=== PATIENT | male | born 1990 | race Caucasian/White ===

== ENCOUNTER 2017-11-07 15:44 | Observation (INO) | payer SELFPAY ==
[2017-11-07] MEDS ORDERED: NA CHLORIDE 0.9% 2,000 ML ONE (15:46)
[2017-11-07] MEDS ORDERED: PROMETHAZINE 25 MG/ML VIAL ONE (15:54)
[2017-11-07 16:16] LABS: Absolute Lymphocytes (CBC) 6.8 K/uL (0.7-4.9); Absolute Neutrophil 21.6 K/uL (1.8-8.0); Eosinophils % 0.4 % (0-4.4); Hematocrit 58.4 % (39.6-49.0); MCH 29.9 pg (27.0-35.0); MCV 87.6 fL (80-100); MPV 8.2 fL (7.6-11.3); Monocytes % 3.3 % (3.3-12.3); RBC Red Blood Cell Count 6.66 M/uL (4.33-5.43)
[2017-11-07] MEDS ORDERED: FENTANYL CITR 100 MCG/2 ML ONE (16:19)
[2017-11-07 16:31] LABS: Bicarbonate 21 mEq/L (21-31); Glucose Level 336 mg/dL (65-120); Lipase 69 U/L (22-51); Potassium 3.5 mEq/L (3.6-5.0); Sodium Level 134 mEq/L (135-145)
[2017-11-07 16:37] LABS: ALT/SGPT 156 IU/L (10-60); AST/SGOT 115 IU/L (10-42); Albumin 5.3 g/dL (3.2-5.5); Alkaline Phosphatase 106 IU/L (42-121); BUN Blood Urea Nitrogen 16 mg/dL (6-20); Bilirubin Direct 0.1 mg/dL (0-0.2); Bilirubin Total 0.7 mg/dL (0.3-1.2); Creatine Phosphokinase 132 IU/L (22-269); Protein, Total 9.5 g/dL (6.0-8.3)
[2017-11-07 16:45] LABS: Arterial Blood Carboxyhemoglob 1.3 % (0-1.5); Blood Gas Oxyhemoglobin 95.6 % (94-97)
[2017-11-07 16:48] LABS: Alcohol Serum/Plasma < 10 mg/dl
[2017-11-07 17:15] LABS: Blood Morphology Comment NOT SEEN (NOT SEEN); Platelet Estimate ADEQ
[2017-11-07] MEDS ORDERED: Ringers Lactate 1,000 ML IV ONE (17:15)
[2017-11-07] MEDS ORDERED: ONDANSETRON 4 MG/2 ML VIAL ONE (17:19)
--- NOTE | 2017-11-07 17:25 | ER ---
Nurse's Notes [facility] Name: Yaw Aldrich Jr Age: 27 yrs Sex: Male : 1990 Arrival Date: 11/07/2017 Time: 15:46 Bed 3 Private MD: None, None Diagnosis: Dehydration;Diabetes mellitus due to underlying condition with hyperglycemia;Heat exhaustion, unspecified Presentation: 11/07 15:46 Presenting complaint: Patient states: Pt was vomiting in the ER lobby bathroom brought sv back by Merline BRAXTON. 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 Pt stated that he passed out in the back of the car with the people that brought him here. Pt stated that he's been drinking water today, denies alcohol use. Transition of care: patient was not received from another setting of care. Onset of symptoms was November 07, 2017. Risk Assessment: Do you want to hurt yourself or someone else? Patient reports no desire to harm self or others. Initial Sepsis Screen: Does the patient meet any 2 criteria? RR > 20 per min. HR > 90 bpm. Yes Does the patient have a suspected source of infection? No. Patient's initial sepsis screen is negative. Care prior to arrival: None. 15:46 Method Of Arrival: Wheelchair sv 15:46 Acuity: SHEY 2 sv Triage Assessment: 15:46 General: Appears distressed, uncomfortable, obese, unkempt, Behavior is cooperative, sv restless. Pain: Complains of pain in "all over" Pain currently is 8 out of 10 on a pain scale. Quality of pain is described as crampy, Is intermittent. EENT: No signs and/or symptoms were reported regarding the EENT system. Neuro: Level of Consciousness is awake, alert, obeys commands, Oriented to person, place, time, situation, Moves all extremities. Full function Gait is steady, Speech is normal. Cardiovascular: Patient's skin is warm and dry. Pulses are 3+ in right radial artery and left radial artery. Respiratory: Respiratory effort is even, labored, Respiratory pattern is symmetrical, tachypnea. Derm: Skin is diaphoretic, Skin is flushed, Skin temperature is cool. Musculoskeletal: Range of motion: intact in all extremities. Historical: - Allergies: 15:58 ANTIHISTAMINES; sv 15:58 Benadryl; sv - Home Meds: 15:58 albuterol sulfate 90 mcg/actuation Inhl HFAA 2 puffs as needed [Active]; sv 17:51 metformin 1,000 mg Oral tab 1 tab 2 times per day [Active]; sv - PMHx: 15:58 Asthma; sv 17:52 Diabetes - NIDDM; sv - PSHx: 15:58 chest tube; Tonsillectomy; sv - Immunization history:: Adult Immunizations unknown. - Social history:: Smoking status: unknown. - Ebola Screening: : No symptoms or risks identified at this time. Screenin:02 Abuse screen: Denies threats or abuse. Denies injuries from another. Nutritional sv screening: No deficits noted. Tuberculosis screening: No symptoms or risk factors identified. Fall Risk None identified. Assessment: 16:04 Reassessment: Patient appears in no apparent distress at this time. Patient and/or sv family updated on plan of care and expected duration. Pain level reassessed. Patient is alert, oriented x 3, equal unlabored respirations, skin warm/dry/pink. General: Appears in no apparent distress. Behavior is calm, cooperative. Derm: Skin is clammy. 16:27 Reassessment: Patient and/or family updated on plan of care and expected duration. Pain sv level reassessed. Patient is alert, oriented x 3, equal unlabored respirations, skin warm/dry/pink. 17:37 Reassessment: Patient appears in no apparent distress at this time. Pt appears to be sv sleeping with eyes closed. Respirations even and unlabored. Fiance at the bedside. Reports that he stays at the [facility]. 18:05 Reassessment: Pt's fiance's phone #[phone]. sv 18:16 Reassessment: Patient appears in no apparent distress at this time. Pt appears to be sv sleeping at this time with eyes closed. Respirations even and unlabored. Will continue to monitor. 19:10 Reassessment: Patient appears in no apparent distress at this time. Patient and/or mg2 family updated on plan of care and expected duration. Pain level reassessed. patient received on bed with ongoing IVF. 19:35 Reassessment: report given to FOX Cervantes. mg2 Vital Signs: 15:41 BP 133 / 93; Pulse 111; Resp 32; Temp 97.8(O); Pulse Ox 99% on R/A; sv 16:05 Pulse 104; Resp 30; Pulse Ox 95% on R/A; sv 16:20 Pulse Ox 92% on R/A; sv 16:38 BP 120 / 68; Pulse 100; Resp 28; Pulse Ox 96% on 2 lpm NC; sv 17:36 BP 120 / 71; Pulse 108; Resp 26; Pulse Ox 95% on 2 lpm NC; sv 18:16 BP 120 / 69; Pulse 106; Resp 29; Pulse Ox 95% on 2 lpm NC; sv 18:56 BP 108 / 69; Pulse 105; Resp 28; Pulse Ox 95% on 2 lpm NC; sv 19:23 BP 120 / 67; mg2 16:20 Pt placed on O2 \\T\\ 2L per NC. sv ED Course: 15:46 Patient arrived in ED. sb2 15:46 None, None is Private Physician. sb2 15:47 Initial lab(s) drawn, by wv, sent to lab. Inserted saline lock: 18 gauge in right sv antecubital area, using aseptic technique. Blood collected. Flushed right antecubital with 5 ml normal saline. 15:48 phototypesetting equipment monitor on. Pulse ox on. NIBP on. sv 15:49 [facility] Badillo [facility]C [facility]. snw 15:49 Kar Mendes MD is Attending Physician. snw 15:52 Inserted saline lock: 18 gauge in left antecubital area, using aseptic technique. sv ,using aseptic technique. done by Harjinder trujillo Missed attempt(s): 18 gauge in left antecubital area. done by Harjinder trujillo. Bleeding controlled, band aid applied, catheter tip intact. 15:55 Brigid Celestin, FOX is Primary Nurse. sv 15:59 EKG done, by biomass technician. reviewed by Amberly DAVIS. sm3 16:01 Triage completed. sv 16:01 Arm band placed on right wrist. sv 16:02 Patient has correct armband on for positive identification. Bed in low position. Call light in reach. Side rails up X 1. 16:06 Basic Metabolic Panel Sent. sv 16:06 CBC with Diff Sent. sv 16:06 Hepatic Function Sent. sv 16:06 Lipase Sent. sv 16:06 ETOH Level Sent. sv 17:00 Initial lab(s) drawn, by me, sent to lab. First set of blood cultures drawn by me. sv 17:23 Gary Hwang MD is Hospitalizing Provider. snw 17:28 Radiology exam delayed due to per Amberly Badillo. kw1 17:38 IV is patent, is intact, with fluids infusing freely. sv 17:51 Awaiting bed assignment. sv 19:11 Primary Nurse role handed off by Brigid Celestin RN sv 19:11 Report given to Mio BRAXTON and Aniya BRAXTON. sv 19:12 Mio Galicia, FOX is Primary Nurse. mg2 19:58 No provider procedures requiring assistance completed. Patient admitted, IV remains in mg2 place. Administered Medications: 15:48 Drug: NS 0.9% 1000 ml Route: IV; Rate: 1 bolus; Site: right antecubital; sv 17:11 Follow up: Response: No adverse reaction; IV Status: Completed infusion; IV Intake: sv 1000ml 15:48 Drug: NS 0.9% 1000 ml Route: IV; Rate: 1 bolus; Site: right antecubital; sv 17:10 Follow up: Response: No adverse reaction; IV Status: Completed infusion; IV Intake: sv 1000ml 15:53 Drug: Phenergan 25 mg Route: IVP; Site: right antecubital; sv 16:26 Follow up: Response: No adverse reaction sv 16:10 Drug: fentaNYL (PF) 50 mcg Route: IVP; Site: right antecubital; sv 16:47 Follow up: Response: No adverse reaction sv 17:15 Drug: Lactated Ringers Solution 1000 ml Route: IV; Rate: 250 ml/hr; Site: right sv antecubital; 17:20 Drug: Zofran 8 mg Route: IVP; Site: right antecubital; sv 17:27 Follow up: Response: No adverse reaction sv 18:01 Drug: Insulin Regular Human 9 units {Co-Signature: andrew (Adrian Rand RN).} Route: Sub-Q; sv Site: right upper arm; 19:02 Follow up: Response: No adverse reaction sv Point of Care Testing: Blood Glucose: 15:58 Blood Glucose: 277 mg/dL; sv 17:53 Blood Glucose: 330 mg/dL; sv 19:23 Blood Glucose: 243 mg/dL; mg2 Ranges: Intake: 17:10 IV: 1000ml; Total: 1000ml. sv 17:11 IV: 1000ml; Total: 2000ml. sv Outcome: 17:24 Decision to Hospitalize by Provider. snw 19:57 Admitted to Med/surg accompanied by tech, via wheelchair, room 218, with chart, Report mg2 called to Nurse Helen 19:57 Condition: stable 19:57 Instructed on the need for admit, Demonstrated understanding of need for admission. 19:58 Patient left the ED. mg2 Signatures: Brigid Celestin, FOX RN sv Amberly Badlilo, CURATOR OF [employer]US[employer]IP[employer]-C CURATOR OF MANUSCRIPTS-Csnw Rebecca Quiroz kw1 Leeann Brownlee sb2 Mio Galicia RN RN mg2 Kerri Garcia 3 Adrian Rand RN sg Corrections: (The following items were deleted from the chart) 17:27 17:15 Zofran 8 mg IVP in right antecubital sv sv 17:46 17:[address] via wheelchair. kw1 kw1
--- NOTE | 2017-11-07 17:25 | EDPHYS ---
Physician Documentation [facility] Name: Yaw Aldrich Jr Age: 27 yrs Sex: Male : 1990 Arrival Date: 11/07/2017 Time: 15:46 Bed 3 Private MD: None, None ED Physician Kar Mendes HPI: 11/07 16:02 This 27 yrs old Male presents to ER via Wheelchair with complaints of Heat snw Exposure. 16:02 Working in the heat all day and pt started having cramps everywhere, + multiple snw episodes of vomiting, diarrhea, severe nausea, dehydration.. Onset: The symptoms/episode began/occurred suddenly. Severity of symptoms: At their worst the symptoms were moderate severe in the emergency department the symptoms are unchanged. It is unknown whether or not the patient has had similar symptoms in the past. It is unknown whether or not the patient has recently seen a physician. Historical: - Allergies: 15:58 ANTIHISTAMINES; sv 15:58 Benadryl; sv - Home Meds: 15:58 albuterol sulfate 90 mcg/actuation Inhl HFAA 2 puffs as needed [Active]; sv 17:51 metformin 1,000 mg Oral tab 1 tab 2 times per day [Active]; sv - PMHx: 15:58 Asthma; sv 17:52 Diabetes - NIDDM; sv - PSHx: 15:58 chest tube; Tonsillectomy; sv - Immunization history:: Adult Immunizations unknown. - Social history:: Smoking status: unknown. - Ebola Screening: : No symptoms or risks identified at this time. ROS: 16:01 Eyes: Negative for injury, pain, redness, and discharge, ENT: Negative for injury, snw pain, and discharge, Neck: Negative for injury, pain, and swelling, Cardiovascular: Negative for chest pain, palpitations, and edema, Respiratory: Negative for shortness of breath, cough, wheezing, and pleuritic chest pain, Back: Negative for injury and pain, : Negative for injury, bleeding, discharge, and swelling, Skin: Negative for injury, rash, and discoloration, Neuro: Negative for headache, weakness, numbness, tingling, and seizure. 16:01 Constitutional: Positive for body aches, malaise, poor PO intake. 16:01 Abdomen/GI: Positive for nausea, vomiting, and diarrhea, abdominal cramps. 16:01 MS/extremity: Positive for pain, of the all extremities. Exam: 15:58 Head/Face: Normocephalic, atraumatic. Eyes: Pupils equal round and reactive to light, snw extra-ocular motions intact. Lids and lashes normal. Conjunctiva and sclera are non-icteric and not injected. Cornea within normal limits. Periorbital areas with no swelling, redness, or edema. ENT: Nares patent. No nasal discharge, no septal abnormalities noted. Tympanic membranes are normal and external auditory canals are clear. Oropharynx with no redness, swelling, or masses, exudates, or evidence of obstruction, uvula midline. Mucous membranes moist. Neck: Trachea midline, no thyromegaly or masses palpated, and no cervical lymphadenopathy. Supple, full range of motion without nuchal rigidity, or vertebral point tenderness. No Meningismus. Chest/axilla: Normal chest wall appearance and motion. Nontender with no deformity. No lesions are appreciated. 15:58 Respiratory: Lungs have equal breath sounds bilaterally, clear to auscultation and percussion. No rales, rhonchi or wheezes noted. No increased work of breathing, no retractions or nasal flaring. Abdomen/GI: Soft, non-tender, with hyperactive bowel sounds. No distension or tympany. No guarding or rebound. No evidence of tenderness throughout. Vomiting on arrival to ER Back: No spinal tenderness. No costovertebral tenderness. Full range of motion. Skin: Warm, dry with normal turgor. Pasty color with no rashes, no lesions, and no evidence of cellulitis. MS/ Extremity: Pulses equal, no cyanosis. Neurovascular intact. Full, normal range of motion. Neuro: Awake and alert, GCS 15, oriented to person, place, time, and situation. Cranial nerves II-XII grossly intact. Motor strength 5/5 in all extremities. Sensory grossly intact. Cerebellar exam normal. Normal gait. 15:58 Constitutional: The patient appears awake, anxious, obese, restless, uncomfortable. 15:58 Cardiovascular: Rate: tachycardic, Rhythm: regular, Heart sounds: normal. Vital Signs: 15:41 BP 133 / 93; Pulse 111; Resp 32; Temp 97.8(O); Pulse Ox 99% on R/A; sv 16:05 Pulse 104; Resp 30; Pulse Ox 95% on R/A; sv 16:20 Pulse Ox 92% on R/A; sv 16:38 BP 120 / 68; Pulse 100; Resp 28; Pulse Ox 96% on 2 lpm NC; sv 17:36 BP 120 / 71; Pulse 108; Resp 26; Pulse Ox 95% on 2 lpm NC; sv 18:16 BP 120 / 69; Pulse 106; Resp 29; Pulse Ox 95% on 2 lpm NC; sv 18:56 BP 108 / 69; Pulse 105; Resp 28; Pulse Ox 95% on 2 lpm NC; sv 19:23 BP 120 / 67; mg2 16:20 Pt placed on O2 \T\ 2L per NC. sv MDM: 15:58 Patient medically screened. snw 17:22 Data reviewed: vital signs, nurses notes. Data interpreted: Pulse oximetry: on room air snw is 96 %. Interpretation: acceptable. Counseling: I had a detailed discussion with the patient and/or guardian regarding: the historical points, exam findings, and any diagnostic results supporting the discharge/admit diagnosis, lab results, the need for further work-up and treatment in the hospital. Physician consultation: Gary Hwang MD was called at 17:22, was contacted at 17:22, regarding admission, to the telemetry unit. and will see patient in ED. 11/07 15:51 Order name: Basic Metabolic Panel [facility] 11/07 15:51 Order name: CBC with Diff snw 11/07 15:51 Order name: Hepatic Function sn 11/07 15:51 Order name: Lipase [facility] 11/07 15:51 Order name: Urine Microscopic Only snw 11/07 15:51 Order name: ETOH Level snw 11/07 15:51 Order name: CPK; Complete Time: 17:06 snw 11/07 15:51 Order name: UDS; Complete Time: 10:08 snw 11/07 15:51 Order name: Basic Metabolic Panel; Complete Time: 17:06 EDMS 11/07 15:51 Order name: CBC with Automated Diff; Complete Time: 17:19 EDMS 11/07 15:51 Order name: Liver (Hepatic) Function; Complete Time: 17:06 EDMS 11/07 15:51 Order name: Lipase; Complete Time: 17:06 EDMS 11/07 15:52 Order name: Urine Microscopic Only; Complete Time: 10:08 EDMS 11/07 15:52 Order name: Alcohol Serum/Plasma; Complete Time: 17:06 EDMS 11/07 16:05 Order name: ABG; Complete Time: 17:06 snw 11/07 16:28 Order name: Manual Differential; Complete Time: 17:19 EDMS 11/07 16:40 Order name: EKG Electrocardiogram; Complete Time: 16:47 EDMS 11/07 17:06 Order name: Lactate; Complete Time: 10:08 snw 11/07 17:06 Order name: Blood Culture* snw 11/07 18:49 Order name: Glucose, Ancillary Testing; Complete Time: 10:08 EDMS 11/07 18:49 Order name: Glucose, Ancillary Testing; Complete Time: 10:08 EDMS 11/07 19:47 Order name: Urine Dipstick--Ancillary (enter results) ms 11/07 15:51 Order name: IV Saline Lock; Complete Time: 16:06 snw 11/07 15:51 Order name: Labs collected and sent; Complete Time: 16:06 snw 11/07 15:51 Order name: Urine Dipstick-Ancillary (obtain specimen); Complete Time: 19:39 snw 11/07 15:57 Order name: FSBS; Complete Time: 16:05 snw Administered Medications: 15:48 Drug: NS 0.9% 1000 ml Route: IV; Rate: 1 bolus; Site: right antecubital; sv 17:11 Follow up: Response: No adverse reaction; IV Status: Completed infusion; IV Intake: sv 1000ml 15:48 Drug: NS 0.9% 1000 ml Route: IV; Rate: 1 bolus; Site: right antecubital; sv 17:10 Follow up: Response: No adverse reaction; IV Status: Completed infusion; IV Intake: sv 1000ml 15:53 Drug: Phenergan 25 mg Route: IVP; Site: right antecubital; sv 16:26 Follow up: Response: No adverse reaction sv 16:10 Drug: fentaNYL (PF) 50 mcg Route: IVP; Site: right antecubital; sv 16:47 Follow up: Response: No adverse reaction sv 17:15 Drug: Lactated Ringers Solution 1000 ml Route: IV; Rate: 250 ml/hr; Site: right sv antecubital; 17:20 Drug: Zofran 8 mg Route: IVP; Site: right antecubital; sv 17:27 Follow up: Response: No adverse reaction sv 18:01 Drug: Insulin Regular Human 9 units {Co-Signature: sg (Adrian Rand RN).} Route: Sub-Q; sv Site: right upper arm; 19:02 Follow up: Response: No adverse reaction sv Point of Care Testing: Blood Glucose: 15:58 Blood Glucose: 277 mg/dL; sv 17:53 Blood Glucose: 330 mg/dL; sv 19:23 Blood Glucose: 243 mg/dL; mg2 Ranges: Critical Glucose Levels:Adult <50 mg/dl or >400 mg/dl <40 mg/dl or >180 mg/dl Disposition: 11/07/17 17:24 Hospitalization ordered by Gary Hwang for Inpatient Admission. Preliminary diagnosis are Dehydration, Diabetes mellitus due to underlying condition with hyperglycemia, Heat exhaustion, unspecified. - Bed requested for Telemetry/MedSurg (Inpatient). - Status is Inpatient Admission. mg2 - Condition is Fair. - Problem is new. - Symptoms are unchanged. UTI on Admission? No Addendum: 11/15/2017 11:37 Co-signature as Attending Physician, Kar Mendes MD. g s Signatures: Dispatcher [employer] Brigid Blakely RN RN sv Amberly Badillo, [employer]PER[employer] SUPERINTENDENT [employer]-Csnw Nan Le Gregory, MD MD gs Gardose, Michele, RN RN mg2 Adrian morales Corrections: (The following items were deleted from the chart) 11/07 18:32 17:24 Hospitalization Ordered by Gary Hwang MD for Inpatient Admission. Preliminary ag diagnosis is Dehydration; Diabetes mellitus due to underlying condition with hyperglycemia; Heat exhaustion, unspecified. Bed requested for Telemetry/MedSurg (Inpatient). Status is Inpatient Admission. Condition is Fair. Problem is new. Symptoms are unchanged. UTI on Admission? No. snw 19:58 18:32 11/07/2017 17:24 Hospitalization Ordered by Gary Hwang MD for Inpatient mg2 Admission. Preliminary diagnosis is Dehydration; Diabetes mellitus due to underlying condition with hyperglycemia; Heat exhaustion, unspecified. Bed requested for Telemetry/MedSurg (Inpatient). Status is Inpatient Admission. Condition is Fair. Problem is new. Symptoms are unchanged. UTI on Admission? No. ag
--- NOTE | 2017-11-07 17:58 | P.HP ---
Certification for Inpatient Patient admitted to: Observation With expected LOS: <2 Midnights Practitioner: I am a practitioner with admitting privileges, knowledge of patient current condition, hospital course, and medical plan of care. Services: Services provided to patient in accordance with Admission requirements found in Title 42 Section 412.3 of the Code of Federal Regulations Patient History Date of Service: 11/07/17 Reason for admission: dehydration History of Present Illness: Mr Aldrich is a 27 years old male with history of DM II, intermitent asthma, who present to ED after have a syncopal episode. 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 About 1:00 PM he start feeling weak , nauseated and subsequetly vomiting and diarrhea. He was also complaining of body cramps. Then the patient passed out and was brought to ED. At arrival the patient continue vomiting and having cramps. He denied chest pain, SOB. He states that did not drink alcohol recently. In ED lab work remarkable for leukocytosis, marked elevation of Hct and hgb consitent with volume depletion. Also elevated BUN and creatinin. Transaminases are elevated, but similar to previous admission. No fever. Allergies diphenhydramine [From Benadryl] Allergy (Unverified 01/08/16 19:58) Unknown antihistamines Allergy (Uncoded 01/22/15 04:49) Hives/Rash - Past Medical/Surgical History -: Asthma -: DM II -: chest tube placement -: tonsillectomy - Family History Family History: Reviewed- Non-Contributory - Social History Smoking Status: Current every day smoker Counseled patient to stop smoking for: less than 10 minutes Alcohol use: Yes Place of Residence: Home Review of Systems 10-point ROS is otherwise unremarkable Physical Examination - Physical Exam General: Alert, In no apparent distress HEENT: Atraumatic, PERRLA, Mucous membr. moist/pink, EOMI, Sclerae nonicteric Neck: Supple, 2+ carotid pulse no bruit, No LAD, Without JVD or thyroid abnormality Respiratory: Clear to auscultation bilaterally, Normal air movement Cardiovascular: Regular rate/rhythm, Normal S1 S2 Gastrointestinal: Normal bowel sounds, No tenderness Musculoskeletal: Tenderness (muscle ache) Integumentary: No rashes Neurological: Normal speech, Normal strength at 5/5 x4 extr, Normal tone, Normal affect, Abnormal tone Lymphatics: No axilla or inguinal lymphadenopathy - Studies Laboratory Data (last 24 hrs) 11/07/17 15:47: WBC 29.8 H*, Hgb 19.9 H, Hct 58.4 H, Plt Count 421 H 11/07/17 15:47: Sodium 134 L, Potassium 3.5 L, BUN 16, Creatinine 1.78 H, Glucose 336 H, Total Bilirubin 0.7, AST 115 H, ALT 156 H, Alkaline Phosphatase 106, Lipase 69 H Assessment and Plan - Problems (Diagnosis) (1) Volume depletion Current Visit: Yes Status: Acute (2) Acute renal injury Current Visit: Yes Status: Acute (3) Transaminitis Current Visit: Yes Status: Acute (4) Nausea and vomiting Current Visit: Yes Status: Acute Qualifiers: Vomiting type: unspecified Vomiting Intractability: non-intractable Qualified Code(s): R11.2 - Nausea with vomiting, unspecified - Plan #1 Volume depletion: Will continue aggressive NS infusion. He came tachycardic. After a couple of liters of NS and LR, HR has decreased but still remain in the 100's bpm. #2 DM II: the patient is on Metformin at home. Will hold this medication and start SSI, Will check HgbA1C, last year was about 12.7%. If is still elevated, he will benefit from insulin therapy. #3 acute renal injury: due to volume depletion. Continue IV fluids. #4 Transaminitis: this might be chronic, or possible early shock liver. Will repeat in AM. Will check hepatitis panel as well. - Advance Directives Does patient have a Living Will: No Does patient have a Durable POA for Healthcare: No - Code Status/Comfort Care Code Status Assessed: Yes Code Status: Full Code
[2017-11-07] MEDS ORDERED: INSULIN -REGULAR HUMAN 50 UNIT/0.5 ML ML ONE (18:01)
[2017-11-07 19:55] LABS: Barbiturates NEGATIVE (NEGATIVE); Benzodiazepines NEGATIVE (NEGATIVE); Cocaine NEGATIVE (NEGATIVE); METHAMPHETAM NEGATIVE (NEGATIVE); Opiates NEGATIVE (NEGATIVE); Phencyclidine NEGATIVE (NEGATIVE); THC Cannibis POSITIVE (NEGATIVE)
[2017-11-07 20:11] LABS: Urine Bacteria <20 /HPF (NONE SEEN); Urine Culture Reflex Order NOT NEEDED; Urine Mucus 2+ /HPF (NONE SEEN); Urine RBC <5 /HPF (NONE SEEN)
[2017-11-07 20:47] VITALS: BMI 35.9
[2017-11-07] MEDS: INSULIN -REGULAR HUMAN 50 UNIT/0.5 ML ML SQ SCH (21:00)
[2017-11-07] MEDS: ONDANSETRON 4 MG/2 ML VIAL IV PRN (21:38)
[2017-11-07] MEDS: NA CHLORIDE 0.9% 1,000 ML IV SCH (21:39)
[2017-11-07] MEDS: ACETAMINOPHEN 500 MG TAB PO PRN (21:49)
[2017-11-07 21:55] LABS: Urine Appearance CLEAR; Urine Bilirubin NEGATIVE (NEG); Urine Blood NEGATIVE (NEG); Urine Color YELLOW; Urine Glucose 3+ (NEG); Urine Protein NEGATIVE (NEG); Urine Specific Gravity 1.025 (1.005-1.030); Urine Urobilinogen 0.2 mg/dL (0.2-1.0)
[2017-11-07 22:03] LABS: Urine Microscopic Reflex NO UMIC
[2017-11-08] MEDS: NA CHLORIDE 0.9% 1,000 ML IV SCH ×2 (02:43→08:28)
[2017-11-08 05:24] LABS: Absolute Lymphocytes (CBC) 2.4 K/uL (0.7-4.9); Absolute Monocytes 0.7 K/uL (0.1-1.3); Absolute Neutrophil 8.7 K/uL (1.8-8.0); Basophils % 0.4 % (0-1.3); Eosinophils % 1.9 % (0-4.4); Hematocrit 43.6 % (39.6-49.0); Lymphocytes % 19.7 % (15.3-44.8); MCH 29.7 pg (27.0-35.0); MCV 87.2 fL (80-100); MPV 7.8 fL (7.6-11.3); Monocytes % 5.7 % (3.3-12.3)
[2017-11-08 05:56] LABS: ALT/SGPT 96 IU/L (10-60); AST/SGOT 51 IU/L (10-42); Albumin 3.3 g/dL (3.2-5.5); Alkaline Phosphatase 57 IU/L (42-121); BUN Blood Urea Nitrogen 14 mg/dL (6-20); Bicarbonate 26 mEq/L (21-31); Glucose Level 143 mg/dL (65-120); Magnesium 1.7 mg/dL (1.8-2.5); Potassium 3.6 mEq/L (3.6-5.0); Protein, Total 5.9 g/dL (6.0-8.3); Sodium Level 137 mEq/L (135-145)
[2017-11-08] MEDS ORDERED: MAGNESIUM SULFATE 1 gm IVPB 1 GM/100 ML BAG IV ONE (06:17)
[2017-11-08 06:42] VITALS: O2SAT 100
--- NOTE | 2017-11-08 07:21 | EKG ---
Test Date: 2017-11-07 Test Time: 15:50:05 Customer Care Team Coach: SAVANAH MEASUREMENT RESULTS: Intervals: Rate: 113 VT: 150 QRSD: 84 QT: 318 QTc: 436 [place]: P: 33 VT: 150 QRS: 59 T: -8 INTERPRETIVE STATEMENTS: Sinus tachycardia Cannot rule out Inferior infarct, age undetermined Abnormal ECG Compared to ECG 01/27/2017 03:05:52 Myocardial infarct finding now present Electronically Signed On 11-08-17 07:19:46 CDT by Diego Forman
[2017-11-08] MEDS: INSULIN -REGULAR HUMAN 50 UNIT/0.5 ML ML SQ SCH ×2 (08:27→11:31)
[2017-11-08] MEDS: ACETAMINOPHEN 500 MG TAB PO PRN ×2 (08:28→13:22)
[2017-11-08 08:52] LABS: A1c Component 1.34 mg/dL; Hemoglobin A1c 10.2 % (4-6.0)
[2017-11-08] MEDS ORDERED: ENOXAPARIN 40 MG/0.4 ML SQ SCH (09:00)
[2017-11-08] MEDS ORDERED: POTASSIUM CL SA 10 MEQ TAB PO ONE (09:00)
[2017-11-08] MEDS: ONDANSETRON 4 MG/2 ML VIAL IV PRN (10:50)
[2017-11-08 13:01] VITALS: BP 111/64; TEMP 97.9
--- NOTE | 2017-11-08 16:42 | P.DS ---
Admission Date: 11/07/17 Discharge Date: 11/08/17 Disposition: ROUTINE DISCHARGE Discharge Condition: FAIR Reason for Admission: dehydration - Problems (1) Acute renal injury Onset Date: 11/08/17 Status: Acute (2) Volume depletion Onset Date: 11/08/17 Status: Acute Brief History of Present Illness: Mr Aldrich is a 27 years old male with history of DM II, intermitent asthma, who present to ED after have a syncopal episode. 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 About 1:00 PM he start feeling weak , nauseated and subsequetly vomiting and diarrhea. He was also complaining of body cramps. Then the patient passed out and was brought to ED. At arrival the patient continue vomiting and having cramps. He denied chest pain, SOB. He states that did not drink alcohol recently. In ED lab work remarkable for leukocytosis, marked elevation of Hct and hgb consitent with volume depletion. Hospital Course: He was treated with IVF repalcement with normalized rnal function. He feels much better. Vital Signs/Physical Exam: Temp Pulse Resp BP Pulse Ox 97.9 F 82 16 111/64 97 11/08/17 12:00 11/08/17 12:00 11/08/17 12:00 11/08/17 12:00 11/08/17 12:00 General: Alert, In no apparent distress HEENT: Atraumatic, PERRLA, EOMI Neck: Supple, JVD not distended Respiratory: Clear to auscultation bilaterally, Normal air movement Cardiovascular: Regular rate/rhythm, Normal S1 S2 Gastrointestinal: Normal bowel sounds, No tenderness Musculoskeletal: No tenderness Integumentary: No rashes Neurological: Normal speech, Normal tone, Normal affect Lymphatics: No axilla or inguinal lymphadenopathy Laboratory Data at Discharge: WBC 12.0 K/uL (4.3-10.9) H D 11/08/17 04:48 Hgb 14.9 g/dL (13.6-17.9) D 11/08/17 04:48 Hct 43.6 % (39.6-49.0) D 11/08/17 04:48 Plt Count 202 K/uL (152-406) D 11/08/17 04:48 Sodium 137 mEq/L (135-145) 11/08/17 04:48 Potassium 3.6 mEq/L (3.6-5.0) 11/08/17 04:48 BUN 14 mg/dL (6-20) 11/08/17 04:48 Creatinine 0.70 mg/dL (0.61-1.24) D 11/08/17 04:48 Glucose 143 mg/dL (65-120) H 11/08/17 04:48 Magnesium 1.7 mg/dL (1.8-2.5) L 11/08/17 04:48 Total Bilirubin 1.0 mg/dL (0.3-1.2) 11/08/17 04:48 AST 51 IU/L (10-42) H 11/08/17 04:48 ALT 96 IU/L (10-60) H 11/08/17 04:48 Alkaline Phosphatase 57 IU/L (42-121) 11/08/17 04:48 Lipase 69 U/L (22-51) H 11/07/17 15:47 Home Medications: Albuterol Inhaler [Ventolin Inhaler*] 2 puff IH Q6H PRN 11/07/17 Enoxaparin Sodium [Lovenox 30 MG INJ*] 30 mg SQ DAILY syr 11/08/17 Insulin -Regular Human [Novolin -R*] See Protocol SQ ACHS ml 11/08/17 Ondansetron [Zofran*] 4 mg IV Q6HP PRN vial 11/08/17 Diet: ADA Activity: Ad thais Time spent managing pt's care (in minutes): 25
[2017-11-09] MEDS ORDERED: ENOXAPARIN 30 MG/0.3 ML SQ SCH (09:00)
[2017-11-12 03:00] LABS: HBsAG Nonreactive (Nonreactive); Hepatitis A IgM Antibody Nonreactive
== END 2017-11-08 14:48 | disposition home or self-care (01) ==
LOC: ER 15:44 → ERHOLD 17:36 → INTOOBSV 17:36 → 2ND 19:37
PROVIDERS: ADMIT Internal Medicine; ATTEND Internal Medicine
DX: N17.9 Acute kidney failure, unspecified (principal); E86.9 Volume depletion, unspecified; E11.9 Type 2 diabetes mellitus without complications; J45.909 Unspecified asthma, uncomplicated
CPT/HCPCS: 36415; 80048; 80053; 80074; 80076; 80307; 80320; 81003; 81015; 82550; 82805; 82962; 83036; 83605; 83690; 83735; 85025; 87040; 87205; 93005; 94760; 96361; 96372; 96374; 96375; 99285; G0378; J1650; J2405; J2550; J3010; J3475; J7030

== ENCOUNTER 2018-10-21 09:20 | Emergency (ER) | payer SELFPAY ==
--- OUTSIDE RECORDS SUMMARY | 2018-10-21 09:27 | XMS REPORT | Continuity of Care Document ---
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 vaccine Deltoid [facility] Results Order Name Results Value Reference Date Interpretation Comments Source Range Chest 1view Chest 1view EXAM: XR CHEST 1 VIEW 01/19 - [facility] DX - [facility] DATE: 01/20/2016 3:00 AM CDT Read by: Eagle Coronel MD Dictated Date/time: 01/20/16 09:06 Electronically Signed by: Eagle Coronel MD 01/20/16 09:08 FINAL REPORT INDICATION: Abnormal chest sounds COMPARISON: 01/19/2016 at 2143. TECHNIQUE: AP chest FINDINGS: Lines and tubes: None. Lungs and pleura: Small right pleural effusion with lateral tracking to the apex. Ill-defined diffuse airspace opacities in the right lung, which may be due to subsegmental atelectasis, asymmetric edema, or pneumonia. The left lung remains clear. No pneumothorax given the limitation of a semiupright exam. Heart and mediastinum: Stable mediastinal contours. IMPRESSION: Stable findings of right pleural effusion and ill-defined right lung airspace opacity. CHEM PANEL Magnesium Lvl 1.9 mg/dL 1.8 - 2.4 01/19 [facility] CHEM PANEL Phosphorus 2.9 mg/dL 2.5 - 4.5 01/19 [facility]2015 [facility] ELECTROLYTE AGAP 14.1 meq/L 10.0 - 01/19 [facility] 20.0 [facility] ELECTROLYTE eGFR 139 01/19 Result Comment: The eGFR is calculated using the CKD-EPI formula. In most young, healthy individuals the eGFR will be > 90 mL/min/1.73m2. The eGFR declines with age. An eGFR of 60-89 may be normal in [facility] mL/min/1.7 some populations, particularly the elderly, for whom the CKD-EPI formula has not been extensively validated. Use of the eGFR is not recommended in the following populations: [address] Individuals with unstable creatinine concentrations, including patients and those with serious co-morbid conditions. Patients with extremes in muscle mass or diet. The data above are obtained from the National Kidney Disease Education Program (NKDEP) which additionally recommends that when the eGFR is used in patients with extremes of body mass index for purposes of drug dosing, the eGFR should be multiplied by the estimated BMI. ELECTROLYTE Creatinine 0.63 mg/dL 0.50 - 01/19 [facility] Lvl 1.40 [facility] ELECTROLYTE BUN 13 mg/dL 7 - 22 01/19 [facility]2015 [facility] ELECTROLYTE Potassium Lvl 4.1 meq/L 3.5 - 5.1 01/[address] ELECTROLYTE Sodium Lvl 136 meq/L 135 - 145 01/19 [facility]2015 [facility] ELECTROLYTE Chloride Lvl 103 meq/L 95 - 109 01/19 [facility] 2015 [facility] ELECTROLYTE Glucose Lvl 107 mg/dL 70 - 99 01/[address] ELECTROLYTE Calcium Lvl 8.0 mg/dL 8.5 - 10.5 01/19 [facility]2015 [facility] ELECTROLYTE CO2 23 meq/L 24 - 32 01/19 [facility]2015 [facility] HEMATOLOGY Basophils 0.3 % 0.0 - 1.0 01/[address] HEMATOLOGY Eosinophils 2.3 % 0.0 - 4.0 01/19 [facility]2015 [facility] HEMATOLOGY Monocytes 6.7 % 2.0 - 12.0 01/[address] HEMATOLOGY Lymphocytes 15.2 % 20.0 - 01/19 [place] 40.0 /2015 [facility] HEMATOLOGY Segs 75.5 % 45.0 - 01/19 75.0 [facility] HEMATOLOGY Monocytes # 0.8 K/CMM 0.0 - 0.8 01/19 [facility] HEMATOLOGY Eosinophils # 0.3 K/CMM 0.0 - 0.5 01/19 [facility] HEMATOLOGY Lymphocytes # 1.9 K/CMM 1.0 - 5.5 01/19 [facility] HEMATOLOGY Segs-Bands # 9.4 K/CMM 1.5 - 8.1 01/19 [facility] HEMATOLOGY MPV 8.7 fL 7.4 - 10.4 01/19 [facility] HEMATOLOGY RDW 13.5 % 11.5 - 01/19 14.5 [facility] HEMATOLOGY MCH 28.3 pg 27.0 - 01/19 31.0 [facility] HEMATOLOGY Platelet 305 K/CMM 133 - 450 01/19 [facility] HEMATOLOGY MCHC 33.4 g/dL 32.0 - 01/19 [place] 36.0 [facility] HEMATOLOGY MCV 84.6 fL 80.0 - 01/19 [place] 94.0 [facility] HEMATOLOGY Hgb 9.2 g/dL 14.0 - 01/19 [place] 18.0 [facility] HEMATOLOGY Hct 27.7 % 42.0 - 01/19 [place] 54.0 [facility] HEMATOLOGY RBC 3.27 M/CMM 4.70 - 01/19 [place] 6.10 [facility] HEMATOLOGY WBC 12.5 K/CMM 3.7 - 10.4 01/19 [facility] PARATHYROID Ca Ion WB 1.08 1.05 - 01/19 [facility] PROFILE mMol/L 1. [facility] PARATHYROID Ca Norm WB 1.10 1. - 01/19 [facility] PROFILE mMol/L . [facility] Chest 1view Chest 1view EXAM: XR CHEST 1 VIEW 01/18 - [facility] DX DX /2015 [facility] DATE: 01/19/2016 9:00 PM CDT Read by: Eagle Coronel MD Dictated Date/time: 01/20/16 09:26 Electronically Signed by: Eagle Coronel MD 01/20/16 09:27 FINAL REPORT INDICATION: Tube placement/removal/reposition COMPARISON: 01/19/2016 at 0036. TECHNIQUE: AP chest FINDINGS: Lines and tubes: Previous right chest tube was removed. Lungs and pleura: Small right pleural effusion with lateral tracking to the apex. Ill-defined diffuse airspace opacities in the right lung, which may be due to subsegmental atelectasis, asymmetric edema, or pneumonia. The left lung remains clear. No pneumothorax given the limitation of a semiupright exam. Heart and mediastinum: Stable mediastinal contours. IMPRESSION: Previous right chest tube was removed. Small right effusion again present. Asymmetric right lung opacities are again present. HEMATOLOGY Anti-Xa Low 0.09 01/18 [facility] [iU]/mL /2015 [facility] CHEM PANEL Magnesium Lvl 1.9 mg/dL 1.8 - 2.4 01/[address] CHEM PANEL Phosphorus 3.8 mg/dL 2.5 - 4.5 01/[address] ELECTROLYTE AGAP 12.1 meq/L 10.0 - 01/18 [facility] 20.0 [facility] ELECTROLYTE Calcium Lvl 7.8 mg/dL 8.5 - 10.5 01/[address] ELECTROLYTE CO2 29 meq/L 24 - 32 01/[address] ELECTROLYTE Glucose Lvl 94 mg/dL 70 - 99 01/[address] ELECTROLYTE Potassium Lvl 4.1 meq/L 3.5 - 5.1 01/[address] ELECTROLYTE Sodium Lvl 139 meq/L 135 - 145 01/[address] ELECTROLYTE Creatinine 0.53 mg/dL 0.50 - 01/18 [facility] Lvl 1.40 /2015 [facility] ELECTROLYTE BUN 14 mg/dL 7 - 22 01/[address] ELECTROLYTE Chloride Lvl 102 meq/L 95 - 109 01/[address] ELECTROLYTE eGFR 149 01/18 Result Comment: The eGFR is calculated using the CKD-EPI formula. In most young, healthy individuals the eGFR will be > 90 mL/min/1.73m2. The eGFR declines with age. An eGFR of 60-89 may be normal in [facility] [place] [facility] mL/min/1.7 some populations, particularly the elderly, for whom the CKD-EPI formula has not been extensively validated. Use of the eGFR is not recommended in the following populations: [address] Individuals with unstable creatinine concentrations, including patients and those with serious co-morbid conditions. Patients with extremes in muscle mass or diet. The data above are obtained from the National Kidney Disease Education Program (NKDEP) which additionally recommends that when the eGFR is used in patients with extremes of body mass index for purposes of drug dosing, the eGFR should be multiplied by the estimated BMI. HEMATOLOGY Lymphocytes # 2.2 K/CMM 1.0 - 5.5 01/18 [facility] HEMATOLOGY Segs-Bands # 8.5 K/CMM 1.5 - 8.1 01/18 [facility]2015 [facility] HEMATOLOGY Eosinophils 3.1 % 0.0 - 4.0 01/18 [facility]2015 [facility] HEMATOLOGY Basophils 1.1 % 0.0 - 1.0 01/18 [facility]2015 [facility] HEMATOLOGY Basophils # 0.1 K/CMM 0.0 - 0.2 01/18 [facility] HEMATOLOGY Eosinophils # 0.4 K/CMM 0.0 - 0.5 01/18 [facility]2015 [facility] HEMATOLOGY Monocytes # 0.8 K/CMM 0.0 - 0.8 01/18 2015 [facility] HEMATOLOGY Monocytes 6.4 % 2.0 - 12.0 01/[address] HEMATOLOGY Segs 70.9 % 45.0 - 01/18 [place] 75.0 [facility] HEMATOLOGY Lymphocytes 18.5 % 20.0 - 01/18 [place] 40.0 [facility] HEMATOLOGY Platelet 257 K/CMM 133 - 450 01/18 [facility] HEMATOLOGY MPV 8.9 fL 7.4 - 10.4 01/18 [facility] HEMATOLOGY MCHC 32.9 g/dL 32.0 - 01/18 [place] 36.0 [facility] HEMATOLOGY RDW 13.6 % 11.5 - 01/18 [place] 14.5 [facility] HEMATOLOGY MCV 85.1 fL 80.0 - 01/18 [place] 94.0 [facility] HEMATOLOGY MCH 28.0 pg 27.0 - 01/18 [facility] [place] 31.0 [facility] HEMATOLOGY Hct 26.7 % 42.0 - 01/18 [facility] 54.0 /2016 [facility] HEMATOLOGY RBC 3.14 M/CMM 4.70 - 01/18 [facility] 6.10 /2015 [facility] HEMATOLOGY Hgb 8.8 g/dL 14.0 - 01/18 [facility] 18.0 [facility] HEMATOLOGY WBC 12.0 K/CMM 3.7 - 10.4 01/18 /2015 [facility] PARATHYROID Ca Ion WB 1.12 1.05 - 01/18 [facility] PROFILE mMol/L 1. [facility] PARATHYROID Ca Norm WB 1.12 1.05 - 01/18 [facility] PROFILE mMol/L 1. [facility] Chest 1view Chest 1view EXAM: XR CHEST 1 VIEW 01/18 - [facility] DX - [facility] This report was dictated by a Application Architect Manager/Fellow. I have personally reviewed the images as Center well as the Resident's interpretation and agree with the findings. DATE: 01/19/2016 12:01 AM CDT Read by: Willian Bonds (Fellow ) Resident: Willian Bonds (Fellow) Dictated Date/time: 01/19/16 09:29 Electronically Signed by: Fanny Lewis MD 01/19/16 09:50 FINAL REPORT INDICATION: Abnormal chest sounds COMPARISON: 01/18/2016 at 2135 FINDINGS: Right thoracostomy tube with tip near the right apex remains. The cardiomediastinal silhouette is unremarkable. Within limitations of semierect positioning, no pneumothorax is identified. Small to moder ate pleural effusion on the right tracking along the lateral right chest wall to the apex remains. A component of loculation is not excluded. Airspace opacity partially obscures the right hemidiaphragm. IMPRESSION: 1. Stable right thoracostomy tube. 2. Small to moderate right pleural effusion tracks along the lateral right chest wall. A component of loculation not excluded. 3. Atelectasis versus pneumonia right lung base. Chest 1view Chest 1view EXAM: XR CHEST 1 VIEW 01/17 [facility] DX - [facility] This report was dictated by a Application Architect Manager/Fellow. I have personally reviewed the images as Center well as the Resident's interpretation and agree with the findings. DATE: 01/18/2016 9:47 PM CDT Read by: Willian Bonds (Fellow ) Resident: Willian Bonds (Fellow) Dictated Date/time: 01/19/16 09:11 Electronically Signed by: Fanny Lewis MD 01/19/16 09:50 FINAL REPORT INDICATION: Respiratory distress COMPARISON: 01/12/2016 and 01/18/2016 at 2135 FINDINGS: Right thoracostomy tube with tip near the apex remains. Small to moderate right pleural effusion tracking along the lateral right chest wall to the apex is again noted. Loculation is not excluded. Withi n limitations of semierect positioning, no definite pneumothorax is identified. Airspace opacity is present in the right lung base with partial obscuration of the right hemidiaphragm. Left lung is clear. Cardiac silhouette is stable. IMPRESSION: 1. Stable right thoracostomy tube. 2. Stable small to moderate right pleural effusion tracking along the lateral right chest wall. A component of loculation not excluded. 3. Superimposed atelectasis and/or pneumonia right lung base. Chest 1view Chest 1view EXAM: XR CHEST 1 VIEW 01/17 - [facility] DX DX /2015 [facility] DATE: 01/18/2016 1:30 PM CDT Read by: Eagle Coronel MD Dictated Date/time: 01/18/16 17:23 Electronically Signed by: Eagle Coronel MD 01/18/16 17:24 FINAL REPORT INDICATION: Abnormal chest sounds COMPARISON: 01/18/2016 at 0140. TECHNIQUE: AP chest FINDINGS: Lines and tubes: Right chest tube with its tip at the apex. Lungs and pleura: Small to moderate right effusion. Ill-defined opacity in the right lung, which may be from compressive subsegmental atelectasis, asymmetric edema, or infection. No pneumothorax. Heart and mediastinum: Stable mediastinal contours. IMPRESSION: 1. No significant changes. CHEM PANEL eGFR 147 01/17 Result Comment: The eGFR is calculated using the CKD-EPI formula. In most young, healthy individuals the eGFR will be >90 mL/ min/1.73m2. The eGFR declines with age. An eGFR of 60-89 may be normal in [facility] mL/min/1. /2015 some populations, particularly the elderly, for whom the CKD-EPI formula has not been extensively validated. Use of the eGFR is not recommended in the following populations: [address] Individuals with unstable creatinine concentrations, including patients and those with serious co-morbid conditions. Patients with extremes in muscle mass or diet. The data above are obtained from the National Kidney Disease Education Program (NKDEP) which additionally recommends that when the eGFR is used in patients with extremes of body mass index for purposes of drug dosing, the eGFR should be multiplied by the estimated BMI. CHEM PANEL Glucose Lvl 169 mg/dL 70 - 99 01/17 [facility] CHEM PANEL BUN 18 mg/dL 7 - 22 01/17 2015 [facility] CHEM PANEL Creatinine 0.55 mg/dL 0.50 - 01/17 [facility] Lvl 1.40 [facility] CHEM PANEL Potassium Lvl 4.4 meq/L 3.5 - 5.1 01/17 2015 [facility] CHEM PANEL Sodium Lvl 146 meq/L 135 - 145 01/17 2015 [facility] CHEM PANEL Calcium Lvl 7.7 mg/dL 8.5 - 10.5 01/17 [facility] CHEM PANEL Chloride Lvl 111 meq/L 95 - 109 01/17 2015 [facility] CHEM PANEL CO2 27 meq/L 24 - 32 01/17 2015 [facility] CHEM PANEL AGAP 12.4 meq/L 10.0 - 01/17 [facility] 20.0 [facility] CHEM PANEL Magnesium Lvl 2.2 mg/dL 1.8 - 2.4 01/17 2015 [facility] CHEM PANEL Phosphorus 2.9 mg/dL 2.5 - 4.5 01/17 [facility] HEMATOLOGY Plt Morph Normal 01/17 [facility] (01/18/16 12:20 AM) [place] HEMATOLOGY RBC Morph Normal 01/17 [facility] (01/18/16 12:20 AM) [place] HEMATOLOGY Lymphocytes 15.5 % 20.0 - 01/17 40.0 [facility] HEMATOLOGY Segs 71.9 % 45.0 - 01/17 [facility] 75.0 [facility] HEMATOLOGY Monocytes 11.2 % 2.0 - 12.0 01/17 2015 [facility] HEMATOLOGY Segs-Bands # 6.9 K/CMM 1.5 - 8.1 01/17 [facility] HEMATOLOGY Basophils 0.4 % 0.0 - 1.0 01/17 [facility] HEMATOLOGY Lymphocytes # 1.5 K/CMM 1.0 - 5.5 01/17 [facility] HEMATOLOGY Eosinophils 1.0 % 0.0 - 4.0 01/17 [facility] HEMATOLOGY Eosinophils # 0.1 K/CMM 0.0 - 0.5 01/17 [facility] HEMATOLOGY Monocytes # 1.1 K/CMM 0.0 - 0.8 01/17 [facility] HEMATOLOGY Anti-Xa Low 0.04 01/17 [facility] Molecular [iU]/mL [facility] Heparin [place] HEMATOLOGY Platelet 238 K/CMM 133 - 450 01/17 [facility] HEMATOLOGY RDW 13.8 % 11.5 - 01/17 [facility] 14.5 [facility] HEMATOLOGY WBC 9.6 K/CMM 3.7 - 10.4 01/17 [facility] HEMATOLOGY MPV 8.5 fL 7.4 - 10.4 01/17 [facility] HEMATOLOGY MCV 84.4 fL 80.0 - 01/17 [place] 94.0 [facility] HEMATOLOGY MCHC 33.6 g/dL 32.0 - 01/17 [facility] 36.0 [facility] HEMATOLOGY MCH 28.3 pg 27.0 - 01/17 [facility] 31.0 [facility] HEMATOLOGY Hct 25.9 % 42.0 - 01/17 [facility] 54.0 [facility] HEMATOLOGY Hgb 8.7 g/dL 14.0 - 01/17 [facility] 18.0 [facility] HEMATOLOGY RBC 3.07 M/CMM 4.70 - 01/17 [place] 6.10 [facility] PARATHYROID Ca Norm WB 1.13 1.05 - 01/17 [facility] PROFILE mMol/L 1. [facility] PARATHYROID Ca Ion WB 1.08 1.05 - 01/17 [facility] PROFILE mMol/L 1. [facility] Chest 1view Chest 1view EXAM: XR CHEST 1 VIEW 01/17 - [facility] DX DX /2015 - [facility] DATE: 01/18/2016 3:00 AM CDT Read by: Lulu Walker MD Dictated Date/time: 01/18/16 08:50 Electronically Signed by: Lulu Walker MD 01/18/16 12:00 FINAL REPORT INDICATION: Abnormal chest sounds. FINDINGS: Comparison is made to yesterday. The cardiomediastinal silhouette is stable. Life support lines and tubes remain in place. A right pleural effusion extends from the apex down laterally to the base. The left costophrenic sulcus is clear. The right lung is diminished in volume with scattered subsegmental atelectasis. There is a right retrocardiac opacity which may be due to a layering right pleural effusion and/or airspace opacity such a s pneumonia or atelectasis. The left lung is clear. IMPRESSION: No significant change from yesterday morning. HEMATOLOGY Basophils # 0.1 K/CMM 0.0 - 0.2 01/16 [facility]2015 [facility] Chest 1view Chest 1view EXAM: XR CHEST 1 VIEW 01/16 [facility]2015 [facility] DATE: 01/17/2016 6:39 AM CDT Read by: Lulu Walker MD Dictated Date/time: 01/17/16 08:48 Electronically Signed by: Lulu Walker MD 01/17/16 10:09 FINAL REPORT INDICATION: Tube placement/removal/reposition. FINDINGS: Comparison is made to last night. The cardiomediastinal silhouette is stable. Life support lines and tubes remain in place. A right pleural effusion extends from the apex down laterally to the base. There are patchy right middle lobe and right lower lobe opacities which could be due to atelectasis and/or pneumonia. There is platelike atelectasis in the left lung base. IMPRESSION: No significant change from last night. Chest 1view Chest 1view EXAM: XR CHEST 1 VIEW 01/15 [facility]2015 [facility] DATE: 01/16/2016 5:54 PM CDT Read by: Eagle Coronel MD Dictated Date/time: 01/17/16 08:51 Electronically Signed by: Eagle Coronel MD 01/17/16 08:54 FINAL REPORT INDICATION: Dyspnea COMPARISON: 01/16/2016 at 0121. TECHNIQUE: AP chest FINDINGS: Lines and tubes: Right chest tube with its tip near the apex. ET tube with its tip 3.9 cm above the rocio. Feeding tube extends to the stomach, incompletely seen. Lungs and pleura: Moderate right effusion. Atelectasis in the lung bases again seen. Interstitial opacities greater in the right lung, which may represent asymmetric edema. Heart and mediastinum: Stable cardiac silhouette and mediastinal contours. IMPRESSION: 1. No significant changes. 2. Persistent right pleural effusion. 3. Atelectasis in the lung bases. 4. Interstitial opacity on the right, suggesting asymmetric edema. BLOOD BANK Antibody Scrn Negative 01/15 [facility] RESULTS [facility] (01/16/16 12:05 AM) [place] BLOOD BANK ABO/Rh O POS 01/15 RESULTS [facility] Chest 1view Chest 1view EXAM: XR CHEST 1 VIEW 01/15 - [facility] DX DX /2015 - [facility] DATE: 01/16/2016 at 0121 hours Read by: Ana Laura Amaral MD Dictated Date/time: 01/16/16 18:00 Electronically Signed by: Ana Laura Amaral MD 01/16/16 18:03 FINAL REPORT INDICATION: Abnormal chest sounds COMPARISON: 01/15/2016 at 0938 hours TECHNIQUE: AP chest FINDINGS: Lines and tubes: The right chest tube and Dobbhoff tube are again identified, with interim removal of the endotracheal tube. Lungs and pleura: A loculated right pleural fluid collection and atelectasis atelectasis are not significantly changed, with interval development of peribronchial cuffing on the right. The left lung remains overall clear. Heart and mediastinum: The heart size and mediastinal contours are unchanged. IMPRESSION: 1. Unchanged appearance of the loculated right pleural effusion and atelectasis on the right. 2. Peribronchial cuffing and milder interstitial opacities suggestive of mild pulmonary edema. TOXICOLOGY Vanco Tr TND 0000 01/14 [facility] TOXICOLOGY Vanco Tr 4.9 ug/ml 01/14 /2015 [facility] Chest 1view Chest 1view EXAM: XR CHEST 1 VIEW 01/14 - [facility] DX DX /2015 - [facility] DATE: 01/15/2016 Read by: Fanny Lewis MD Dictated Date/time: 01/15/16 10:22 Electronically Signed by: Fanny Lewis MD 01/15/16 10:23 FINAL REPORT INDICATION: Tube placement/removal/reposition . Comparison is made with yesterday FINDINGS: Cardiomediastinal silhouette and life-support lines are stable. Right pleural effusion is unchanged. No pneumothorax is visualized however a supine or semierect radiograph is suboptimal for th at determination. An erect film of the chest is necessary in order to exclude small pneumothoraces. There is a localized opacity at the right lung base medially which partially obscures the medial portion of the right hemidiaphragm and right lung base and could represent a combination of layering righ t pleural effusion with or without underlying right lower lobe consolidation/volume loss. . There is platelike atelectasis in the left lower lobe. The upper lungs are clear IMPRESSION: No significant interval change when compared to prior radiograph. Chest 1view Chest 1view EXAM: XR CHEST 1 VIEW 01/13 - [facility] DX /2015 - [facility] DATE: 01/14/2016 at 1401 hours Read by: Fanny Lewis MD Dictated Date/time: 01/14/16 15:48 Electronically Signed by: Fanny Lewis MD 01/14/16 15:50 FINAL REPORT INDICATION: Abnormal chest sounds . Comparison is made with 8 hours earlier today FINDINGS: Cartilage mediastinal silhouette and life-support lines are stable. There is a right pleural effusion. The left costophrenic sulcus is sharp. No pneumothorax is visualized however a supine or semierect radiograph is suboptimal for that determination. An erect film of the chest is necessary in order to exclude small pneumothoraces. There are bilateral retrocardiac opacities obscuring the hemidiaphragms and silhouette of the descending thoracic aorta which may represent bilateral pleural effusions with or without underlying atelect asis or consolidation of both lower lobes. .. The right retrocardiac opacity is greater than the left. The apices are clear IMPRESSION: No significant interval change when compared to prior radiograph.: URINE AND UA WBC 3 /HPF 0 - 5 01/13 [facility] [place] [facility] /2015 [facility] URINE AND UA RBC 1 /HPF 0 - 2 01/13 [facility] [place] [facility] /2015 [facility] URINE AND UA Mucus Few /LPF None Seen 01/13 [facility] STOOL /LPF /2015 [facility] URINE AND UA Blood Negative Negative 01/13 [facility] /2015 [facility] (01/14/16 7:03 AM) [place] URINE AND UA Ketones Negative Negative 01/13 [facility] [place] [facility] *NA* [place] (01/14/16 7:03 AM) URINE AND UA pH 5.5 5.0 - 8.0 01/13 [facility] [place]2015 [facility] URINE AND UA Glucose Negative Negative 01/13 [facility] [place] [facility] (01/14/16 7:03 AM) [place] URINE AND UA Protein Trace Negative 01/13 [facility] [place] [facility] [place] (01/14/16 7:03 AM) URINE AND UA Bili Negative Negative 01/13 [facility] *NA* [place] (01/14/16 7:03 AM) URINE AND UA Spec Grav 1.025 <=1.030 01/13 [facility] URINE AND UA Turbidity Clear Clear 01/13 [facility] (01/14/16 7:03 AM) [place] URINE AND UA Color Yellow Yellow 01/13 [facility] [place] (01/14/16 7:03 AM) URINE AND UA Nitrite Negative Negative 01/13 [facility] (01/14/16 7:03 AM) [place] URINE AND UA Sq Epi None Seen Few 01/13 [facility] (01/14/16 7:03 AM) [place] URINE AND UA 1.0 EU/dL 0.1 - 1.0 01/13 [facility] Urobilinogen [facility] URINE AND UA Leuk Est Negative Negative 01/13 [facility] (01/14/16 7:03 AM) [place] Chest 1view Chest 1view EXAM: XR CHEST 1 VIEW 01/13 - [facility] DX DX - [facility] DATE: 01/14/2016 Read by: Fanny Lewis MD Dictated Date/time: 01/14/16 09:49 Electronically Signed by: Fanny Lewis MD 01/14/16 09:50 FINAL REPORT INDICATION: Respiratory failure . Comparison is made with radiograph 3 hours earlier today FINDINGS: Cardiomediastinal silhouette and life-support lines are stable. Right pleural effusion is unchanged. No pneumothorax is visualized however a supine or semierect radiograph is suboptimal for that determination. An erect film of the chest is necessary in order to exclude small pneumothoraces. There is a localized opacity at the right lung base medially which partially obscures the medial portion of the right hemidiaphragm and right lung base and could represent a combination of layering righ t pleural effusion with or without underlying right lower lobe consolidation/volume loss. The right upper lung is clear. The left lung is clear except for platelike atelectasis or developing consolidation in the left lower lobe IMPRESSION: IMPRESSION: No significant interval change when compared to prior radiograph. Chest 1view Chest 1view EXAM: XR CHEST 1 VIEW 01/13 - [facility] DX /2015 - Medical Center DATE: 01/14/2016 Read by: Fanny Lewis MD Dictated Date/time: 01/14/16 11:35 Electronically Signed by: Fanny Lewis MD 01/14/16 11:35 FINAL REPORT INDICATION: Cough and fever . Comparison is made with yesterday FINDINGS: Cardiomediastinal silhouette and life-support lines are stable. There is a right pleural effusion. There are bilateral retrocardiac opacities obscuring the hemidiaphragms and silhouette of the descending thoracic aorta which may represent bilateral pleural effusions with or without underlying atelect asis or consolidation of both lower lobes. .. The upper lungs are clear IMPRESSION: No significant interval change when compared to prior radiograph. Chest 1 v Chest 1 v for Exam: Portable chest 01/12 [facility] - Medical Placement Date: 01/13/[address] [place] [address] Center DX Indication: Central line placement Read by: Fanny Lewis MD Dictated Date/time: 01/13/16 21:07 Electronically Signed by: Fanny Lewis MD 01/13/16 21:08 FINAL REPORT Comparison is made with chest radiograph 1 hour ago FINDINGS: Cardiomediastinal silhouette and life-support lines are stable. Despite the right chest tube there is a right pleural effusion. No pneumothorax is visualized however a supine or semierect radiograph is suboptimal for that determination. An erect film of the chest is necessary in order to exclude small pneumothoraces. There are bilateral retrocardiac opacities obscuring the hemidiaphragms and silhouette of the descending thoracic aorta which may represent bilateral pleural effusions with or without underlying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
--- OUTSIDE RECORDS SUMMARY | 2018-10-21 09:29 | XMS REPORT | Summary of Care ---
:1990 Author Organization [facility] Address [address] [place], [place] [address]- Encounter HQ Encntr_ruby(FIN) [id number] Date(s): 01/08/16 - 01/20/16 [facility] [address] [place] [address] Professional Services provided by [facility] [place] [address]- Discharge Disposition: Home or Self Care Attending Physician: Lee Barajas MD Admitting Physician: Lee Barajas MD Referring Physician: Devonte Ramirez MD Vital Signs Most recent to oldest 1 2 3 [Reference Range]: Height 170.18 cm 170.18 cm 170.18 cm (01/18/16 4:51 AM) (01/17/16 11:20 PM) (01/17/16 7:30 PM) Temperature Oral [96.4-99.1 99.6 DegF 98.7 DegF 97.9 DegF DegF] *HI* (01/20/16 7:26 AM) (01/20/16 4:01 AM) (01/20/16 11:09 AM) Blood Pressure [90-140/60-90 145/76 mmHg 138/79 mmHg 120/61 mmHg mmHg] *HI* (01/20/16 7:26 AM) (01/20/16 4:01 AM) (01/20/16 11:09 AM) Respiratory Rate [14-20 20 BRMIN 19 BRMIN 19 BRMIN BRMIN] (01/20/16 11:09 AM) (01/20/16 8:51 AM) (01/20/16 7:26 AM) Peripheral Pulse Rate [60-100 90 bpm 80 bpm 83 bpm bpm] (01/20/16 11:09 AM) (01/20/16 7:26 AM) (01/20/16 4:01 AM) Weight 118.182 kg 129.545 kg (01/08/16 11:52 AM) (01/08/16 5:05 AM) Body Mass Index 40.81 m2 44.73 m2 (01/08/16 11:52 AM) (01/08/16 5:05 AM) Problem List Condition Effective Dates Status Health Status Informant Loculated Pleural Active Effusion(Confirmed) Scabies(Confirmed) Resolved Allergies, Adverse Reactions, Alerts Substance Reaction Severity Status Benadryl Active Medications acetaminophen 1,000 mg, 2 tab, Route: PO, Drug form: TAB, Q6H, Dosing Weight 129.545, kg, Priority: NOW, Start date: 01/08/16 8:15:00 CDT, Duration: 30 day, Stop date: 6:00:00 CDT Notes: Max acetaminophen 4000 mg/day (4 gm/day). (Same as: Tylenol Extra Strength) Start Date: 01/08/16 Stop Date: 01/20/16 Status: Discontinuedalbuterol 0.083% inhalation solution 2.49 mg, 3 mL, Route: NEB, Drug form: SOLN, RQ4H, Dosing Weight 129.545, kg, PRN Wheezing, Start date: 01/08/16 6:54:00 CDT, Duration: 30 day, Stop date: 11/16 6:53:00 CDT Notes: SEE RT DOCUMENTATION (Same as: Lisa) Start Date: 01/08/16 Stop Date: 01/20/16 Status: DiscontinuedAncef 3 gm, Route: IVPB, ONCE, Dosing Weight 118.182, kg, Start date: 01/16/16 15:28: 00 CDT, Duration: 1 doses or times, Stop date: 01/16/16 15:28:00 CDT, Surgical Prophylaxis Only; For patients > 120 kg Start Date: 01/16/16 Stop Date: 01/16/16 Status: CompletedAtivan 2 mg, 1 mL, Route: IV, Drug form: INJ, Q6H, Dosing Weight 118.182, kg, PRN Agitation, Start date: 01/16/16 13:26:00 CDT, Duration: 30 day, Stop date: 02/14 13:25:00 CDT Notes: (Same as: Ativan) Start Date: 01/16/16 Stop Date: 01/20/16 Status: DiscontinuedceFAZolin 2 gm, Route: IVPB, ONCE, Dosing Weight 129.545, kg, Priority: STAT, Start date: 01/08/16 5:29:00 CDT, Stop date: 01/08/16 5:29:00 CDT Start Date: 01/08/16 Stop Date: 01/08/16 Status: CompletedcefTAZidime 1 gm, Route: IVPB, Drug form: PDR/INJ, ABXQ6H, Dosing Weight 118.182, kg, Start date: 01/14/16 7:00:00 CDT, Duration: 30 day, Stop date: 02/13/16 1:00:00 CDT Notes: (Same as: Brii) MEDICATION WASTE Product Size: 1000 mgProduct Wasted: ___ mg Start Date: 01/14/16 Stop Date: 01/16/16 Status: Discontinuedcelecoxib 200 mg, 1 cap, Route: PO, Drug form: CAP, Q12H, Dosing Weight 129.545, kg, Priority: NOW, Start date: 01/08/16 8:15:00 CDT, Duration: 48 hr, Stop date: 01/16 21:00:00 CDT Notes: NSAID. Please check indication. Not for seizure. (Same As: CeleBREX) Start Date: 01/08/16 Stop Date: 01/09/16 Status: CompletedcloNIDine 0.2 mg, 1 tab, Route: PO, Drug form: TAB, Q4H, Dosing Weight 118.182, kg, Start date: 01/15/16 12:00:00 CDT, Duration: 30 day, Stop date: 02/14/16 8:00:00 CDT Notes: (Same As: Catapres) Start Date: 01/15/16 Stop Date: 01/16/16 Status: DiscontinuedcloNIDine 0.1 mg, 1 tab, Route: PO, Drug form: TAB, Q4H, Dosing Weight 118.182, kg, Start date: 01/16/16 12:00:00 CDT, Duration: 30 day, Stop date: 02/15/16 8:00:00 CDT Notes: (Same As: Catapres) Start Date: 01/16/16 Stop Date: 01/20/16 Status: DiscontinuedcloNIDine 0.1 mg oral tablet 0.1 mg=1 tab, PO, Q12H, # 6 tab, 0 Refill(s) Start Date: 01/20/16 Status: OrderedcloNIDine 0.1 mg oral tablet 0.1 mg, 1 tab, Route: PO, Drug form: TAB, Q4H, Dosing Weight 118.182, kg, Start date: 01/15/16 4:00:00 CDT, Duration: 30 day, Stop date: 02/14/16 0:00:00 CDT Notes: (Same As: Catapres) Start Date: 01/15/16 Stop Date: 01/15/16 Status: Discontinueddexmedetomidine 400 microgram 400 microgram, 100 mL, Rate: Titrate, Start Dose: 0.2 microgram/kg/hr, Titration : 0.1 microgram/kg/hr every 30 min, Goal(s): sedation, Max Dose: 1.5 microgram/ kg/hr, Route: IV, Dosing Weight 118.182 kg, Total Volume: 100, Start date: 01/16 12:56:00... Start Date: 01/17/16 Stop Date: 01/17/16 Status: Discontinueddexmedetomidine 400 microgram + sodium chloride 0.9% INJ 96 mL 96 mL, Rate: TITRATE, Route: IV, Dosing Weight 118.182 kg, Total Volume: 100, Start date: 01/17/16 13:04:00 CDT, Duration: 24 hr, Stop date: 01/28/16 13:03: 00 CDT Notes: Not for use > 24 hours Start Date: 01/17/16 Stop Date: 01/20/16 Status: DiscontinuedDextrose 50% Syringe 12.5 gm, 25 mL, Route: IVP, Drug Form: INJ, Dosing Weight 118.182, kg, PRN, PRN Abnormal Lab Result,Start date: 01/13/16 18:46:00 CDT, Duration: 30 day, Stop date: 02/12/16 18:45:00 CDT, For FSBG 40 mg/dL - 60 mg/dL Start Date: 01/13/16 Stop Date: 01/20/16 Status: DiscontinuedDextrose 50% Syringe 25 gm, 50 mL, Route: IVP, Drug Form: INJ, Dosing Weight 118.182, kg, PRN, PRN Abnormal Lab Result, Start date: 01/13/16 18:46:00 CDT, Duration: 30 day, Stop date: 02/12/16 18:45:00 CDT, For FSBG < 40 mg/dL Start Date: 01/13/16 Stop Date: 01/20/16 Status: DiscontinuedDilaudid 1 mg, 0.5 mL, Route: IV, Drug form: INJ, ONCE, Start date: 01/11/16 4:52:00 CDT , Stop date: 164:52:00 CDT Notes: Same as: Dilaudid Start Date: 01/11/16 Stop Date: 01/11/16 Status: CompletedDilaudid 1 mg, 0.5 mL, Route: IVP, Drug form: INJ, ONCE, Dosing Weight 118.182, kg, Priority: STAT, Start date: 01/12/16 15:53:00 CDT, Stop date: 01/12/16 15:53:00 CDT Notes: Same as: Dilaudid Start Date: 01/12/16 Stop Date: 01/12/16 Status: CompletedDilaudid 1 mg, Route: IVP, ONCE, Dosing Weight 118.182, kg, Priority: STAT, Start date: 01/11/16 3:20:00 CDT,Stop date: 01/11/16 3:20:00 CDT Start Date: 01/11/16 Stop Date: 01/11/16 Status: Completeddocusate 100 mg, 1 cap, Route: PO, Drug form: CAP, Q12H, Dosing Weight 129.545, kg, Start date: 01/08/16 9:00:00 CDT, Duration: 30 day, Stop date: 02/06/16 21:00: 00 CDT Notes: (Same as: Colace) (Do Not Crush) Start Date: 01/08/16 Stop Date: 01/20/16 Status: Discontinueddocusate sodium 100 mg oral capsule 100 mg=1 cap, PO, Q12H, # 30 cap, 0 Refill(s) Start Date: 01/20/16 Status: OrderedDonnatal 10 mL, Route: PO, Dosing Weight 118.182, kg, QID-Before Meals, Start date: 01/08 21:00:00 CDT, Duration: 30 day, Stop date: 02/08/16 16:30:00 CDT Start Date: 01/09/16 Stop Date: 01/09/16 Status: Canceledenoxaparin 40 mg, 0.4 mL, Route: SUB-Q, Drug form: INJ, Q12H, Dosing Weight 129.545, kg, Consider for obese patients, Start date: 01/08/16 9:00:00 CDT, Duration: 30 day , Stop date: 02/06/16 21:00:00 CDT Notes: (Same as: Lovenox) Start Date: 01/08/16 Stop Date: 01/20/16 Status: DiscontinuedfentaNYL 50 microgram, 1 mL, Route: IV, Drug form: INJ, ONCE, Dosing Weight 118.182, kg, PRN Pain Score 7-10,Start date: 01/16/16 19:02:00 CDT, Pediatric Dosing; For procedure; > 50 kg Notes: (Same as: Sublimaze) Preservative free. Start Date: 01/16/16 Stop Date: 01/16/16 Status: CompletedfentaNYL 50 microgram, Route: IVP, ONCE, Dosing Weight 129.545, kg, Priority: STAT, Start date: 01/08/16 5:29:00 CDT, Stop date: 01/08/16 5:29:00 CDT Start Date: 01/08/16 Stop Date: 01/08/16 Status: CompletedfentaNYL 25 microgram, Route: IVP, ONCE, Dosing Weight 129.545, kg, Priority: STAT, Start date: 01/08/16 5:43:00 CDT, Stop date: 01/08/16 5:43:00 CDT Start Date: 01/08/16 Stop Date: 01/08/16 Status: CompletedfentaNYL 25 microgram, 0.5 mL, Route: IV, Drug form: INJ, ONCE, Dosing Weight 129.545, kg , Start date: 01/08/16 7:04:00 CDT, Stop date: 01/08/16 7:04:00 CDT Notes: (Same as: Sublimaze) Preservative free. Start Date: 01/08/16 Stop Date: 01/08/16 Status: CompletedfentaNYL - one time ICU bolus dose 100 microgram, 2 mL, Route: IVP, Drug form: INJ, ONCE, Dosing Weight 118.182, kg , for bronch, Start date: 01/14/16 9:12:00 CDT, Stop date: 01/14/16 9:12:00 CDT Notes: (Same as: Sublimaze) Preservative free. Start Date: 01/14/16 Stop Date: 01/14/16 Status: CompletedfentaNYL 1000microgram/20ml drip (pyxis) 1,000 microgram 1,000 microgram, 20 mL, Rate: Titrate, Start Dose: 50 microgram/hr, Titration: 25 microgram/hour every 15 minutes, Goal(s): Pain control, Max Dose: 300 microgram/hr, Route: IV, Dosing Weight 118.182 kg, Total Volume: 20, Start date : 01/13/16 18:45:00... Start Date: 01/13/16 Stop Date: 01/15/16 Status: DiscontinuedFlagyl 500 mg, 100 mL, Route: IVPB, Drug form: INJ, ABXQ8H, Dosing Weight 118.182, kg, Start date: 167:00:00 CDT, Duration: 30 day, Stop date: 02/12/16 23:00:00 CDT Notes: (Same as: Flagyl) Avoid alcohol. Start Date: 01/14/16 Stop Date: 01/14/16 Status: Discontinuedgabapentin 300 mg, 1 cap, Route: PO, Drug form: CAP, Q8H, Dosing Weight 118.182, kg, Priority: NOW, Start date:01/18/16 5:30:00 CDT, Stop date: 02/17/16 0:00:00 CDT Notes: (Same as: Neurontin) Start Date: 01/18/16 Stop Date: 01/20/16 Status: Discontinuedgabapentin 300 mg oral capsule 300 mg=1 cap, PO, Q8H, # 42 cap, 0 Refill(s) Start Date: 01/20/16 Status: OrderedHaldol 2.5 mg, 0.5 mL, Route: IV, Drug form: INJ, Q6H, Dosing Weight 118.182, kg, PRN Agitation, Start date: 01/16/16 13:25:00 CDT, Duration: 30 day, Stop date: 02/14 13:24:00 CDT Notes: (Same as: Haldol) Start Date: 01/16/16 Stop Date: 01/20/16 Status: DiscontinuedHaldol 20 mg, 4 mL, Route: IV, Drug form: INJ, ONCE, Dosing Weight 118.182, kg, Start date: 01/15/16 10:44:00 CDT, Stop date: 01/15/16 10:44:00 CDT Notes: (Same as: Haldol) Start Date: 01/15/16 Stop Date: 01/15/16 Status: CompletedHaldol 5 mg, 1 mL, Route: IV, Drug form: INJ, Q6H, Dosing Weight 118.182, kg, PRN Anxiety, Start date: 01/15/16 10:43:00 CDT, Duration: 30 day, Stop date: 10:42:00 CDT Notes: (Same as: Haldol) Start Date: 01/15/16 Stop Date: 01/16/16 Status: DiscontinuedHaldol 5 mg, 1 tab, Route: PO, Drug form: TAB, Q6H, Dosing Weight 118.182, kg, PRN Anxiety, Start date: 01/14/16 8:58:00 CDT, Duration: 30 day, Stop date: 8:57:00 CDT Notes: (Same as: Haldol) Start Date: 01/14/16 Stop Date: 01/15/16 Status: DiscontinuedInsulin regular 5 unit, 0.05 mL, Route: SUB-Q, Drug form: SOLN, PRN, Dosing Weight 118.182, kg, PRN Abnormal Lab Result, Start date: 01/13/16 18:46:00 CDT, Duration: 30 day, Stop date: 02/12/16 18:45:00 CDT, For FSBG 150 mg/dL - 174 mg/dL Notes: (Same as: Humulin R) Roll in palms of hands gently; Do not shake vigorously. "single patientuse only"(Restricted to patients requiring a dose > 60 units)WASTE: F/P - Black; E - Municipal Trash Bin Stable for 28 days at room temperatureExpires in days from Date Start Date: 01/13/16 Stop Date: 01/20/16 Status: DiscontinuedInsulin regular 12 unit, 0.12 mL, Route: SUB-Q, Drug form: SOLN, PRN, Dosing Weight 118.182, kg , PRN Abnormal Lab Result, Start date: 01/13/16 18:46:00 CDT, Duration: 30 day, Stop date: 02/12/16 18:45:00 CDT, For FSBG>=200 mg/dL Notes: (Same as: Humulin R) Roll in palms of hands gently; Do not shake vigorously. "single patientuse only"(Restricted to patients requiring a dose > 60 units)WASTE: F/P - Black; E - Municipal Trash Bin Stable for 28 days at room temperatureExpires in days from Date Start Date: 01/13/16 Stop Date: 01/20/16 Status: DiscontinuedInsulin regular 8 unit, 0.08 mL, Route: SUB-Q, Drug form: SOLN, PRN, Dosing Weight 118.182, kg, PRN Abnormal Lab Result, Start date: 01/13/16 18:46:00 CDT, Duration: 30 day, Stop date: 02/12/16 18:45:00 CDT, For FSBG 175 mg/dL - 199 mg/dL Notes: (Same as: Humulin R) Roll in palms of hands gently; Do not shake vigorously. "single patientuse only"(Restricted to patients requiring a dose > 60 units)WASTE: F/P - Black; E - Municipal Trash Bin Stable for 28 days at room temperatureExpires in days from Date Start Date: 01/13/16 Stop Date: 01/20/16 Status: DiscontinuedIsolyte S (PH 7.4) 1000 mL 1,000 mL 1,000 mL, Rate: 125 ml/hr, Infuse over: 8 hr, Route: IV, Dosing Weight 129.545 kg, Total Volume: 1,000, Start date: 01/08/16 6:46:00 CDT, Duration: 30 day, Stop date: 02/07/16 6:45:00 CDT Notes: (Same as: Isolyte S PH 7.4) Start Date: 01/08/16 Stop Date: 01/11/16 Status: DiscontinuedIsolyte S (PH 7.4) 1000 mL 1,000 mL 1,000 mL, Rate: 75 ml/hr, Infuse over: 13.3 hr, Route: IV, Dosing Weight 118.182 kg, Total Volume: 1,000, Start date: 01/13/16 0:00:00 CDT, Duration: 30 day, Stop date: 02/11/16 23:59:00 CDT Notes: (Same as: Isolyte S PH 7.4) Start Date: 01/13/16 Stop Date: 01/15/16 Status: DiscontinuedIsolyte S PH-7.4 (Bolus) IV 1,000 mL, 0 ml/hr, Route: IV, Drug Form: SOLN, Dosing Weight 129.545, kg, ONCE, Start date: 166:47:00 CDT, Stop date: 01/08/16 6:47:00 CDT Notes: (Same as: Isolyte S PH 7.4) Start Date: 01/08/16 Stop Date: 01/08/16 Status: CompletedIsolyte S PH-7.4 (Bolus) IV 1,000 mL, 1000 ml/hr, Route: IV, Drug Form: SOLN, Dosing Weight 118.182, kg, ONCE, Start date: 01/14/16 6:42:00 CDT, Stop date: 01/14/16 6:42:00 CDT Notes: (Same as: Isolyte S PH 7.4) Start Date: 01/14/16 Stop Date: 01/14/16 Status: CompletedIsolyte S PH-7.4 (Bolus) IV 500 mL, 0 ml/hr, Route: IV, Drug Form: SOLN, Dosing Weight 118.182, kg, ONCE, STAT, Start date: 01/08/16 15:57:00 CDT, Stop date: 01/08/16 15:57:00 CDT Notes: (Same as: Isolyte S PH7.4) Start Date: 01/08/16 Stop Date: 01/08/16 Status: CompletedIsolyte S PH-7.4 (Bolus) IV 500 mL, Route: IV, Dosing Weight 118.182, kg, ONCE, Start date: 01/08/16 15:55: 00 CDT, Stop date: 01/08/16 15:55:00 CDT Start Date: 01/08/16 Stop Date: 01/08/16 Status: DiscontinuedIsolyte S PH-7.4 (Bolus) IV 500 mL, 500 ml/hr, Route: IV, Drug Form: SOLN, Dosing Weight 118.182, kg, ONCE, STAT, Start date: 01/08/16 15:20:00 CDT, Stop date: 01/08/16 15:20:00 CDT Notes: (Same as: Isolyte S PH7.4) Start Date: 01/08/16 Stop Date: 01/08/16 Status: CompletedketOROLAC 10 mg, 1 tab, Route: PO, Drug form: TAB, Q6H, Dosing Weight 118.182, kg, Start date: 01/19/16 18:00:00 CDT, Duration: 4 day, Stop date: 01/23/16 15:00:00 CDT Notes: Not for use > 4 days. Give with food. (Same as:Toradol) Start Date: 01/19/16 Stop Date: 01/20/16 Status: DiscontinuedketOROLAC 30 mg, Route: PO, Q8H, Dosing Weight 118.182, kg, Start date: 01/19/16 16:00:00 CDT, Duration: 4 day, Stop date: 01/23/16 8:00:00 CDT Start Date: 01/19/16 Stop Date: 01/19/16 Status: CanceledLasix 40 mg, 4 mL, Route: IV, Drug form: INJ, ONCE, Dosing Weight 118.182, kg, Start date: 01/18/16 9:30:00 CDT, Stop date: 01/18/16 9:30:00 CDT Notes: (Same as: Lasix) MEDICATION WASTE Product Size: 40 mgProduct Wasted: ___ mg Start Date: 01/18/16 Stop Date: 01/18/16 Status: CompletedLevaquin 750 mg oral tablet 750 mg=1 tab, PO, Q24H, X 7 day, # 7 tab, 0 Refill(s) Start Date: 01/20/16 Stop Date: 01/27/16 Status: Orderedlidocaine 10 mL, Route: IV, ONCE, Dosing Weight 118.182, kg, Start date: 01/09/16 16:58: 00 CDT, Stop date: 01/09/16 16:58:00 CDT Start Date: 01/09/16 Stop Date: 01/09/16 Status: CompletedMaalox Advanced Regular Strength SUSP 10 mL, Route: PO, Drug Form: SUSP, Dosing Weight 118.182, kg, QID, PRN Indigestion, Start date: 01/09/16 16:58:00 CDT, Duration: 30 day, Stop date: 12/16 16:57:00 CDT Notes: (aluminum hydroxide-magnesium hyd-simethicone 250-355-63il/5ml 30 ml ud MOO) Start Date: 01/09/16 Stop Date: 01/10/16 Status: Discontinuedmidazolam - one time ICU bolus dose 5 mg, 5 mL, Route: IV, Drug form: INJ, ONCE, Dosing Weight 118.182, kg, for bronch, Start date: 01/14/16 9:13:00 CDT, Stop date: 01/14/16 9:13:00 CDT Notes: (Same as: Versed) MEDICATION WASTE Product Size: 5 mgProduct Wasted: ___ mg Start Date: 01/14/16 Stop Date: 01/14/16 Status: Completedmorphine Sulfate 4 mg, 1 mL, Route: IVP, Drug form: INJ, ONCE, Dosing Weight 129.545, kg, Priority: STAT, Start date:01/08/16 8:30:00 CDT, Stop date: 01/08/16 8:30:00 CDT Notes: (Same as:MORPhine Sulfate) Start Date: 01/08/16 Stop Date: 01/08/16 Status: Completedmorphine Sulfate 4 mg, 1 mL, Route: IVP, Drug form: INJ, ONCE, Dosing Weight 118.182, kg, Start date: 01/12/16 14:13:00 CDT, Stop date: 01/12/16 14:13:00 CDT Notes: (Same as:MORPhine Sulfate) Start Date: 01/12/16 Stop Date: 01/12/16 Status: Completedmorphine Sulfate 4 mg, 1 mL, Route: IVP, Drug form: INJ, ONCE, Dosing Weight 129.545, kg, Priority: STAT, Start date:01/08/16 9:58:00 CDT, Stop date: 01/08/16 9:58:00 CDT Notes: (Same as:MORPhine Sulfate) Start Date: 01/08/16 Stop Date: 01/08/16 Status: Completedmorphine Sulfate 2 mg, 1 mL, Route: IVP, Drug form: INJ, ONCE, Dosing Weight 118.182, kg, Start date: 01/12/16 15:53:00 CDT, Stop date: 01/12/16 15:53:00 CDT Notes: (Same as:MORPhine Sulfate) Start Date: 01/12/16 Stop Date: 01/12/16 Status: Completedmorphine Sulfate 2 mg, 1 mL, Route: IVP, Drug form: INJ, ONCE, Dosing Weight 118.182, kg, Start date: 01/12/16 14:57:00 CDT, Stop date: 01/12/16 14:57:00 CDT Notes: (Same as:MORPhine Sulfate) Start Date: 01/12/16 Stop Date: 01/12/16 Status: CompletedNeutra-Phos 2 pkt, Route: PO, Drug Form: PDR/REC, Dosing Weight 118.182, kg, Q8H, Start date : 01/16/16 8:00:00 CDT, Duration: 30 day, Stop date: 02/15/16 0:00:00 CDT Notes: (Same as: Neutra-Phos) Each 1.25 gm pkt has 250mg phosphorous. Mix w/ 2.5oz water and stir. Start Date: 01/16/16 Stop Date: 01/16/16 Status: DiscontinuedOmnipaque 350mg/ml 100 mL, Route: IVP, Drug Form: SOLN, Dosing Weight 118.182, kg, ONCALL, STAT, Start date: 01/12/16 11:15:00 CDT, Duration: 1 doses or times, Dose=2.2ml/kg, Max nmrx=308qo -- "To be infused by Radiology Staff ONLY" Notes: (same as:Omnipaque 350).WASTE: F/P - Black; E - Municipal Trash Bin Start Date: 01/12/16 Stop Date: 01/12/16 Status: CompletedoxyCODONE 5 mg immediate release 10 mg, 2 tab, Route: PO, Drug form: TAB, Q4H, Dosing Weight 129.545, kg, PRN Pain Score 7-10, Start date: 01/08/16 8:15:00 CDT, Duration: 30 day, Stop date: 02/07/16 8:14:00 CDT Notes: (Same as: Roxicodone) Start Date: 01/08/16 Stop Date: 01/09/16 Status: DiscontinuedoxyCODONE 5 mg immediate release 5 mg, 1 tab, Route: PO, Drug form: TAB, Q4H, Dosing Weight 129.545, kg, PRN Pain Score 4-6, Start date: 01/08/16 8:15:00 CDT, Duration: 30 day, Stop date: 02/07/16 8:14:00 CDT Notes: (Same as: Roxicodone) Start Date: 01/08/16 Stop Date: 01/20/16 Status: DiscontinuedPepcid 20 mg, 1 tab, Route: PO, Drug form: TAB, Q12H, Dosing Weight 118.182, kg, Start date: 01/13/16 21:00:00 CDT, Duration: 30 day, Stop date: 02/12/16 9:00:00 CDT Notes: (Same as: Pepcid) Start Date: 01/13/16 Stop Date: 01/15/16 Status: Discontinuedpermethrin topical 5% cream 1 appl, Route: TOP, ONCE, Drug form: CRM, Start date: 01/08/16 14:05:00 CDT, Stop date: 01/08/16 14:05:00 CDT Notes: (Same as: Elimite)WASTE: F/P - Black; E - Municipal Trash Bin Start Date: 01/08/16 Stop Date: 01/08/16 Status: Completedpermethrin topical 5% cream 1 appl, Route: TOP, ONCE, Drug form: CRM, Start date: 01/15/16 17:20:00 CDT, Stop date: 01/15/16 17:20:00 CDT Notes: (Same as: Elimite)WASTE: F/P - Black; E - Municipal Trash Bin Start Date: 01/15/16 Stop Date: 01/15/16 Status: Completedpermethrin topical 5% cream 1 appl, Route: TOP, ONCE, Drug form: CRM, Start date: 01/15/16 6:00:00 CDT, Stop date: 01/15/16 6:00:00 CDT Notes: (Same as: Elimite)WASTE: F/P - Black; E - Municipal Trash Bin Start Date: 01/15/16 Stop Date: 01/15/16 Status: Completedpneumococcal 23-valent vaccine 0.5 mL, Route: IM, Drug Form: INJ, Daily, Start date: 01/09/16 9:00:00 CDT, Duration: 1 doses or times, Stop date: 01/09/16 9:00:00 CDT Notes: (Same as: Pneumovax 23) Refrigerate Start Date: 01/09/16 Stop Date: 01/09/16 Status: Completedpregabalin 100 mg, 1 cap, Route: PO, Drug form: CAP, Q8H, Dosing Weight 129.545, kg, Priority: NOW, Start date:01/08/16 8:15:00 CDT, Duration: 48 hr, Stop date: 02/16 8:00:00 CDT Notes: (Same as: Lyrica) Start Date: 01/08/16 Stop Date: 01/10/16 Status: CompletedPrenate 1 tab, Route: PO, Drug Form: TAB, Dosing Weight 118.182, kg, Daily, Start date: 01/12/16 9:00:00 CDT, Duration: 30 day, Stop date: 02/10/16 9:00:00 CDT Start Date: 01/12/16 Stop Date: 01/20/16 Status: Discontinuedpropofol INJ 1,000 mg 1,000 mg, 100 mL, Rate: Titrate, Start Dose: 5 microgram/kg/min, Titration: 5 microgram/kg/min every15 min, Goal(s): RASS -1, Max Dose: 50 microgram/kg/min, Route: IV, Dosing Weight 118.182 kg, Total Volume: 100, Start date: 01/16/16 18: 42:00 CDT, Du... Notes: If Diprivan - change bottle & tubing every 12 LT[facility], located within [facility] nursing law propofol can only be given by a nurse if patient is intubated or being intubated (unless the nurse is a CLINICAL GENETICIST). Same as:Diprivan Start Date: 01/16/16 Stop Date: 01/17/16 Status: Discontinuedpropofol INJ 1,000 mg 1,000 mg, 100 mL, Rate: Titrate, Start Dose: 5 microgram/kg/min, Titration: 5 microgram/kg/min every15 min, Goal(s): sedation, Max Dose: 50 microgram/kg/min, Route: IV, Dosing Weight 118.182 kg, TotalVolume: 100, Start date: 01/13/16 17: 34:00 CDT, D... Notes: If Diprivan - change bottle & tubing every 12 [facility] propofol can only be given by a nurse if patient is intubated or being intubated (unless the nurse is a CLINICAL GENETICIST). Same as:Diprivan Start Date: 01/13/16 Stop Date: 01/15/16 Status: DiscontinuedRisperdal 1 mg, 1 tab, Route: PO, Drug form: TAB, Q12H, Dosing Weight 118.182, kg, Start date: 01/15/16 21:00:00 CDT, Stop date: 02/14/16 9:00:00 CDT Notes: (Same as: Risperdal) Start Date: 01/15/16 Stop Date: 01/19/16 Status: DiscontinuedRisperdal 1 mg, 1 tab, Route: PO, Drug form: TAB, Q12H, Dosing Weight 118.182, kg, Start date: 01/14/16 9:00:00 CDT, Duration: 30 day, Stop date: 02/12/16 21:00:00 CDT Notes: (Same as: Risperdal) Start Date: 01/14/16 Stop Date: 01/15/16 Status: DiscontinuedRocephin 1 gm, Route: IVPB, Drug form: PDR/INJ, [id number], Dosing Weight 118.182, kg, Start date: 01/18/16 16:00:00 CDT, Duration: 30 day, Stop date: 02/16/16 16:00: 00 CDT Start Date: 01/18/16 Stop Date: 01/18/16 Status: CanceledRocephin 1 gm, Route: IVPB, Drug form: PDR/INJ, [id number], Dosing Weight 118.182, kg, Start date: 01/18/16 16:00:00 CDT, Duration: 3 day, Stop date: 01/20/16 16:00: 00 CDT Notes: (Same As: Rocephin).Use with 100 mL NS and infuse over 30 min MEDICATION WASTE Product Size: 1000 mgProduct Wasted: ___ mg Start Date: 01/18/16 Stop Date: 01/20/16 Status: DiscontinuedRocephin + sodium chloride 0.9% INJ 50 mL 500 mg, Route: IVPB, Drug form: PDR/INJ, [id number], Dosing Weight 118.182, kg, Start date: 01/16/16 11:00:00 CDT, Duration: 30 day, Stop date: 02/14/16 23:00: 00 CDT Notes: (Same As: Rocephin). Start Date: 01/16/16 Stop Date: 01/18/16 Status: DiscontinuedRocephin + sodium chloride 0.9% INJ 50 mL 500 mg, Route: IVPB, Drug form: PDR/INJ, [id number], Dosing Weight 118.182, kg, Start date: 01/16/16 10:00:00 CDT, Duration: 30 day, Stop date: 02/14/16 22:00: 00 CDT Notes: (Same As: Rocephin). Start Date: 01/16/16 Stop Date: 01/16/16 Status: Deletedrocuronium 70 mg, 7 mL, Route: IV, Drug form: INJ, ONCE, Dosing Weight 118.182, kg, For bronch, Start date: 01/14/16 9:13:00 CDT, Stop date: 01/14/16 9:13:00 CDT Notes: (Same as: Zemeron) Start Date: 01/14/16 Stop Date: 01/14/16 Status: CompletedSaline Flush 0.9% 10 mL, Route: IVP, Drug Form: INJ, kg, PRN, PRN Line Flush, Start date: 5:05:00 CDT, Duration: 30 day, Stop date: 02/07/16 5:04:00 CDT Notes: Same as: BD Posiflush Sterile Start Date: 01/08/16 Stop Date: 01/20/16 Status: Discontinuedsenna 17.2 mg, 2 tab, Route: PO, Drug Form: TAB, Dosing Weight 129.545, kg, Bedtime, Start date: 01/08/16 21:00:00 CDT, Duration: 30 day, Stop date: 02/06/16 21:00: 00 CDT Notes: (Same as: Anant) Start Date: 01/08/16 Stop Date: 01/20/16 Status: Discontinuedsenna 8.6 mg oral tablet 8.6 mg=1 tab, PO, Bedtime, # 14 tab, 0 Refill(s) Start Date: 01/20/16 Stop Date: 02/03/16 Status: Orderedthiamine 100 mg, 1 tab, Route: PO, Drug form: TAB, Daily,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
--- NOTE | 2018-10-21 11:10 | RAD REPORT ---
EXAM DESCRIPTION: RAD - Chest Pa And Lat (2 Views) - 10/21/2018 10:54 am CLINICAL HISTORY: Cough and congestion COMPARISON: November 2016 TECHNIQUE: PA and lateral views of the chest were obtained. FINDINGS: The lungs are underinflated. This accentuates lung markings. A minimal interstitial edema or infiltrate is potentially masked. No focal mass, consolidation or significant failure finding. H eart size is normal and central vasculature is within normal limits. No pleural effusion or pneumoth orax seen. No acute bony finding noted. No aortic abnormality. IMPRESSION: No peripheral mass or consolidation. Shallow inspiration accentuates lung markings potentially masking early edema or infiltrate.
--- NOTE | 2018-10-21 11:22 | EDPHYS ---
Physician Documentation [facility] Name: Yaw Aldrich Jr Age: 28 yrs Sex: Male : 1990 Arrival Date: 10/21/2018 Time: 09:23 Bed 20 Private MD: None, None ED Physician Pedro Pino HPI: 10/21 11:52 This 28 yrs old Male presents to ER via Ambulatory with complaints of Cough, kb Diarrhea. 11:52 The patient or guardian reports cough, that is intermittent, described as mild, with no kb sputum, flu symptoms. 11:52 Onset: The symptoms/episode began/occurred 3 day(s) ago. Severity of symptoms: At their kb worst the symptoms were moderate, in the emergency department the symptoms are unchanged. Modifying factors: The symptoms are alleviated by nothing, the symptoms are aggravated by nothing. Associated signs and symptoms: Pertinent positives: sore throat, Pertinent negatives: chest pain, diarrhea, ear ache, fever, nausea, rhinorrhea, vomiting. The patient has not experienced similar symptoms in the past. The patient has not recently seen a physician. Historical: - Allergies: 09:30 ANTIHISTAMINES; aa5 09:30 Benadryl; aa5 - Home Meds: 09:30 albuterol sulfate 90 mcg/actuation Inhl HFAA 2 puffs as needed [Active]; metformin aa5 1,000 mg Oral tab 1 tab 2 times per day [Active]; - PMHx: 09:30 Asthma; Diabetes - NIDDM; aa5 - PSHx: 09:30 chest tube; Tonsillectomy; aa5 - Immunization history:: Flu vaccine is not up to date. - Social history:: Smoking status: Patient uses tobacco products, 2-3 cigarettes a day . - Ebola Screening: : No symptoms or risks identified at this time. ROS: 11:30 Constitutional: Negative for fever, chills, and weight loss, Cardiovascular: Negative kb for chest pain, palpitations, and edema, Abdomen/GI: Negative for abdominal pain, nausea, vomiting, diarrhea, and constipation, Back: Negative for injury and pain, : Negative for injury, bleeding, discharge, and swelling, MS/Extremity: Negative for injury and deformity, Skin: Negative for injury, rash, and discoloration, Neuro: Negative for headache, weakness, numbness, tingling, and seizure. 11:30 ENT: Positive for sore throat, Negative for 11:30 Respiratory: Positive for cough, Negative for dyspnea on exertion, hemoptysis, orthopnea, pleurisy, shortness of breath, sputum production, wheezing. Exam: 11:50 Constitutional: This is a well developed, well nourished patient who is awake, alert, kb and in no acute distress. Head/Face: Normocephalic, atraumatic. ENT: Nares patent. No nasal discharge, no septal abnormalities noted. Tympanic membranes are normal and external auditory canals are clear. Oropharynx with no redness, swelling, or masses, exudates, or evidence of obstruction, uvula midline. Mucous membranes moist. Neck: Trachea midline, no thyromegaly or masses palpated, and no cervical lymphadenopathy. Supple, full range of motion without nuchal rigidity, or vertebral point tenderness. No Meningismus. Chest/axilla: Normal chest wall appearance and motion. Nontender with no deformity. No lesions are appreciated. Cardiovascular: Regular rate and rhythm with a normal S1 and S2. No gallops, murmurs, or rubs. Normal PMI, no JVD. No pulse deficits. Respiratory: Lungs have equal breath sounds bilaterally, clear to auscultation and percussion. No rales, rhonchi or wheezes noted. No increased work of breathing, no retractions or nasal flaring. Abdomen/GI: Soft, non-tender, with normal bowel sounds. No distension or tympany. No guarding or rebound. No evidence of tenderness throughout. Skin: Warm, dry with normal turgor. Normal color with no rashes, no lesions, and no evidence of cellulitis. MS/ Extremity: Pulses equal, no cyanosis. Neurovascular intact. Full, normal range of motion. Neuro: Awake and alert, GCS 15, oriented to person, place, time, and situation. Cranial nerves II-XII grossly intact. Motor strength 5/5 in all extremities. Sensory grossly intact. Cerebellar exam normal. Normal gait. Vital Signs: 09:32 BP 134 / 88; Pulse 80; Resp 16 S; Temp 97.8(TE); Pulse Ox 99% on R/A; Weight 99.79 kg aa5 (R); Height 5 ft. 7 in. (170.18 cm) (R); Pain 6/10; 10:57 BP 132 / 85; Pulse 79; Resp 18; Pulse Ox 100% on R/A; hj 09:32 Body Mass Index 34.46 (99.79 kg, 170.18 cm) aa5 MDM: 09:34 Patient medically screened. kb 11:14 Data reviewed: vital signs, nurses notes. Data interpreted: Pulse oximetry: on room air kb is 100 %. Interpretation: normal. Counseling: I had a detailed discussion with the patient and/or guardian regarding: the historical points, exam findings, and any diagnostic results supporting the discharge/admit diagnosis, lab results, radiology results, the need for outpatient follow up, a family practitioner, to return to the emergency department if symptoms worsen or persist or if there are any questions or concerns that arise at home. 10/21 09:47 Order name: Flu kb 10/21 09:47 Order name: Strep; Complete Time: 10:14 kb 10/21 09:47 Order name: Chest Pa And Lat (2 Views) XRAY; Complete Time: 11:14 kb 10/21 09:47 Order name: Influenza Screen (A ; Complete Time: 10:23 EDMS 10/21 10:21 Order name: Throat Culture EDMS Administered Medications: No medications were administered Disposition: 11:57 Co-signature as Attending Physician, Pedro Pino MD. rn Disposition: 10/21/18 11:21 Discharged to Home. Impression: Acute upper respiratory infection, unspecified. - Condition is Stable. - Discharge Instructions: Upper Respiratory Infection, Adult, [id number], Viral Respiratory Infection, [id number]. - Medication Reconciliation Form, Thank You Letter, Antibiotic Education, Prescription Opioid Use form. - Follow up: Emergency Department; When: As needed; Reason: Worsening of condition. Follow up: Private Physician; When: 2 - 3 days; Reason: Recheck today's complaints, Continuance of care, Re-evaluation by your physician. Signatures: Dispatcher [employer] EDMS Yasmine Alexandre, ANDREWC PI/SENIOR RESEARCH ASSOCIATE-CkPedro Gaines MD MD rn Calderon, Audri, RN RN aa5 Dao Sr RN RN hj Corrections: (The following items were deleted from the chart) 11:28 11:21 10/21/2018 11:21 Discharged to Home. Impression: Acute upper respiratory hj infection, unspecified. Condition is Stable. Forms are Medication Reconciliation Form, Thank You Letter, Antibiotic Education, Prescription Opioid Use. Follow up: Emergency Department; When: As needed; Reason: Worsening of condition. Follow up: Private Physician; When: 2 - 3 days; Reason: Recheck today's complaints, Continuance of care, Re-evaluation by your physician. kb
--- NOTE | 2018-10-21 11:22 | ER ---
Nurse's Notes [facility] Name: Yaw Aldrich Jr Age: 28 yrs Sex: Male : 1990 Arrival Date: 10/21/2018 Time: 09:23 Bed 20 Private MD: None, None Diagnosis: Acute upper respiratory infection, unspecified Presentation: 10/21 09:30 Presenting complaint: Presenting complaint: Patient states: chest pain, productive aa5 cough, sore throat, and diarrhea that began 3 days ago. Pt states "I stay in a detention and everybody is sick with a cough now". Denies vomiting. 09:40 Transition of care: patient was not received from another setting of care. Onset of aa5 symptoms was October 2018. Risk Assessment: Do you want to hurt yourself or someone else? Patient reports no desire to harm self or others. Initial Sepsis Screen: Does the patient meet any 2 criteria? No. Patient's initial sepsis screen is negative. Does the patient have a suspected source of infection? No. Patient's initial sepsis screen is negative. Care prior to arrival: None. 09:40 Method Of Arrival: Ambulatory aa5 09:40 Acuity: SHEY 3 aa5 Triage Assessment: 09:45 General: Appears in no apparent distress. uncomfortable, Behavior is calm, cooperative, hj appropriate for age. Pain: Denies pain. GI: Reports diarrhea. Historical: - Allergies: 09:30 ANTIHISTAMINES; aa5 09:30 Benadryl; aa5 - Home Meds: 09:30 albuterol sulfate 90 mcg/actuation Inhl HFAA 2 puffs as needed [Active]; metformin aa5 1,000 mg Oral tab 1 tab 2 times per day [Active]; - PMHx: 09:30 Asthma; Diabetes - NIDDM; aa5 - PSHx: 09:30 chest tube; Tonsillectomy; aa5 - Immunization history:: Flu vaccine is not up to date. - Social history:: Smoking status: Patient uses tobacco products, 2-3 cigarettes a day . - Ebola Screening: : No symptoms or risks identified at this time. Screenin:45 Abuse screen: Denies threats or abuse. Denies injuries from another. Nutritional hj screening: No deficits noted. Tuberculosis screening: No symptoms or risk factors identified. Fall Risk None identified. Assessment: 09:46 GI: Abdomen is non-distended. hj 09:46 General: Appears in no apparent distress. uncomfortable, Behavior is calm, cooperative, hj appropriate for age. Pain: Denies pain. Neuro: Level of Consciousness is awake, alert, obeys commands, Oriented to person, place, time, situation, Appropriate for age. Cardiovascular: Capillary refill < 3 seconds Patient's skin is warm and dry. Respiratory: Airway is patent Respiratory effort is even, unlabored, Respiratory pattern is regular, symmetrical. : No signs and/or symptoms were reported regarding the genitourinary system. EENT: No signs and/or symptoms were reported regarding the EENT system. Derm: No signs and/or symptoms reported regarding the dermatologic system. Musculoskeletal: No signs and/or symptoms reported regarding the musculoskeletal system. 10:57 Reassessment: Patient and/or family updated on plan of care and expected duration. Pain hj level reassessed. Patient is alert, oriented x 3, equal unlabored respirations, skin warm/dry/pink. awaiting results and POC;. Vital Signs: 09:32 BP 134 / 88; Pulse 80; Resp 16 S; Temp 97.8(TE); Pulse Ox 99% on R/A; Weight 99.79 kg aa5 (R); Height 5 ft. 7 in. (170.18 cm) (R); Pain 6/10; 10:57 BP 132 / 85; Pulse 79; Resp 18; Pulse Ox 100% on R/A; hj 09:32 Body Mass Index 34.46 (99.79 kg, 170.18 cm) aa5 ED Course: 09:23 Patient arrived in ED. mr 09:23 None, None is Private Physician. mr 09:24 [facility] kb 09:24 Pedro Pino MD is Attending Physician. kb 09:34 Arm band placed on Patient placed in an exam room, on a stretcher. aa5 09:41 Triage completed. aa5 09:45 Dao Sr, FOX is Primary Nurse. hj 09:46 Patient has correct armband on for positive identification. Placed in gown. Bed in low hj position. Call light in reach. Side rails up X 1. 10:51 X-ray completed. Patient tolerated procedure well. Patient moved to radiology via sw wheelchair. Patient moved back from radiology. 10:52 Chest Pa And Lat (2 Views) XRAY In Process Unspecified. EDMS 11:27 No provider procedures requiring assistance completed. Patient did not have IV access hj during this emergency room visit. Administered Medications: No medications were administered Outcome: 11:21 Discharge ordered by . filemon 11:27 Discharged to home ambulatory. hj 11:27 Condition: stable 11:27 Discharge instructions given to patient, Instructed on discharge instructions, follow up and referral plans. Demonstrated understanding of instructions, follow-up care. 11:28 Patient left the ED. hj Signatures: Dispatcher [employer] EDMS Yasmine Alexandre, ADITYA-C STOREKEEPER STEWARD-Rojelio ParedesaShani Audri, RN RN aa5 Blanca Barnett Henry, RN RN hj Corrections: (The following items were deleted from the chart) 09:41 09:30 Presenting complaint: aa5 aa5 09:43 09:30 Presenting complaint: Patient states: chest pain, productive cough, sore throat, aa5 and diarrhea that began 3 days ago. Pt states "I stay in a detention and everybody is sick with a cough now" Presenting complaint: Patient states: chest pain, productive cough, sore throat, and diarrhea that began 3 days ago. Pt states "I stay in a detention and everybody is sick with a cough now" aa5
[2018-10-21 11:39] VITALS: TEMP 97.8
[2018-10-21 11:40] VITALS: BP 132/85; O2SAT 100
== END 2018-10-21 11:28 | disposition home or self-care (01) ==
LOC: ER 09:20
DX: J06.9 Acute upper respiratory infection, unspecified (principal); J45.909 Unspecified asthma, uncomplicated; E11.9 Type 2 diabetes mellitus without complications; Z72.0 Tobacco use
CPT/HCPCS: 71046; 87070; 87081; 87804; 99283

== ENCOUNTER 2019-01-29 14:27 | Emergency (ER) | payer SELFPAY ==
--- OUTSIDE RECORDS SUMMARY | 2019-01-29 14:31 | XMS REPORT | Continuity of Care Document ---
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 multiplied by the estimated BMI. HEMATOLOGY Lymphocytes # 2.2 1.0 - 5.5 01/18 [facility] HEMATOLOGY Segs-Bands # 8.5 1.5 - 8.1 01/18 [facility] HEMATOLOGY Eosinophils 3.1 0.0 - 4.0 01/18 [facility] HEMATOLOGY Basophils 1.1 0.0 - 1.0 01/18 [facility] HEMATOLOGY Basophils # 0.1 0.0 - 0.2 01/18 [facility] HEMATOLOGY Eosinophils # 0.4 0.0 - 0.5 01/18 [facility] HEMATOLOGY Monocytes # 0.8 0.0 - 0.8 01/18 [facility] HEMATOLOGY Monocytes 6.4 2.0 - 12.0 01/18 [facility] HEMATOLOGY Segs 70.9 45.0 - 01/18 [place] 75.0 [facility] HEMATOLOGY Lymphocytes 18.5 20.0 - 01/18 [place] 40.0 [facility] HEMATOLOGY Platelet 257 133 - 450 01/18 [facility] HEMATOLOGY MPV 8.9 7.4 - 10.4 01/18 [facility] HEMATOLOGY MCHC 32.9 32.0 - 01/18 [place] 36.0 [facility] HEMATOLOGY RDW 13.6 11.5 - 01/18 [place] 14.5 [facility] HEMATOLOGY MCV 85.1 80.0 - 01/18 [place] 94.0 [facility] HEMATOLOGY MCH 28.0 27.0 - 01/18 [place] 31.0 [facility] HEMATOLOGY Hct 26.7 42.0 - 01/18 [place] 54.0 [facility] HEMATOLOGY RBC 3.14 4.70 - 01/18 [place] 6.10 [facility] HEMATOLOGY Hgb 8.8 14.0 - 01/18 18.0 [facility] HEMATOLOGY WBC 12.0 3.7 - 10.4 01/18 [facility] PARATHYROID Ca Ion WB 1.12 1.05 - 01/18 [facility] PROFILE 1. [facility] PARATHYROID Ca Norm WB 1.12 1.05 - 01/18 [facility] PROFILE 1. [facility] CHEM PANEL eGFR 147 01/17 Result Comment: The [facility] eGFR is Center calculated using the CKD-EPI formula. In most young, healthy individuals the eGFR will be >90 mL/min/1.73m2 . The eGFR declines with age. An eGFR of 60-89 may be normal in some populations, particularly the elderly, for whom the CKD-EPI formula has not been extensively validated. Use of the eGFR is not recommended in the following populations:< br/>
Devika viduals with unstable creatinine concentration s, including patients and those with serious co-morbid conditions.<b r/>
Patie nts with extremes in muscle mass or diet.

The data above are obtained from the National Kidney Disease Education Program (NKDEP) which additionally recommends that when the eGFR is used in patients with extremes of body mass index for purposes of drug dosing, the eGFR should be multiplied by the estimated BMI. CHEM PANEL Glucose Lvl 169 70 - 99 01/17 [facility] CHEM PANEL BUN 18 7 - 22 01/17 [facility] CHEM PANEL Creatinine 0.55 0.50 - 01/17 [facility] Lvl 1.40 [facility] CHEM PANEL Potassium Lvl 4.4 3.5 - 5.1 01/17 [facility] CHEM PANEL Sodium Lvl 146 135 - 145 01/17 [facility] CHEM PANEL Calcium Lvl 7.7 8.5 - 10.5 01/17 [facility] CHEM PANEL Chloride Lvl 111 95 - 109 01/17 [facility] CHEM PANEL CO2 27 24 - 32 01/17 [facility] CHEM PANEL AGAP 12.4 10.0 - 01/17 20. [facility] CHEM PANEL Magnesium Lvl 2.2 1.8 - 2.4 01/17 [facility] CHEM PANEL Phosphorus 2.9 2.5 - 4.5 01/17 [facility] HEMATOLOGY Plt Morph Normal 01/17 [facility] (01/18/16 12:20 AM) [facility] HEMATOLOGY RBC Morph Normal 01/17 [facility] (01/18/16 12:20 AM) /2015 [facility] HEMATOLOGY Lymphocytes 15.5 20.0 - 01/17 [place] 40.0 /2015 [facility] HEMATOLOGY Segs 71.9 45.0 - 01/17 [place] 75.0 /2015 [facility] HEMATOLOGY Monocytes 11.2 2.0 - 12.0 01/17 [facility] HEMATOLOGY Segs-Bands # 6.9 1.5 - 8.1 01/17 [facility] HEMATOLOGY Basophils 0.4 0.0 - 1.0 01/17 [facility] HEMATOLOGY Lymphocytes # 1.5 1.0 - 5.5 01/17 [facility] HEMATOLOGY Eosinophils 1.0 0.0 - 4.0 01/17 [facility] HEMATOLOGY Eosinophils # 0.1 0.0 - 0.5 01/17 [facility] HEMATOLOGY Monocytes # 1.1 0.0 - 0.8 01/17 [facility] HEMATOLOGY Anti-Xa Low 0.04 01/17 [facility] HEMATOLOGY Platelet 238 133 - 450 01/17 [facility] HEMATOLOGY RDW 13.8 11.5 - 01/17 [place] 14.5 [facility] HEMATOLOGY WBC 9.6 3.7 - 10.4 01/17 [facility] HEMATOLOGY MPV 8.5 7.4 - 10.4 01/17 [facility] HEMATOLOGY MCV 84.4 80.0 - 01/17 [place] 94.0 [facility] HEMATOLOGY MCHC 33.6 32.0 - 01/17 [place] 36.0 /2015 [facility] HEMATOLOGY MCH 28.3 27.0 - 01/17 [place] 31.0 [facility] HEMATOLOGY Hct 25.9 42.0 - 01/17 [place] 54.0 /2015 [facility] HEMATOLOGY Hgb 8.7 14.0 - 01/17 [place] 18.0 [facility] HEMATOLOGY RBC 3.07 4.70 - 01/17 [place] 6.10 [facility] PARATHYROID Ca Norm WB 1.13 1.05 - 01/17 [place] PROFILE 1. [facility] PARATHYROID Ca Ion WB 1.08 1.05 - 01/17 [facility] PROFILE 1. [facility] HEMATOLOGY Basophils # 0.1 0.0 - 0.2 01/16 [facility] BLOOD BANK Antibody Scrn Negative 01/15 [facility] RESULTS (01/16/16 12:05 AM) [facility] BLOOD BANK ABO/Rh O POS 01/15 [facility] RESULTS /2015 [facility] TOXICOLOGY Vanco Tr TND 0000 01/14 [facility] TOXICOLOGY Vanco Tr 4.9 01/14 [facility] URINE AND UA WBC 3 0 - 5 01/13 [facility] STOOL /2015 [facility] URINE AND UA RBC 1 0 - 2 01/13 [facility] /2015 [facility] URINE AND UA Mucus Few /LPF None Seen 01/13 [facility] STOOL /LPF /2015 [facility] URINE AND UA Blood Negative Negative 01/13 [facility] (01/14/16 7:03 AM) /2015 [facility] URINE AND UA Ketones Negative Negative 01/13 [facility] *NA* /2015 [facility] (01/14/16 7:03 AM) [place] URINE AND UA pH 5.5 5.0 - 8.0 01/13 [facility] /2015 [facility] URINE AND UA Glucose Negative Negative 01/13 [facility] (01/14/16 7:03 AM) /2015 [facility] URINE AND UA Protein Trace Negative 01/13 [facility] *ABN* [facility] (01/14/16 7:03 AM) [place] URINE AND UA Bili Negative Negative 01/13 [facility] STOOL *NA* /2015 [facility] (01/14/16 7:03 AM) [place] URINE AND UA Spec Grav 1.025 <=1.030 01/13 [facility] STOOL /2015 [facility] URINE AND UA Turbidity Clear Clear 01/13 [facility] (01/14/16 7:03 AM) /2015 [facility] URINE AND UA Color Yellow Yellow 01/13 [facility] *NA* [facility] (01/14/16 7:03 AM) [place] URINE AND UA Nitrite Negative Negative 01/13 [facility] (01/14/16 7:03 AM) /2015 [facility] URINE AND UA Sq Epi None Seen Few 01/13 [facility] STOOL (01/14/16 7:03 AM) /2015 [facility] URINE AND UA 1.0 0.1 - 1.0 01/13 [facility] STOOL Urobilinogen /2015 [facility] URINE AND UA Leuk Est Negative Negative 01/13 [facility] STOOL (01/14/16 7:03 AM) [facility] HEMATOLOGY Estimated % 3.4 0.0 - 7.5 01/12 Result [facility] Lysis Comment: Medical "Significant Center Findings called to Brigid Devlin at 01/13/2016 10:46 by Conchita Light. Read Back OK." HEMATOLOGY Max Amplitude 76 52 - 71 01/12 [facility] HEMATOLOGY G-value Rapid 15.8 5.0 - 11.6 01/12 [facility] HEMATOLOGY R-time Rapid 0.9 0.4 - 0.7 01/12 [facility] HEMATOLOGY K-time Rapid 1.1 0.6 - 2.3 01/12 [facility] HEMATOLOGY Angle Rapid 78 64 - 80 01/12 [facility] HEMATOLOGY ACT (TEG) 136 86 - 118 01/12 [facility] HEMATOLOGY [place] 0.8 01/12 [facility] BLOOD BANK ABO/Rh O POS 01/12 [facility] RESULTS /2015 [facility] BLOOD BANK Antibody Scrn Negative 01/12 [facility] RESULTS (01/13/16 12:34 AM) [facility] HEMATOLOGY PTT 42.2 22.9 - 01/12 [place] 35.8 [facility] HEMATOLOGY INR 1.15 0.85 - 01/12 [place] 1.17 /2015 [facility] HEMATOLOGY PT 15.0 12.0 - 01/12 [place] 14.7 [facility] HEMATOLOGY Plt Morph Normal 01/10 [facility] (01/11/16 4:47 AM) [facility] HEMATOLOGY RBC Morph Normal 01/10 [facility] (01/11/16 4:47 AM) [facility] CHEM PANEL Lactic Acid 1.2 0.5 - 2.2 01/09 [facility] Lvl [facility] CHEM PANEL Lactic Acid 2.2 0.5 - 2.2 01/07 [facility] Lv [facility] CHEM PANEL Lactic Acid 2.0 0.5 - 2.2 01/07 [place] Lvl /2015 [facility] DRUG SCREEN UDS Note See Note 01/07 [facility] (01/08/16 7:28 AM) /2015 Medical Center DRUG SCREEN U Amph Scr Negative Negative 01/07 [place] *NA* /2015 Medical (01/08/16 7:28 AM) Center DRUG SCREEN U Argelia Scr Negative Negative 01/07 [place] *NA* /2015 Medical (01/08/16 7:28 AM) Center DRUG SCREEN U Benzodia Negative Negative 01/07 [place] Scr *NA* /2015 Medical (01/08/16 7:28 AM) Center DRUG SCREEN U Phencyc Scr Negative Negative 01/07 [place] *NA* /2015 Medical (01/08/16 7:28 AM) Center DRUG SCREEN U Cocaine Scr Negative Negative 01/07 [place] *NA* /2015 Medical (01/08/16 7:28 AM) Center DRUG SCREEN U Cannab Scr Positive Negative 01/07 [place] *ABN* Medical (01/08/16 7:28 AM) Center DRUG SCREEN U Opiate Scr Negative Negative 01/07 [place] *NA* /2015 Medical (01/08/16 7:28 AM) Center URINE AND UA Sq Epi None Seen Few 01/07 [facility] STOOL (01/08/16 7:28 AM) /2015 Medical [place] URINE AND UA RBC 3-5 /HPF 0 - 2 01/07 [facility] STOOL /2015 Medical [place] URINE AND UA Hyal Cast 0-2 0 - 2 01/07 [facility] (01/08/16 7:28 AM) /2015 Medical [place] URINE AND UA Protein 30 mg/dL Negative 01/07 [facility] STOOL mg/dL /2015 Medical [place] URINE AND UA pH 6.0 5.0 - 8.0 01/07 [place] STOOL /2015 Medical [place] URINE AND UA Blood Small Negative 01/07 [facility] STOOL *ABN* /2015 Medical (01/08/16 7:28 AM) Center URINE AND UA 0.2 0.1 - 1.0 01/07 [facility] Urobilinogen /2015 Medical [place] URINE AND UA Leuk Est Negative Negative 01/07 [facility] STOOL (01/08/16 7:28 AM) /2015 Medical Center URINE AND UA Nitrite Negative Negative 01/07 [facility] STOOL (01/08/16 7:28 AM) /2015 Medical Center URINE AND UA Glucose Negative Negative 01/07 [facility] STOOL (01/08/16 7:28 AM) [facility] URINE AND UA Ketones Negative Negative 01/07 [facility] STOOL *NA* [facility] (01/08/16 7:28 AM) [place] URINE AND UA Bili Negative Negative 01/07 [facility] STOOL *NA* /2015 [facility] (01/08/16 7:28 AM) [place] URINE AND UA Spec Grav 1.027 <=1.030 01/07 [facility] STOOL [facility] URINE AND UA Turbidity Clear Clear 01/07 [facility] STOOL (01/08/16 7:28 AM) [facility] URINE AND UA Color Yellow Yellow 01/07 [facility] STOOL *NA* /2015 [facility] (01/08/16 7:28 AM) [place] HEMATOLOGY Basophils # 0.1 0.0 - 0.2 01/07 [facility] HEMATOLOGY [place] 0.6 01/07 [facility] HEMATOLOGY ACT (TEG) 113 86 - 118 01/07 [facility] HEMATOLOGY Angle Rapid 72 64 - 80 01/07 [facility] HEMATOLOGY K-time Rapid 1.5 0.6 - 2.3 01/07 [facility] HEMATOLOGY R-time Rapid 0.7 0.4 - 0.7 01/07 [facility] HEMATOLOGY Max Amplitude 61 52 - 71 01/07 [facility] HEMATOLOGY G-value Rapid 7.9 5.0 - 11.6 01/07 [facility] HEMATOLOGY Estimated % 1.4 0.0 - 7.5 01/07 [facility] Lysis [facility] TOXICOLOGY Etoh (%) <0.003 % 01/07 [facility] TOXICOLOGY Ethanol Lvl <3.0 01/07 [facility] mg/dL [facility] BLOOD BANK ABO/Rh O POS 01/07 [facility] RESULTS [facility] BLOOD BANK Antibody Scrn Negative 01/07 [facility] RESULTS (01/08/16 5:13 AM) [facility] Pathology Reports No Data Provided for This Section Diagnostic Reports Report Value Date Source Chest 1view DX EXAM: XR CHEST 1 VIEW 01/20/2016 [facility] DATE: 01/20/2016 3:00 AM CDT Center INDICATION: Abnormal chest sounds COMPARISON: 01/19/2016 at [...] effusion and ill-defined right lung airspace opacity. Chest 1view DX EXAM: XR CHEST 1 VIEW 01/19/2016 [facility] DATE: 01/19/2016 9:00 PM T Center INDICATION: Tube placement/removal/reposition COMPARISON: 01/19/2016 at 0036. [...] Asymmetric right lung opacities are again present. Chest 1view DX EXAM: XR CHEST 1 VIEW 01/19/2016 [facility] DATE: 01/19/2016 12:01 AM T Center INDICATION: Abnormal chest sounds COMPARISON: 01/18/2016 at [...] versus pneumonia right lung base. Chest 1view DX EXAM: XR CHEST 1 VIEW 01/18/2016 [facility] DATE: 01/18/2016 9:47 PM T Center INDICATION: Respiratory distress COMPARISON: 01/12/2016 and 01/18/2016 [...] and/or pneumonia right lung base. Chest 1view DX EXAM: XR CHEST 1 VIEW 01/18/2016 [facility] DATE: 01/18/2016 1:30 PM CDT Center INDICATION: Abnormal chest sounds COMPARISON: 01/18/2016 at 0140. TECHNIQUE: AP chest FINDINGS: Lines and tubes: Right chest tube with its tip at the apex. Lungs and pleura: Small to moderate right effusion. Ill-defined opacity in the right lung, which may be from compressive subsegmental atelectasis, asymmetric edema, or infection. No pneumothorax. Heart and mediastinum: Stable mediastinal contours. IMPRESSION: 1. No significant changes. Chest 1view DX EXAM: XR CHEST 1 VIEW 01/18/2016 [facility] DATE: 01/18/2016 3:00 AM CDT Center INDICATION: Abnormal chest sounds. FINDINGS: Comparison is [...] IMPRESSION: No significant change from yesterday morning. Chest 1view DX EXAM: XR CHEST 1 VIEW 01/17/2016 [facility] DATE: 01/17/2016 6:39 AM CDT Center INDICATION: Tube placement/removal/reposition. FINDINGS: Comparison is made [...] significant change from last night. Chest 1view DX EXAM: XR CHEST 1 VIEW 01/16/2016 [facility] DATE: 01/16/2016 5:54 PM CDT Center INDICATION: Dyspnea COMPARISON: 01/16/2016 at 0121. TECHNIQUE: [...] opacity on the right, suggesting asymmetric edema. Chest 1view DX EXAM: XR CHEST 1 VIEW 01/16/2016 [facility] DATE: 01/16/2016 at 0121 hours Center INDICATION: Abnormal chest sounds COMPARISON: 01/15/2016 at 0938 hours TECHNIQUE: AP chest FINDINGS: Lines and tubes: The right chest tube and Dobbhoff tube are again identified , with interim removal of the endotracheal tube. [...] interstitial opacities suggestive of mild pulmonary edema. Chest 1view DX EXAM: XR CHEST 1 VIEW 01/15/2016 [facility] DATE: 01/15/2016 Center INDICATION: Tube placement/removal/reposition . Comparison is made [...] with or without underlying right lower lobe consolidation/ volume loss. . There is platelike atelectasis in the left lower lobe. The upper lungs are clear IMPRESSION: No significant interval change when compared to prior radiograph. Chest 1view DX EXAM: XR CHEST 1 VIEW 01/14/2016 [facility] DATE: 01/14/2016 at 1401 hours Center INDICATION: Abnormal chest sounds . Comparison is [...] interval change when compared to prior radiograph. : Chest 1view DX EXAM: XR CHEST 1 VIEW 01/14/2016 [facility] DATE: 01/14/2016 Center INDICATION: Respiratory failure . Comparison is made [...] with or without underlying right lower lobe consolidation/ volume loss. The right upper lung is clear. The left lung is clear except for platelike atelectasis or developing consolidation in the left lower lobe IMPRESSION: IMPRESSION: No significant interval change when compared to prior radiograph. Chest 1view DX EXAM: XR CHEST 1 VIEW 01/14/2016 [facility] DATE: 01/14/2016 Center INDICATION: Cough and fever . Comparison is [...] compared to prior radiograph. Chest 1 v for Exam: Portable chest 01/13/2016 [facility] Placement DX Date: 01/13/2016 at 1950 hours Center Indication: Central line placement Comparison is made with chest radiograph 1 [...] lower lobes. IMPRESSION: No change Abdomen AP DX EXAM: XR ABDOMEN 1 VIEW 01/13/2016 [facility] DATE: 01/13/2016 5:32 PM CDT Center INDICATION: Tube placement/removal/reposition COMPARISON: None. TECHNIQUE: Limited AP view of the abdomen for tube placement assessment. Number of images: 1 FINDINGS: Transesophageal feeding tube tip in the proximal jejunum. Other tubes and lines: None. No other changes. IMPRESSION: Tube positions as above. Chest 1view DX EXAM: XR CHEST 1 VIEW 01/13/2016 [facility] DATE: 01/13/2016 at 1811 hours Center INDICATION: Respiratory failure . Comparison is made [...] tube 2. Bilateral retrocardiac opacities. Chest 1view DX EXAM: XR CHEST 1 VIEW 01/13/2016 [facility] DATE: 01/13/2016 at 1632 hours Center INDICATION: Central Line Placement . Comparison is [...] with or without underlying right lower lobe consolidation/ volume loss. . The remainder of the lungs are grossly clear IMPRESSION: The patient is newly intubated. Chest 2 views DX EXAM: XR CHEST 1 VIEW 01/13/2016 [facility] DATE: 01/13/2016 4:00 AM [facility] INDICATION: Pleural effusion COMPARISON: 01/12/2016 TECHNIQUE: AP chest IMPRESSION: 1. Again seen is the right thoracostomy tube with moderate right hydropneumothorax again seen, unchanged. 2. Compression atelectasis of the right lower lung zone. 3. Left lung is clear. Left costophrenic recess is sharp. 4. Cardiomediastinal silhouette within normal limits for technique. Chest 1view DX EXAM: XR CHEST 1 VIEW 01/12/2016 [facility] DATE: 01/12/2016 10:00 PM [facility] INDICATION: Tube placement/removal/reposition COMPARISON: 01/12/2016 at 1549 [...] and atelectasis. Pneumonia not excluded. Chest 1view DX EXAM: XR CHEST 1 VIEW 01/12/2016 [facility] DATE: 01/12/2016 3:50 PM CDT Center INDICATION: Tube placement/removal/reposition COMPARISON: 01/12/2016 at 1516. TECHNIQUE: AP chest FINDINGS: Note that this images labeled '15:49 #7 Final image' within a series of similar images, performed [...] like density projecting laterally over the right chest, which is presumed to be external to the patient. 3. Decrease in size of small lateral right pneumothorax. Chest 1view DX EXAM: XR CHEST 1 VIEW 01/12/2016 [facility] DATE: 01/12/2016 3:50 PM T Center INDICATION: Tube placement/removal/reposition COMPARISON: 01/12/2016 at 1516. [...] border of the right ribs. Chest 1view DX EXAM: XR CHEST 1 VIEW 01/12/2016 [facility] DATE: 01/12/2016 3:50 PM CDT Center INDICATION: Tube placement/removal/reposition COMPARISON: 01/12/2016 at 1516. TECHNIQUE: AP chest IMPRESSION: Image labeled 1535: Small to moderate persistent right lateral pneumothorax with chest tube in place. Unchanged small right effusion. Chest 1view DX EXAM: XR CHEST 1 VIEW 01/12/2016 [facility] DATE: 01/12/2016 3:50 PM T Center INDICATION: Tube placement/removal/reposition COMPARISON: 01/12/2016 at 1516. TECHNIQUE: AP chest IMPRESSION: Image labeled 15;30: Unchanged small to moderate right hydropneumothorax. Right chest tube remains in place. Right chest wall subcutaneous emphysema. Enlarged cardiac silhouette. Chest 1view DX EXAM: XR CHEST 1 VIEW 01/12/2016 [facility] DATE: 01/12/2016 3:50 PM T Center INDICATION: Tube placement/removal/reposition COMPARISON: 01/12/2016 at 1516. TECHNIQUE: AP chest IMPRESSION: Image labeled 1525: Unchanged small to moderate right hydropneumothorax. Right chest tube remains in place. The side-port is extrapleural. Right chest wall subcutaneous emphysema. Enlarged cardiac silhouette. There continues to be a linear density overlying the midline chest, which is presumed to be external to the patient. Chest 1view DX EXAM: XR CHEST 1 VIEW 01/12/2016 [facility] DATE: 01/12/2016 3:50 PM [facility] Center INDICATION: Tube placement/removal/reposition COMPARISON: 01/12/2016 at 1516. TECHNIQUE: AP chest IMPRESSION: Image labeled 1520: Unchanged small to moderate right hydropneumothorax. Right chest tube remains in place. The side-port is just extrapleural. Right chest wall subcutaneous emphysema. Enlarged cardiac silhouette. There continues to be a linear density overlying the midline chest, which is presumed to be external to the patient. Chest 1view DX EXAM: XR CHEST 1 VIEW 01/12/2016 [facility] DATE: 01/12/2016 2:57 PM [facility] Center INDICATION: Tube placement/removal/reposition COMPARISON: 01/12/2016 at 1516. TECHNIQUE: AP chest IMPRESSION: Image labeled 1: Unchanged small to moderate right hydropneumothorax. Right chest tube remains in place. The side-port is just extrapleural. Right chest wall subcutaneous emphysema. Enlarged cardiac silhouette. There continues to be a linear density overlying the midline chest, which is presumed to be external to the patient. Chest 1view DX EXAM: XR CHEST 1 VIEW 01/12/2016 [facility] DATE: 01/12/2016 2:13 PM T Center INDICATION: Tube placement/removal/reposition COMPARISON: 01/12/2016 at 0727 [...] atelectasis and/ or pneumonia not excluded. Chest Pulmonary EXAM: CTA CHEST WITH CONTRAST 01/12/2016 [facility] Embolism CTA DATE: 01/12/2016 10:14 AM T Center INDICATION: Shortness of Breath. Rule out pulmonary [...] Soft tissue findings as above. Chest 1view DX EXAM: XR CHEST 1 VIEW 01/12/2016 [facility] DATE: 01/12/2016 3:00 AM CDT Center INDICATION: Shortness of Breath COMPARISON: Chest radiograph [...] not visualized on this study. Chest 2 views DX EXAM: XR CHEST 2 VIEWS 01/11/2016 [facility] DATE: 01/11/2016 9:00 PM T Center INDICATION: Tube placement/removal/reposition COMPARISON: Chest radiograph dated [...] study performed at 9:01 AM. Chest 1view DX EXAM: XR CHEST 1 VIEW 01/11/2016 [facility] DATE: 01/11/2016 5:34 PM T Center INDICATION: Tube placement/removal/reposition COMPARISON: Chest radiograph 01/11/2016 at 3:39 PM TECHNIQUE: AP chest FINDINGS: Unchanged small right hydropneumothorax and tiny left apical pneumothorax. Mild right basilar atelectasis. Cardiac contours are unchanged. Bilateral chest wall gas unchanged. IMPRESSION: No significant interval change. Chest 1view DX EXAM: XR CHEST 1 VIEW 01/11/2016 [facility] DATE: 01/11/2016 2:35 PM T Center INDICATION: Tube placement/removal/reposition COMPARISON: 01/11/2016 at 0901. TECHNIQUE: AP chest IMPRESSION: 1. There continues to be a small right hydropneumothorax. The right apical pneumothorax component is slightly larger compared to earlier the same day in the morning. 2. Left chest wall mild subcutaneous emphysema is seen. 3. Enlarged cardiac silhouette, stable. Chest 1view DX EXAM: XR CHEST 1 VIEW 01/11/2016 [facility] DATE: 01/11/2016 5:21 AM [facility] INDICATION: Tube placement/removal/reposition. FINDINGS: Comparison is made [...] Left lower lobe platelike atelectasis. Chest 1view DX EXAM: XR CHEST 1 VIEW 01/11/2016 [facility] DATE: 01/11/2016 2:34 AM [facility] Center INDICATION: Respiratory distress COMPARISON: 01/10/2016 TECHNIQUE: AP [...] wall subcutaneous emphysema and swelling. Chest 1view DX EXAM: XR CHEST 1 VIEW 01/10/2016 [facility] DATE: 01/10/2016 9:17 PM CDT Center INDICATION: Tube placement/removal/reposition COMPARISON: 01/10/2016 TECHNIQUE: AP [...] radiographic appearance of the chest. Chest 1view DX EXAM: XR CHEST 1 VIEW 01/10/2016 [facility] DATE: 01/10/2016 7:00 PM CDT Center INDICATION: Tube placement/removal/reposition. FINDINGS: Comparison is made [...] been removed. 3. The lungs are clear. Chest 1view DX EXAM: XR CHEST 1 VIEW 01/10/2016 [facility] DATE: 01/10/2016 12:00 AM CDT Center INDICATION: Tube placement/removal/reposition. FINDINGS: Comparison is made [...] left hydropneumothorax. 3. The lungs are clear. Chest/Abdomen/Pelvis EXAM: CT CHEST WITH CONTRAST 01/08/2016 [facility] IV contrast CT EXAM: CT ABDOMEN AND PELVIS WITH CONTRAST Center DATE: 01/08/2016 6:56 AM CDT INDICATION: Pain Post Trauma COMPARISON: CT chest, [...] into the anterior/superior mediastinum is likely posttreatment. Chest 1view DX EXAM: XR CHEST 1 VIEW 01/08/2016 [facility] DATE: 01/08/2016 2:00 PM CDT Center INDICATION: Chest pain COMPARISON: Chest radiograph on [...] Bilateral chest wall subcutaneous emphysema. Chest 1view DX EXAM: XR CHEST 1 VIEW 01/08/2016 [facility] DATE: 01/08/2016 6:10 AM CDT Center INDICATION: Tube placement/removal/reposition COMPARISON: Chest radiograph dated [...] Bilateral chest wall subcutaneous emphysema. Chest 1view DX EXAM: XR CHEST 1 VIEW 01/08/2016 [facility] DATE: 01/08/2016 6:00 AM T Center INDICATION: Tube placement/removal/reposition COMPARISON: Chest radiograph dated [...] related to chest tube placement. Chest 1view DX EXAM: XR CHEST 1 VIEW 01/08/2016 [facility] DATE: 01/08/2016 5:03 AM CDT Center INDICATION: trauma COMPARISON: 01/08/2016 3:28 AM TECHNIQUE: [...] emphysema, probably related to chest tube placement. Consultation Notes No Data Provided for This Section Discharge Summaries No Data Provided for This Section History and Physicals No Data Provided for This Section Vital Signs Vital Sign Value Date Comments Source Systolic (mm Hg) 145 01/20/2016 [facility] Diastolic (mm Hg) 76 01/20/2016 [facility] Respitory Rate 20 01/20/2016 [facility] Heart Rate 90 01/20/2016 [facility] Temperature Oral (F) 99.6 F 01/20/2016 [facility] Respitory Rate 19 01/20/2016 [facility] Heart Rate 80 01/20/2016 [facility] Temperature Oral (F) 98.7 F 01/20/2016 [facility] Systolic (mm Hg) 138 01/20/2016 [facility] Diastolic (mm Hg) 79 01/20/2016 [facility] Respitory Rate 19 01/20/2016 [facility] Temperature Oral (F) 97.9 F 01/20/2016 [facility] Systolic (mm Hg) 120 01/20/2016 [facility] Diastolic (mm Hg) 61 01/20/2016 [facility] Heart Rate 83 01/20/2016 [facility] Height 170.18 cm 01/18/2016 [facility] Height 170.18 cm 01/18/2016 [facility] Height 170.18 cm 01/18/2016 [facility] BMI Calculated 40.81 01/08/2016 [facility] Weight 118.182 01/08/2016 [facility] Weight 129.545 01/08/2016 [facility] BMI Calculated 44.73 01/08/2016 [facility] Encounters Location Location Encounter Encounter Reason Attending ADM DC Status Source Details Type Number For Provider Date Date Visit [facility] [id number] Devonte 01/07 01/19 [facility] /2015 [facility] Procedures Procedure Code Date Perfomer Comments Source Tonsillectomy [id number] [facility] Assessment and Plan Assessment and Plan Date Source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
--- NOTE | 2019-01-29 20:22 | EDPHYS ---
Physician Documentation [facility] Name: Yaw Aldrich Jr Age: 28 yrs Sex: Male : 1990 Arrival Date: 01/29/2019 Time: 14:29 Bed 6 Private MD: ED Physician Devonte Ramirez HPI: 01/29 14:52 This 28 yrs old Male presents to ER via Ambulatory with complaints of Insect cp Bite. 14:52 The patient's rash thought to be caused by an unknown cause. The rash is located on the cp left wrist. Onset: The symptoms/episode began/occurred at an unknown time. noticed today at work, patient was told to go to ED for evaluation. Associated signs and symptoms: Pertinent negatives: burning sensation, fever, Pain. Historical: - Allergies: 14:42 ANTIHISTAMINES; ss - Home Meds: 14:42 metformin 1,000 mg Oral tab 1 tab 2 times per day [Active]; ss - PMHx: 14:42 Asthma; Diabetes - NIDDM; ss - PSHx: 14:42 Tonsillectomy; chest tube; ss - Immunization history:: Adult Immunizations up to date. - Social history:: Smoking status: Patient uses tobacco products, smokes two packs cigarettes per day. - Ebola Screening: : Patient denies exposure to infectious person Patient denies travel to an Ebola-affected area in the 21 days before illness onset. ROS: 14:54 Constitutional: Negative for body aches, chills, fever. cp 14:54 MS/extremity: Positive for rash, of the left wrist, Negative for pain. 14:54 All other systems are negative. Exam: 14:54 Head/Face: Normocephalic, atraumatic. cp 14:54 Constitutional: The patient appears in no acute distress, alert, awake, non-toxic, well developed, well nourished. 14:54 Skin: rash can be described as erythematous, with central yellow crust, on the left wrist. Vital Signs: 14:42 BP 169 / 103; Pulse 99; Resp 16; Temp 98.5(TE); Pulse Ox 100% on R/A; Weight 108.86 kg; ss Height 5 ft. 7 in. (170.18 cm); Pain 4/10; 14:42 Body Mass Index 37.59 (108.86 kg, 170.18 cm) MDM: 14:49 Patient medically screened. 14:58 Data reviewed: vital signs, nurses notes, and as a result, I will discharge patient. 14:58 Counseling: I had a detailed discussion with the patient and/or guardian regarding: the cp historical points, exam findings, and any diagnostic results supporting the discharge/admit diagnosis, to return to the emergency department if symptoms worsen or persist or if there are any questions or concerns that arise at home. Administered Medications: No medications were administered Disposition: 15:15 Chart complete. 01/30 07:28 Co-signature as Attending Physician, Devonte Ramirez MD I agree with the assessment and kdr plan of care. Disposition: 01/29/19 14:58 Discharged to Home. Impression: Impetigo. - Condition is Stable. - Discharge Instructions: Impetigo, Adult. - Prescriptions for Bactroban 2 % Topical Ointment - Apply to affected area 1 application by TOPICAL route every 12 hours; 30 gram. - Medication Reconciliation Form, Thank You Letter, Antibiotic Education, Prescription Opioid Use form. - Follow up: Private Physician; When: 1 week; Reason: Worsening of condition. - Problem is new. - Symptoms have improved. Signatures: Brigid Celestin RN RN sv Devonte Ramirez MD MD [facility] Marilu Brown RN RN ss Jhonny Webb PA PA Corrections: (The following items were deleted from the chart) 01/29 15:07 14:58 01/29/2019 14:58 Discharged to Home. Impression: Impetigo. Condition is Stable. sv Forms are Medication Reconciliation Form, Thank You Letter, Antibiotic Education, Prescription Opioid Use. Follow up: Private Physician; When: 1 week; Reason: Worsening of condition. Problem is new. Symptoms have improved. cp
--- NOTE | 2019-01-29 20:24 | ER ---
Nurse's Notes [facility] Name: Yaw Aldrich Jr Age: 28 yrs Sex: Male : 1990 Arrival Date: 01/29/2019 Time: 14:29 Bed 6 Private MD: Diagnosis: Impetigo Presentation: 01/29 14:39 Presenting complaint: Patient states: "I got bit by a brown recluse spider, or at least ss that is what I am told. I didn't even notice it, but I was at work and that's what they told me." Pt reports symptoms began 1 week ago and thought he had possibly burned himself. Transition of care: patient was not received from another setting of care. Onset of symptoms was January 22, 2019. Risk Assessment: Do you want to hurt yourself or someone else? Patient reports no desire to harm self or others. Initial Sepsis Screen: Does the patient meet any 2 criteria? No. Patient's initial sepsis screen is negative. Does the patient have a suspected source of infection? No. Patient's initial sepsis screen is negative. Care prior to arrival: None. 14:39 Method Of Arrival: Ambulatory ss 14:39 Acuity: SHEY 5 ss Historical: - Allergies: 14:42 ANTIHISTAMINES; ss - Home Meds: 14:42 metformin 1,000 mg Oral tab 1 tab 2 times per day [Active]; ss - PMHx: 14:42 Asthma; Diabetes - NIDDM; ss - PSHx: 14:42 Tonsillectomy; chest tube; ss - Immunization history:: Adult Immunizations up to date. - Social history:: Smoking status: Patient uses tobacco products, smokes two packs cigarettes per day. - Ebola Screening: : Patient denies exposure to infectious person Patient denies travel to an Ebola-affected area in the 21 days before illness onset. Screenin:50 Abuse screen: Denies threats or abuse. Denies injuries from another. Nutritional sv screening: No deficits noted. Tuberculosis screening: No symptoms or risk factors identified. Fall Risk None identified. Assessment: 14:50 General: Appears in no apparent distress. comfortable, well developed, Behavior is sv calm, cooperative, appropriate for age. Pain: Denies pain. Neuro: Level of Consciousness is awake, alert, obeys commands, Oriented to person, place, time, situation, Moves all extremities. Full function Gait is steady. Respiratory: Airway is compromised Respiratory effort is even, unlabored, Respiratory pattern is regular, symmetrical. Derm: Skin is intact, Skin is pink, warm \\T\\ dry. Wound noted left wrist Wound is open area about 1/2 inch in diameter noted. Vital Signs: 14:42 BP 169 / 103; Pulse 99; Resp 16; Temp 98.5(TE); Pulse Ox 100% on R/A; Weight 108.86 kg; ss Height 5 ft. 7 in. (170.18 cm); Pain 4/10; 14:42 Body Mass Index 37.59 (108.86 kg, 170.18 cm) ss ED Course: 14:29 Patient arrived in ED. mr 14:41 Triage completed. ss 14:42 Arm band placed on right wrist. ss 14:47 Jhonny Webb PA is PHCP. cp 14:47 Devonte Ramirez MD is Attending Physician. cp 14:50 Patient has correct armband on for positive identification. Bed in low position. sv 14:58 Brigid Celestin, RN is Primary Nurse. sv 15:05 No provider procedures requiring assistance completed. Patient did not have IV access sv during this emergency room visit. Administered Medications: No medications were administered Outcome: 14:58 Discharge ordered by MD. cp 15:05 Discharged to home ambulatory. sv 15:05 Condition: stable 15:05 Discharge instructions given to patient, Instructed on discharge instructions, follow up and referral plans. medication usage, wound care, Demonstrated understanding of instructions, follow-up care, medications, wound care, Prescriptions given X 2. 15:07 Patient left the ED. sv Signatures: Brigid Celestin, RN RN Ohara Shani mr Marilu Brown, RN FOX Jhonny Webb PA PA cp
[2019-01-29 21:58] VITALS: BP 169/103; TEMP 98.5; O2SAT 100
== END 2019-01-29 15:07 | disposition home or self-care (01) ==
LOC: ER 14:27
DX: L01.00 Impetigo, unspecified (principal); Z88.8 Allergy status to other drugs, medicaments and biological substances
CPT/HCPCS: 99282

== ENCOUNTER 2019-09-07 15:15 | Emergency (ER) | payer SELFPAY ==
--- OUTSIDE RECORDS SUMMARY | 2019-09-07 15:17 | XMS REPORT ---
:1990 [facility] Address [address] [place] [address] Dr. Carrion [address] [place] [id number] Care Team Providers Name Role Phone Unavailable Unavailable Unavailable Problems This patient has no known problems. Allergies, Adverse Reactions, Alerts This patient has no known allergies or adverse reactions. Medications This patient has no known medications.
--- NOTE | 2019-09-07 15:56 | RAD REPORT ---
EXAM DESCRIPTION: RAD - Chest Pa And Lat (2 Views) - 09/07/2019 3:50 pm CLINICAL HISTORY: r/o pneumonia, persistent cough and shortness of breath COMPARISON: Two view chest October 2018 TECHNIQUE: Frontal and lateral views of the chest were obtained. FINDINGS: The lungs are clear. Heart size is normal and central vasculature is within normal limit s. No pleural effusion or pneumothorax seen. No acute bony finding noted. No aortic abnormality. IMPRESSION: No acute cardiopulmonary process. No worrisome change from comparison.
--- NOTE | 2019-09-07 16:28 | ER ---
Nurse's Notes [facility] Name: Yaw Aldrich Jr Age: 29 yrs Sex: Male : 1990 Arrival Date: 09/07/2019 Time: 15:17 Bed 30 Private MD: Diagnosis: Cough;Abuse of non-psychoactive substances;Tobacco abuse counseling;Tobacco use;Adverse effect of amphetamines;Chest pain, unspecified Presentation: 09/06 15:27 Chief complaint: Patient states: "I've been having a cough for about a month now". Pt aa5 also reports SOB, pt states "it's hard for me to take a deep breath". pt states "I just got out of retirement last month and I have been doing meth and smoking cigarettes". Coronavirus screen: Surgical mask placed on patient. Patient moved to private room, placed in contact and droplet isolation with eye protection until further assessment. Patient reports a cough. Patient reports shortness of breath or difficulty breathing. Patient denies measured and/or subjective temperature greater than 100.4F prior to today's visit. Patient denies travel on a cruise ship or to a country the [facility] currently lists as an affected area. Patient denies contact with known and/or suspected case of COVID-19. Ebola Screen: Patient negative for fever greater than or equal to 101.5 degrees Fahrenheit, and additional compatible Ebola Virus Disease symptoms. Initial Sepsis Screen: Does the patient meet any 2 criteria? HR > 90 bpm. Does the patient have a suspected source of infection? No. Patient's initial sepsis screen is negative. Risk Assessment: Do you want to hurt yourself or someone else? Patient reports no desire to harm self or others. Onset of symptoms was August 2019. 15:27 Acuity: SHEY 3 aa5 15:27 Method Of Arrival: Ambulatory aa5 Triage Assessment: 15:49 General: Appears in no apparent distress. comfortable, ill, Behavior is calm, vc cooperative, appropriate for age. Respiratory: Reports shortness of breath Onset: The symptoms/episode began/occurred the last month, the patient has mild shortness of breath. Historical: - Allergies: 15:29 ANTIHISTAMINES; aa5 15:29 Benadryl; aa5 - PMHx: 15:29 Asthma; Diabetes - NIDDM; aa5 - PSHx: 15:29 Tonsillectomy; chest tube; aa5 - Immunization history:: Flu vaccine is not up to date. - Social history:: Smoking status: Patient reports the use of cigarette tobacco products, smokes two packs cigarettes per day. - Family history:: not pertinent. Screenin:48 Abuse screen: Denies threats or abuse. Nutritional screening: No deficits noted. vc Tuberculosis screening: No symptoms or risk factors identified. Fall Risk None identified. Assessment: 15:48 Pain: Complains of pain in chest. Cardiovascular: Rhythm is regular. Respiratory: vc Airway is patent Respiratory effort is even, unlabored. 15:48 General: Appears in no apparent distress. ill, Behavior is calm, cooperative, vc appropriate for age. Neuro: Level of Consciousness is awake, alert, obeys commands, Oriented to person, place, time. GI: No signs and/or symptoms were reported involving the gastrointestinal system. : No signs and/or symptoms were reported regarding the genitourinary system. Derm: Skin is intact, is healthy with good turgor, Skin temperature is warm. 16:13 Respiratory: Breath sounds are clear bilaterally. vc 17:00 Reassessment: Patient appears in no apparent distress at this time. Patient and/or vc family updated on plan of care and expected duration. Pain level reassessed. Patient is alert, oriented x 3, equal unlabored respirations, skin warm/dry/pink. Vital Signs: 15:27 BP 142 / 106; Pulse 113; Resp 18 S; Temp 98.4(O); Pulse Ox 100% on R/A; Weight 99.79 aa5 kg; Height 5 ft. 7 in. (170.18 cm) (R); Pain 0/10; 16:15 BP 139 / 98; Pulse 95; Pulse Ox 100% ; vc 15:27 Body Mass Index 34.46 (99.79 kg, 170.18 cm) aa5 ED Course: 15:17 Patient arrived in ED. am2 15:24 Jhonny Ferrer MD is Attending Physician. [facility] 15:29 Triage completed. aa5 15:29 Arm band placed on. aa5 15:47 Susana Villagomez RN is Primary Nurse. vc 15:47 Influenza Screen (a \\T\\ B) Sent. vc 15:47 Strep Sent. vc 15:48 Chest Pa And Lat (2 Views) XRAY Sent. vc 15:50 Patient has correct armband on for positive identification. Bed in low position. vc 15:51 Chest Pa And Lat (2 Views) XRAY In Process Unspecified. EDMS 17:05 No provider procedures requiring assistance completed. Patient did not have IV access vc during this emergency room visit. Administered Medications: 17:00 Drug: Aspirin 162 mg Route: PO; vc 17:08 Follow up: Response: No adverse reaction; Medication administered at discharge. vc Outcome: 16:27 Discharge ordered by . eliezer 17:05 Discharged to home ambulatory. vc 17:05 Condition: good 17:05 Discharge instructions given to patient, Instructed on discharge instructions, follow up and referral plans. Demonstrated understanding of instructions, follow-up care. 17:08 Patient left the ED. vc Signatures: Dispatcher [employer] EDMS Jhonny Ferrer MD MD cha Calderon, Audri, RN RN Merline Hernández Vanessa, RN RN vc
--- NOTE | 2019-09-07 16:28 | EDPHYS ---
Physician Documentation [facility] Name: Yaw Aldrich Jr Age: 29 yrs Sex: Male : 1990 Arrival Date: 09/07/2019 Time: 15:17 Bed 30 Private MD: ED Physician Jhonny Ferrer HPI: 09/06 16:21 This 29 yrs old Male presents to ER via Ambulatory with complaints of Cough, eliezer Shortness Of Breath, Chest Pain. 16:21 The patient or guardian reports cough, difficulty breathing. Onset: The eliezer symptoms/episode began/occurred 2 day(s) ago. Severity of symptoms: At their worst the symptoms were mild, in the emergency department the symptoms are unchanged. Modifying factors: The symptoms are alleviated by nothing, the symptoms are aggravated by nothing. Associated signs and symptoms: The patient has no apparent associated signs or symptoms. The patient has experienced similar episodes in the past, several times. Historical: - Allergies: 15:29 ANTIHISTAMINES; aa5 15:29 Benadryl; aa5 - PMHx: 15:29 Asthma; Diabetes - NIDDM; aa5 - PSHx: 15:29 Tonsillectomy; chest tube; aa5 - Immunization history:: Flu vaccine is not up to date. - Social history:: Smoking status: Patient reports the use of cigarette tobacco products, smokes two packs cigarettes per day. - Family history:: not pertinent. ROS: 16:21 Constitutional: Negative for fever, chills, and weight loss, Eyes: Negative for injury, eliezer pain, redness, and discharge, ENT: Negative for injury, pain, and discharge, Neck: Negative for injury, pain, and swelling, Abdomen/GI: Negative for abdominal pain, nausea, vomiting, diarrhea, and constipation, Back: Negative for injury and pain, : Negative for injury, bleeding, discharge, and swelling, MS/Extremity: Negative for injury and deformity, Skin: Negative for injury, rash, and discoloration, Neuro: Negative for headache, weakness, numbness, tingling, and seizure. 16:21 Cardiovascular: Positive for chest pain. 16:21 Respiratory: Positive for cough, with no reported sputum. Exam: 16:21 Constitutional: This is a well developed, well nourished patient who is awake, alert, eliezer and in no acute distress. Head/Face: Normocephalic, atraumatic. Eyes: Pupils equal round and reactive to light, extra-ocular motions intact. Lids and lashes normal. Conjunctiva and sclera are non-icteric and not injected. Cornea within normal limits. Periorbital areas with no swelling, redness, or edema. ENT: Nares patent. No nasal discharge, no septal abnormalities noted. Tympanic membranes are normal and external auditory canals are clear. Oropharynx with no redness, swelling, or masses, exudates, or evidence of obstruction, uvula midline. Mucous membranes moist. Neck: Trachea midline, no thyromegaly or masses palpated, and no cervical lymphadenopathy. Supple, full range of motion without nuchal rigidity, or vertebral point tenderness. No Meningismus. Chest/axilla: Normal chest wall appearance and motion. Nontender with no deformity. No lesions are appreciated. Cardiovascular: Regular rate and rhythm with a normal S1 and S2. No gallops, murmurs, or rubs. Normal PMI, no JVD. No pulse deficits. Respiratory: Lungs have equal breath sounds bilaterally, clear to auscultation and percussion. No rales, rhonchi or wheezes noted. No increased work of breathing, no retractions or nasal flaring. Abdomen/GI: Soft, non-tender, with normal bowel sounds. No distension or tympany. No guarding or rebound. No evidence of tenderness throughout. Back: No spinal tenderness. No costovertebral tenderness. Full range of motion. Male : Normal genitalia with no discharge or lesions. Skin: Warm, dry with normal turgor. Normal color with no rashes, no lesions, and no evidence of cellulitis. MS/ Extremity: Pulses equal, no cyanosis. Neurovascular intact. Full, normal range of motion. Neuro: Awake and alert, GCS 15, oriented to person, place, time, and situation. Cranial nerves II-XII grossly intact. Motor strength 5/5 in all extremities. Sensory grossly intact. Cerebellar exam normal. Normal gait. Psych: Awake, alert, with orientation to person, place and time. Behavior, mood, and affect are within normal limits. 16:21 Musculoskeletal/extremity: DVT Exam: No signs of deep vein thrombosis. no pain, no swelling, no tenderness, negative Homans' sign noted on exam, no appreciated bluish discoloration, no erythema, no increased warmth. Vital Signs: 15:27 BP 142 / 106; Pulse 113; Resp 18 S; Temp 98.4(O); Pulse Ox 100% on R/A; Weight 99.79 aa5 kg; Height 5 ft. 7 in. (170.18 cm) (R); Pain 0/10; 16:15 BP 139 / 98; Pulse 95; Pulse Ox 100% ; vc 15:27 Body Mass Index 34.46 (99.79 kg, 170.18 cm) aa5 MDM: 15:30 [facility]. [facility] 16:25 Data reviewed: vital signs, nurses notes, EKG, radiologic studies. [facility] 09/06 15:32 Order name: Strep; Complete Time: 16:21 09/06 15:32 Order name: Influenza Screen (a \T\ B); Complete Time: 16:30 09/06 15:32 Order name: Chest Pa And Lat (2 Views) XRAY; Complete Time: 16:21 09/06 16:12 Order name: Throat Culture [facility] 09/06 16:21 Order name: EKG; Complete Time: 16:21 [facility] 09/06 16:21 Order name: EKG - Nurse/Tech; Complete Time: 17:08 [facility] Administered Medications: 17:00 Drug: Aspirin 162 mg Route: PO; 17:08 Follow up: Response: No adverse reaction; Medication administered at discharge. Disposition: 09/07/19 16:27 Discharged to Home. Impression: Cough, Abuse of non-psychoactive substances, Tobacco abuse counseling, Tobacco use, Adverse effect of amphetamines, Chest pain, unspecified. - Condition is Stable. - Discharge Instructions: Nonspecific Chest Pain, Substance Use Disorder, Steps to Quit Smoking, Smoking Hazards, Cool Mist Vaporizer, Nonspecific Chest Pain, [id number], Steps to Quit Smoking, [id number], Cough, Adult, [id number], Aspirin and Your Heart, Cough, Adult. - Medication Reconciliation Form, Thank You Letter, Antibiotic Education, Prescription Opioid Use form. - Follow up: Private Physician; When: 2 - 3 days; Reason: Recheck today's complaints, Continuance of care, Re-evaluation by your physician. - Problem is new. - Symptoms have improved. Signatures: Dispatcher [employer] [facility] Jhonny Ferrer MD MD cha Calderon, Audri RN RN aa5 Susana Villagomez RN RN vc Corrections: (The following items were deleted from the chart) 16:28 16:27 09/07/2019 16:27 Discharged to Home. Impression: Cough; Abuse of non-psychoactive eliezer substances; Tobacco abuse counseling; Tobacco use; Adverse effect of amphetamines. Condition is Stable. Forms are Medication Reconciliation Form, Thank You Letter, Antibiotic Education, Prescription Opioid Use. Follow up: Private Physician; When: 2 - 3 days; Reason: Recheck today's complaints, Continuance of care, Re-evaluation by your physician. Problem is new. Symptoms have improved. [facility] 17:08 16:28 09/07/2019 16:27 Discharged to Home. Impression: Cough; Abuse of non-psychoactive vc substances; Tobacco abuse counseling; Tobacco use; Adverse effect of amphetamines; Chest pain, unspecified. Condition is Stable. Discharge Instructions: Nonspecific Chest Pain, Substance Use Disorder, Steps to Quit Smoking, Smoking Hazards, Cool Mist Vaporizer, Nonspecific Chest Pain, [id number], Steps to Quit Smoking, [id number], Cough, Adult, [id number], Aspirin and Your Heart, Cough, Adult. Forms are Medication Reconciliation Form, Thank You Letter, Antibiotic Education, Prescription Opioid Use. Follow up: Private Physician; When: 2 - 3 days; Reason: Recheck today's complaints, Continuance of care, Re-evaluation by your physician. Problem is new. Symptoms have improved. [facility]
[2019-09-07] MEDS ORDERED: ASPIRIN 81 MG CHEWABLE TABLET ONE (16:49)
[2019-09-07 17:15] VITALS: TEMP 98.4; O2SAT 100
[2019-09-07 17:17] VITALS: BP 139/98
--- NOTE | 2019-09-08 07:51 | EKG ---
Test Date: 2019-09-07 Test Time: 16:51:25 Web Solutions Architect: KALEY MEASUREMENT RESULTS: Intervals: Rate: 101 AL: 156 QRSD: 78 QT: 352 QTc: 456 [place]: P: 61 AL: 156 QRS: 78 T: 79 INTERPRETIVE STATEMENTS: Sinus tachycardia Nonspecific T wave abnormality Abnormal ECG Compared to ECG 11/07/2017 15:50:05 T-wave abnormality now present Myocardial infarct finding no longer present Electronically Signed On 09-08-19 07:33:06 CDT by Diego Forman
--- NOTE | 2019-09-08 10:43 | EKG ---
Test Date: 2019-09-07 Test Time: 16:51:52 Fiscal Agent: KALEY MEASUREMENT RESULTS: Intervals: Rate: 97 SD: 152 QRSD: 92 QT: 358 QTc: 454 [place]: P: 43 SD: 152 QRS: 73 T: 62 INTERPRETIVE STATEMENTS: Sinus rhythm with marked sinus arrhythmia Otherwise normal ECG Compared to ECG 09/07/2019 16:51:25 Sinus tachycardia no longer present T-wave abnormality no longer present Electronically Signed On 09-08-19 10:41:40 CDT by Diego Forman
== END 2019-09-07 17:08 | disposition home or self-care (01) ==
LOC: ER 15:15
DX: R07.9 Chest pain, unspecified (principal); T43.625A Adverse effect of amphetamines, initial encounter; Z72.0 Tobacco use; Z71.6 Tobacco abuse counseling; Z88.8 Allergy status to other drugs, medicaments and biological substances
CPT/HCPCS: 71046; 82947; 87070; 87081; 87804; 93005; 99283

== ENCOUNTER 2019-11-22 21:53 | Emergency (ER) | payer SELFPAY ==
--- OUTSIDE RECORDS SUMMARY | 2019-11-22 21:57 | XMS REPORT | Continuity of Care Document ---
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 [facility] STOOL (01/08/16 7:28 AM) [facility] URINE AND UA Color Yellow Yellow 01/07 [facility] STOOL *NA* /2015 [facility] (01/08/16 7:28 AM) [place] HEMATOLOGY Basophils # 0.1 0.0 - 0.2 01/07 s [facility] HEMATOLOGY [place] 0.6 01/07 [facility] HEMATOLOGY ACT (TEG) 113 86 - 118 01/07 [place] [facility] HEMATOLOGY Angle Rapid 72 64 - 80 01/07 [facility] HEMATOLOGY K-time Rapid 1.5 0.6 - 2.3 01/07 [facility] HEMATOLOGY R-time Rapid 0.7 0.4 - 0.7 01/07 [facility] HEMATOLOGY Max Amplitude 61 52 - 71 01/07 [place] [facility] HEMATOLOGY G-value Rapid 7.9 5.0 - 11.6 01/07 [place] [facility] HEMATOLOGY Estimated % 1.4 0.0 - 7.5 01/07 [place] [facility] TOXICOLOGY Etoh (%) <0.003 % 01/07 [facility] TOXICOLOGY Ethanol Lvl <3.0 01/07 [facility] mg/dL [facility] BLOOD BANK ABO/Rh O POS 01/07 [place] RESULTS [facility] BLOOD BANK Antibody Scrn Negative 01/07 Med as RESULTS (01/08/16 5:13 AM) [facility] Pathology Reports No Data Provided for This Section Diagnostic Reports Report Value Date Source Chest 1view DX EXAM: XR CHEST 1 VIEW 01/20/2016 [facility] edical DATE: 01/20/2016 3:00 AM CDT Cent er INDICATION: Abnormal chest sounds COMPARISON: 01/19/2016 at 2143. TECHNIQUE: AP chest FINDINGS: Lines and tubes: None. Lungs and pleura: Small righ t pleural effusion with lateral tracking to the apex. Ill-defined diffuse airspace opacities in the right lung, which may be due to subsegmental atelectasis, asymmetric edema, or pneumonia. The left lung remains clear. No pneumothorax given the limitation of a semiupright exam. Heart and mediastinum: Stable mediastinal contou rs. IMPRESSION: Stable findings of right ple ural effusion and ill-defined right lung airspace opacity. Chest 1view DX EXAM: XR CHEST 1 VIEW 01/19/2016 [facility] edical DATE: 01/19/2016 9:00 PM CDT Cent er INDICATION: Tube placement/removal/reposition COMPARISON: 01/19/2016 at 0036. TECHNIQUE: AP chest FINDINGS: Lines and tubes: Previous right chest tube was r emoved. Lungs and pleura: Small righ t pleural effusion with lateral tracking to the apex. Ill-defined diffuse airspace opacities in the right lung, which may be due to subsegmental atelectasis, asymmetric edema, or pneumonia. The left lung remains clear. No pneumothorax given the limitation of a semiupright exam. Heart and mediastinum: Stable mediastinal contou rs. IMPRESSION: Previous right chest tube was removed. Small right effusion again present. Asymmetric right lung opacities are again presen t. Chest 1view DX EXAM: XR CHEST 1 VIEW 01/19/2016 [facility] edical DATE: 01/19/2016 12:[address] INDICATION: Abnormal chest sounds COMPARISON: 01/18/2016 at [...] excluded. 3. Atelectasis versus pneumonia right lung base . Chest 1view DX EXAM: XR CHEST 1 VIEW 01/18/2016 [facility] edical DATE: 01/18/2016 9:47 PM CDT Cent er INDICATION: Respiratory distress COMPARISON: 01/12/2016 and 01/18/2016 at 2135 FINDINGS: Right thoracostomy tube with tip near the apex remains. Small to moderate right pleural effusion tracking along the lateral right chest wall to the apex is again noted. Loculation is not excluded. Withi n limitations of semierect p ositioning, no definite pneumothorax is identified. Airspace opacity is present in the right lung base with partial obscuration of the right hemidiaphragm. Left lung is clear. Cardiac silhouette is stable. IMPRESSION: 1. Stable right thoracostomy tube. 2. Stable small to moderate right pleural effusion tracking along the lateral right chest wall. A component of loculation not excluded. 3. Superimposed atelectasis and/or pneumonia ri ght lung base. Chest 1view DX EXAM: XR CHEST 1 VIEW 01/18/2016 [facility] edical DATE: 01/18/2016 1:30 PM CDT Cent er INDICATION: Abnormal chest sounds COMPARISON: 01/18/2016 at 0140. TECHNIQUE: AP chest FINDINGS: Lines and tubes: Right chest tube with its tip a t the apex. Lungs and pleura: Small to moderate right effusi on. Ill-defined opacity in the r ight lung, which may be from compressive subsegmental atelectasis, asymmetric edema, or infection. No pneumothorax. Heart and mediastinum: Stable mediastinal contou rs. IMPRESSION: 1. No significant changes. Chest 1view DX EXAM: XR CHEST 1 VIEW 01/18/2016 [facility] edical DATE: 01/18/2016 3:00 AM CDT Cent er INDICATION: Abnormal chest sounds. FINDINGS: Comparison is made to yesterday. The cardiomediastinal silhou ette is stable. Life support lines and tubes remain in place. A right pleural effusion ext ends from the apex down laterally to the base. The left costophrenic sulcus is clear. The right lung is diminished in volume with scattered subsegmental atelectasis. There is a right retrocardiac opacity which may be due to a layering right pleural effusion and/or airspace opacity such a s pneumonia or atelectasis. The left lung is caitlin ar. IMPRESSION: No significant change from yesterday morning. Chest 1view DX EXAM: XR CHEST 1 VIEW 01/17/2016 [facility] edical DATE: 01/17/2016 6:39 AM CDT Cent er INDICATION: Tube placement/removal/reposition. FINDINGS: Comparison is made to last night. The cardiomediastinal silhou ette is stable. Life support lines and tubes remain in place. A right pleural effusion ext ends from the apex down laterally to the base. There are patchy right middle lobe and right lower lobe opacities which could be due to atelectasis and/or pneumonia. There is platelike atelectasis in the left lung base. IMPRESSION: No significant change from last nigh t. Chest 1view DX EXAM: XR CHEST 1 VIEW 01/16/2016 [facility] edical DATE: 01/16/2016 5:54 PM CDT Cent er INDICATION: Dyspnea COMPARISON: 01/16/2016 at 0121. TECHNIQUE: AP chest FINDINGS: Lines and tubes: Right chest tube with its tip n ear the apex. ET tube with its tip 3.9 cm above the rocio. Feeding tube extends to the stomach, incompletel y seen. Lungs and pleura: Moderate r ight effusion. Atelectasis in the lung bases again seen. Interstitial opacities great er in the right lung, which may represent asymmetric edema. Heart and mediastinum: Stable cardiac silhouette and mediastinal contours. IMPRESSION: 1. No significant changes. 2. Persistent right pleural effusion. 3. Atelectasis in the lung bases. 4. Interstitial opacity on the right, suggestin g asymmetric edema. Chest 1view DX EXAM: XR CHEST 1 VIEW 01/16/2016 [facility] edical DATE: 01/16/2016 at 0121 hours Ce nter INDICATION: Abnormal chest sounds COMPARISON: 01/15/2016 at 0938 hours TECHNIQUE: AP chest FINDINGS: Lines and tubes: The right c hest tube and Dobbhoff tube are again identified, with interim removal of the endotracheal tube. Lungs and pleura: A loculate d right pleural fluid collection and atelectasis atelectasis are not significantly changed, with interval development of peribronchial cuffing on the right. The left lung remains overall clear. Heart and mediastinum: The heart size and medias tinal contours are unchanged. IMPRESSION: 1. Unchanged appearance of t he loculated right pleural effusion and atelectasis on the right. 2. Peribronchial cuffing and milder interstitial opacities suggestive of mild pulmonary edema. Chest 1view DX EXAM: XR CHEST 1 VIEW 01/15/2016 [facility] edical DATE: 01/15/2016 Center INDICATION: Tube placement/ removal/reposition . Comparison is made with yesterday FINDINGS: Cardiomediastinal silhouette and life-support lines are stable. Right pleural effusion is unchanged. No pneumothorax is visualized however a supine or semierect radiograph is suboptimal for th at determination. An erect f ilm of the chest is necessary in order to exclude small pneumothoraces. There is a localized opacity at the right lung base medially which partially obscures the medial portion of the right hemidiaphragm and right lung base and could represent a combination of layering righ t pleural effusion with or w ithout underlying right lower lobe consolidation/volume loss. . There is platelike atelectasis in the left lower lobe. The upper lungs are clear IMPRESSION: No significant interval change when compared to prior radiograph. Chest 1view DX EXAM: XR CHEST 1 VIEW 01/14/2016 [facility] edical DATE: 01/14/2016 at 1401 hours C enter INDICATION: Abnormal chest sounds . Comparison is made with 8 hours earlier today FINDINGS: Cartilage mediasti nal silhouette and life-support lines are stable. There is a right pleural effusion. The left costophrenic sulcus is sharp. No pneumothorax is visualized however a supine or semierect radiograph is subo ptimal for that determination. An erect film of the chest is necessary in order to exclude small pneumothoraces. There are bilateral retrocar diac opacities obscuring the hemidiaphragms and silhouette of the descending thoracic aorta which may represent bilateral pleural effusions with or without underlying atelect asis or consolidation of bot h lower lobes. .. The right retrocardiac opacity is greater than the left. The apices are clear IMPRESSION: No significant interval saldivar ge when compared to prior radiograph.: Chest 1view DX EXAM: XR CHEST 1 VIEW 01/14/2016 [facility] edical DATE: 01/14/2016 Center INDICATION: Respiratory robert lure . Comparison is made with radiograph 3 hours earlier today FINDINGS: Cardiomediastinal silhouette and life- support lines are stable. Right pleural effusion is unchanged. No pneumothorax is visualize d however a supine or semierect radiograph is suboptimal for that determination. An erect film of the chest is necessary in order to exclude small pneumothoraces. There is a localized opacity at the right lung base medially which partially obscures the medial portion of the right hemidiaphragm and right lung base and could represent a combination of layering righ t pleural effusion with or w ithout underlying right lower lobe consolidation/volume loss. The right upper lung is clear. The left lung is clear except for platelike atelectasis or developing consolidation in the left lower lobe IMPRESSION: IMPRESSION: No s ignificant interval change when compared to prior radiograph. Chest 1view DX EXAM: XR CHEST 1 VIEW 01/14/2016 [facility] edical DATE: 01/14/2016 Center INDICATION: Cough and fever . Comparison is mad e with yesterday FINDINGS: Cardiomediastinal silhouette and life-support lines are stable. There is a right pleural effusion. There are bilateral retrocar diac opacities obscuring the hemidiaphragms and silhouette of the descending thoracic aorta which may represent bilateral pleural effusions with or without underlying atelect asis or consolidation of both lower lobes. .. Th e upper lungs are clear IMPRESSION: No significant interval change when compared to prior radiograph. Chest 1 v for Exam: Portable chest 01/13/2016 [facility] dical Placement DX Date: 01/13/2016 at 1950 hours C enter Indication: Central line placement Comparison is made with chest radiograph 1 hour ago FINDINGS: Cardiomediastinal silhouette and life- support lines are stable. Despite the right chest tube there is a right pleural effusion. No pneumothorax is visualized however a supine or semierect radiograph is suboptimal for that determination. An erect film of the chest is necessary in order to exclude small pneumothora rogelio. There are bilateral retrocar diac opacities obscuring the hemidiaphragms and silhouette of the descending thoracic aorta which may represent bilateral pleural effusions with or without underlying atelectasis or consolidation of both lower lobes. IMPRESSION: No change Abdomen AP DX EXAM: XR ABDOMEN 1 VIEW 01/13/2016 [facility] DATE: 01/13/2016 5:32 PM CDT Cent er INDICATION: Tube placement/removal/reposition COMPARISON: None. TECHNIQUE: Limited AP view of the abdomen for tube placement assessment. Number of images: 1 FINDINGS: Transesophageal feeding tube tip in the proximal jejunum. Other tubes and lines: None. No other changes. IMPRESSION: Tube positions as above. Chest 1view DX EXAM: XR CHEST 1 VIEW 01/13/2016 [facility] edical DATE: 01/13/2016 at 1811 hours C enter INDICATION: Respiratory robert lure . Comparison is made with 2 hours earlier today FINDINGS: The patient has a new feeding tube that courses below the diaphragm beyond the confines of the chest radiograph. Tip of the endotracheal tube is well above the rocio. There is a right pleural effusion and a right pneumo thorax. No pneumothorax is visualized however a supine or semierect radiograph is suboptimal for that determination. An erect film of the chest is necessary in order to exclude small pneumothoraces. There are bilateral retrocar diac opacities obscuring the hemidiaphragms and silhouette of the descending thoracic aorta which may represent bilateral pleural effusions with or without underlying atelect asis or consolidation of both lower lobes. .. Th e upper lungs are clear IMPRESSION: 1. New feeding tube 2. Bilateral retrocardiac opacities. Chest 1view DX EXAM: XR CHEST 1 VIEW 01/13/2016 [facility] edical DATE: 01/13/2016 at 1632 hours C enter INDICATION: Central Line Pl acement . Comparison is made with 7 hours earlier today FINDINGS: This radiograph wa s obtained in the operating room. The costophrenic [...] layering righ t pleural effusion with or w ithout underlying right lower lobe consolidation/volume loss. . The remainder of the lungs are grossly clear IMPRESSION: The patient is newly intubated. Chest 2 views DX EXAM: XR CHEST 1 VIEW 01/13/2016 [facility] DATE: 01/13/2016 4:00 AM CDT Cent er INDICATION: Pleural effusion COMPARISON: 01/12/2016 TECHNIQUE: AP chest IMPRESSION: 1. Again seen is the right t horacostomy tube with moderate right hydropneumothorax again seen, unchanged. 2. Compression atelectasis of the right lower brendan ng zone. 3. Left lung is clear. Left costophrenic recess is sharp. 4. Cardiomediastinal silhouette within normal li mits for technique. Chest 1view DX EXAM: XR CHEST 1 VIEW 01/12/2016 [facility] edical DATE: 01/12/2016 10:[address] INDICATION: Tube placement/removal/reposition COMPARISON: 01/12/2016 at 1549 FINDINGS: Right thoracostomy tube with tip near the apex remains. Small lateral hydropneumothorax on the right remains. Opacity in the right lung base obscures the right hemidiaphragm. The cardiomediastinal silhouette is stable. Left lung is essentially clear. IMPRESSION: 1. Stable small lateral right hydropneu mothorax with right thoracostomy tube. 2. Right basilar opacity li mani represents a combination of pleural fluid and atelectasis. Pneumonia not excluded. Chest 1view DX EXAM: XR CHEST 1 VIEW 01/12/2016 [facility] edical DATE: 01/12/2016 3:50 PM CDT Cent er INDICATION: Tube placement/removal/reposition COMPARISON: 01/12/2016 at 1516. TECHNIQUE: AP chest FINDINGS: Note that this images labele d '15:49 #7 Final image' within a series of similar images, performed for chest tube adjustment. I confirm this with patient's nurse, Michelle around 1720 on 01/12/2016. Lines and tubes: A right chest tube is positione d with its tip near the apex. There is a irregular wire-li ke density now projected over the lateral aspect of the right chest, presumed to be external to the patient. Lungs and pleura: Small righ t effusion. Atelectasis/consolidation obscuring the right lung base. Decrease in size of small right lateral pneumothorax. The left lung is clear. Heart and mediastinum: Enlarged cardiac silhouet te. Bones and Soft Tissues: Right chest wall subcuta neous emphysema. IMPRESSION: 1. A right chest tube has b een repositioned with its side-port overlying the right chest and tip overlying the right apex. 2. There is a wire like den sity projecting laterally over the right chest, which is presumed to be external to the patient. 3. Decrease in size of small lateral right pneu mothorax. Chest 1view DX EXAM: XR CHEST 1 VIEW 01/12/2016 [facility] edical DATE: 01/12/2016 3:50 PM CDT Cent er INDICATION: Tube placement/removal/reposition COMPARISON: 01/12/2016 at 1516. TECHNIQUE: AP chest IMPRESSION: This image is labeled 15:40 1. Slight enlargement of a small to moderate la teral right pneumothorax. 2. Persistent right effusion and right basilar atelectasis. 3. Right chest wall subcutaneous emphysema. 4. The chest tube has been adjusted, with its tip directed inferiorly and side-port overlying the lateral border of the right ribs. Chest 1view DX EXAM: XR CHEST 1 VIEW 01/12/2016 [facility] edical DATE: 01/12/2016 3:50 PM CDT Cent er INDICATION: Tube placement/removal/reposition COMPARISON: 01/12/2016 at 1516. TECHNIQUE: AP chest IMPRESSION: Image labeled 1535: Small to moderate persistent right lateral pneumothorax with chest tube in place. Unchanged small right effusion. Chest 1view DX EXAM: XR CHEST 1 VIEW 01/12/2016 [facility] edical DATE: 01/12/2016 3:50 PM CDT Cent er INDICATION: Tube placement/removal/reposition COMPARISON: 01/12/2016 at 1516. TECHNIQUE: AP chest IMPRESSION: Image labeled 15;30: Unchanged small to moderate right hydropneumotho rax. Right chest tube remains in place. Right chest wall subcutaneous emphysema. Enlarged cardiac silhouette. Chest 1view DX EXAM: XR CHEST 1 VIEW 01/12/2016 [facility] DATE: 01/12/2016 3:50 PM CDT Cent er INDICATION: Tube placement/removal/reposition COMPARISON: 01/12/2016 at 1516. TECHNIQUE: AP chest IMPRESSION: Image labeled 1525: Unchanged small to moderate right hydropneumotho rax. Right chest tube remains in place. The side-port is extrapleural. Right chest wall subcutaneous emphysema. Enlarged cardiac silhouette. There continues to be a line ar density overlying the midline chest, which is presumed to be external to the patient. Chest 1view DX EXAM: XR CHEST 1 VIEW 01/12/2016 [facility] edical DATE: 01/12/2016 3:50 PM CDT Cent er INDICATION: Tube placement/removal/reposition COMPARISON: 01/12/2016 at 1516. TECHNIQUE: AP chest IMPRESSION: Image labeled 1520: Unchanged small to moderate right hydropneumotho rax. Right chest tube remains in place. The side-port is just extrapleural. Right chest wall subcutaneous emphysema. Enlarged cardiac silhouette. There continues to be a line ar density overlying the midline chest, which is presumed to be external to the patient. Chest 1view DX EXAM: XR CHEST 1 VIEW 01/12/2016 [facility] edical DATE: 01/12/2016 2:57 PM CDT Cent er INDICATION: Tube placement/removal/reposition COMPARISON: 01/12/2016 at 1516. TECHNIQUE: AP chest IMPRESSION: Image labeled 1: Unchanged small to moderate right hydropneumotho rax. Right chest tube remains in place. The side-port is just extrapleural. Right chest wall subcutaneous emphysema. Enlarged cardiac silhouette. There continues to be a line ar density overlying the midline chest, which is presumed to be external to the patient. Chest 1view DX EXAM: XR CHEST 1 VIEW 01/12/2016 [facility] DATE: 01/12/2016 2:13 PM CDT Cent er INDICATION: Tube placement/removal/reposition COMPARISON: 01/12/2016 at 0727 FINDINGS: There stable prominence the cardiomediastinal silhouette. There is been interval placement of a right thoracostomy tube with kinking of the tube overlying the mid left chest. Tip is near the midline. Mo derate right pleural effusio n remains with fluid tracking along the lateral right chest wall. There is a small amount of subcutaneous gas present. IMPRESSION: 1. Interval placement of right thoracostomy tub e. Kinking is present. 2. At least moderate right pleural effusion. Superimposed atelectasis and/or pneumonia not excluded. Chest Pulmonary EXAM: CTA CHEST WITH CONTRAST 01/12/2016 [facility] DATE: 01/12/2016 10:[address] INDICATION: Shortness of Breath. Rule out pulmon fatmata embolus. COMPARISON: 01/08/2016 CT TECHNIQUE: Volumetric CT acq uisition of the chest, during pulmonary arterial phase, [...] pleural fluid co llection along the lateral r ight chest wall measuring 4.8 cm transverse by 9.5 cm AP diameter by approximately 12.8 cm craniocaudal. Scattered bilateral groundglass opacities are present. No pneumothora x is identified. Subsegmental atelectasis is pre sent in the left lung base. Upper abdomen: No acute findings. Bones and Soft Tissues: No a cute osseous findings. Small scattered areas of subcutaneous gas are present on the left, with moderate scattered subcutaneous gas, skin thickening, subcutaneous stranding, a nd areas of subcutaneous flu id on the right present. Scattered areas of soft tissue gas are present along the left lower back. IMPRESSION: 1. No central pulmonary embolus. 2. Loculated pleural fluid collection along the lateral right chest wall measuring 4.8 x 9.5 x 12.8 cm. 3. Additional moderate laye ring pleural fluid collection in the dependent portion of the right lung with near complete collapse of the right middle lobe and right lower lobe. 4. Scattered groundglass op acities and linear opacities in the left lung base suggest atelectasis. Superimposed infectious process not excluded. 5. Soft tissue findings as above. Chest 1view DX EXAM: [facility]: 01/12/2016 3:00 AM CDT [place] INDICATION: Shortness of Breath COMPARISON: Chest radiograph 01/11/2016 at 2152 TECHNIQUE: AP chest FINDINGS: Lines, tubes and hardware: None. Lungs and pleura: The previo usly noted right pneumothorax is not seen on this study. The right pleural effusion has increased in size. The left costophrenic sulcus is sharp. The left lung is clear. Heart and mediastinum: The r ight heart border is obscured by pleural effusion. The mediastinal contours are normal. Bones: No acute bony abnormality is identified. IMPRESSION: 1. Right pleural effusion, increased in size com pared to previous 2. Previously seen right pneumothorax is not vis ualized on this study. Chest 2 views DX EXAM: XR CHEST 2 VIEWS 01/11/2016 [facility] DATE: 01/11/2016 9:00 PM CDT [place] INDICATION: Tube placement/removal/reposition COMPARISON: Chest radiograph dated 01/11/2016. TECHNIQUE: PA and lateral chest radiographs FINDINGS: Lungs and pleura: Again seen is an unchanged small right hydropneumothorax. There is subjacent airspace disease in the right lower lobe which may represent atelectasis. The previously noted small left a pical pneumothorax is not radiographically appar ent on this examination. Heart and mediastinum: The h eart size is normal. The mediastinal contours are normal. Bones: No acute bony abnormality is identified. IMPRESSION: No significant interval change in the right hydropneumothorax compared to the prior exam dated 01/11/2016 at 1811 hours, but significantly increased right pleural effusion in comparison to the study performed at 9:01 AM. Chest 1view DX EXAM: XR CHEST 1 VIEW 01/11/2016 [facility] DATE: 01/11/2016 5:34 PM CDT [place] INDICATION: Tube placement/removal/reposition COMPARISON: Chest radiograph 01/11/2016 at 3:39 PM TECHNIQUE: AP chest FINDINGS: Unchanged small right hydropneumothorax and tiny left apical pneumothorax. Mild right basilar atelectasis. Cardiac contours are unchanged. Bilateral chest wall gas unchanged. IMPRESSION: No significant interval change. Chest 1view DX EXAM: XR CHEST 1 VIEW 01/11/2016 [facility] edical DATE: 01/11/2016 2:35 PM CDT Cent er INDICATION: Tube placement/removal/reposition COMPARISON: 01/11/2016 at 0901. TECHNIQUE: AP chest IMPRESSION: 1. There continues to be a small right hydropneumothorax. The right apical pneumothorax component is slightly larger compared to earlier the same day in the morning. 2. Left chest wall mild subcutaneous emphysema is seen. 3. Enlarged cardiac silhouette, stable. Chest 1view DX EXAM: XR CHEST 1 VIEW 01/11/2016 [facility] DATE: 01/11/2016 5:21 AM CDT [facility] er INDICATION: Tube placement/removal/reposition. FINDINGS: Comparison is made to January 10 at 2:4 3 AM. The cardiomediastinal silhou ette is stable. Subsegmental atelectasis is seen in the left lung base. There is a small residual right hydropneumothorax. There may be a very small residual left pleural effusion. Note is made of mild scattered subcutaneous emph ysema in the chest wall. IMPRESSION: 1. Small residual right hydropneumothorax. 2. Small left pleural effusion. 3. Left lower lobe platelike atelectasis. Chest 1view DX EXAM: XR CHEST 1 VIEW 01/11/2016 [facility] DATE: 01/11/2016 2:34 AM CDT [facility] INDICATION: Respiratory distress COMPARISON: 01/10/2016 TECHNIQUE: AP chest, semierect. FINDINGS: Lines and tubes, and life zambrano pport devices: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
--- OUTSIDE RECORDS SUMMARY | 2019-11-22 21:59 | XMS REPORT | Summary of Care ---
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 [address] [place] [phone] Reason for Visit Reason Comments Shortness of Breath Chest Pain Auth/Cert Status Reason Specialty Diagnoses / Referred By Referred To Procedures Contact Contact Emergency Medicine [facility] [address] [facility] [place] [address] Fax: Encounter Details Date Type Department Care Team Description 09/08/2019 Emergency ADC-Emergency Ashly Allen FNP Chest pain, unspecified type (Primary Dx ); Department [address] [place] [address] Drug dependence, abuse; [address] [place] [address] [place] [phone] Allergies Active Allergy Reactions Severity Noted Date Comments Antihistimine Swelling 02/07/2015 documented as of this encounter (statuses as of 09/08/2019) Medications Medication Sig Dispensed Refills Start Date End Date Status Tramadol (RYBIX ODT) 50 Take 1 Tab by 15 Tab 0 02/08/2015 Active mg TbDL mouth 6 (six) times daily. salsalate (SALSALATE) Take 1 Tab by 22 Tab 0 02/08/2015 Active 750 mg tablet mouth 3 (three) times daily with meals. silver sulfADIAZINE Apply to area(s) 1 Tube 1 02/08/2015 Active (SILVADENE) 1 % cream 2 (two) times daily. metFORMIN 500 mg tablet Take 1 tablet by 60 tablet 0 8 Active mouth 2 (two) times daily with meals. documented as of this encounter (statuses as of 09/08/2019) Active Problems No known active problemsdocumented as of this encounter (statuses as of 09/08/2019) Social History Tobacco Use Types Packs/Day Years Used Date Never Assessed Sex Assigned at Date Recorded Not on file Job Start Date Occupation Industry Not on file Not on file Not on file Travel History Travel Start Travel End No recent travel history available. documented as of this encounter Last Filed Vital Signs Vital Sign Reading Time Taken Comments Blood Pressure 127/73 09/08/2019 10:00 PM CDT Pulse 59 09/08/2019 10:00 PM CDT Temperature 36.9 C (98.4 F) 09/08/2019 7:15 PM CDT Respiratory Rate 12 09/08/2019 10:00 PM CDT Oxygen Saturation 99% 09/08/2019 10:00 PM CDT Inhaled Oxygen Concentration - - Weight 102.1 kg (225 lb) 09/08/2019 7:15 PM CDT Height 170.2 cm (5' 7") 09/08/2019 7:15 PM CDT Body Mass Index 35.24 09/08/2019 7:15 PM CDT documented in this encounter Discharge Instructions Ashly Mcmullen FNP - 09/08/2019DIAGNOSIS 1. Chest pain 2. Shortness of breath NO LIFE-THREATENING FINDINGS ON TODAY'S EXAM. PROCEDURES IN THE ER TODAY: Labs EKG Chest xray MEDICATIONS ADMINISTERED IN THE ER TODAY: Toradol Normal saline Zofran YOUR PRESCRIPTIONS AND TNRH-BOP-MRPLEGT MEDICATION RECOMMENDATIONS: none SPECIAL CARE INSTRUCTIONS: Stop using methamphetamines FOLLOW-UP RECOMMENDATIONS: RECOMMEND FOLLOW-UP WITH A PRIMARY CARE PROVIDER OR SPECIALIST IN 2-5 DAYS, ESPECIALLY IF NO IMPROVEMENT IN SYMPTOMS. TO FOLLOW-UP WITHIN THE [facility], TRY THESE OPTIONS (CLINIC APPOINTMENTS AVAILABLE ON QYBI-XM-HQBH BASIS): 1. SCHEDULE AN APPOINTMENT ONLINE AT [email or web address] 2. OR CALL THE [facility] AT OR 3. OR CALL YOUR [facility] PHYSICIAN'S OFFICE DIRECTLY IF YOU ARE ALREADY AN ESTABLISHED [facility] PATIENT. OR, YOU MAY FOLLOW-UP WITH A PROVIDER OF YOUR CHOICE, SUCH : 1. A PHYSICIAN OF YOUR CHOICE 2. [facility], . LOCATIONS IN [facility] 3. [facility], [address] [place], [place]; [phone] RETURN TO ER FOR WORSENING OF SYMPTOMS. AttachmentsThe following attachments cannot be sent through Care Everywhere. Getting Help, Addiction (Telugu)Chest Pain, Uncertain Cause (Telugu)documented in this encounter Plan of Treatment Health Maintenance Due Date Last Done Comments VARICELLA VACCINES ( of - 02/13/1993 2-dose childhood series) DTaP,Tdap,and Td Vaccines ( - 02/13/2003 Tdap) INFLUENZA VACCINE (#1) 2019 PNEUMOCOCCAL 0-64 YEARS COMBINED Aged Out No longer eligible based on SERIES patient's age to complete this topic documented as of this encounter Procedures Procedure Name Priority Date/Time Associated Diagnosis Comme nts TROPONIN I STAT 09/08/2019 9:45 Chest pain, Results for this PM CDT unspecified type procedure a re in the results section. URINALYSIS STAT 09/08/2019 8:11 Chest pain, Results for this PM CDT unspecified type procedure are in Drug dependence, the results abuse section. XR CHEST 1 VW STAT 09/08/2019 7:49 Chest pain, Results fo r this PM CDT unspecified type procedure a re in the results section. CBC WITH DIFFERENTIAL STAT 09/08/2019 7:38 Chest pain, Re sults for this PM CDT unspecified type procedure a re in the results section. N-TERMINAL PRO-BNP STAT 09/08/2019 7:38 Chest pain, Resul ts for this PM CDT unspecified type procedure a re in the results section. CBC WITH DIFFERENTIAL STAT 09/08/2019 7:38 Chest pain, Re sults for this PM CDT unspecified type procedure a re in the results section. COMP. METABOLIC PANEL STAT 09/08/2019 7:38 Chest pain, Re sults for this (54574) PM CDT unspecified type procedure a re in the results section. TROPONIN I STAT 09/08/2019 7:38 Chest pain, Results for this PM CDT unspecified type procedure a re in the results section. EKG-12 LEAD Routine 09/08/2019 7:25 PM CDT documented in this encounter Results TROPONIN I (09/08/2019 9:45 PM CDT) Pathologist Sig nature TROPONIN I <0.012 <=0.034 ng/mL [facility] Specimen Blood - VENOUS Narrative Performed At Equal or Less than 0.034 ng/ml---Normal [facility] Note: Cardiac troponin begins to rise 3-4 hours after the onset of ischemia. Repeat in 4-6 hours if the sample was drawn within 3-4 hours of the onset of the symptom and found normal. Between 0.035 and 0.120 ng/mL--- Borderline. Questionable myocardial injury or necros is Note: Serial measurement may be necessary to confirm or exclude the diagnosis of myocardial injury or necrosis; Clinical correlation (symptoms, EKGs, imaging studies, and others) required; Repeat in 4-6 hours if clinically indicated. Equal or Higher than 0.121 ng/mL---Abnormal. Myocardial Injury or Necrosis Likely Biotin has been reported to cause a negative bias, interpret results relative to patient's use of biotin. Performing Organization Address City/State/Zipcode Phone Number [facility] CLIA: [id number], [address] [place], [place] [address] URINALYSIS (09/08/2019 8:11 PM CDT) [facility] nature APPEARANCE Clear Clear [facility] COLOR Yellow Yellow [facility] PH 6.0 4.8 - 8.0 [facility] SP GRAVITY 1.027 1.003 - 1.030 [facility] GLU U QUAL Normal Normal [facility] BLOOD Negative Negative [facility] KETONES Negative Negative [facility] PROTEIN Negative Negative [facility] UROBILIN Normal Normal [facility] BILIRUBIN Negative Negative [facility] NITRITE Negative Negative [facility] LEUK LEIGHANN Negative Negative [facility] RBC/HPF 5 (H) 0 - 3 HPF [facility] WBC/HPF 1 0 - 5 HPF [facility] BACTERIA Negative Negative [facility] MUCOUS Slight (A) Negative LPF [facility] Specimen Urine - URINE, CLEAN CATCH Performing Organization Address City/[facility]/Zipcode Phone Number [facility] CLIA: [id number], [address] [place], [place] [address] XR CHEST 1 VW (09/08/2019 7:49 PM CDT) Specimen Narrative Performed At EXAM: XR CHEST 1 VW PACS/VR/DOSE HISTORY: chest pain COMPARISON: None FINDINGS: 1. The lungs are clear. No consolidation, pleural effu shoaib or pneumothorax is visualized. 2. The heart is normal in size. 3. No acute osseous abnormality is seen. Preliminary Report Dictated by Resident: Ignacio Lo MD., have reviewed this study and agree with the above report. Procedure Note [facility], Radiant Results Inft User - 2019 8:27 PM CDT EXAM: XR CHEST 1 VW HISTORY: chest pain COMPARISON: None FINDINGS: 1. The lungs are clear. No consolidation , pleural effusion or pneumothorax is visualized. 2. The heart is normal in size. 3. No acute osseous abnormality is seen. Preliminary Report Dictated by Resident: Ignacio Lo MD., have r eviewed this study and agree with the above report. Performing Organization Address City/State/Zipcode Phone Number PACS/VR/DOSE CBC WITH DIFFERENTIAL (09/08/2019 7:38 PM CDT) Pathologist Sig nature WBC 11.06 (H) 4.20 - 10.70 [facility] 10*3/L [facility] RBC 4.93 4.26 - 5.52 [facility] 10*6/L [facility] HGB 14.9 12.2 - 16.4 [facility] g/dL [facility] HCT 41.9 38.4 - 49.3 % [facility] MCV 85.0 81.7 - 95.6 fL [facility] MCH 30.2 26.1 - 32.7 pg [facility] MCHC 35.6 (H) 31.2 - 35.0 [facility] g/dL [facility] RDW-SD 38.5 38.5 - 51.6 fL [facility] RDW-CV 12.4 12.1 - 15.4 % [facility] PLT 295 150 - 328 [facility] 10*3/L [facility] MPV 9.7 (L) 9.8 - 13.0 fL [facility] NRBC/100 WBC 0.0 0.0 - 10.0 /100 [facility] WBCs [facility] NRBC x10^3 <0.01 10*3/L [facility] GRAN MAT (NEUT) % 58.8 % [facility] IMM GRAN % 0.20 % [facility] LYMPH % 31.2 % [facility] MONO % 6.7 % [facility] EOS % 2.6 % [facility] BASO % 0.5 % [facility] GRAN MAT x10^3(ANC) 6.51 1.99 - 6.95 [facility] 10*3/uL [facility] IMM GRAN x10^3 <0.03 0.00 - 0.06 [facility] 10*3/uL [facility] LYMPH x10^3 3.45 (H) 1.09 - 3.23 [facility] 10*3/uL [facility] MONO x10^3 0.74 0.36 - 1.02 [facility] 10*3/uL [facility] EOS x10^3 0.29 0.06 - 0.53 [facility] 10*3/uL [facility] BASO x10^3 0.05 0.01 - 0.09 [facility] 10*3/uL [facility] Specimen Blood - VENOUS Performing Organization Address City/State/Zipcode Phone Number [facility] CLIA: [id number], [address] [place], [place] [address] N-TERMINAL PRO-BNP (09/08/2019 7:38 PM CDT) Pathologist Sig nature NT-proBNP 12 <=125 pg/mL [facility] Specimen Blood - VENOUS Narrative Performed At [facility] has been reported to cause a negative [facility] bias, interpret results relative to patient's use of biotin. Performing Organization Address [facility] Phone Number [facility] CLIA: [id number], [address] [place] [address] TROPONIN I (09/08/2019 7:38 PM CDT) [facility] Sig [facility] TROPONIN I <0.012 <=0.034 ng/mL [facility] Specimen Blood - VENOUS Narrative Performed At Equal or Less than 0.034 ng/ml---Normal [facility] Note: Cardiac troponin begins to rise 3-4 hours after the onset of ischemia. Repeat in 4-6 hours if the sample was drawn within 3-4 hours of the onset of the symptom and found normal. Between 0.035 and 0.120 ng/mL--- Borderline. Questionable myocardial injury or necros is Note: Serial measurement may be necessary to confirm or exclude the diagnosis of myocardial injury or necrosis; Clinical correlation (symptoms, EKGs, imaging studies, and others) required; Repeat in 4-6 hours if clinically indicated. Equal or Higher than 0.121 ng/mL---Abnormal. Myocardial Injury or Necrosis Likely Biotin has been reported to cause a negative bias, interpret results relative to patient's use of biotin. Performing Organization Address [facility] Phone Number [facility] CLIA: [id number], [address] [place] [address] [facility] COMP. METABOLIC PANEL (17935) (09/08/2019 7:38 PM CDT) Pathologist Sig Numerify NA 140 135 - 145 mmol/L [facility] K 3.8 3.5 - 5.0 mmol/L [facility] CL 107 98 - 108 mmol/L [facility] CO2 TOTAL 25 23 - 31 mmol/L [facility] AGAP 8 2 - 16 [facility] BUN 19 7 - 23 mg/dL [facility] GLUCOSE 90 70 - 110 mg/dL [facility] CREATININE 0.86 0.60 - 1.25 [facility] mg/dL [facility] TOTAL BILI 0.4 0.1 - 1.1 mg/dL [facility] CALCIUM 8.7 8.6 - 10.6 mg/dL [facility] T PROTEIN 6.5 6.3 - 8.2 g/dL [facility] ALBUMIN 3.8 3.5 - 5.0 g/dL [facility] ALK PHOS 65 34 - 122 U/L [facility] [place] [place] ALTv 24 5 - 50 U/L [facility] AST(SGOT) 25 13 - 40 U/L [facility] eGFR Calculation 106.7 mL/min/1.73m2 [facility] (Non-) [facility] Y eGFR Calculation 129.3 mL/min/1.73m2 [facility] () [facility] Specimen Blood - VENOUS Narrative Performed At Association of Glomerular Filtration Rate (GFR) [facility] and Staging of Kidney Disease* + + +- + | GFR (mL/min/1.73 m2) | With Kidney Damage | Without Kidney Damage + + +- + | >90 | Stage one | Normal + + +- + | 60-89 | Stage two | Decreased GFR + + +- + | 30-59 | Stage three | Stage three + + +- + | 15-29 | Stage four | Stage four + + +- + | <15 (or dialysis) | Stage five | Stage five + + +- + *Each stage assumes the associated GFR level has been in effect for at least three months. Stages 1 to 5, with or without kidney disease, indicate chronic kidney disease. Notes: Determination of stages one and two (with eGFR >59mL/min/1.73 m2) requires estimation of kidney damage for at least three months as defined by structural or functional abnormalities of the kidney, manifested by either: Pathological abnormalities or Markers of kidney damage (including abnormalities in the composition of the blood or urine or abnormalities in imaging tests). 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, unspecified documented in this encounter Administered Medications Medication Order MAR Action Action Date Dose Rate Site ketorolac (TORADOL) injection 30 Given 09/08/2019 7:53 PM CDT 3 0 mg mg 30 mg, Slow IV Push, ONCE, 1 dose, 09/08/19 at 2044, 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
--- OUTSIDE RECORDS SUMMARY | 2019-11-22 21:59 | XMS REPORT | Continuity of Care Document ---
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 Interpretation Comments PT (test code = PT) 15.0 s 12.0-14.7 [facility] HhdovcoOYTXYMJPPU7453-81-30 09:47:00Normal (01/11/16 4:47 AM)[facility] GpahlhiOBEQZVAIWA2829-07-76 09:47:00Normal (01/11/16 4:47 AM)[facility]annCHEM [id number] 10:16:001.2[facility]annCHEM [id number] 23:00:002.2 [facility] [id number] 16:03:002.0[facility]DR[facility] SCREEN 2016-01-08 12:28:00See Note (01/08/16 7:28 AM)[facility] 2016-01-08 12:28:00Negative *NA*(01/08/16 7:28 AM)[facility] 2016-01-08 12:28:00Negative *NA*(01/08/16 7:28 AM)[facility] 2016-01-08 12:28:00Negative *NA*(01/08/16 7:28 AM)[facility] 2016-01-08 12:28:00Negative *NA*(01/08/16 7:28 AM)[facility] 2016-01-08 12:28:00Negative *NA*(01/08/16 7:28 AM)[facility] 2016-01-08 12:28:00Positive *ABN*(01/08/16 7:28 AM)[facility] 2016-01-08 12:28:00Negative *NA*(01/08/16 7:28 AM)[facility] STOOL 2016-01-08 12:28:00None Seen (01/08/16 7:28 AM)[facility] ST[facility]OL 2016-01-08 12:28:000-2 (01/08/16 7:28 AM)[facility] [id number] 12:28:00 Test Item Value Reference Range Interpretation Comments UA pH (test code = UA pH) 6.0 1 5.0-8.0 [facility] [id number] 12:28:00Small *ABN*(01/08/16 7:28 AM) [facility] [id number] 12:28:000.2[facility] [id number] 12:28:00Negative (01/08/16 7:28 AM)[facility] STOOL 2016-01-08 12:28:00Negative (01/08/16 7:28 AM)[facility] STOOL 2016-01-08 12:28:00Negative (01/08/16 7:28 AM)[facility] ST[facility]OL 2016-01-08 12:28:00Negative *NA*(01/08/16 7:28 AM)[facility] ST[facility] 2016-01-08 12:28:00Negative *NA*(01/08/16 7:28 AM)[facility] STOOL 2016-01-08 12:28:00 Test Item Value Reference Range Interpretation Comments UA Spec Grav (test code = UA Spec 1.027 1 Grav) [facility] [id number] 12:28:00Clear (01/08/16 7:28 AM)[facility] [id number] 12:28:00Yellow *NA*(01/08/16 7:28 AM)[facility] XbhuvvaHNFTROALNM5925-66-58 10:16:150.1[facility] FfzxgbdWOSAIELRLB9172-38-98 10:16:15 Test Item Value Reference Range Interpretation Comments Split Point Rapid (test code = Split 0.6 min Point Rapid) [facility] CenterIwuujarYKGKDKGUHF7250-10-66 10:16:15 Test Item Value Reference Range Interpretation Comments ACT (TEG) Rapid (test code = ACT (TEG) 113 s 86-118 Rapid) [facility] AmerhaiSQNXZRNVBM5125-01-98 10:16:15 Test Item Value Reference Range Interpretation Comments Angle Rapid (test code = Angle 72 degrees 64-80 Rapid) [facility] CenterUsdneutJDHWANEXBG2997-73-93 10:16:15 Test Item Value Reference Range Interpretation Comments K-time Rapid (test code = K-time 1.5 min 0.6-2.3 Rapid) [facility] CenterTyyofwiIXFOYNYVJR0341-22-79 10:16:15 Test Item Value Reference Range Interpretation Comments R-time Rapid (test code = R-time 0.7 min 0.4-0.7 Rapid) [facility] CenterKeoznueMEFTCGFUAI9332-43-48 10:16:15 Test Item Value Reference Range Interpretation Comments Max Amplitude Rapid (test code = Max 61 mm 52-71 Amplitude Rapid) [facility] CenterPfdoiunJIJZWGVMZA5470-92-80 10:16:157.9[facility] 2016-[facility] 10:16:151.4[facility] FDITQLQ2791-38-99 10:13:00 Negative (01/08/16 5:13 AM)[facility]
--- OUTSIDE RECORDS SUMMARY | 2019-11-22 22:00 | XMS REPORT | Summary of Care ---
:1990 Author Organization [facility] [place] Address [address] [place] [id number] Care Team Providers Name Role Phone Pcp, Does Not Have A Primary Care Provider Reason for Referral MRI/CAT Scan (STAT) Status Reason Specialty Diagnoses / Referred By Referred To Procedures Contact Contact New Request Diagnostic Diagnoses Altered mental status, unspecified altered mental status type Rashid Mtz, Radiology Procedures CT HEAD WO CONTRAST [address] [place] [address] [address] [place] [address] Reason for Visit Reason Comments Altered mental status Auth/Cert Status Reason Specialty Diagnoses / Referred By Referred To Procedures Contact Contact Emergency Medicine [facility] ergency Dept [address] [place] [address] [place] [address] Fax: Encounter Details Date Type Department Care Team Description 09/21/2019 Emergency [facility]-Emergency Rashid Mtz MD Altered mental status, unspecified alter ed mental status type (Primary Dx); Department [address] [facility] Methamphetamine abuse [address] [place] [address] [address] [place] [address] [place], [place] [id number] Allergies Active Allergy Reactions Severity Noted Date Comments Antihistimine Swelling 02/07/2015 documented as of this encounter (statuses as of 09/21/2019) Medications Medication Sig Dispensed Refills Start Date [...] as of this encounter (statuses as of 09/21/2019) Active Problems No known active problemsdocumented as of this encounter (statuses as of 09/21/2019) Social History Tobacco Use Types Packs/Day Years Used Date Never Assessed Sex Assigned at Date Recorded Not on file Job Start Date Occupation Industry Not on file Not on file Not on file Travel History Travel Start Travel End No recent travel history available. documented as of this encounter Last Filed Vital Signs Vital Sign Reading Time Taken Comments Blood Pressure 111/79 09/21/2019 5:00 PM CDT Pulse 78 09/21/2019 5:00 PM CDT Temperature 37.1 C (98.7 F) 09/21/2019 2:39 PM CDT Respiratory Rate 12 09/21/2019 5:00 PM CDT Oxygen Saturation 97% 09/21/2019 5:00 PM CDT Inhaled Oxygen Concentration - - Weight 108.9 kg (240 lb) 09/21/2019 2:39 PM CDT Height - - Body Mass Index 37.59 09/08/2019 7:15 PM CDT documented in this encounter Discharge Instructions InstructionsNeRashid ronquillo MD - 09/21/2019 RETURN FOR ANY QUESTIONS OR CONCERNS Today you were seen by Rashid Mtz Jr., MD You were seen today for Chief Complaint Patient presents with Altered mental status Your ER diagnosis was ICD-10-CM ICD-9-CM 1. Altered mental status, unspecified altered mental status type R41.82 780.97 2. Methamphetamine abuse F15.10 305.70 NO LIFE-THREATENING FINDINGS ON TODAY'S EXAM. YOUR PRESCRIPTIONS : Check out [employer] for medication discounts Medication List ASK your doctor about these medications metFORMIN 500 mg tablet Commonly known as: GLUCOPHAGE Take 1 tablet by mouth 2 (two) times daily with meals. salsalate 750 mg tablet Commonly known as: SALSALATE Take 1 Tab by mouth 3 (three) times daily with meals. silver sulfADIAZINE 1 % cream Commonly known as: SILVADENE Apply to area(s) 2 (two) times daily. Tramadol 50 mg tablet Commonly known as: RYBIX ODT Take 1 Tab by mouth 6 (six) times daily. ER precautions and follow up : 1. Return to ER if your symptoms should worsen or fail to improve within 72 hours. 2. The care provided in the emergency room was for acute problems only. 3. You should follow up with your primary care provider within 72 hours. 4. Fill and take all your medications as prescribed. 5. Make sure you are staying adequately hydrated. Busque attencion immediatamente si usted tiene los sitomas sigue, vuelve peor o si hay sitomas nuevas o para cualquiera preoccupacion incluyendo dolor del pecho, falta aire, se siente debile, mas fievre, mas dolor, nausea, vomitando, sangrando que no es normal, confusion, baja or pierdas conciencia. MAY FOLLOW-UP WITH A PROVIDER OF YOUR CHOICE, SUCH : 1. A PHYSICIAN OF YOUR CHOICE 2. [facility], . LOCATIONS IN [facility] 3. [facility], [address] [place] [address]; [phone] OR, IF YOU WISH TO FOLLOW-UP WITHIN THE [facility], MAY TRY THESE OPTIONS (CLINIC APPOINTMENTS AVAILABLE ON [id number] BASIS): 1. SCHEDULE AN APPOINTMENT ONLINE AT WWW[facility] 2. OR CALL THE [facility] AT OR 3. OR CALL YOUR [facility] PHYSICIAN'S OFFICE DIRECTLY IF YOU ARE ALREADY AN ESTABLISHED [facility] PATIENT. [facility] RETURN TO WORK / SCHOOL EXCUSE Yaw Aldrich WAS SEEN IN THE ER AND DISCHARGED 09/21/2019 TODAY, 4:56 PM & May return to Work / School / Incarceration on X with activity as tolerated indicated below. ___The following limitations apply until pt is seen by Physician and cleared to return to normal activity. _X_ Off for two days and return to activity as tolerated at work or school ___ No Sports ___ No work ___ Do not return until fever free for 24 hours. ___ No school RASHID MTZ Jr., MD [facility] EMERGENCY DEPRTMENT [address] [place] [address] [place] [address] ### The patient may have been given Narcotic pain medications during their stay in the ED that may show up on a Drug Screen. The hospital discharge paper work will identify these medications. AttachmentsThe following attachments cannot be sent through Care Everywhere. Methamphetamine Abuse and Addiction, Understanding (Kazakh)documented in this encounter Plan of Treatment Health Maintenance Due Date Last Done Comments VARICELLA VACCINES ( - 02/13/1993 2-dose childhood series) DTaP,Tdap,and Td Vaccines ( - 02/13/2003 Tdap) INFLUENZA VACCINE (#1) 2019 PNEUMOCOCCAL 0-64 YEARS COMBINED Aged Out No longer eligible based on SERIES patient's age to complete this topic documented as of this encounter Procedures Procedure Name Priority Date/Time Associated Comments Diagnosis ACUTE CARE VENOUS STAT 09/21/2019 3:54 Altered mental Resu lts for this BLOOD GAS PM CDT status, unspecified procedur e are in altered mental the results status type section. [facility] / [facility] - DRUG STAT 09/21/2019 3:50 Altered mental Resul ts for this SCREEN TRIAGE PM CDT status, unspecified procedu re are in altered mental the results status type section. URINALYSIS STAT 09/21/2019 3:49 Altered mental Results f or this PM CDT status, unspecified procedur e are in altered mental the results status type section. SALICYLATE STAT 09/21/2019 3:48 Altered mental Results f or this PM CDT status, unspecified procedur e are in altered mental the results status type section. ACETAMINOPHEN STAT 09/21/2019 3:48 Altered mental Results for this PM CDT status, unspecified procedur e are in altered mental the results status type section. N-TERMINAL PRO-BNP STAT 09/21/2019 3:47 Altered mental Res ults for this PM CDT status, unspecified procedur e are in altered mental the results status type section. ETHANOL STAT 09/21/2019 3:47 Altered mental Results f or this PM CDT status, unspecified procedur e are in altered mental the results status type section. BASIC METABOLIC PANEL STAT 09/21/2019 3:47 Altered mental Results for this (NA, K, CL, CO2, PM CDT status, unspecified proc edure are in GLUCOSE, BUN, altered mental the results CREATININE, CA) status type section. HEPATIC FUNCTION PANEL STAT 09/21/2019 3:47 Altered mental Results for this ([id number]) PM CDT status, unspecified procedur e are in (ALB,T.PRO,BILI altered mental the result s T,BU/BC,ALT,AST,ALK status type section. PHOS) TROPONIN I STAT 09/21/2019 3:47 Altered mental Results f or this PM CDT status, unspecified procedur e are in altered mental the results status type section. CBC WITH DIFFERENTIAL STAT 09/21/2019 3:46 Altered mental Results for this PM CDT status, unspecified procedur e are in altered mental the results status type section. ACTIVATED PARTIAL STAT 09/21/2019 3:46 Altered mental Resu lts for this THRMPLAS DWAYNE PM CDT status, unspecified procedur e are in altered mental the results status type section. PROTHROMBIN TIME / INR STAT 09/21/2019 3:46 Altered mental Results for this PM CDT status, unspecified procedur e are in altered mental the results status type section. CBC WITH DIFFERENTIAL Routine 09/21/2019 3:46 Altered mental Results for this PM CDT status, unspecified procedur e are in altered mental the results status type section. CT HEAD WO CONTRAST STAT 09/21/2019 3:17 Altered mental Re sults for this PM CDT status, unspecified procedur e are in altered mental the results status type section. EKG-12 LEAD STAT 09/21/2019 3:02 PM CDT POCT GLUCOSE Routine 09/21/2019 2:59 Results for this (AUTOMATED) PM CDT procedure are i n the results section. documented in this encounter Results ACUTE CARE VENOUS BLOOD GAS (09/21/2019 3:54 PM CDT) [facility] PH 7.37 7.32 - 7.42 [facility] PCO2 CHARANJIT 45 41 - 51 mmHg [facility] PO2 CHARANJIT 58 (HH) 25 - 40 mmHg [facility] HCO3 CHARANJIT 25 24 - 28 mEq/L [facility] AC VBE(BEAKER) -0.5 mEq/L [facility] Specimen Blood - VENOUS Performing Organization Address [facility]/Zipcode Phone Number [facility] CLIA: [id number], [address] [place], [place] [address] ADC / [facility] - DRUG SCREEN TRIAGE (09/21/2019 3:50 PM CDT) BENZO U Negative Negative [facility] TAQUERIA U Negative Negative [facility] AMPHET Presumptive Positive Negative [facility] THC Presumptive Positive Negative [facility] Confirmation of LABORATORY Presumptive Positive THC result requires physician order. METHADONE Negative Negative [facility] Meth U Presumptive Positive Negative [facility] OPIATES Negative Negative [facility] Cocaine Metabolite Negative Negative [facility] PROPOXY Negative Negative [facility] Tric U Negative Negative [facility] PCP Negative Negative [facility] OXYCOD Negative Negative [facility] Specimen Urine - URINE, CLEAN CATCH Narrative Performed At Urine Drug Cutoff Ranges [facility] Benzodiazepines: 150 ng/mL Barbiturates: 200 ng/mL Amphetamine: 500 ng/mL Cannabinoids: 50 ng/mL Methadone: 200 ng/mL Methamphetamine: 500 ng/mL Opiates: 100 ng/mL or 2000 ng/mL Cocaine: 150 ng/mL Propoxyphene: 300 ng/mL Tricyclics: 300 ng/mL Oxycodone: 100 ng/mL PCP: 25 ng/mL The results are to be used only for medical (i.e., treatment) purposes. Unconfirmed screening results must not be used for non-medical purposes (e.g., employment testing, legal testing). Performing Organization Address [facility]/Zipcode Phone Number [facility] CLIA: [id number], [address] [place], [place] [address] Urinalysis (09/21/2019 3:49 PM CDT) Pathologist Sig nature APPEARANCE Hazy (A) Clear [facility] COLOR Yellow Yellow [facility] PH 6.0 4.8 - 8.0 [facility] SP GRAVITY 1.021 1.003 - 1.030 [facility] GLU U QUAL 50 mg/dL (A) Normal [facility] BLOOD Negative Negative [facility] KETONES Negative Negative [facility] PROTEIN 30 mg/dL (A) Negative [facility] UROBILIN Normal Normal [facility] BILIRUBIN Negative Negative [facility] NITRITE Negative Negative [facility] LEUK LEIGHANN Negative Negative [facility] RBC/HPF 1 0 - 3 HPF [facility] WBC/HPF 1 0 - 5 HPF [facility] BACTERIA Negative Negative [facility] MUCOUS Marked (A) Negative LPF [facility] CA OXALATE 17 (H) <=1 HPF [facility] HYAL CAST 6 (H) <=2 LPF [facility] GRAN CASTS 3 (H) <=1 LPF [facility] Specimen Urine - URINE, CLEAN CATCH Performing Organization Address [facility] Phone Number [facility] CLIA: [id number], [address] [place] [address] SALICYLATE (09/21/2019 3:48 PM CDT) Pathologist Sig nature SALICYLATE <10 mg/L [facility] Specimen Blood - VENOUS Narrative Performed At Therapeutic Range: [facility] Analgesic and Antipyretic Use 20-100 mg/L Anti-Inflammatory Use 100-250 mg/L Toxic Range: Greater than 300 mg/L Performing Organization Address [facility] Phone Number [facility] CLIA: [id number], [address] [place] [address] ACETAMINOPHEN (09/21/2019 3:48 PM CDT) Pathologist Sig nature ACETAMINOP <10.0 (L) 10.0 - 30.0 ug/mL [facility] Specimen Blood - VENOUS Narrative Performed At Toxic: Greater than 200 ug/mL @ 4 hour post [facility] ingestion or greater than 50 ug/mL @ 12 hour post ingestion Performing Organization Address [facility] Phone Number [facility] CLIA: [id number], [address] [place] [address] ETHANOL (09/21/2019 3:47 PM CDT) Pathologist Sig nature ALCOHOL <10 mg/dL [facility] Specimen Blood - VENOUS Narrative Performed At <10 Negative [facility] 50-100 Toxic >100 Depression of PERSONAL BANKING REPRESENTATIVE >400 Fatalities Reported Performing Organization Address City/[facility] Phone Number [facility] CLIA: [id number], [address] [place] [address] N-TERMINAL PRO-BNP (09/21/2019 3:47 PM CDT) Pathologist Sig nature NT-proBNP 55 <=125 pg/mL [facility] Specimen Blood - VENOUS Narrative Performed At Biotin has been reported to cause a negative [facility] bias, interpret results relative to patient's use of biotin. Performing Organization Address [facility] Phone Number [facility] CLIA: [id number], [address] [place] [address] Troponin I (09/21/2019 3:47 PM CDT) Pathologist Sig nature TROPONIN I <0.012 <=0.034 ng/mL [facility] Specimen Blood - VENOUS Narrative Performed At Equal or Less than 0.034 ng/ml---Normal [facility] Note: Cardiac troponin begins to [...] patient's use of biotin. Performing Organization Address City/[facility] Phone Number [facility] CLIA: [id number], [address] [place], [place] [address] Hepatic Function Panel (ALB, T.PRO, BILI T, BU/BC, ALT, AST, ALK PHOS) (09/21/2019 3:47 PM CDT) [facility] TOTAL BILI 0.2 0.1 - 1.1 mg/dL [facility] BILI UNCON 0.5 0.1 - 1.1 mg/dL [facility] BILI CONJ 0.0 0.0 - 0.3 mg/dL [facility] T PROTEIN 6.3 6.3 - 8.2 g/dL [facility] ALBUMIN 3.6 3.5 - 5.0 g/dL [facility] ALK PHOS 62 34 - 122 U/L [facility] ALTv 27 5 - 50 U/L [facility] AST(SGOT) 22 13 - 40 U/L [facility] Specimen Blood - VENOUS Performing Organization Address City/State/Zipcode Phone Number [facility] CLIA: [id number], [address] [place], [place] [address] Basic Metabolic Panel (NA, K, CL, CO2, GLUCOSE, BUN, CREATININE, CA) (09/21/2019 3:47 PM CDT) [facility] NA 140 135 - 145 [facility] mmol/L [facility] K 4.2 3.5 - 5.0 [facility] mmol/L [facility] CL 108 98 - 108 mmol/L [facility] CO2 TOTAL 29 23 - 31 mmol/L [facility] AGAP 3 2 - 16 [facility] BUN 12 7 - 23 mg/dL [facility] GLUCOSE 116 (H) 70 - 110 mg/dL [facility] CREATININE 0.70 0.60 - 1.25 [facility] mg/dL [facility] CALCIUM 8.4 (L) 8.6 - 10.6 [facility] mg/dL [facility] eGFR Calculation 135.3 mL/min/1.73m2 [facility] ([facility] [place] [facility] [place]) eGFR Calculation 164.0 mL/min/1.73m2 [facility] Specimen Blood - VENOUS Narrative Performed At Association of Glomerular Filtration Rate (GFR) [facility] and Staging of Kidney Disease* + [...] tests). Performing Organization Address City/State/Zipcode Phone Number [facility] CLIA: [id number], [address] [place] [address] CBC WITH DIFFERENTIAL (09/21/2019 3:46 PM CDT) [facility] WBC 7.94 4.20 - 10.70 [facility] 10*3/L [facility] RBC 4.79 4.26 - 5.52 [facility] 10*6/L [facility] HGB 14.3 12.2 - 16.4 g/dL [facility] HCT 41.5 38.4 - 49.3 % [facility] MCV 86.6 81.7 - 95.6 fL [facility] MCH 29.9 26.1 - 32.7 pg [facility] MCHC 34.5 31.2 - 35.0 g/dL [facility] RDW-SD 40.5 38.5 - 51.6 fL [facility] RDW-CV 12.8 12.1 - 15.4 % [facility] PLT 220 150 - 328 [facility] 10*3/L [facility] MPV 9.3 (L) 9.8 - 13.0 fL [facility] NRBC/100 WBC 0.0 0.0 - 10.0 /100 [facility] WBCs [facility] NRBC x10^3 <0.01 10*3/L [facility] GRAN MAT (NEUT) % 72.2 % [facility] IMM GRAN % 0.40 % [facility] LYMPH % 17.5 % [facility] MONO % 7.3 % [facility] EOS % 2.3 % [facility] BASO % 0.3 % [facility] GRAN MAT x10^3(ANC) 5.74 1.99 - 6.95 [facility] 10*3/uL HOSPITAL LAB[facility]ATORY IMM GRAN x10^3 0.03 0.00 - 0.06 [facility] 10*3/uL HOSPITAL LAB[facility]ORY LYMPH x10^3 1.39 1.09 - 3.23 [facility] 10*3/uL [facility]OSPITAL LAB[facility]ORY MONO x10^3 0.58 0.36 - 1.02 [facility] 10*3/uL HOSPITAL LAB[facility]ATORY EOS x10^3 0.18 0.06 - 0.53 [facility] 10*3/uL HOSPITAL LAB[facility]ATORY BASO x10^3 <0.03 0.01 - 0.09 [facility] 10*3/uL HOSPITAL LAB[facility]ORY Specimen Blood - VENOUS Performing Organization Address City/[facility]/Zipcode Phone Number [facility] CLIA: [id number], [address] [place] [address] Prothrombin Time (PT) / INR (09/21/2019 3:46 PM CDT) PROTIME PATIENT 13.9 12.0 - 14.7 [facility] Seconds [facility] INR 1.1Comment: Normal [facility] INR <1.1; Warfarin [facility] Therapeutic range LABORATORY 2.0 to 3.0 or 2.5 to 3.5, depending upon the indications. Specimen Blood - VENOUS Performing Organization Address [facility]/Zipcode Phone Number [facility] CLIA: [id number], [address] [place] [address] aPTT (09/21/2019 3:46 PM CDT) Pathologist Sig nature APTT Patient 23 23 - 38 Seconds [facility] Specimen Blood - VENOUS Narrative Performed At The [facility] patient population mean normal value [facility] for aPTT is 30 seconds. Performing Organization Address [facility] Phone Number [facility] CLIA: [id number], [address] [place], [place] [address] HEAD WO CONTRAST (09/21/2019 3:17 PM CDT) Specimen Impressions Performed At No acute findings. PACS/VR/DOSE Narrative Performed At HISTORY:Altered mental status (AMS), unc lear cause PACS/VR/DOSE TECHNIQUE: Noncontrast head CT was perfo rmed. COMPARISON:None. FINDINGS: The ventricles and sulci are appropriate for patient's age. There is no midline shift. The basal cis terns are preserved. No large vascular territory infarction, intracran ial hemorrhage or mass effect is seen. The extracranial tissues demonstrate no acute findings. Procedure Note [facility], Radiant Results Inft User - 2019 3:32 PM CDT HISTORY:Altered mental status (AMS), unclear cause TECHNIQUE: Noncontrast head CT was perfo rmed. COMPARISON:None. FINDINGS: The ventricles and sulci are appropriate for patient's age. There is no midline shift. The basal cis terns are preserved. No large vascular territory infarction, intracran ial hemorrhage or mass effect is seen. The extracranial tissues demonstrate no acute findings. IMPRESSION No acute findings. Performing Organization Address City/State/Zipcode Phone Number PACS/VR/DOSE POCT GLUCOSE (AUTOMATED) (09/21/2019 2:59 PM CDT) Pathologist Sig nature POCT GLU 112 (H) 70 - 110 mg/dL [facility] Specimen Blood Performing Organization Address City/State/Zipcode Phone Number [facility] CLIA: [id number], [address] [place] [address] documented in this encounter Visit Diagnoses Diagnosis Altered mental status, unspecified alter ed mental status type - Primary Methamphetamine abuse Nondependent amphetamine or related acti ng sympathomimetic abuse, unspecified documented in this encounter Administered Medications Medication Order MAR Action Action Date Dose Rate Site naloxone (NARCAN) injection 0.4 Given 09/21/2019 4:10 PM CDT 0. 4 mg mg 0.4 mg, Slow IV Push, ONCE, 1 dose, Sat09/21/19 at 1615, STAT ondansetron (ZOFRAN (PF)) injection 4 mg Given 09/21/2019 4:10 PM CDT 4 mg 4 mg, Slow IV Push, ONCE, 1 dose, Sat09/21/19 at 1615, STEFANIE documented in this encounter"
--- OUTSIDE RECORDS SUMMARY | 2019-11-22 22:00 | XMS REPORT | Summary of Care ---
:1990 Author Organization [facility] Address [address] [place] [address] Care Team Providers Name Role Phone Pcp, Does Not Have A Primary Care Provider Reason for Visit Reason Comments Drug Problem Auth/Cert Status Reason Specialty Diagnoses / Referred By Referred To Procedures Contact Contact Emergency Medicine Diagnoses DRUG PROBLEM [facility] Emergency Dept [address] [place] [address] Fax: Encounter Details Date Type Department Care Team Description 10/08/[address] [facility]-Emergency Depart ment Fanny Clifford, DO [id number] [place] [id number] [phone] Allergies Active Allergy Reactions Severity Noted Date Comments Antihistimine Swelling 02/07/2015 documented as of this encounter (statuses as of 10/08/2019) Medications Medication Sig Dispensed Refills Start Date [...] as of this encounter (statuses as of 10/08/2019) Active Problems No known active problemsdocumented as of this encounter (statuses as of 10/08/2019) Social History Tobacco Use Types Packs/Day Years Used Date Never Assessed Sex Assigned at Date Recorded Not on file Job Start Date Occupation Industry Not on file Not on file Not on file Travel History Travel Start Travel End No recent travel history available. COVID-19 Exposure Response Date Recorded In the last month, have you been in contact with No / Unsure 10/08/2019 5:48 PM CDT someone who was confirmed or suspected to have Coronavirus / COVID-19? documented as of this encounter Last Filed Vital Signs Vital Sign Reading Time Taken Comments Blood Pressure 149/82 10/08/2019 5:47 PM CDT Pulse 99 10/08/2019 5:47 PM CDT Temperature 36.3 C (97.3 F) 10/08/2019 5:47 PM CDT Respiratory Rate 18 10/08/2019 5:47 PM CDT Oxygen Saturation 98% 10/08/2019 5:47 PM CDT Inhaled Oxygen Concentration - - Weight 104.3 kg (230 lb) 10/08/2019 5:47 PM CDT Height 170.2 cm (5' 7") 10/08/2019 5:47 PM CDT Body Mass Index 36.02 10/08/2019 5:47 PM CDT documented in this encounter Discharge Instructions Fanny Bass DO - 10/08/2019DIAGNOSIS 1. Drug abuse NO LIFE-THREATENING FINDINGS ON TODAY'S EXAM. PROCEDURES IN THE ER TODAY: None MEDICATIONS ADMINISTERED IN THE ER TODAY: None YOUR PRESCRIPTIONS AND [id number] MEDICATION RECOMMENDATIONS: None SPECIAL CARE INSTRUCTIONS: None FOLLOW-UP RECOMMENDATIONS: RECOMMEND FOLLOW-UP WITH A PRIMARY CARE PROVIDER OR SPECIALIST IN 2-5 DAYS, ESPECIALLY IF NO IMPROVEMENT IN SYMPTOMS. TO FOLLOW-UP WITHIN THE [facility], TRY THESE OPTIONS (CLINIC APPOINTMENTS AVAILABLE ON [id number]-TPOQ BASIS): 1. SCHEDULE AN APPOINTMENT ONLINE AT WWW[facility] 2. OR CALL THE [facility] AT OR 3. OR CALL YOUR [facility] PHYSICIAN'S OFFICE DIRECTLY IF YOU ARE ALREADY AN ESTABLISHED [facility] PATIENT. OR, YOU MAY FOLLOW-UP WITH A PROVIDER OF YOUR CHOICE, SUCH : 1. A PHYSICIAN OF YOUR CHOICE 2. [facility], . LOCATIONS IN [facility] 3. [facility], [address] [place], [place]; [phone] RETURN TO ER FOR WORSENING OF SYMPTOMS. AttachmentsThe following attachments cannot be sent through Care Everywhere. Abuse, Drug ([place]ammarinese)documented in this encounter Plan of Treatment Health Maintenance Due Date Last Done Comments VARICELLA VACCINES (1 of 2 - 02/13/1993 2-dose childhood series) DTaP,Tdap,and Td Vaccines (1 - 02/13/2003 Tdap) INFLUENZA VACCINE (#1) 2019 PNEUMOCOCCAL 0-64 YEARS COMBINED Aged Out No longer eligible based on SERIES patient's age to complete this topic documented as of this encounter Results Not on filedocumented in this encounter
--- OUTSIDE RECORDS SUMMARY | 2019-11-22 22:00 | XMS REPORT | Summary of Care ---
:1990 Author Organization [facility] - Health Address [address] [place] [address] Care Team Providers Name Role Phone Pcp, Does Not Have A Primary Care Provider Encounter Details Date Type Department Care Team Description 10/08/2019 Orders Only [facility] Doctor Unassigned, No [address] [facility] Name [place] [id number] [address] [place] [phone] Allergies Active Allergy Reactions Severity Noted Date [...] been in contact with No / Unsure 09/21/2019 2:36 PM CDT someone who was confirmed or suspected to have Coronavirus / COVID-19? documented as of this encounter Last Filed Vital Signs Not on filedocumented in this encounter Plan of Treatment Health [...] Name Priority Date/Time Associated Diagnosis Comme nts CONSENT/REFUSAL FOR Routine 10/08/2019 5:35 PM CDT DIAGNOSIS AND TREATMENT documented in this encounter Results Not on filedocumented in this encounter Insurance Payer Benefit Plan / Subscriber ID Effective Dates Phone Addre ss Type Group COVID19 HRSA COVID19 HRSA Effective for Agency UNINSURED TESTING UNINSURED all dates AND TREATMENT FUND documented as of this encounter
--- NOTE | 2019-11-22 23:29 | ER ---
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 Pain to posterior left shoulder. No LOC. Coronavirus screen: Proceed with normal triage. Patient denies a cough. Patient denies shortness of breath or difficulty breathing. Patient denies measured and/or subjective temperature greater than 100.4F prior to today's visit. Patient denies travel on a cruise ship or to a country the [facility] currently lists as an affected area. Patient denies contact with known and/or suspected case of COVID-19. Ebola Screen: Patient denies travel to an Ebola-affected area in the 21 days before illness onset. Initial Sepsis Screen: Does the patient meet any 2 criteria? HR > 90 bpm. No. Patient's initial sepsis screen is negative. Risk Assessment: Do you want to hurt yourself or someone else? Patient reports no desire to harm self or others. Onset of symptoms was November 22, 2019. 21:58 Method Of Arrival: Ambulatory ll1 21:58 Acuity: SHEY 4 ll1 22:25 Initial Sepsis Screen: Does the patient have a suspected source of infection? No. ll1 Patient's initial sepsis screen is negative. Historical: - Allergies: 22:00 ANTIHISTAMINES; ll1 22:00 Benadryl; ll1 - PMHx: 22:00 Diabetes - NIDDM; Asthma; ll1 - PSHx: 22:00 Tonsillectomy; chest tube; ll1 - Immunization history:: Adult Immunizations up to date. - Social history:: Smoking status: Patient reports the use of cigarette tobacco products, smokes one pack cigarettes per day. Patient uses alcohol, street drugs, marijuana, Patient/guardian denies using IV drugs. Screenin:25 Abuse screen: Denies threats or abuse. Nutritional screening: No deficits noted. ll1 Tuberculosis screening: No symptoms or risk factors identified. Fall Risk None identified. Total Alvarado Fall Scale indicates No Risk (0-24 pts). Assessment: 22:24 General: Appears in no apparent distress. Behavior is calm, cooperative, appropriate ll1 for age. Pain: Complains of pain in left posterior shoulder Quality of pain is described as aching. Neuro: No deficits noted. Cardiovascular: No deficits noted. Respiratory: No deficits noted. Musculoskeletal: Circulation, motion, and sensation intact. Capillary refill < 3 seconds, Reports pain in left posterior shoulder. Injury Description: Bruise. 23:35 Reassessment: Patient appears in no apparent distress at this time. No changes from ll1 previously documented assessment. Patient and/or family updated on plan of care and expected duration. Pain level reassessed. Patient is alert, oriented x 3, equal unlabored respirations, skin warm/dry/pink. Vital Signs: 21:58 BP 123 / 82; Pulse 99; Resp 17; Temp 98.0; Pulse Ox 99% ; Pain 10/10; ll1 23:35 BP 121 / 80; Pulse 86; Resp 18; Pulse Ox 98% ; Pain 3/10; ll1 ED Course: 21:57 Patient arrived in ED. ll1 21:59 Triage completed. ll1 22:00 Avani Caceres RN is Primary Nurse. ll1 22:00 Arm band placed on Patient placed in an exam room, on a stretcher. ll1 22:10 Christos Cummings NP is PHCP. pm1 22:10 Jhonny Ferrer MD is Attending Physician. pm1 22:25 Patient has correct armband on for positive identification. Bed in low position. Call ll1 light in reach. Side rails up X 1. 22:50 Shoulder Left (2 View) XRAY In Process Unspecified. EDMS 23:36 No provider procedures requiring assistance completed. Patient did not have IV access ll1 during this emergency room visit. Administered Medications: 23:33 Not Given (Patient Refused): TORadol 60 mg IM once ll1 Outcome: 23:29 Discharge ordered by . pm1 23:36 Discharged to home ambulatory. ll1 23:36 Condition: stable 23:36 Discharge instructions given to patient, Instructed on discharge instructions, follow up and referral plans. Demonstrated understanding of instructions, follow-up care. 23:38 Patient left the ED. ll1 Signatures: Dispatcher [employer] EDMS Christos Cummings NP CLAIMS INVESTIGATOR pm1 Morris, Lynsay, RN RN ll1 Corrections: (The following items were deleted from the chart) 23:37 22:35 Reassessment: Patient appears in no apparent distress at this time. No changes ll1 from previously documented assessment. Patient and/or family updated on plan of care and expected duration. Pain level reassessed. Patient is alert, oriented x 3, equal unlabored respirations, skin warm/dry/pink. ll1
--- NOTE | 2019-11-22 23:29 | EDPHYS ---
Physician Documentation [facility] Name: Yaw Aldrich Jr Age: 29 yrs Sex: Male : 1990 Arrival Date: 11/22/2019 Time: 21:57 Bed 13 Private MD: ED Physician Jhonny Ferrer HPI: 11/21 22:35 This 29 yrs old Male presents to ER via Ambulatory with complaints of pm1 Shoulder Injury. 22:35 The patient or guardian complains of pain. left shoulder. Context: The problem was pm1 sustained on a street or driveway, resulted from apparently hit by side mirror of a picker truck, The patient reports no decreased range of motion. The patient reports no obvious deformity. Onset: The symptoms/episode began/occurred just prior to arrival. Modifying factors: the symptoms are alleviated by nothing. The symptoms are aggravated by nothing. Associated signs and symptoms: Pertinent negatives: chest pain, neck pain, Numbness in left arm tingling, Weakness in left arm. Severity of symptoms: in the emergency department the symptoms are unchanged. Treatment prior to arrival includes: IV saline lock by EMS. The patient has not experienced similar symptoms in the past. The patient has not recently seen a physician. Historical: - Allergies: 22:00 ANTIHISTAMINES; ll1 22:00 Benadryl; ll1 - PMHx: 22:00 Diabetes - NIDDM; Asthma; ll1 - PSHx: 22:00 Tonsillectomy; chest tube; ll1 - Immunization history:: Adult Immunizations up to date. - Social history:: Smoking status: Patient reports the use of cigarette tobacco products, smokes one pack cigarettes per day. Patient uses alcohol, street drugs, marijuana, Patient/guardian denies using IV drugs. ROS: 22:35 Constitutional: Negative for fever, chills, and weight loss, Neck: Negative for injury, pm1 pain, and swelling, Cardiovascular: Negative for chest pain, palpitations, and edema, Respiratory: Negative for shortness of breath, cough, wheezing, and pleuritic chest pain, Abdomen/GI: Negative for abdominal pain, nausea, vomiting, diarrhea, and constipation, Back: Negative for injury and pain. 22:35 Skin: Negative for injury, rash, and discoloration, Neuro: Negative for headache, weakness, numbness, tingling, and seizure. 22:35 MS/extremity: Positive for pain, of the left shoulder, Negative for abrasion, contusion, decreased range of motion, deformity. 22:35 All other systems are negative. Exam: 22:35 Constitutional: This is a well developed, well nourished patient who is awake, alert, pm1 and in no acute distress. Head/Face: Normocephalic, atraumatic. Neck: Trachea midline, no thyromegaly or masses palpated, and no cervical lymphadenopathy. Supple, full range of motion without nuchal rigidity, or vertebral point tenderness. No Meningismus. Chest/axilla: Normal chest wall appearance and motion. Nontender with no deformity. No lesions are appreciated. 22:35 Abdomen/GI: Soft, non-tender, with normal bowel sounds. No distension or tympany. No guarding or rebound. No evidence of tenderness throughout. Back: No spinal tenderness. No costovertebral tenderness. Full range of motion. Skin: Warm, dry with normal turgor. Normal color with no rashes, no lesions, and no evidence of cellulitis. 22:35 Cardiovascular: Exam negative for acute changes, Rate: normal, Rhythm: regular, Pulses: no pulse deficits are appreciated. 22:35 Respiratory: Exam negative for acute changes, respiratory distress, shortness of breath, wheezing. 22:35 Musculoskeletal/extremity: Extremities: all appear grossly normal, with no appreciated pain with palpation, noted in the left arm and left shoulder: There is no evidence of abrasion, contusion, decreased ROM, deformity, ecchymosis, laceration, swelling, tenderness. 22:35 Neuro: Exam negative for acute changes, Orientation: is normal, Mentation: is normal, Motor: is normal, moves all fours, Sensation: is normal, no obvious gross deficits. Vital Signs: 21:58 BP 123 / 82; Pulse 99; Resp 17; Temp 98.0; Pulse Ox 99% ; Pain 10/10; ll1 23:35 BP 121 / 80; Pulse 86; Resp 18; Pulse Ox 98% ; Pain 3/10; ll1 MDM: 22:10 Patient medically screened. pm1 23:27 Data reviewed: vital signs. Data interpreted: Pulse oximetry: on room air is 99 %. pm1 Interpretation: normal. Counseling: I had a detailed discussion with the patient and/or guardian regarding: the historical points, exam findings, and any diagnostic results supporting the discharge/admit diagnosis, radiology results, the need for outpatient follow up, to return to the emergency department if symptoms worsen or persist or if there are any questions or concerns that arise at home. 11/21 22:33 Order name: Shoulder Left (2 View) XRAY pm1 Administered Medications: 23:33 Not Given (Patient Refused): TORadol 60 mg IM once ll1 Disposition: 11/22 07:39 Co-signature as Attending Physician, Jhonny Ferrer MD I agree with the assessment and eliezer plan of care. Disposition: 11/22/19 23:29 Discharged to Home. Impression: Pain in left shoulder. - Condition is Stable. - Discharge Instructions: Shoulder Pain. - Medication Reconciliation Form, Thank You Letter, Antibiotic Education, Prescription Opioid Use form. - Follow up: Emergency Department; When: As needed; Reason: Worsening of condition. Follow up: Private Physician; When: 2 - 3 days; Reason: Recheck today's complaints, Continuance of care, Re-evaluation by your physician. - Problem is new. - Symptoms have improved. Signatures: Dispatcher [employer] EDDE Jhonny Ferrer MD MD cha Marinas, Patrick, TRANSPORTATION AID TRANSPORTATION AID pm1 Avani Caceres RN RN ll1 Corrections: (The following items were deleted from the chart) 11/21 23:38 23:29 11/22/2019 23:29 Discharged to Home. Impression: Pain in left shoulder. Condition ll1 is Stable. Forms are Medication Reconciliation Form, Thank You Letter, Antibiotic Education, Prescription Opioid Use. Follow up: Emergency Department; When: As needed; Reason: Worsening of condition. Follow up: Private Physician; When: 2 - 3 days; Reason: Recheck today's complaints, Continuance of care, Re-evaluation by your physician. Problem is new. Symptoms have improved. pm1
[2019-11-22 23:41] VITALS: TEMP 98
[2019-11-22 23:43] VITALS: BP 121/80; O2SAT 98
--- NOTE | 2019-11-23 07:54 | RAD REPORT ---
EXAM DESCRIPTION: RAD - Shoulder Left 2 View - 11/22/2019 10:50 pm CLINICAL HISTORY: Left shoulder pain FINDINGS: No fracture or dislocation is seen.
== END 2019-11-22 23:38 | disposition home or self-care (01) ==
LOC: ER 21:53
DX: M25.512 Pain in left shoulder (principal); F17.210 Nicotine dependence, cigarettes, uncomplicated; Z88.8 Allergy status to other drugs, medicaments and biological substances
CPT/HCPCS: 99283

== ENCOUNTER 2019-12-04 20:48 | Inpatient (IN) | payer SELFPAY ==
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
--- OUTSIDE RECORDS SUMMARY | 2019-12-04 20:54 | XMS REPORT | Continuity of Care Document ---
:1990 Author Organization [facility] t Address [address] [place] [address] Care Team Providers Name Role Phone Karen [...] STABBING 00:00: Clive trinh 00 Active 01/08/2016 [facility] HARPREET Diagnosis Active 2016-04-09 Memoria BILLING/#3 01-07 12:05:00 l 854 00:00: Andrae MULLINS 00 BILLING/#3 854 Active 01/08/2016 [facility] STABBING Diagnosis Active 2016-04-09 M emoria TO BACK 01-07 12:04:00 l STABBING 00:00: Clive trinh TO BACK 00 Active 01/08/2016 [facility] Infestatio Problem Resolve 2016-01-23 Memoria n by d 01:07:53 l Sarcoptes Andrae scabiei Infestatio lanre n by hominis Sarcoptes (disorder) scabiei lanre hominis (disorder) Resolved Problem 01/23/2016 [facility] Loculated Problem Active 2016-01-23 Me moria pleural 01:07:53 l effusion Andrae (disorder) Loculated pleural effusion (disorder) Active Problem 01/23/2016 [facility] LAC W/O FB Diagnosis Active 2016-04-09 Memoria OF LOW 12:04:00 l BACK AND LAC W/O Lexus nn PELVIS W FB OF LOW PENE BACK AND PELVIS W PENE Active [facility] Allergies, Adverse Reactions, Alerts Allergy Allergy Status Severity Reaction(s) Onset Inactive Treating Comm ents Source Name Type Date Date Clinician Antihist DA Active [facility] amines - 09-06 Mainlan Alkylami 00:00: d ne 00 [facility] No Known DA Active [facility] Allergie 06-11 Mainlan s 00:00: d 00 [facility] Benadryl Benadryl Active Dale a ambrose Abebe Social History Social Habit Start Date Stop Date Quantity Comments Source Social History 2016-01-11 2016-01-11 [facility] katelyn 17:26:34 17:26:34 Medications Ordered Filled Start [...] Route: l 21:00: IVPB, Drug form: PDR/INJ, [id number], Dosing Weight 118.182, kg, Start date: 01/18/16 [...] dine 8-16 microgram, l 17:56: 100 mL, Andrae 00 Rate: Titrate, Start Dose: 0.2 microgram/ [...] being intubated (unless the nurse is a PIPE FITTER SUPERVISOR). Same as: Diprivan Ancef No 120 kg Memoria 8-15 l 20:28: [place] Ativan No Notes: Memoria 8-15 (Same as: l 18:26: Ativan) [place] Haldol No Notes: Memoria 8-15 (Same as: l 18:25: Haldol) [place]rae Clonidine No Notes: Memori a Hydrochlori 8-15 (Same As: l de 0.1 MG 17:00: Catapres) Her morrell Oral Tablet 00 Rocephin + No Notes: Memor ia sodium 8-15 (Same As: l chloride 16:00: Rocephin). Her morrell 0.9% INJ 50 00 mL Rocephin No Notes: Memoria 8-15 (Same As: l 15:00: Rocephin). [place] Neutra-Phos No Notes: Shane ana paula 8-15 (Same as: l 13:00: Neutra-Jovany Andrae 00 s) Each 1.25 gm pkt has 250mg phosphorou s. Mix w/2.5oz water and stir. Risperdal No Notes: Memori a 8-15 (Same as: l 02:00: Risperdal) [place] Vancomycin No 2001 mg: Me moria 8-14 infuse l 23:00: over 2.5 [place] 00 hours MEDICATION WASTE Product Size: 1000 [...] moria 8-14 infuse l 16:00: over 2.5 [place] 00 hours Haldol No Notes: Memoria 8-14 (Same as: l 15:44: Haldol) [place] Haldol No Notes: Memoria 8-14 (Same as: l 15:43: Haldol) [place] Permethrin No Notes: Memor ia 50 MG/ML 8-14 (Same as: l Topical 11:00: Elimite) Clive n Cream 00 WASTE: F/P - Black; E - Municipal Trash Bin Clonidine No Notes: Memori a Hydrochlori 8-14 (Same As: l de 0.1 MG 09:00: Catapres) Her morrell Oral Tablet Valium No Notes: Memoria 8-14 (Same as: l 08:44: Valium) [place]rae Vancomycin No 2001 mg: Me moria 8-13 infuse l 20:00: over 2.5 [place] 00 hours MEDICATION WASTE Product Size: 1000 mg Product Wasted: ___ mg Versed No Notes: Memoria 8-13 (Same as: l 19:00: Versed) Andrae 00 MEDICATION WASTE Product Size: 5 mg Product Wasted: ___ mg Rocuronium No Notes: Memor ia 8-13 (Same as: l 14:13: Zemeron) [place] Midazolam No Notes: Memori a 8-13 (Same [...] Memoria 8- microgram, l 23:45: 20 mL, [place] 00 Rate: Titrate, Start Dose: 50 microgram/ [...] being intubated (unless the nurse is a PIPE FITTER SUPERVISOR). Same as: Diprivan Isolyte S No Notes: Memori a (PH 7.4) 01-12 (Same as: l 1000 mL 05:00: Isolyte S Lexus nn 1,000 mL 00 PH 7.4) Morphine No Notes: Memoria 8-11 (Same l 20:53: as:MORPhin Andrae e Sulfate) Dilaudid No Notes: Memoria 811 Same as: l 20:53: Dilaudid [place] 00 Morphine No Notes: Memoria 8-11 (Same l 19:57: as:MORPhin [place]rae 00 e Sulfate) Morphine No Notes: Memoria 8-11 (Same l 19:13: as:MORPhin [place]rae e Sulfate) Zofran No Notes: Memoria 8-11 (Same as: l 19:13: Zofran) Andrae 00 MEDICATION WASTE Product Size: 4 mg Product Wasted: ___ mg Iohexol No Notes: Memoria 01-11 (same l 16:15: as:Omnipaq Andrae 00 ue 350). WASTE: F/P - Black; E - Municipal Trash Bin Thiamine No Notes: Memoria 01-11 (Same As: l 14:00: Vitamin [place] B1) Prenate 2016-0 No 1 tab, Memoria [...] polysacchar sennosides, No Notes: Shane ana paula HALFWAY 01-08 (Same as: l 02:00: Senokot) Andrae [...] Notes: Memoria 01-07 (Same l 14:58: as:MORPhin [place] 00 e Sulfate) Enoxaparin No Notes: Memor ia 01-07 (Same as: l 14:00: Lovenox) Andrae 00 Docusate No Notes: Memoria 01-07 (Same as: l 14:00: Colace) [place] (Do Not Crush) Morphine No Notes: Memoria 01-07 (Same l 13:30: as:MORPhin [place] 00 e Sulfate) Oxycodone No Notes: Memori a Hydrochlori 01-07 (Same as: l de 5 MG 13:15: Roxicodone Herm erlin Oral Tablet 00 ) Acetaminoph No Notes: Max Memoria en 01-07 acetaminop l 13:15: hen 4000 Andrae 00 mg/day (4 gm/day). (Same as: Tylenol Extra Strength) celecoxib No Notes: Memori a 01-07 NSAID. l 13:15: Please [place] 00 check indication . Not for seizure. (Same As: CeleBREX) pregabalin No Notes: Memor ia 01-07 (Same as: l 13:15: Lyrica) iodixanol No Notes: Memori a 01-07 (Same as: l 12:04: Visipaque) [place] 00 . WASTE: F/P - Black; E - Municipal Trash Bin Fentanyl No Notes: Memoria 01-07 (Same as: l 12:04: Sublimaze) Andrae 00 Preservat yissel free. Albuterol No Notes: [...] 25 Memoria 8-07 microgram, l 10:43: Route: Andrae 00 IVP, ONCE, Dosing Weight 129.545, kg, Priority: STAT, Start date: 01/08/16 5:43:00 CDT, Stop date: 01/08/16 5:43:00 CDT Fentanyl No 50 Memoria 8-07 microgram, l 10:29: Route: Andrae 00 IVP, ONCE, Dosing Weight 129.545, kg, Priority: STAT, Start date: 01/08/16 5:29:00 CDT, Stop date: 01/08/16 5:29:00 CDT Cefazolin No 2 gm, Memoria 01-07 Route: l 10:29: IVPB, Andrae 00 ONCE, Dosing Weight 129.545, kg, Priority: STAT, Start date: 01/08/16 5:29:00 CDT, Stop date: 01/08/16 5:29:00 CDT Saline No Notes: Memoria Flush 0.9% 01-07 Same as: l 10:05: BD [place] 00 Posiflush Sterile Vital Signs Vital Name Observation Time Observation Value Comments Source Systolic (mm Hg) 2016-01-20 16:09:00 Shane rial [place] Diastolic (mm Hg) 2016-01-20 16:09:00 Mem orial [place] Respitory Rate 2016-01-20 16:09:00 Memori al [place] Heart Rate 2016-01-20 16:09:00 [facility] [place] Temperature Oral (F) 2016-01-20 16:09:00 99.6 F [facility] [place] Respitory Rate 2016-01-20 13:51:00 Memori al [place] Heart Rate 2016-01-20 12:26:00 [facility] [place] Temperature Oral (F) 2016-01-20 12:26:00 98.7 F [facility] [place] Systolic (mm Hg) 2016-01-20 12:26:00 Shane rial [place] Diastolic (mm Hg) 2016-01-20 12:26:00 Mem orial [place] Respitory Rate 2016-01-20 12:26:00 Memori al [place] Temperature Oral (F) 2016-01-20 09:01:00 97.9 F [facility] [place] Systolic (mm Hg) 2016-01-20 09:01:00 Shane rial [place] Diastolic (mm Hg) 2016-01-20 09:01:00 Mem orial [place] Heart Rate 2016-01-20 09:01:00 [facility] [place] Height 2016-01-18 09:51:00 170.18 cm [facility] [place] Height 2016-01-18 04:20:00 170.18 cm [facility] [place] Height 2016-01-18 00:30:00 170.18 cm [facility] [place] BMI Calculated 2016-01-08 16:52:00 Memori al [place] Weight 2016-01-08 16:52:00 [facility] [place] Weight 2016-01-08 10:05:00 [facility] [place] BMI Calculated 2016-01-08 10:05:00 Memori al [place] Procedures Procedure Date / Time Performed Performing Clinician Sourc e Tonsillectomy [facility] [place] Encounters Start End Encounter Admission Attending Care Care Encounter Source Date/Time Date/Time Type Type Clinicians Facility Department ID 2019-10-08 2019-10-08 Emergency Darrin SDJACKIE [id number] 17:53:07 18:29:00 Fanny Colvin 350.1.13.10 [place] [id number] [place] [address] [id number] 2019-10-08 2019-10-08 Orders Doctor SKYLER [id number] 00:00:00 00:00:00 Only Unassigned, TONY 350.1.13.10 [facility] [id number] [id number] 2019-09-21 2019-09-21 Emergency [facility] [id number] 14:35:52 17:14:00 Rashid Colvin 350.1.13.10 [place] 4.2.7.2.686 [place] [id number] 2019-09-08 2019-09-08 Emergency [facility] [id number] 19:21:10 23:29:00 Fifi Colvin 350.1.13.10 [place] 4.2.7.2.686 [place] [id number] 2016-01-08 2016-01-20 Outpatient Karl [facility] [id number] 05:00:00 14:45:00 Lee Smyth 67 Results [...] AMI: 0.60 - 1. 5 ng/mL CHEM KRIAG3778-11-77 05:31:001.9[facility]annCHEM BNLCH0423-13-85 05:31:002.9 [facility] BbwjociGXJTRKCUQSBO3357-15-55 05:31:0014.1[facility] HermannELECTROLYTES 2016-01-20 05:31:85559Qpozocdh GcurilkCCXERNJCFZNQ3395-53-85 05:31:000.63 [facility] FzfgqbrEZYVVFHKVWVF1776-35-70 05:31:0013[facility] HermannELECTROLYTES 2016-01-20 05:31:004.1[facility] FxflcuoUDUTVYIHHIKV6947-87-52 05:31:93229Jqzpmjog LttbbsrTEWNZVDYSPRV9820-15-27 05:31:61844Blnndcnl RzlbbucWBFDYOPUCBHQ3486-10-05 05:31:37009Hociatjg CxnspgbLLDPDXJKVNRL0712-50-49 05:31:008.0[facility] [place] OQZPHBSLZLLW0584-96-29 05:31:0023[facility] XbieqrxFEDXDDAHRC4805-68-50 05:31:00 0.3[facility] PxjzivzWEOXSHYSMB2197-67-36 05:31:002.3[facility] HermannHEMATOLOGY 2016-01-20 05:31:006.7[facility] YxxadbgSHEFGFAMRS6957-60-98 05:31:0015.2[facility] UiemftsRBYYZXKZMH2761-73-04 05:31:0075.5[facility] CkqwqfsBJDNMEHGHH8235-47-00 05:31:000.8[facility] XghmaelDYENFERXMK0256-66-06 05:31:000.3[facility] [place] GCYYWQQHPQ0362-99-04 05:31:001.9[facility] LnwoswjYUKJTJFSOP7317-78-44 05:31:009.4 [facility] NopnqdzVBMJMZLFKL7930-50-56 05:31:008.7[facility] HermannHEMATOLOGY 2016-01-20 05:31:0013.5[facility] QesbvecRENLNFWXLM3217-09-22 05:31:00 Test Item Value Reference Range Interpretation Comments MCH (test code = MCH) 28.3 pg 27.0-31.0 [facility] FhzoslkPUWBDODGCE0180-24-36 05:31:67590Mywbjbzt HermannHEMATOLOGY 2016-01-20 05:31:0033.4[facility] TqrwnilOAODEWDHDP8243-81-23 05:31:0084.6[facility] XnbzfjgYXHEZQSYFY0565-46-55 05:31:009.2[facility] TduclyhSTLDGYKLCX6400-82-94 05:31:0027.7[facility] ZednsiwBQQFMTURKR8903-47-05 05:31:003.27[facility] [place] QPBBMZSXZG7158-20-04 05:31:0012.5[facility] HermannPARATHYROID NLGHPYN8867-80-86 05:31:001.08[facility] HermannPARATHYROID BTJBVGT7208-02-10 05:31:001.10[facility] IjwzuzbYLYRLCUODC9546-18-42 17:30:000.09[facility] HermannCHEM RFQNG0919-15-15 05:32:001.9[facility] HermannCHEM NQDXK0397-22-37 05:32:003.8[facility] [place] JDEGYLBRQJHG9110-12-42 05:32:0012.1[facility] UyckzmlJNDZCHJHIYNE3043-55-20 05:32:007.8[facility] PpqsltoLIWMABBMEZPP5537-29-97 05:32:0029[facility] [place] XRKXVGWMGAYJ2425-61-90 05:32:0094[facility] HqccbfrWWDCNQFNHQTA3692-10-09 05:32:00 4.1[facility] ObfmxrcEULRWBXOPNUV9339-39-79 05:32:81779Vjrranca [place]rae TMZFQJQULCQX0084-29-76 05:32:000.53[facility] WeydfynNDHGEIFTZVCT3304-47-14 05:32:0014[facility] EtaybxdRCRSDOGSFBBM6578-44-57 05:32:80258Ruyqjvlq [place]rae FKRBCGOOZVDU7825-62-47 05:32:82987Pnrszdoz QaxeoxlYLGDNFCWNC2016-70-87 05:32:00 2.2[facility] WkcivbkDAVTLAUFFY5977-32-92 05:32:008.5[facility] HermannHEMATOLOGY 2016-01-19 05:32:003.1[facility] AzzrqwyQEDFSOZEMM8389-39-24 05:32:001.1[facility] FatycbtURFVRUFFEI9346-25-74 05:32:000.1[facility] IcoiuuoPUHJBSULBL5759-13-78 05:32:000.4[facility] FxefaujXTDAYRGAFF2972-64-61 05:32:000.8[facility] [place] YJUNBZYLJR0195-16-08 05:32:006.4[facility] ZjpjrxvDTOWDGNVHJ0143-74-98 05:32:00 70.9[facility] JzfoqyyBQEHQTZIMS6134-78-53 05:32:0018.5[facility] HermannHEMATOLOGY 2016-01-19 05:32:99268Dnvwlzbh KvadlgjBOVCMXSCXN0007-11-38 05:32:008.9[facility] MygmcdnKBSWJQNNMU8459-19-69 05:32:0032.9[facility] SujwcbeWOJYUAAWHF8475-69-35 05:32:0013.6[facility] AlgurxdJVUBFIIVZJ0403-56-25 05:32:0085.1[facility] [place] RJOKESPWDM2433-35-00 05:32:00 Test Item Value Reference Range Interpretation Comments MCH (test code = MCH) 28.0 pg 27.0-31.0 [facility] FuuuitoXGGZCFVRLA9130-19-90 05:32:0026.7[facility] HermannHEMATOLOGY 2016-01-19 05:32:003.14[facility] FaubdbdCGWSDSNIYD1425-47-14 05:32:008.8[facility] GlrujzoZFYOHIZIGL1552-08-52 05:32:0012.0[facility] HermannPARATHYROID PROFILE 2016-01-19 05:32:001.12[facility] HermannPARATHYROID JRNLIWL6682-15-86 05:32:00 1.12[facility] HermannCHEM RUPVD5900-64-49 05:20:17658Johvocin HermannCHEM PANEL 2016-01-18 05:20:22902Jmsfeccj HermannCHEM OTACI8973-97-65 05:20:0018[facility] HermannCHEM KXAYP2426-63-79 05:20:000.55[facility] HermannCHEM QOHPP0444-25-92 05:20:004.4[facility] HermannCHEM SQPPQ6371-49-78 05:20:42564Rpiebbkr HermannCHEM SNGDS6729-97-95 05:20:007.7[facility] HermannCHEM DKSZX4978-62-91 05:20:16365 [facility] HermannCHEM DTVTR6247-87-01 05:20:0027[facility] HermannCHEM PANEL 2016-01-18 05:20:0012.4[facility] HermannCHEM EEGDX4857-20-68 05:20:002.2[facility] HermannCHEM CBMTO9610-24-29 05:20:002.9[facility] RbafhdsEMRZMXVVTU7645-58-46 05:20:00Normal (01/18/16 12:20 AM)[facility] NmxuzjzKPNZKBMRPP5873-05-41 05:20:00 Normal (01/18/16 12:20 AM)[facility] BrebciyYVARFPASMD2535-90-96 05:20:0015.5 [facility] DvhofamEYIBOCHRXM5409-63-32 05:20:0071.9[facility] HermannHEMATOLOGY 2016-01-18 05:20:0011.2[facility] XkqpuulOXTDEGCKPW6180-88-60 05:20:006.9[facility] UyzonwsDYHLMZUEFB5464-80-70 05:20:000.4[facility] DkokcunKZVEWHVEII5575-38-58 05:20:001.5[facility] QsnvjyuYUSWTSIIOU1464-25-94 05:20:001.0[facility] [place] JZWDYLEOCM3424-08-33 05:20:000.1[facility] BdnguqzGZEZJFMJDX7734-14-78 05:20:001.1 [facility] TbxkgieTOSEDBDHYI9721-71-96 05:20:000.04[facility] HermannHEMATOLOGY 2016-01-18 05:20:05386Lwqddcou ApsxqhbDDGJSYNRFI1579-36-02 05:20:0013.8[facility] BcbhthiQNVWGMNDZM3042-09-98 05:20:009.6[facility] OctwchdSCKJLIMBVK6254-34-74 05:20:008.5[facility] MqrvmfjCNVZQHQFRO9388-10-03 05:20:0084.4[facility] [place] QNIFKPBIEY8854-95-47 05:20:0033.6[facility] IolsjlpVKONMMMHXK7439-95-68 05:20:00 Test Item Value Reference Range Interpretation Comments MCH (test code = MCH) 28.3 pg 27.0-31.0 [facility] RryealcHRYLZSACBM3308-12-89 05:20:0025.9[facility] HermannHEMATOLOGY 2016-01-18 05:20:008.7[facility] MkwviutKAWTFFBMXP1609-84-88 05:20:003.07[facility] HermannPARATHYROID CWOSQRW8158-39-49 05:20:001.13[facility] HermannPARATHYROID IVWLNRX7833-02-81 05:20:001.08[facility] UyyhvohPZEBJTYCIZ2448-41-78 08:12:000.1 [facility]annBLOOD BANK FUCJHXL1689-02-25 05:05:00Negative (01/16/16 12:05 AM) [facility] LlbocwaGISRYCCKZN1739-06-00 13:15:493776Lrtzpsbp HermannTOXICOLOGY 2016-01-15 13:15:004.9[facility]annURINE AND NMLKF8826-79-31 12:03:003 [facility] ARIWX1884-53-88 12:03:001[facility] AND OZYZK6860-19-80 12:03:00Negative (01/14/16 7:03 AM)[facility] ZVSNT1803-20-57 12:03:00Negative *NA*(01/14/16 7:03 AM)[facility] AND QTMYH7839-69-91 12:03:00 Test Item Value Reference Range Interpretation Comments UA pH (test code = UA pH) 5.5 1 5.0-8.0 [facility] PIRUK8498-76-59 12:03:00Negative (01/14/16 7:03 AM) [facility] TVSCK1470-30-66 12:03:00Trace *ABN*(01/14/16 7:03 AM) [facility] ULJRF0077-13-46 12:03:00Negative *NA*(01/14/16 7:03 AM) [facility] NZICS0435-33-03 12:03:00 Test Item Value Reference Range Interpretation Comments UA Spec Grav (test code = UA Spec 1.025 1 Grav) [facility] ZGGMU0972-20-15 12:03:00Clear (01/14/16 7:03 AM) [facility] YXIKT2342-24-32 12:03:00Yellow *NA*(01/14/16 7:03 AM) [facility] EYTBB8828-92-29 12:03:00Negative (01/14/16 7:03 AM) [facility] LTZSD2253-02-57 12:03:00None Seen (01/14/16 7:03 AM) [facility] AND ZDXOH9525-50-39 12:03:001.0[facility]IN[facility] ITHEV7615-78-92 12:03:00Negative (01/14/16 7:03 AM)[facility] 2016-01-13 14:28:003.4[facility] RymvejqYWORYXROJG3456-11-55 14:28:00 Test Item Value Reference Range Interpretation Comments Max Amplitude Rapid (test code = Max 76 mm 52-71 Amplitude Rapid) [facility] HospitalGpjrhtmHPLZNQGPMB5715-95-71 14:28[facility] 14:28:00 Test Item Value Reference Range Interpretation Comments R-time Rapid (test code = R-time 0.9 min 0.4-0.7 Rapid) [facility] HospitalDadmqftCIFPHAKNKE7954-62-01 14:28:00 Test Item Value Reference Range Interpretation Comments K-time Rapid (test code = K-time 1.1 min 0.6-2.3 Rapid) [facility] HospitalUhvjwliSQVQMJVCFG7540-98-66 14:28:00 Test Item Value Reference Range Interpretation Comments Angle Rapid (test code = Angle 78 degrees 64-80 Rapid) [facility] HospitalUejjlfdAJNQUPYITK7030-04-96 14:28:00 Test Item Value Reference Range Interpretation Comments ACT (TEG) Rapid (test code = ACT (TEG) 136 s 86-118 Rapid) [facility] HospitalOkdgahxYWTCVHUHMN7667-74-20 14:28:00 Test Item Value Reference Range Interpretation Comments Split Point Rapid (test code = Split 0.8 min Point Rapid) [facility] QJBJUZT0304-60-73 05:34:00Negative (01/13/16 12:34 AM) [facility] HospitalFuqcibqERDVVLLQTQ3777-16-01 05:34:00 Test Item Value Reference Range Interpretation Comments PTT (test code = PTT) 42.2 s 22.9-35.8 [facility] HospitalOqfwexjMMBLMFMFYO9455-05-27 05:34:001.15[facility] HermannHEMATOLOGY 2016-01-13 05:34:00 Test Item Value Reference Range Interpretation Comments PT (test code = PT) 15.0 s 12.0-14.7 [facility] DzupmwbQBDOYIAWIT0090-36-91 09:47:00Normal (01/11/16 4:47 AM)[facility] XztdkgwAXPTOQGHFU6855-33-20 09:47:00Normal (01/11/16 4:47 AM)[facility] HermannCHEM OFQQL5414-95-00 10:16:001.2[facility] HermannCHEM YHJIL0823-64-10 23:00:002.2 [facility] HermannCHEM CSJXZ6914-40-69 16:03:002.0[facility] HermannDRUG SCREEN 2016-01-08 12:28:00See Note (01/08/16 [...] 2016-01-08 12:28:000-2 (01/08/16 7:28 AM)[facility] KRBGU2210-45-55 12:28:00 Test Item Value Reference Range Interpretation Comments UA pH (test code = UA pH) 6.0 1 5.0-8.0 [facility] GGTXG5962-61-02 12:28:00Small *ABN*(01/08/16 7:28 AM) [facility] EPDFV3807-45-42 12:28:000.2[facility] PRNPY4189-39-06 12:28:00Negative (01/08/16 7:28 AM)[facility] STOOL 2016-01-08 12:28:00Negative (01/08/16 7:28 AM)[facility] STOOL 2016-01-08 12:28:00Negative (01/08/16 7:28 AM)[facility] STOOL 2016-01-08 12:28:00Negative *NA*(01/08/16 7:28 AM)[facility] STOOL 2016-01-08 12:28:00Negative *NA*(01/08/16 7:28 AM)[facility] STOOL 2016-01-08 12:28:00 Test Item Value Reference Range Interpretation Comments UA Spec Grav (test code = UA Spec 1.027 1 Grav) [facility] USRGE7669-39-82 12:28:00Clear (01/08/16 7:28 AM)[facility] QMJMD9450-22-21 12:28:00Yellow *NA*(01/08/16 7:28 AM)[facility] DkhqdfxDEHQZELGOE9014-13-79 10:16:150.1[facility] JccjzenPQUJYSDNPB0424-89-94 10:16:15 Test Item Value Reference Range Interpretation Comments Split Point Rapid (test code = Split 0.6 min Point Rapid) [facility] CenterIqlsghtSMHACNIRDK0914-42-77 10:16:15 Test Item Value Reference Range Interpretation Comments ACT (TEG) Rapid (test code = ACT (TEG) 113 s 86-118 Rapid) [facility] GdwgrosONONQVGDKJ1369-55-05 10:16:15 Test Item Value Reference Range Interpretation Comments Angle Rapid (test code = Angle 72 degrees 64-80 Rapid) [facility] CenterYxomjnkELTRWKMWWU1081-19-81 10:16:15 Test Item Value Reference Range Interpretation Comments K-time Rapid (test code = K-time 1.5 min 0.6-2.3 Rapid) [facility] HospitalCksrsznVCFLAXHVTX5486-71-47 10:16:15 Test Item Value Reference Range Interpretation Comments R-time Rapid (test code = R-time 0.7 min 0.4-0.7 Rapid) [facility] HospitalCguxqrrZDQYCWQAXQ2880-30-72 10:16:15 Test Item Value Reference Range Interpretation Comments Max Amplitude Rapid (test code = Max 61 mm 52-71 Amplitude Rapid) [facility] HospitalTzfvkmkPUVBUUPXPE1472-26-30 10:[facility]157.[facility] 2016-[facility] 10:16:151.4[facility] RPQUGEB2526-84-32 10:13:00 Negative (01/08/16 5:13 AM)[facility] [place] [place]
[2019-12-04 21:43] LABS: Absolute Lymphocytes (CBC) 3.5 K/uL (0.7-4.9); Hematocrit 56.8 % (39.6-49.0); Lymphocytes % 18.8 % (15.3-44.8)
[2019-12-04 21:48] LABS: Protime INR 1.12
[2019-12-04 22:15] LABS: ALT/SGPT 35 U/L (12-78); AST/SGOT 44 U/L (15-37); Albumin 5.3 g/dL (3.4-5.0); Alkaline Phosphatase 121 U/L (45-117); BUN Blood Urea Nitrogen 42 mg/dL (7-18); Bicarbonate 23 mmol/L (21-32); Bilirubin Direct 0.2 mg/dL (0-0.2); Bilirubin Total 1.1 mg/dL (0.2-1.0); CKMB Creatine Kinase MB 8.2 ng/mL (0.3-3.6); Glucose Level 225 mg/dL (74-106); Lipase 389 U/L (73-393); Magnesium 2.4 mg/dL (1.8-2.4); NT PRO-BNP 214 pg/mL (<125); Potassium 3.4 mmol/L (3.5-5.1); Protein, Total 10.4 g/dL (6.4-8.2); Sodium Level 130 mmol/L (136-145); Troponin (Emerg Dept Use Only) < 0.02 ng/mL (0.0-0.045)
[2019-12-04 22:16] LABS: Creatine Phosphokinase 1120 U/L (39-308)
--- NOTE | 2019-12-04 22:33 | ER ---
Nurse's Notes [facility] Name: Yaw Aldrich Jr Age: 29 yrs Sex: Male : 1990 Arrival Date: 12/04/2019 Time: 20:50 Bed 18 Private MD: Diagnosis: Rhabdomyolysis;Acute kidney failure;Hypo-osmolality and hyponatremia;Dehydration Presentation: 12/03 21:13 Chief complaint: EMS states: Recently diagnosed with COVID 19, reports having fever at home with chills but unsure of what the temperature was, pt also reports having increased shortness of breath this evening so called for assistance, temp upon EMS arrival 98.7 with room air saturation of 97% but a RR of 30. Coronavirus screen: Patient reports a cough. Patient reports shortness of breath or difficulty breathing. Patient reports a measured and/or subjective temperature greater than 100.4F. Patient reports travel on a cruise ship or to a country the [facility] currently lists as an affected area. Patient reports contact with known and/or suspected case of COVID-19. Prior COVID test collected on: "several days ago". Ebola Screen: Patient negative for fever greater than or equal to 101.5 degrees Fahrenheit, and additional compatible Ebola Virus Disease symptoms Patient denies exposure to infectious person. Patient denies travel to an Ebola-affected area in the 21 days before illness onset. No symptoms or risks identified at this time. Initial Sepsis Screen: Does the patient meet any 2 criteria? RR > 20 per min. HR > 90 bpm. Does the patient have a suspected source of infection? No. Patient's initial sepsis screen is negative. Risk Assessment: Do you want to hurt yourself or someone else? Patient reports no desire to harm self or others. Onset of symptoms was December 04, 2019. Care prior to arrival: Oxygen administered. Transition of care: patient was not received from another setting of care. 21:13 Method Of Arrival: EMS: [facility] sg 21:13 Acuity: SHEY 3 sg Historical: - Allergies: 21:16 ANTIHISTAMINES; sg 21:16 Benadryl; sg - PMHx: 21:16 Asthma; Diabetes - NIDDM; sg - PSHx: 21:16 Tonsillectomy; chest tube; sg - Immunization history:: Adult Immunizations not up to date. - Social history:: Smoking status: Patient reports the use of cigarette tobacco products. Screenin:39 Abuse screen: Denies threats or abuse. Nutritional screening: No deficits noted. Tuberculosis screening: No symptoms or risk factors identified. Fall Risk None identified. Assessment: 21:25 General: Appears in no apparent distress. Behavior is cooperative, appropriate for age. Pain: Complains of pain in all over. Neuro: Level of Consciousness is awake, alert, Oriented to person, place, time, situation. Cardiovascular: Heart tones S1 S2 present Capillary refill < 3 seconds Patient's skin is warm and dry. Rhythm is sinus tachycardia. Respiratory: Airway is patent Respiratory effort is even, unlabored, Respiratory pattern is regular, symmetrical, Respiratory: Derm: Skin is intact, Skin is diaphoretic. Vital Signs: 21:23 BP 126 / 102; Pulse 133; Resp 27; Pulse Ox 100% ; Weight 104.33 kg; 12/04 00:54 BP 125 / 74; Pulse 99; Resp 16 S; Temp 98.3; Pulse Ox 100% on R/A; ED Course: 12/03 20:50 Patient arrived in ED. sg 20:51 Jose David Coronel MD is Attending Physician. tw4 21:13 Arm band placed on. sg 21:16 Triage completed. sg 21:17 Ogla Soria, RN is Primary Nurse. 21:43 Inserted saline lock: 20 gauge in right antecubital area, using aseptic technique. 22:24 XRAY CXR (1 view) In Process Unspecified. EDMS 22:32 Anirudh Chung MD is Hospitalizing Provider. tw4 22:46 Blood Culture Adult (2) Sent. jp3 23:47 Patient has correct armband on for positive identification. Bed in low position. Call light in reach. Side rails up X 1. manager monitoring on. Pulse ox on. NIBP on. 12/04 00:08 Primary Nurse role handed off by Olga Soria, RN sg 00:08 Adrian Rand, FOX is Primary Nurse. sg 01:11 No provider procedures requiring assistance completed. Patient admitted, IV remains in sg place. intact, No redness/swelling at site. Administered Medications: 12/03 23:08 Drug: NS 0.9% (30 ml/kg) 30 ml/kg Route: IV; Rate: bolus; Site: right antecubital; Outcome: 22:32 Decision to Hospitalize by Provider. tw4 12/04 01:11 Admitted to Med/surg accompanied by tech, via stretcher, room 416, with chart, Report sg called to FOX [place] Condition: improved Instructed on the need for admit, safety practices, Demonstrated understanding of instructions. 01:28 Patient left the ED. andrew Signatures: Dispatcher [employer] EDAdrian Jimenez RN RN Jose David Alexandre MD MD tw4 Ajith Mccormack 3 Olga Soria, RN RN
--- NOTE | 2019-12-04 22:34 | EDPHYS ---
Physician Documentation [facility] Name: Yaw Aldrich Jr Age: 29 yrs Sex: Male : 1990 Arrival Date: 12/04/2019 Time: 20:50 Bed 18 Private MD: ED Physician Jose David Coronel HPI: 12/04 06:10 This 29 yrs old Male presents to ER via EMS with complaints of Fever, tw4 Shortness Of Breath, COVID 19 Positive. 06:10 The patient or guardian reports cough, that is constant. Onset: The symptoms/episode tw4 began/occurred last week. Severity of symptoms: At their worst the symptoms were moderate, in the emergency department the symptoms are unchanged. Modifying factors: The symptoms are alleviated by nothing, the symptoms are aggravated by nothing. Associated signs and symptoms: Pertinent positives: body aches, this patient has no pertinent positive symptoms. The patient has not experienced similar symptoms in the past. 06:12 It is unclear if patient had covid testing performed. Pt gave different history to the tw4 RN and myself. Historical: - Allergies: 12/03 21:16 ANTIHISTAMINES; sg 21:16 Benadryl; sg - PMHx: 21:16 Asthma; Diabetes - NIDDM; sg - PSHx: 21:16 Tonsillectomy; chest tube; sg - Immunization history:: Adult Immunizations not up to date. - Social history:: Smoking status: Patient reports the use of cigarette tobacco products. ROS: 12/04 06:10 Cardiovascular: Negative for chest pain, palpitations, and edema, Respiratory: Negative tw4 for shortness of breath, cough, wheezing, and pleuritic chest pain, Abdomen/GI: Negative for abdominal pain, nausea, vomiting, diarrhea, and constipation, Back: Negative for injury and pain, MS/Extremity: Negative for injury and deformity, Skin: Negative for injury, rash, and discoloration, Neuro: Negative for headache, weakness, numbness, tingling, and seizure. Constitutional: Positive for body aches, Negative for chills, fatigue, fever. Exam: 06:10 Constitutional: This is a well developed, well nourished patient who is awake, alert, tw4 and in no acute distress. Head/Face: Normocephalic, atraumatic. Chest/axilla: Normal chest wall appearance and motion. Nontender with no deformity. No lesions are appreciated. Cardiovascular: Regular rate and rhythm with a normal S1 and S2. No gallops, murmurs, or rubs. Normal PMI, no JVD. No pulse deficits. Respiratory: Lungs have equal breath sounds bilaterally, clear to auscultation and percussion. No rales, rhonchi or wheezes noted. No increased work of breathing, no retractions or nasal flaring. Abdomen/GI: Soft, non-tender, with normal bowel sounds. No distension or tympany. No guarding or rebound. No evidence of tenderness throughout. Back: No spinal tenderness. No costovertebral tenderness. Full range of motion. MS/ Extremity: Pulses equal, no cyanosis. Neurovascular intact. Full, normal range of motion. Neuro: Awake and alert, GCS 15, oriented to person, place, time, and situation. Cranial nerves II-XII grossly intact. Motor strength 5/5 in all extremities. Sensory grossly intact. Cerebellar exam normal. Normal gait. Vital Signs: 12/03 21:23 BP 126 / 102; Pulse 133; Resp 27; Pulse Ox 100% ; Weight 104.33 kg; ah 12/04 00:54 BP 125 / 74; Pulse 99; Resp 16 S; Temp 98.3; Pulse Ox 100% on R/A; sg MDM: 12/03 21:33 Patient medically screened. tw4 12/04 06:12 Differential Diagnosis: Obstructed Airway Bronchitis Influenza Viral Syndrome Tracheal tw4 Injury. Data reviewed: vital signs, nurses notes. Data reviewed: lab test result(s), CBC, electrolytes, hepatic panel, radiologic studies, plain films. Data interpreted: Pulse oximetry:. Test interpretation: by ED physician or midlevel provider: plain radiologic studies. Counseling: I had a detailed discussion with the patient and/or guardian regarding: the historical points, exam findings, and any diagnostic results supporting the discharge/admit diagnosis, lab results, the need for outpatient follow up. Physician consultation: Anirudh Chung MD regarding admission, to the telemetry unit. patient's condition, and will see patient in inpatient room. 12/03 20:52 Order name: Blood Culture Adult (2) tw4 12/03 20:52 Order name: BMP; Complete Time: 22:29 tw4 12/03 22:29 Interpretation: Normal except: NA 130; CRE 4.39; BUN 42; GLUC 225; CL 89; K 3.4; GFR 16.[facility] 12/03 20:52 Order name: CBC with Diff; Complete Time: 22:29 [facility] 12/03 22:30 Interpretation: Normal except: WBC 18.8; RBC 6.60; HGB 19.7; HCT 56.8. [facility] 12/03 20:52 Order name: Ckmb; Complete Time: 22:29 [facility] 12/03 22:30 Interpretation: Abnormal: CKMB 8.2. 12/03 20:52 Order name: CPK; Complete Time: 22:29 [facility] 12/03 22:30 Interpretation: Abnormal: CPK 1120. 12/03 20:52 Order name: Hepatic Function; Complete Time: 22:29 [facility] 12/03 22:31 Interpretation: Normal except: AST 44; ALK 121; BILIT 1.1; TP 10.4; ALB 5.3; GLOB 5.1; tw4 A/G 1.0. 12/03 20:52 Order name: Lipase; Complete Time: 22:29 [facility] 12/03 22:31 Interpretation: Within normal limits: LIP 389. [facility] 12/03 20:52 Order name: Magnesium; Complete Time: 22:29 [facility] 12/03 22:31 Interpretation: Within normal limits: MG 2.4. 12/03 20:52 Order name: NT PRO-BNP; Complete Time: 22:29 [facility] 12/03 22:31 Interpretation: Abnormal: NT PRO-BNP 214. [facility] 12/03 20:52 Order name: PT-INR; Complete Time: 22:29 [facility] 12/03 22:31 Interpretation: Normal except: PT 13.2. [facility] 12/03 20:52 Order name: Ptt, Activated; Complete Time: 22:29 [facility] 12/03 20:52 Order name: Troponin (emerg Dept Use Only); Complete Time: 22:29 [facility] 12/03 20:53 Order name: Blood Culture [facility] 12/03 21:34 Order name: COVID-19 [facility] 12/03 20:52 Order name: XRAY CXR (1 view) [facility] 12/03 20:52 Order name: Cardiac monitoring; Complete Time: 22:46 [facility] 12/03 21:34 Order name: Flu tw 12/03 21:34 Order name: Strep tw 12/03 22:33 Order name: UDS [facility] 12/03 23:46 Order name: CONS Pharmacy Consult [facility] 12/03 23:46 Order name: CONS Physician Consult [facility] 12/03 23:46 Order name: Comprehensive Metabolic Panel [facility] 12/03 23:46 Order name: Comprehensive Metabolic Panel [facility] 12/03 23:46 Order name: Renal [facility] 12/03 23:46 Order name: Miscellaneous Test Lab [facility] 12/03 23:46 Order name: Urinalysis W/Microscopic ED[facility] 12/03 23:46 Order name: CBC with Automated Diff [facility] 12/03 23:47 Order name: CBC with Automated Diff [facility] 12/03 23:47 Order name: Renal Ultrasound-Complete [facility] 12/03 20:52 Order name: IV Saline Lock; Complete Time: 22:46 tw 12/03 20:52 Order name: Labs collected and sent; Complete Time: 22:46 tw 12/03 20:52 Order name: O2 Per Protocol; Complete Time: 22:46 tw4 12/03 20:52 Order name: O2 Sat Monitoring; Complete Time: 22:46 tw4 12/03 21:34 Order name: Document PUI# tw4 12/03 21:34 Order name: Droplet/Contact Precautions; Complete Time: 22:46 tw4 12/03 21:34 Order name: Labs collected and sent; Complete Time: 22:46 tw 12/03 21:34 Order name: Notify [facility] Dept [phone]/ tw4 Administered Medications: 12/03 23:08 Drug: NS 0.9% (30 ml/kg) 30 ml/kg Route: IV; Rate: bolus; Site: right antecubital; Disposition: 12/04/19 22:32 Hospitalization ordered by Anirudh Chung for Inpatient Admission. Preliminary diagnosis are Rhabdomyolysis, Acute kidney failure, Hypo-osmolality and hyponatremia, Dehydration. - Bed requested for Telemetry/MedSurg (Inpatient). - Status is Inpatient Admission. sg - Condition is Stable. - Problem is new. - Symptoms are unchanged. Signatures: Dispatcher [facility] P[facility]ra, ChristineFOX RN, Steven, RN RN sg Wadley, Terrence, MD MD tw4 Olga Soria RN FOX Corrections: (The following items were deleted from the chart) 22:47 22:32 Hospitalization Ordered by Anirudh Chung MD for Inpatient Admission. Preliminary diagnosis is Rhabdomyolysis; Acute kidney failure; Hypo-osmolality and hyponatremia; Dehydration. Bed requested for Telemetry/MedSurg (Inpatient). Status is Inpatient Admission. Condition is Stable. Problem is new. Symptoms are unchanged. 12/04 01:28 12/03 22:47 12/04/2019 22:32 Hospitalization Ordered by Anirudh Chung MD for Inpatient sg Admission. Preliminary diagnosis is Rhabdomyolysis; Acute kidney failure; Hypo-osmolality and hyponatremia; Dehydration. Bed requested for Telemetry/MedSurg (Inpatient). Status is Inpatient Admission. Condition is Stable. Problem is new. Symptoms are unchanged. mw
[2019-12-04] MEDS ORDERED: NA CHLORIDE 0.9% 2,000 ML ONE (22:58)
[2019-12-04] MEDS ORDERED: ONDANSETRON 4 MG/2 ML VIAL IV PRN (23:40)
[2019-12-04] MEDS ORDERED: ACETAMINOPHEN 500 MG TAB PO PRN (23:40)
[2019-12-04] MEDS: D5W 1,000 ML with NA BICARB 8.4% 50 MEQ IV SCH ×2 (23:45)
[2019-12-05] MEDS ORDERED: NA CHLORIDE 0.9% 1,000 ML ONE (00:15)
[2019-12-05 01:45] LABS: Barbiturates NEGATIVE (NEGATIVE); Benzodiazepines NEGATIVE (NEGATIVE); Cocaine POSITIVE (NEGATIVE); METHAMPHETAM POSITIVE (NEGATIVE); Methadone NEGATIVE (NEGATIVE); Opiates NEGATIVE (NEGATIVE); Phencyclidine NEGATIVE (NEGATIVE); THC Cannibis POSITIVE (NEGATIVE)
[2019-12-05 02:28] VITALS: BMI 36.0
[2019-12-05] MEDS ORDERED: D5W 1,000 ML IV ONE (03:08)
[2019-12-05] MEDS ORDERED: SODIUM BICARB 50 MEQ/50ML VIAL ONE (03:08)
[2019-12-05] MEDS: D5W 1,000 ML with NA BICARB 8.4% 50 MEQ IV SCH ×8 (03:21→19:30)
[2019-12-05 06:41] LABS: Absolute Lymphocytes (CBC) 4.3 K/uL (0.7-4.9); Basophils % 0.5 % (0-1.3); Hematocrit 47.9 % (39.6-49.0); Lymphocytes % 30.9 % (15.3-44.8); MPV 7.9 fL (7.6-11.3); RBC Red Blood Cell Count 5.55 M/uL (4.33-5.43)
[2019-12-05 06:55] LABS: Albumin 3.9 g/dL (3.4-5.0); Potassium 3.4 mmol/L (3.5-5.1)
--- NOTE | 2019-12-05 08:41 | P.HP ---
Certification for Inpatient Patient admitted to: Inpatient With expected LOS: >2 Midnights Patient will require the following post-hospital care: None Practitioner: I am a practitioner with admitting privileges, knowledge of patient current condition, hospital course, and medical plan of care. Services: Services provided to patient in accordance with Admission requirements found in Title 42 Section 412.3 of the Code of Federal Regulations Patient History Date of Service: 12/05/19 Reason for admission: Acute kidney injury History of Present Illness: Patient is a 29-year-old gentleman came to the hospital with acute kidney injury. Patient's renal function was severely abnormal. He appears to be severely dehydrated. He has a history of polysubstance abuse. Spoke to 1 of his friends on the phone and they stated that he is a drug addict. He also has been complaining of upper respiratory symptoms. He was admitted to the hospital with acute renal insufficiency and we also did COVID-19 testing. I aggressive hydration and possibly discharge home in the next 24-48 hr. Allergies diphenhydramine [From Benadryl] Allergy (Verified 11/07/17 22:04) Unknown Poultry Allergy (Verified 11/08/17 06:44) Nausea/Vomiting shrimp Allergy (Verified 11/07/17 22:04) swelling antihistamines Allergy (Uncoded 11/07/17 22:04) Hives/Rash Home Medications: Albuterol Inhaler [Ventolin Inhaler*] 2 puff IH Q6H PRN 11/07/17 Enoxaparin Sodium [Lovenox 30 MG INJ*] 30 mg SQ DAILY syr 11/08/17 Insulin -Regular Human [Novolin -R*] See Protocol SQ ACHS ml 11/08/17 Ondansetron [Zofran*] 4 mg IV Q6HP PRN vial 11/08/17 - Past Medical/Surgical History Has patient received pneumonia vaccine in the past: Yes Diabetic: Yes -: Asthma -: DM II -: chest tube placement -: tonsillectomy - Family History Father Medical History: Heart disease Mother Medical History: Diabetes - Social History Smoking Status: Current every day smoker Alcohol use: Yes CD- Drugs: Yes Caffeine use: Yes Place of Residence: Homeless Review of Systems 10-point ROS is otherwise unremarkable Physical Examination - Vital Signs Temperature: 97.8 F Blood Pressure: 127/69 Pulse: 96 Respirations: 16 Pulse Ox (%): 97 - Physical Exam General: Alert, In no apparent distress, Oriented x3 HEENT: Atraumatic, PERRLA, Mucous membr. moist/pink, EOMI, Sclerae nonicteric Neck: Supple, 2+ carotid pulse no bruit, No LAD, Without JVD or thyroid abnormality Respiratory: Clear to auscultation bilaterally, Normal air movement Cardiovascular: Regular rate/rhythm, Normal S1 S2, No murmurs Gastrointestinal: Normal bowel sounds, Soft and benign, Non-distended, No tenderness Musculoskeletal: No clubbing, No swelling, No tenderness Integumentary: No rashes Neurological: Normal gait, Normal speech, Normal strength at 5/5 x4 extr, Normal tone, Sensation intact, Cranial nerves 3-12 intact, Normal affect Lymphatics: No axilla or inguinal lymphadenopathy - Studies Laboratory Data (last 24 hrs) 12/04/19 21:30: PT 13.2 H, INR 1.12, APTT 34.0 12/04/19 21:30: WBC 18.8 H, Hgb 19.7 H, Hct 56.8 H, Plt Count 403 12/04/19 21:30: Sodium 130 L, Potassium 3.4 L, BUN 42 H, Creatinine 4.39 H, Glucose 225 H, Magnesium 2.4, Total Bilirubin 1.1 H, AST 44 H, ALT 35, Alkaline Phosphatase 121 H, Lipase 389 Microbiology Data (last 24 hrs): 12/04/19 21:38 Nasopharnyx Influenza Type A Antigen Screen - Final 12/04/19 21:38 Nasopharnyx Influenza Type B Antigen Screen - Final 12/04/19 21:38 Throat Group A Streptococcus Rapid Screen - Final Assessment & Plan - Problems (Diagnosis) (1) Polysubstance abuse Current Visit: Yes Status: Acute (2) Acute renal insufficiency Current Visit: Yes Status: Acute - Plan Plan: 1. Aggressive IV hydration 2. COVID-19 testing pending 3. Possible interstitial nephritis from NSAID use. Urine eosinophil pending 4. Renal ultrasound 5. Nephrology consultation 6. If renal function correct quickly then may be discharged in the next 24-48 hr. Discharge Plan: Home Plan to discharge in: Greater than 2 days - Advance Directives Does patient have a Living Will: No Does patient have a Durable POA for Healthcare: No - Code Status/Comfort Care Code Status Assessed: Yes Code Status: Full Code Critical Care: No Time Spent Managing PTS Care (In Minutes): 40
[2019-12-05 10:40] VITALS: O2SAT 97
--- NOTE | 2019-12-05 12:19 | RAD REPORT ---
EXAM DESCRIPTION: RAD - Chest Single View - 12/04/2019 10:24 pm CLINICAL HISTORY: SOB Chest pain. COMPARISON: Chest Pa And Lat (2 Views) dated 09/07/2019; Chest Pa And Lat (2 Views) dated 10/21/2018; C hest Single View dated 11/08/2016; Chest Single View dated 01/08/2016 FINDINGS: Portable technique limits examination quality. The lungs are underinflated but grossly clear. The heart is normal in size. No displaced fractures. IMPRESSION: Underinflated lungs.
[2019-12-05] MEDS: MORPHINE 4 MG/ML SYR IV PRN ×2 (13:13→21:16)
[2019-12-05 14:53] LABS: Albumin 3.9 g/dL (3.4-5.0); Bilirubin Total 0.7 mg/dL (0.2-1.0); Potassium 3.7 mmol/L (3.5-5.1); Protein, Total 7.7 g/dL (6.4-8.2)
--- NOTE | 2019-12-05 22:31 | P.CNS ---
Date of Consult: 12/05/19 Reason for Consult: PAULINE Chief Complaint: Acute kidney injury History of Present Illness: Pt is a 29 y/o male with past medical hx DM, asthma, polysubstance abuse presenting with weakness, lethargy and altered mental status. Unable to obtain hx due to ams. Patient was noted to have an PAULINE with creatinine of 4.3 that steadily improved to 1.77 and is now 1.2 with hydration. Renal has been consulted for PAULINE. Pt with unknown baseline creatinine. Allergies diphenhydramine [From Benadryl] Allergy (Verified 11/07/17 22:04) Unknown Poultry Allergy (Verified 11/08/17 06:44) Nausea/Vomiting shrimp Allergy (Verified 11/07/17 22:04) swelling antihistamines Allergy (Uncoded 11/07/17 22:04) Hives/Rash Home Medications: NK [No Home Meds] 12/05/19 - Past Medical/Surgical History Diabetic: Yes -: Asthma -: DM II -: chest tube placement -: tonsillectomy - Family History Father Medical History: Heart disease Mother Medical History: Diabetes - Social History Smoking Status: Current every day smoker Alcohol use: Yes CD- Drugs: Yes Caffeine use: Yes Place of Residence: [facility] Review of Systems General: Unremarkable Eyes: Unremarkable ENT: Unremarkable Respiratory: Unremarkable Cardiovascular: Unremarkable Gastrointestinal: Unremarkable Genitourinary: Unremarkable Musculoskeletal: Unremarkable Integumentary: Unremarkable Neurological: Unremarkable Lymphatics: Unremarkable Physical Examination Temp Pulse Resp BP Pulse Ox 98 F 78 18 131/78 98 12/05/19 16:00 12/05/19 16:00 12/05/19 16:00 12/05/19 16:00 12/05/19 16:00 General: Alert, Oriented x2 HEENT: Atraumatic, Normocephalic, PERRLA Neck: Supple, No Thyromegaly, No LAD Respiratory: Clear to auscultation bilaterally Cardiovascular: No edema, Normal pulses, Normal S1 S2, No gallops Capillary refill: <2 Seconds Gastrointestinal: Normal bowel sounds, Hypoactive, Soft and benign Musculoskeletal: No swelling Integumentary: No rashes, No breakdown Neurological: Other (confused) - Problems (1) Acute renal insufficiency Current Visit: Yes Status: Acute (2) Nausea and vomiting Onset Date: 11/08/17 Current Visit: No Status: Acute Qualifiers: Vomiting type: unspecified Vomiting Intractability: non-intractable Qualified Code(s): R11.2 - Nausea with vomiting, unspecified (3) Volume depletion Onset Date: 11/08/17 Current Visit: No Status: Acute Conclusions/Impression: PAULINE Agree with continued aggressive ivf HYDRATION Will follow up renal ultrasound Since improving no further work up intended Please avoid yaneth/arbs, contrast exposure, fleece enemas Thank you for this interesting consult. Will continue to follow.
[2019-12-06] MEDS: D5W 1,000 ML with NA BICARB 8.4% 50 MEQ IV SCH ×2 (00:45)
[2019-12-06 06:01] LABS: Absolute Lymphocytes (CBC) 3.5 K/uL (0.7-4.9); Basophils % 0.6 % (0-1.3); Hematocrit 45.3 % (39.6-49.0); Lymphocytes % 29.4 % (15.3-44.8); MPV 7.7 fL (7.6-11.3); RBC Red Blood Cell Count 5.23 M/uL (4.33-5.43)
[2019-12-06 06:28] LABS: BUN Blood Urea Nitrogen 21 mg/dL (7-18); Bicarbonate 32 mmol/L (21-32); Creatine Phosphokinase 934 U/L (39-308); Glucose Level 130 mg/dL (74-106); Magnesium 2.4 mg/dL (1.8-2.4); Phosphorus 2.3 mg/dL (2.5-4.9); Potassium 3.7 mmol/L (3.5-5.1); Sodium Level 136 mmol/L (136-145)
[2019-12-06 08:10] LABS: Urine Appearance TURBID; Urine Bilirubin NEGATIVE (NEG); Urine Blood 1+ (NEG); Urine Color YELLOW; Urine Glucose TRACE (NEG); Urine Protein TRACE (NEG)
[2019-12-06 08:29] LABS: Urine Bacteria 20-50 /HPF (NONE SEEN); Urine Culture Reflex Order REFLEXED
[2019-12-06 10:46] VITALS: BP 125/81; TEMP 97.1
[2019-12-09 14:31] LABS: HIV AG/AB 4TH GEN Non-reactive (Non-reactive)
== END 2019-12-06 10:22 | disposition home or self-care (01) | DRG 684 ==
LOC: ER 20:48 → 4TH 12-05 01:14 → 2ND 12-06 00:58
PROVIDERS: ADMIT Hospitalist; ATTEND Hospitalist
DX: N17.9 Acute kidney failure, unspecified (principal); E11.9 Type 2 diabetes mellitus without complications; F17.200 Nicotine dependence, unspecified, uncomplicated; F19.10 Other psychoactive substance abuse, uncomplicated; E86.9 Volume depletion, unspecified; J45.909 Unspecified asthma, uncomplicated; Z91.013 Allergy to seafood; Z88.8 Allergy status to other drugs, medicaments and biological substances; Z91.09 Other allergy status, other than to drugs and biological substances; Z59.0 Homelessness; Z79.4 Long term (current) use of insulin; Z79.899 Other long term (current) drug therapy; Z20.828 Contact with and (suspected) exposure to other viral communicable diseases; R50.9 Fever, unspecified; R06.02 Shortness of breath
CPT/HCPCS: 36415; 71045; 80048; 80053; 80076; 80307; 81001; 82550; 82553; 82947; 83690; 83735; 83880; 84100; 84484; 85025; 85610; 85730; 87040; 87081; 87086; 87088; 87389; 87804; 88108; 96374; 99285; J7030; U0002

== ENCOUNTER 2019-12-11 20:51 | Emergency (ER) | payer SELFPAY ==
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
[2019-12-11 22:09] LABS: Urine Blood TRACE (NEG); Urine Glucose 2+ (NEG); Urine Protein NEGATIVE (NEG); Urine Specific Gravity 1.025 (1.005-1.030)
[2019-12-11 22:55] LABS: Urine Bacteria 20-50 /HPF (NONE SEEN); Urine Culture Reflex Order REFLEXED
[2019-12-11 22:56] LABS: Urine Mucus 1+ /HPF (NONE SEEN)
--- NOTE | 2019-12-11 23:05 | EDPHYS ---
Physician Documentation [facility] Name: Yaw Aldrich Jr Age: 29 yrs Sex: Male : 1990 Arrival Date: 12/11/2019 Time: 20:59 Bed 16 Private MD: ED Physician Hammad Case HPI: 12/10 23:02 This 29 yrs old Male presents to ER via Ambulatory with complaints of Urinary jmm Problem. 23:02 The patient presents with urinary symptoms, dysuria. Onset: The symptoms/episode jmm began/occurred gradually. Modifying factors: The symptoms are alleviated by nothing, the symptoms are aggravated by nothing. This is a 29 year old male with a history of asthma, dm that presents to the ED with complaints of dysuria and discharge. Patient admits to unprotected intercourse 2 weeks prior. . Historical: - Allergies: 21:25 ANTIHISTAMINES; ca1 21:25 Benadryl; ca1 - Home Meds: 21:25 None [Active]; ca1 - PMHx: 21:25 Asthma; Diabetes - NIDDM; ca1 - PSHx: 21:25 Tonsillectomy; chest tube; ca1 - Immunization history:: Adult Immunizations up to date. - Social history:: Smoking status: Patient reports the use of cigarette tobacco products, smokes one pack cigarettes per day. ROS: 23:02 Constitutional: Negative for fever, chills, and weight loss, Cardiovascular: Negative jmm for chest pain, palpitations, and edema, Respiratory: Negative for shortness of breath, cough, wheezing, and pleuritic chest pain. 23:02 : Positive for penile discharge. 23:02 All other systems are negative. Exam: 23:02 Constitutional: This is a well developed, well nourished patient who is awake, alert, jmm and in no acute distress. Head/Face: atraumatic. Eyes: EOMI, no conjunctival erythema appreciated ENT: Moist Mucus Membranes Neck: Trachea midline, Supple Chest/axilla: Normal chest wall appearance and motion. Cardiovascular: Regular rate and rhythm. No edema appreciated Respiratory: Normal respirations, no respiratory distress appreciated Abdomen/GI: Non distended, soft Back: Normal ROM Skin: General appearance color normal MS/ Extremity: Moves all extremities, no obvious deformities appreciated, no edema noted to the lower extremities Neuro: Awake and alert, normal gait Psych: Behavior is normal, Mood is normal, Patient is cooperative and pleasant Vital Signs: 21:21 BP 152 / 92; Pulse 118; Resp 16 S; Temp 97.5(TE); Pulse Ox 98% on R/A; Weight 101.15 kg ca1 (R); Height 5 ft. 7 in. (170.18 cm) (R); 23:35 BP 145 / 78; Pulse 85; Resp 18; Temp 98.5; Pulse Ox 100% on R/A; mg2 21:21 Body Mass Index 34.93 (101.15 kg, 170.18 cm) ca1 MDM: 22:58 Patient medically screened. [facility] 23:04 Data reviewed: vital signs, nurses notes. Counseling: I had a detailed discussion with rush the patient and/or guardian regarding: the historical points, exam findings, and any diagnostic results supporting the discharge/admit diagnosis, the need for outpatient follow up, to return to the emergency department if symptoms worsen or persist or if there are any questions or concerns that arise at home. ED course: Patient advised to make his partner aware he most likely has an STI. Patient is otherwise given strict return precautions. Patient understood and agrees with the plan of care. . 12/10 21:26 Order name: Urine Microscopic Only; Complete Time: 22:58 ca1 12/10 21:41 Order name: Urine Dipstick--Ancillary (enter results); Complete Time: 22:55 sg 12/10 22:56 Order name: Urine Culture [facility] 12/10 21:26 Order name: Urine Dipstick-Ancillary (obtain specimen); Complete Time: 22:40 ca1 Administered Medications: 23:22 Drug: Flagyl 2 grams Route: PO; mg2 23:36 Follow up: Response: No adverse reaction mg2 23:36 Follow up: Response: No adverse reaction mg2 23:23 Drug: Rocephin (cefTRIAXone) 250 mg Route: IM; Site: right gluteus; mg2 23:36 Follow up: Response: No adverse reaction mg2 23:23 Drug: AZITHromycin 1 grams Route: PO; mg2 23:23 Follow up: Response: No adverse reaction mg2 Disposition: 12/11 01:38 Co-signature as Attending Physician, Hammad Case MD. [email or web address] Disposition: 12/11/19 23:05 Discharged to Home. Impression: Dysuria. - Condition is Stable. - Discharge Instructions: Sexually Transmitted Disease. - Medication Reconciliation Form, Thank You Letter, Antibiotic Education, Prescription Opioid Use form. - Follow up: Private Physician; When: 2 - 3 days; Reason: Recheck today's complaints, Continuance of care, Re-evaluation by your physician. Signatures: Dispatcher [employer] EDMS Varun Ham PA PA jmm Gardose, Michele, RN RN mg2 Nancy Jay RN RN [facility] Hammad Case MD MD [email or web address] Corrections: (The following items were deleted from the chart) 12/10 23:36 23:05 12/11/2019 23:05 Discharged to Home. Impression: Dysuria. Condition is Stable. mg2 Forms are Medication Reconciliation Form, Thank You Letter, Antibiotic Education, Prescription Opioid Use. Follow up: Private Physician; When: 2 - 3 days; Reason: Recheck today's complaints, Continuance of care, Re-evaluation by your physician. rush
--- NOTE | 2019-12-11 23:05 | ER ---
Nurse's Notes [facility] Name: Yaw Aldrich Jr Age: 29 yrs Sex: Male : 1990 Arrival Date: 12/11/2019 Time: 20:59 Bed 16 Private MD: Diagnosis: Dysuria Presentation: 12/10 21:21 Chief complaint: Patient states: Burning with urination, greenish penile discharge. ca1 Denies fever. Coronavirus screen: Proceed with normal triage. Patient denies a cough. Patient denies shortness of breath or difficulty breathing. Patient denies measured and/or subjective temperature greater than 100.4F prior to today's visit. Patient denies travel on a cruise ship or to a country the [facility] currently lists as an affected area. Patient denies contact with known and/or suspected case of COVID-19. Ebola Screen: Patient negative for fever greater than or equal to 101.5 degrees Fahrenheit, and additional compatible Ebola Virus Disease symptoms Patient denies exposure to infectious person. Patient denies travel to an Ebola-affected area in the 21 days before illness onset. No symptoms or risks identified at this time. Initial Sepsis Screen: Does the patient meet any 2 criteria? No. Patient's initial sepsis screen is negative. Does the patient have a suspected source of infection? No. Patient's initial sepsis screen is negative. Risk Assessment: Do you want to hurt yourself or someone else? Patient reports no desire to harm self or others. Onset of symptoms was December 11, 2019. 21:21 Method Of Arrival: Ambulatory ca1 21:21 Acuity: SHEY 3 ca1 Historical: - Allergies: 21:25 ANTIHISTAMINES; ca1 21:25 Benadryl; ca1 - Home Meds: 21:25 None [Active]; ca1 - PMHx: 21:25 Asthma; Diabetes - NIDDM; ca1 - PSHx: 21:25 Tonsillectomy; chest tube; ca1 - Immunization history:: Adult Immunizations up to date. - Social history:: Smoking status: Patient reports the use of cigarette tobacco products, smokes one pack cigarettes per day. Screenin:49 Abuse screen: Denies threats or abuse. Denies injuries from another. Nutritional mg2 screening: No deficits noted. Tuberculosis screening: No symptoms or risk factors identified. Fall Risk None identified. Assessment: 22:48 General: Appears in no apparent distress. comfortable, Behavior is calm, cooperative. mg2 Pain: Complains of pain in penile area. Neuro: Level of Consciousness is awake, alert, obeys commands, Oriented to person, place, time, situation. Cardiovascular: Capillary refill < 3 seconds Patient's skin is warm and dry. Respiratory: Airway is patent Respiratory effort is even, unlabored, Respiratory pattern is regular, symmetrical. GI: No signs and/or symptoms were reported involving the gastrointestinal system. : Reports discharge, from penis that is green, since 2 days ago pain. EENT: No signs and/or symptoms were reported regarding the EENT system. Derm: Skin is intact, is healthy with good turgor, Skin is pink, warm \T\ dry. normal. Musculoskeletal: Circulation, motion, and sensation intact. Capillary refill < 3 seconds. 23:35 Reassessment: Patient appears in no apparent distress at this time. mg2 Vital Signs: 21:21 BP 152 / 92; Pulse 118; Resp 16 S; Temp 97.5(TE); Pulse Ox 98% on R/A; Weight 101.15 kg ca1 (R); Height 5 ft. 7 in. (170.18 cm) (R); 23:35 BP 145 / 78; Pulse 85; Resp 18; Temp 98.5; Pulse Ox 100% on R/A; mg2 21:21 Body Mass Index 34.93 (101.15 kg, 170.18 cm) ca1 ED Course: 20:59 Patient arrived in ED. es 21:23 Triage completed. ca1 21:25 Arm band placed on right wrist. ca1 22:44 Mio Galicia RN is Primary Nurse. mg2 22:45 Varun Ham PA is PHCP. jmm 22:45 Hammad Case MD is Attending Physician. jmm 22:49 No provider procedures requiring assistance completed. Patient did not have IV access mg2 during this emergency room visit. 22:50 Patient has correct armband on for positive identification. mg2 Administered Medications: 23:22 Drug: Flagyl 2 grams Route: PO; mg2 23:36 Follow up: Response: No adverse reaction mg2 23:36 Follow up: Response: No adverse reaction mg2 23:23 Drug: Rocephin (cefTRIAXone) 250 mg Route: IM; Site: right gluteus; mg2 23:36 Follow up: Response: No adverse reaction mg2 23:23 Drug: AZITHromycin 1 grams Route: PO; mg2 23:23 Follow up: Response: No adverse reaction mg2 Outcome: 23:05 Discharge ordered by . rush 23:35 Discharged to home ambulatory. mg2 23:35 Condition: stable 23:35 Discharge instructions given to patient, Instructed on discharge instructions, follow up and referral plans. Demonstrated understanding of instructions, follow-up care. 23:36 Patient left the ED. mg2 Signatures: Varun Ham PA PA jmm Salyer, Edna es Gardose, Michele, RN RN mg2 Nancy Jay RN RN ca1
[2019-12-11] MEDS ORDERED: metroNIDAZOLE 500 MG TABLET ONE (23:19)
[2019-12-11] MEDS ORDERED: WATER FOR INJ,STERILE 10 ML ONE (23:20)
[2019-12-11] MEDS ORDERED: CEFTRIAXONE 250 MG/VIAL ONE (23:20)
[2019-12-11] MEDS ORDERED: AZITHROMYCIN 250 MG TAB ONE (23:21)
[2019-12-11 23:44] VITALS: BP 145/78; TEMP 98.5; O2SAT 100
== END 2019-12-11 23:36 | disposition home or self-care (01) ==
LOC: ER 20:51
DX: R30.0 Dysuria (principal); Z88.8 Allergy status to other drugs, medicaments and biological substances; F17.210 Nicotine dependence, cigarettes, uncomplicated
CPT/HCPCS: 81003; 81015; 87086; 87088; 96372; 99283; J0696

== ENCOUNTER 2019-12-12 20:33 | Emergency (ER) | payer SELFPAY ==
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
--- OUTSIDE RECORDS SUMMARY | 2019-12-12 20:39 | XMS REPORT | Continuity of Care Document ---
:1990 Author Organization [facility] t Address [address] [place] [address] Care Team Providers Name Role Phone Kraen Clifford DO Attending Clinician Doctor Unassigned, Name [...] STABBING 00:00: Clive trinh 00 Active 01/08/2016 [facility] HARPREET Diagnosis Active 2016-04-09 Memoria BILLING/#3 01-07 12:05:00 l 854 00:00: Andrae MULLINS 00 BILLING/#3 854 Active 01/08/2016 [facility] STABBING Diagnosis Active 2016-04-09 M emoria TO BACK 01-07 12:04:00 l STABBING 00:00: Clive trinh TO BACK 00 Active 01/08/2016 [facility] Infestatio Problem Resolve 2016-01-23 Memoria n by d 01:07:53 l Sarcoptes [place] scabiei Infestatio lanre n by hominis Sarcoptes (disorder) scabiei lanre hominis (disorder) Resolved Problem 01/23/2016 [facility] Loculated Problem Active 2016-01-23 Me moria pleural 01:07:53 l effusion [place] (disorder) Loculated pleural effusion (disorder) Active Problem 01/23/2016 [facility] LAC W/O FB Diagnosis Active 2016-04-09 Memoria OF LOW 12:04:00 l BACK AND LAC W/O Lexus nn PELVIS W FB OF LOW PENE BACK AND PELVIS W PENE Active [facility] Allergies, Adverse Reactions, Alerts Allergy Allergy Status Severity Reaction(s) Onset Inactive Treating Comm ents Source Name Type Date Date Clinician Antihist DA Active [facility] am[facility] - 09-06 Mainlan Alkylami 00:00: d ne 00 [facility] No Known DA Active [facility] Allergie 06-11 Mainlan s 00:00: d 00 [facility] Benadryl Benadryl Active Dale a ambrose Abebe Social History Social Habit Start Date Stop Date Quantity Comments Source Social History 2016-01-11 2016-01-11 [facility] katelyn 17:26:34 17:26:34 Medications Ordered Filled Start [...] Ketorolac No 4 days. Shane ana paula 01-18 Give with l 23:00: food. (Same as:Toradol ) Ketorolac No 30 mg, Memori a 01-18 Route: PO, l 21:00: Q8H, Dosing Weight 118.182, kg, Start date: 01/19/16 16:00:00 CDT, Duration: 4 day, Stop date: 01/23/16 8:00:00 CDT Rocephin No 1 gm, Memoria 01-17 Route: l 21:00: IVPB, Drug form: PDR/INJ, [id number], Dosing Weight 118.182, kg, Start date: 01/18/16 [...] 10:30: Neurontin) dexmedetomi No 24 hours M emoria dine 400 01-16 l microgram + 18:04: Clive n sodium 00 chloride 0.9% INJ 96 mL Dexmedetomi No 400 Memori a dine 8-16 microgram, l 17:56: 100 mL, [place] 00 Rate: Titrate, Start Dose: 0.2 microgram/ [...] being intubated (unless the nurse is a EGYPTOLOGIST). Same as: Diprivan Ancef No 120 kg Memoria 8-15 l 20:28: Andrae Ativan No Notes: Memoria 8-15 (Same as: l 18:26: Ativan) [place] Haldol No Notes: Memoria 8-15 (Same as: l 18:25: Haldol) [place] 00 Clonidine No Notes: Memori a Hydrochlori [...] a 8-15 (Same as: l 02:00: Risperdal) [place] Vancomycin No 2001 mg: Me moria 8-14 infuse l 23:00: over 2.5 [place] 00 hours MEDICATION WASTE Product Size: 1000 [...] moria 8-14 infuse l 16:00: over 2.5 [place] 00 hours Haldol No Notes: Memoria 8-14 (Same as: l 15:44: Haldol) [place] Haldol No Notes: Memoria 8-14 (Same as: l 15:43: Haldol) [place] Permethrin No Notes: Memor ia 50 MG/ML 8-14 (Same as: l Topical 11:00: Elimite) Clive n Cream 00 WASTE: F/P - Black; E - Municipal Trash Bin Clonidine No Notes: Memori a Hydrochlori 8-14 (Same As: l de 0.1 MG 09:00: Catapres) Her morrell Oral Tablet Valium No Notes: Memoria 8-14 (Same as: l 08:44: Valium) [place] Vancomycin No 2001 mg: Me moria 8-13 infuse l 20:00: over 2.5 Andrae 00 hours MEDICATION WASTE Product Size: 1000 mg Product Wasted: ___ mg Versed No Notes: Memoria 8-13 (Same as: l 19:00: Versed) [place] 00 MEDICATION WASTE Product Size: 5 mg Product Wasted: ___ mg Rocuronium No Notes: Memor ia 8-13 (Same as: l 14:13: Zemeron) Andrae Midazolam 0 No Notes: Memori a 8-13 (Same as: [...] 02:00: Pepcid) Insulin No 60 Memoria regular -12 units) l 23:46: WASTE: F/P - Black; [...] Memoria 8- microgram, l 23:45: 20 mL, [place] 00 Rate: Titrate, Start Dose: 50 microgram/ [...] being intubated (unless the nurse is a EGYPTOLOGIST). Same as: Diprivan Isolyte S No Notes: Memori a (PH 7.4) 01-12 (Same as: l 1000 mL 05:00: Isolyte S Lexus nn 1,000 mL 00 PH 7.4) Morphine No Notes: Memoria 8-11 (Same l 20:53: as:MORPhin [place] e Sulfate) Dilaudid No Notes: Memoria 811 Same as: l 20:53: Dilaudid [place] 00 Morphine No Notes: Memoria 8-11 (Same l 19:57: as:MORPhin Andrae 00 e Sulfate) Morphine No Notes: Memoria 8-11 (Same l 19:13: as:MORPhin [place] e Sulfate) Zofran No Notes: Memoria 8-11 (Same as: l 19:13: Zofran) Andrae 00 MEDICATION WASTE Product Size: 4 mg Product Wasted: ___ mg Iohexol No Notes: Memoria 01-11 (same l 16:15: as:Omnipaq [address]rae [address]). WASTE: F/P - Black; E - Municipal Trash Bin Thiamine No Notes: Memoria 8 (Same As: l 14:00: Vitamin Andrae B1) Prenate No 1 tab, Memoria 811 Route: PO, l 14:00: Drug Form: TAB, [...] polysacchar sennosides, No Notes: Shane ana paula [facility] 01-08 (Same as: l 02:00: Senokot) Andrae [...] Notes: Memoria 01-07 (Same l 13:30: as:MORPhin [place] 00 e Sulfate) Oxycodone No Notes: Memori a Hydrochlori 01-07 (Same as: l de 5 MG 13:15: Roxicodone Herm erlin Oral Tablet 00 ) Acetaminoph No Notes: Max Memoria en 01-07 acetaminop l 13:15: hen 4000 [place] 00 mg/day (4 gm/day). (Same as: Tylenol Extra Strength) celecoxib No Notes: Memori a 01-07 NSAID. l 13:15: Please Andrae 00 check indication . Not for seizure. (Same As: CeleBREX) pregabalin No Notes: Memor ia 01-07 (Same as: l 13:15: Lyrica) iodixanol No Notes: Memori a 01-07 (Same as: l 12:04: Visipaque) [place] 00 . WASTE: F/P - Black; E - Municipal Trash Bin Fentanyl No Notes: Memoria 01-07 (Same as: l 12:04: Sublimaze) Preservat yissel free. Albuterol No Notes: SEE [...] 25 Memoria 8-07 microgram, l 10:43: Route: [place] 00 IVP, ONCE, Dosing Weight 129.545, kg, [...] 0.9% 01-07 Same as: l 10:05: BD Posiflush Sterile Vital Signs Vital Name Observation Time Observation Value Comments Source Systolic (mm Hg) 2016-01-20 16:09:00 Shane rial [place] Diastolic (mm Hg) 2016-01-20 16:09:00 Mem orial [place] Respitory Rate 2016-01-20 16:09:00 Memori al Andrae Heart Rate 2016-01-20 16:09:00 [facility] [place]rae Temperature Oral (F) 2016-01-20 16:09:00 99.6 F [facility] [place] Respitory Rate 2016-01-20 13:51:00 Memori al [place]rae Heart Rate 2016-01-20 12:26:00 [facility] [place] Temperature Oral (F) 2016-01-20 12:26:00 98.7 F [facility] [place]rae Systolic (mm Hg) 2016-01-20 12:26:00 Shane rial Andrae Diastolic (mm Hg) 2016-01-20 12:26:00 Mem orial Andrae Respitory Rate 2016-01-20 12:26:00 Memori al [place] Temperature Oral (F) 2016-01-20 09:01:00 97.9 F [facility] [place] Systolic (mm Hg) 2016-01-20 09:01:00 Shane rial [place] Diastolic (mm Hg) 2016-01-20 09:01:00 Mem orial [place] Heart Rate 2016-01-20 09:01:00 [facility] [place] Height 2016-01-18 09:51:00 170.18 cm [facility] [place] Height 2016-01-18 04:20:00 170.18 cm [facility] [place] Height 2016-01-18 00:30:00 170.18 cm [facility] [place] BMI Calculated 2016-01-08 16:52:00 Memori al [place] Weight 2016-01-08 16:52:00 [facility] [place]rae Weight 2016-01-08 10:05:00 [facility] [place] BMI Calculated 2016-01-08 10:05:00 Memori al [place] Procedures Procedure Date / Time Performed Performing Clinician Sourc e Tonsillectomy [facility] [place] Encounters Start End Encounter Admission Attending Care Care Encounter Source Date/Time Date/Time Type Type Clinicians Facility Department ID 2019-10-08 2019-10-08 Emergency Darrin WYJACKIE [id number] 17:53:07 18:29:00 Fanny Colvin [id number] [facility] [id number] [id number] 2019-10-08 2019-10-08 Orders Doctor SKYLER [id number] 00:00:00 00:00:00 Only Unassigned, TONY 350.1.13.10 [facility] [id number] [id number] 2019-09-21 2019-09-21 Emergency [facility] [id number] 14:35:52 17:14:00 Rashid Colvin 350.1.13.10 [facility] 4.2.7.2.686 [place] [id number] 2019-09-08 2019-09-08 Emergency [facility] [id number] 19:21:10 23:29:00 Fifi Colvin 350.1.13.10 [facility] 4.2.7.2.686 [place] [id number] 2016-01-08 2016-01-20 Outpatient Karl [facility] [id number] 05:00:00 14:45:00 Lee Smyth 69 Results [...] AMI: 0.60 - 1. 5 ng/mL CHEM PUOWI8615-00-86 05:31:001.9[facility] HermannCHEM CQYSW7353-02-19 05:31:002.9 [facility] XfdjpggVXRMKBTVHTZX4739-14-14 05:31:0014.1[facility] HermannELECTROLYTES 2016-01-20 05:31:52861Lavpbueu MyqobuzIMDGFMNEPPVQ3134-46-22 05:31:000.63 [facility] TrkqvbiGOLUFGTITJJW5012-47-40 05:31:0013[facility] HermannELECTROLYTES 2016-01-20 05:31:004.1[facility] IhkkapbRLUOCXQVNKEO2633-07-00 05:31:77311Gbnkvdve LmevtsnIMXLKTCPEGCT4115-99-94 05:31:71748Jvurgyvi WpmgdavMWCSGXZUKHJU5962-02-20 05:31:05908Aotwywqf UdhbftmZVDZTRLKHQII7789-19-92 05:31:008.0[facility] [place] RNLANXQMALBB9285-95-62 05:31:0023[facility] RbcxuoxDKCICVBWTP2470-66-13 05:31:00 0.3[facility] QmrscftVULWWFNOLS6649-20-44 05:31:002.3[facility] HermannHEMATOLOGY 2016-01-20 05:31:006.7[facility] LhyudkqDZGAEBTPDS5116-99-18 05:31:0015.2[facility] SndclwsIZSADRLKFW4020-08-21 05:31:0075.5[facility] ExawfjfLKNPIRGZJQ9839-21-79 05:31:000.8[facility] ZhvinfeOUIVQZNKJP9492-05-02 05:31:000.3[facility] Andrae YFGICHWZFQ6063-08-12 05:31:001.9[facility] VskpnqqOSNKZDELUS0748-38-98 05:31:009.4 [facility] HfpcygbDTMTVLYHEI3311-16-40 05:31:008.7[facility] HermannHEMATOLOGY 2016-01-20 05:31:0013.5[facility] LrzltbrFJCRYDKNWU8600-47-30 05:31:00 Test Item Value Reference Range Interpretation Comments MCH (test code = MCH) 28.3 pg 27.0-31.0 [facility] UzhxlhnJJJSJRAWUP2304-09-78 05:31:31481Ojuorkyd HermannHEMATOLOGY 2016-01-20 05:31:0033.4[facility] GojxkljQQZTALQOUC3754-88-23 05:31:0084.6[facility] TnvilnjLTUDUWKNSC3642-58-06 05:31:009.2[facility] PzmslkjLKOXLBFWAX3320-39-41 05:31:0027.7[facility] LuaagalCCNFYGZGOD4949-71-73 05:31:003.27[facility] Andrae GATKZFMREJ0996-19-52 05:31:0012.5[facility] HermannPARATHYROID OBMFKDI1626-04-43 05:31:001.08[facility] HermannPARATHYROID UDKGSLE6032-51-93 05:31:001.10[facility] PbeocqcSZUDRRWTBF1372-20-64 17:30:000.09[facility] HermannCHEM CROMP8605-26-77 05:32:001.9[facility] HermannCHEM LVTVC1283-30-55 05:32:003.8[facility] [place] NOAZWCQKBDHT5097-98-10 05:32:0012.1[facility] PquewynWNGNTAXVPEJH8022-36-78 05:32:007.8[facility] PvfnehaETJJWTGYQNVC5565-37-60 05:32:0029[facility]rae QVFKKPFLBXKF6457-86-64 05:32:0094[facility] YcfjpsuMTCVGCKQDREO6882-94-28 05:32:00 4.1[facility] GhwimkwJVDHDTKZDLMO4437-07-27 05:32:49634Qacrcqko [place] LHROUSNYUNSM7417-05-59 05:32:000.53[facility] HbbpcxxFDYVYWUQCFBX8854-15-01 05:32:0014[facility] HayliiaTSANXJRIYPEU5766-34-09 05:32:94619Uwshylki [place] NWVDMRIIUINF1951-36-65 05:32:12993Pimukctd PqdbozeGEHPULVVQR8975-23-13 05:32:00 2.2[facility] BpzcvhaIEZSEZQDGA1393-84-41 05:32:008.5[facility] HermannHEMATOLOGY 2016-01-19 05:32:003.1[facility] MmuykvvLJOLBUCRXS9138-02-89 05:32:001.1[facility] SlllmfcQXHCJLITTH3431-88-98 05:32:000.1[facility] TvyggzxSBLSQLXSHQ8682-57-57 05:32:000.4[facility] BcdeoesGOEMAITSIQ0310-65-27 05:32:000.8[facility] [place] PQPSGLBXNV0224-00-06 05:32:006.4[facility] BpyxzgqZNBDMESUZN4015-56-49 05:32:00 70.9[facility] YazhaayZYSTOGQTHG1585-91-44 05:32:0018.5[facility] HermannHEMATOLOGY 2016-01-19 05:32:58465Qfxiazsr CfiekroIJWNGFWVLL7929-72-50 05:32:008.9[facility] LrsknjpHCYBZYNPWB5051-24-23 05:32:0032.9[facility] GacbojnURVKWCGGJX6130-34-24 05:32:0013.6[facility] PmjtmnuTQJDDFABFV8908-69-95 05:32:0085.1[facility] Andrae FRKNQJBTGA6153-56-92 05:32:00 Test Item Value Reference Range Interpretation Comments MCH (test code = MCH) 28.0 pg 27.0-31.0 Memorial BbpspvhIYDMCQXQTR2488-76-96 05:32:0026.7[facility] HermannHEMATOLOGY 2016-01-19 05:32:003.14[facility] JclzoucFMKUTOLXOC3625-10-76 05:32:008.8[facility] VeebqpfOFFQYRHTKO6452-18-87 05:32:0012.0[facility] HermannPARATHYROID PROFILE 2016-01-19 05:32:001.12[facility] HermannPARATHYROID QKSQPEQ6749-50-08 05:32:00 1.12[facility] HermannCHEM MBZQS8623-07-90 05:20:18855Jljzeocg HermannCHEM PANEL 2016-01-18 05:20:30202Bpsvpapg HermannCHEM TZNQN4679-43-70 05:20:0018[facility] HermannCHEM REYMY8609-20-65 05:20:000.55[facility] HermannCHEM LEPDS3556-80-64 05:20:004.4[facility] HermannCHEM PCBPW0307-86-53 05:20:32578Qvavowoy HermannCHEM YBITR0010-36-00 05:20:007.7[facility] HermannCHEM OXAXL7782-86-82 05:20:20296 [facility] HermannCHEM HTMKT6972-39-06 05:20:0027[facility] HermannCHEM PANEL 2016-01-18 05:20:0012.4[facility] HermannCHEM HUEGC8772-84-92 05:20:002.2[facility] HermannCHEM YYSKS4840-03-68 05:20:002.9[facility] YmrxhtlEZSFBQGPIU5954-49-56 05:20:00Normal (01/18/16 12:20 AM)[facility] CpyjojmLVFNHYDPDB3330-26-83 05:20:00 Normal (01/18/16 12:20 AM)[facility] ExthmgsWHYXTLRKKN5066-56-05 05:20:0015.5 [facility] QbcnsecFLMAPLVVYT2813-45-49 05:20:0071.9[facility] HermannHEMATOLOGY 2016-01-18 05:20:0011.2[facility] JlzwyqdIBXUGAMZKV1954-42-12 05:20:006.9[facility] TeoyrprYPEMYRPCEZ0950-88-89 05:20:000.4[facility] CsoidhpSSOYZUXGZL1800-68-52 05:20:001.5[facility] UtnkjxqCKQZPPERYA0185-85-48 05:20:001.0[facility] Andrae ESVAAWUTIJ4459-55-89 05:20:000.1[facility] MmhxadtGLNTSROEZE9332-79-24 05:20:001.1 [facility] KqmtnppBLLAPURQSK5004-07-86 05:20:000.04[facility] HermannHEMATOLOGY 2016-01-18 05:20:30924Dzyotedw UmfujkkCZKRVHITAG2200-52-79 05:20:0013.8[facility] CsprspoKHSDZLHVTA6741-90-13 05:20:009.6[facility] KjvvzwbCIQFHCDCXV4217-23-50 05:20:008.5[facility] RjdxymhJUYOEZGVUR9663-28-44 05:20:0084.4[facility] [place] UBUJSDJZWR2096-37-18 05:20:0033.6[facility] TobfamtFOKHQWMYJR1801-19-79 05:20:00 Test Item Value Reference Range Interpretation Comments MCH (test code = MCH) 28.3 pg 27.0-31.0 [facility] MyteuecDCKSOVNCLF4472-79-02 05:20:0025.9[facility] HermannHEMATOLOGY 2016-01-18 05:20:008.7[facility] AtmhqagOGRESMYMDC9897-19-26 05:20:003.07[facility] HermannPARATHYROID JWIQEWQ9881-53-60 05:20:001.13[facility] HermannPARATHYROID DFXPMSI2764-10-04 05:20:001.08[facility] HpapbdqHPYKBFJKOK3265-35-98 08:12:000.1 [facility] HermannBLOOD BANK KWMFEZW4326-77-00 05:05:00Negative (01/16/16 12:05 AM) [facility] OrsjrgxQKBRFKXLGG5274-78-37 13:15:814112Cwfumfeo HermannTOXICOLOGY 2016-01-15 13:15:004.9[facility] HermannURINE AND CARGN8939-49-83 12:03:003 [facility] AND PKBJT3041-06-74 12:03:001[facility]annUR[facility] AND DPHNS1932-70-48 12:03:00Negative (01/14/16 7:03 AM)[facility] AND IDQRB9752-56-49 12:03:00Negative *NA*(01/14/16 7:03 AM)[facility] AND WZUJQ1290-16-98 12:03:00 Test Item Value Reference Range Interpretation Comments UA pH (test code = UA pH) 5.5 1 5.0-8.0 [facility] AND MIHWL3587-50-50 12:03:00Negative (01/14/16 7:03 AM) [facility] AND QQVIA5243-97-81 12:03:00Trace *ABN*(01/14/16 7:03 AM) [facility] PCZDC0342-30-64 12:03:00Negative *NA*(01/14/16 7:03 AM) [facility] MXTRZ1705-00-75 12:03:00 Test Item Value Reference Range Interpretation Comments UA Spec Grav (test code = UA Spec 1.025 1 Grav) [facility] CVJIF3391-50-46 12:03:00Clear (01/14/16 7:03 AM) [facility] GGHOQ9191-76-69 12:03:00Yellow *NA*(01/14/16 7:03 AM) [facility] MIEOR3159-81-83 12:03:00Negative (01/14/16 7:03 AM) [facility] ZKSSW2857-37-69 12:03:00None Seen (01/14/16 7:03 AM) [facility] EQLXH0486-61-76 12:03:001.0[facility] MPNWH4442-35-19 12:03:00Negative (01/14/16 7:03 AM)[facility] 2016-01-13 14:28:003.4[facility] XsjkmxsVDLTQUREPL4613-66-58 14:28:00 Test Item Value Reference Range Interpretation Comments Max Amplitude Rapid (test code = Max 76 mm 52-71 Amplitude Rapid) [facility]XmzrlvbQGUOZCUUGF7562-20-51 14[facility] 14:28:00 Test Item Value Reference Range Interpretation Comments R-time Rapid (test code = R-time 0.9 min 0.4-0.7 Rapid) [facility] AliceQrgjbyvGODKWOOIUC1911-30-75 14:28:00 Test Item Value Reference Range Interpretation Comments K-time Rapid (test code = K-time 1.1 min 0.6-2.3 Rapid) [facility] AliceYkxdjwhOQQLZURONS8250-71-01 14:28:00 Test Item Value Reference Range Interpretation Comments Angle Rapid (test code = Angle 78 degrees 64-80 Rapid) [facility] AliceNctwrdyZPJXKSJOCN1044-79-06 14:28:00 Test Item Value Reference Range Interpretation Comments ACT (TEG) Rapid (test code = ACT (TEG) 136 s 86-118 Rapid) [facility] AliceYxzzubrSEHJGCNDQB2620-26-94 14:28:00 Test Item Value Reference Range Interpretation Comments Split Point Rapid (test code = Split 0.8 min Point Rapid) [facility] EPCCMFE8038-57-91 05:34:00Negative (01/13/16 12:34 AM) [facility] AliceBebbsgoXFFCQGZQCX1691-46-02 05:34:00 Test Item Value Reference Range Interpretation Comments PTT (test code = PTT) 42.2 s 22.9-35.8 [facility] AliceXizohxyZIZYOQKVYD0567-66-32 05:34:001.15[facility] HermannHEMATOLOGY 2016-01-13 05:34:00 Test Item Value Reference Range Interpretation Comments PT (test code = PT) 15.0 s 12.0-14.7 [facility] WcldypcTVNBILJUXJ7371-35-34 09:47:00Normal (01/11/16 4:47 AM)[facility] DceehqjFNLAUHPTGA9042-19-07 09:47:00Normal (01/11/16 4:47 AM)[facility] HermannCHEM IPJAU6824-20-90 10:16:001.2[facility] HermannCHEM JVYBS3878-44-86 23:00:002.2 [facility] HermannCHEM BYXPJ9384-23-71 16:03:002.0[facility] HermannDRUG SCREEN 2016-01-08 12:28:00See Note (01/08/16 [...] 2016-01-08 12:28:000-2 (01/08/16 7:28 AM)[facility] AND GOEUX8656-38-69 12:28:00 Test Item Value Reference Range Interpretation Comments UA pH (test code = UA pH) 6.0 1 5.0-8.0 [facility] CDKET9407-82-34 12:28:00Small *ABN*(01/08/16 7:28 AM) [facility] GKECG6257-89-93 12:28:000.2[facility] LUQBD5856-27-83 12:28:00Negative (01/08/16 7:28 AM)[facility] STOOL 2016-01-08 12:28:00Negative (01/08/16 7:28 AM)[facility] STOOL 2016-01-08 12:28:00Negative (01/08/16 7:28 AM)[facility] STOOL 2016-01-08 12:28:00Negative *NA*(01/08/16 7:28 AM)[facility] STOOL 2016-01-08 12:28:00Negative *NA*(01/08/16 7:28 AM)[facility] STOOL 2016-01-08 12:28:00 Test Item Value Reference Range Interpretation Comments UA Spec Grav (test code = UA Spec 1.027 1 Grav) [facility] IMZQU8739-18-21 12:28:00Clear (01/08/16 7:28 AM)[facility] AND LEPVB5527-83-09 12:28:00Yellow *NA*(01/08/16 7:28 AM)[facility] BvgsglvVLJBBCHCVD8594-71-87 10:16:150.1[facility] CcqvgpnXTXMVLLQZO5123-21-10 10:16:15 Test Item Value Reference Range Interpretation Comments Split Point Rapid (test code = Split 0.6 min Point Rapid) [facility] QryokrsUTNRJZETFC5212-39-01 10:16:15 Test Item Value Reference Range Interpretation Comments ACT (TEG) Rapid (test code = ACT (TEG) 113 s 86-118 Rapid) [facility] ZfstnmnPALRBXYKYW6157-01-38 10:16:15 Test Item Value Reference Range Interpretation Comments Angle Rapid (test code = Angle 72 degrees 64-80 Rapid) [facility]yvpsqRNGSTOFIEK2788-59-08 10:16:15 Test Item Value Reference Range Interpretation Comments K-time Rapid (test code = K-time 1.5 min 0.6-2.3 Rapid) [facility] AliceHytthtjRSFPZXBTQV1678-20-41 10:16:15 Test Item Value Reference Range Interpretation Comments R-time Rapid (test code = R-time 0.7 min 0.4-0.7 Rapid) [facility] AliceXxwpidfJMYEKSRHOB2339-95-77 10:16:15 Test Item Value Reference Range Interpretation Comments Max Amplitude Rapid (test code = Max 61 mm 52-71 Amplitude Rapid) [facility] AliceBvkpsmpCFEFTSGNCG7545-96-76 10:16:157.9[facility] 2016-01-08 10:16:151.4[facility] MECQHXA0133-72-53 10:13:00 Negative (01/08/16 5:13 AM)[facility]
[2019-12-12] MEDS ORDERED: HYDROCODONE/APAP 10/325 TAB ONE (21:13)
[2019-12-12] MEDS ORDERED: ACETAMINOPHEN 500 MG TAB ONE (21:15)
[2019-12-12] MEDS ORDERED: LIDOCAINE 1% MPF 30 ML VIAL ONE (21:15)
--- NOTE | 2019-12-12 23:12 | EDPHYS ---
Physician Documentation [facility] Name: Yaw Aldrich Jr Age: 29 yrs Sex: Male : 1990 Arrival Date: 12/12/2019 Time: 20:34 Bed 20 Private MD: ED Physician Jose David Coronel HPI: 12/11 20:59 This 29 yrs old Male presents to ER via EMS with complaints of Head Injury. jmm 20:59 The patient or guardian reports injury. Onset: The symptoms/episode began/occurred jmm acutely, just prior to arrival. Associated signs and symptoms: Loss of consciousness: This patient did not experience any loss of consciousness. Pertinent positives: headache, Pertinent negatives: the patient has not experienced a loss of conciousness, vomiting, weakness in extremities. This is a diabetic male that presents to the ED with complaints of headache. Patient was hit in the head with a horse shoe. Denies LOC, vomiting. Historical: - Allergies: 20:45 ANTIHISTAMINES; ls4 20:45 Benadryl; ls4 - Home Meds: 20:45 None [Active]; ls4 - PMHx: 20:45 Diabetes - NIDDM; Asthma; ls4 - Immunization history:: Adult Immunizations up to date. - Social history:: Smoking status: Patient reports the use of cigarette tobacco products, smokes one pack cigarettes per day. Patient/guardian denies using alcohol, street drugs. ROS: 20:59 Constitutional: Negative for fever, chills, and weight loss, Cardiovascular: Negative jmm for chest pain, palpitations, and edema, Respiratory: Negative for shortness of breath, cough, wheezing, and pleuritic chest pain. 20:59 All other systems are negative. Exam: 20:59 Neuro: Awake and alert, normal gait jmm 20:59 Constitutional: This is a well developed, well nourished patient who is awake, alert, and in no acute distress. 20:59 Eyes: EOMI, no conjunctival erythema appreciated ENT: Moist Mucus Membranes Neck: Trachea midline, Supple Chest/axilla: Normal chest wall appearance and motion. Cardiovascular: Regular rate and rhythm. No edema appreciated Respiratory: Normal respirations, no respiratory distress appreciated Abdomen/GI: Non distended, soft Back: Normal ROM 20:59 Psych: Behavior is normal, Mood is normal, Patient is cooperative and pleasant 20:59 Head/face: laceration noted to the forehead approx 4 cm. 20:59 Skin: 4 cm laceration noted to the frontal scalp. Vital Signs: 20:37 BP 140 / 79; Pulse 78; Resp 16; Temp 98.3(O); Pulse Ox 100% ; Weight 99.79 kg; Height 5 ls4 ft. 7 in. (170.18 cm); Pain 7/10; 21:40 BP 139 / 82; Pulse 76; Resp 16 S; Pulse Ox 100% on R/A; jd3 23:37 Pulse 78; Resp 15 S; Pulse Ox 100% on R/A; jd3 20:37 Body Mass Index 34.46 (99.79 kg, 170.18 cm) ls4 Laceration: 23:10 Wound Repair of 4cm ( 1.6in ) subcutaneous laceration to top of head. Distal jmm neuro/vascular/tendon intact. Anesthesia: Local anesthetic administered with 3 mls of 1% lidocaine. Wound prep: Simple cleansing with hibiclenz by nurse. Skin closed with 5 1-0 [place] using staple gun. Patient tolerated well. MDM: 20:59 Data reviewed: vital signs, nurses notes. Counseling: I had a detailed discussion with [facility] the patient and/or guardian regarding:. 21:00 Patient medically screened. [facility] 23:10 Data reviewed: radiologic studies. [facility] 23:10 Counseling: I had a detailed discussion with the patient and/or guardian regarding: the [facility] historical points, exam findings, and any diagnostic results supporting the discharge/admit diagnosis, radiology results, the need for outpatient follow up, to return to the emergency department if symptoms worsen or persist or if there are any questions or concerns that arise at home. ED course: Patient given head injury and wound infection return precautions./ Patient understood and agrees with the plan of care. . 12/11 20:59 Order name: CT Head Brain wo Cont [facility] Administered Medications: 21:08 Drug: Tylenol 1000 mg Route: PO; jd3 22:08 Follow up: Response: No adverse reaction jd3 21:08 Drug: Lidocaine (1 %) 10 ml Volume: 5 ml; Route: Infiltration; jd3 21:09 Not Given (Physician Discretion): [place] 10 mg-325 mg 1 tabs PO once; RASS on ADMIN: jd3 Combtv4, Very Agttd3, Agttd2, Rstlss1, AlertClm0, Drwsy-1, Lt Sdtn-2, Mod Sdtn-3, Dp Sdtn-4, UnArsble-5 Disposition: 12/12/19 23:11 Discharged to Home. Impression: Laceration without foreign body of scalp. - Condition is Stable. - Discharge Instructions: Head Injury, Adult, Laceration Care, Adult. - Medication Reconciliation Form, Thank You Letter, Antibiotic Education, Prescription Opioid Use form. - Follow up: Private Physician; When: 2 - 3 days; Reason: Recheck today's complaints, Continuance of care, Re-evaluation by your physician. Addendum: 12/14/2019 16:42 Co-signature as Attending Physician, Jose David Coronel MD I agree with the assessment and t w4 plan of care. Signatures: Dispatcher [employer] EDMS Varun Ham PA PA jmm Davies, Jonathon RN RN jd3 Jose David Coronel MD MD tw4 Conchita Muniz RN RN ls4 Corrections: (The following items were deleted from the chart) 12/11 23:37 23:11 12/12/2019 23:11 Discharged to Home. Impression: Laceration without foreign body jd3 of scalp. Condition is Stable. Forms are Medication Reconciliation Form, Thank You Letter, Antibiotic Education, Prescription Opioid Use. Follow up: Private Physician; When: 2 - 3 days; Reason: Recheck today's complaints, Continuance of care, Re-evaluation by your physician. rush
--- NOTE | 2019-12-12 23:12 | ER ---
Nurse's Notes [facility] Name: Yaw Aldrich Jr Age: 29 yrs Sex: Male : 1990 Arrival Date: 12/12/2019 Time: 20:34 Bed 20 Private MD: Diagnosis: Laceration without foreign body of scalp Presentation: 12/11 20:37 Chief complaint: Patient states: I WAS AT [employer] AND WAS GETTING READY TO PLAY ls4 HORSESHOES AND I GOT HIT IN THE HEAD WITH ONE. DENIES LOC, NO BLOOD THINNERS. Coronavirus screen: Proceed with normal triage. Patient denies a cough. Patient denies shortness of breath or difficulty breathing. Patient denies measured and/or subjective temperature greater than 100.4F prior to today's visit. Patient denies travel on a cruise ship or to a country the [facility] currently lists as an affected area. Patient denies contact with known and/or suspected case of COVID-19. Ebola Screen: No symptoms or risks identified at this time. Initial Sepsis Screen: Does the patient meet any 2 criteria? No. Patient's initial sepsis screen is negative. Does the patient have a suspected source of infection? No. Patient's initial sepsis screen is negative. Risk Assessment: Do you want to hurt yourself or someone else? Patient reports no desire to harm self or others. Onset of symptoms was December 12, 2019 at 20:00. Care prior to arrival: Bleeding of injury controlled. Injury dressed. Medication(s) given: Activity prior to arrival: None. 20:37 Method Of Arrival: EMS: [facility] 4 20:37 Acuity: SHEY 3 ls4 Triage Assessment: 20:46 General: Appears in no apparent distress. uncomfortable, Behavior is calm, cooperative. ls4 Historical: - Allergies: 20:45 ANTIHISTAMINES; ls4 20:45 Benadryl; ls4 - Home Meds: 20:45 None [Active]; ls4 - PMHx: 20:45 Diabetes - NIDDM; Asthma; ls4 - Immunization history:: Adult Immunizations up to date. - Social history:: Smoking status: Patient reports the use of cigarette tobacco products, smokes one pack cigarettes per day. Patient/guardian denies using alcohol, street drugs. Screenin:46 Abuse screen: Denies threats or abuse. Denies injuries from another. Nutritional ls4 screening: No deficits noted. Tuberculosis screening: No symptoms or risk factors identified. Fall Risk None identified. Assessment: 21:00 General: Appears in no apparent distress. uncomfortable, Behavior is calm, cooperative, jd3 appropriate for age. Pain: Complains of pain in head Quality of pain is described as aching, tender. Neuro: Level of Consciousness is awake, alert, obeys commands, Oriented to person, place, time, situation, Reports dizziness, Denies syncope . Cardiovascular: Denies chest pain, Capillary refill < 3 seconds Patient's skin is warm and dry. Respiratory: Airway is patent Respiratory effort is even, unlabored, Respiratory pattern is regular, symmetrical, Denies cough, shortness of breath. GI: No signs and/or symptoms were reported involving the gastrointestinal system. : No signs and/or symptoms were reported regarding the genitourinary system. EENT: No signs and/or symptoms were reported regarding the EENT system. Derm: Skin is intact, Skin is dry, Skin is normal, Skin temperature is warm. Musculoskeletal: Circulation, motion, and sensation intact. Range of motion: intact in all extremities. Injury Description: Laceration sustained to top of head is clean, 7.6 to 20 cm long, a small amount of bleeding noted at this time. 21:34 Reassessment: Patient and/or family updated on plan of care and expected duration. Pain jd3 level reassessed. Patient is alert, oriented x 3, equal unlabored respirations, skin warm/dry/pink. awaiting CT scan and results. 22:34 Reassessment: Patient and/or family updated on plan of care and expected duration. Pain jd3 level reassessed. Patient is alert, oriented x 3, equal unlabored respirations, skin warm/dry/pink. awaiting results. pt tolerating PO food and water well without any reports of nausea. 23:24 Reassessment: Patient appears in no apparent distress at this time. Patient and/or jd3 family updated on plan of care and expected duration. Pain level reassessed. Patient is alert, oriented x 3, equal unlabored respirations, skin warm/dry/pink. Vital Signs: 20:37 BP 140 / 79; Pulse 78; Resp 16; Temp 98.3(O); Pulse Ox 100% ; Weight 99.79 kg; Height 5 ls4 ft. 7 in. (170.18 cm); Pain 7/10; 21:40 BP 139 / 82; Pulse 76; Resp 16 S; Pulse Ox 100% on R/A; jd3 23:37 Pulse 78; Resp 15 S; Pulse Ox 100% on R/A; jd3 20:37 Body Mass Index 34.46 (99.79 kg, 170.18 cm) ls4 ED Course: 20:34 Patient arrived in ED. ds1 20:40 Varun Ham PA is PHCP. jmm 20:40 Jose David Coronel MD is Attending Physician. jmm 20:45 Triage completed. ls4 21:00 John Messina RN is Primary Nurse. jd3 21:34 Patient has correct armband on for positive identification. Placed in gown. Bed in low jd3 position. Call light in reach. Side rails up X 1. Pulse ox on. NIBP on. 21:34 Arm band placed on. jd3 22:18 CT Head Brain wo Cont In Process Unspecified. EDMS 23:23 No provider procedures requiring assistance completed. Patient did not have IV access jd3 during this emergency room visit. Administered Medications: 21:08 Drug: Tylenol 1000 mg Route: PO; jd3 22:08 Follow up: Response: No adverse reaction jd3 21:08 Drug: Lidocaine (1 %) 10 ml Volume: 5 ml; Route: Infiltration; jd3 21:09 Not Given (Physician Discretion): [place] 10 mg-325 mg 1 tabs PO once; RASS on ADMIN: jd3 Combtv4, Very Agttd3, Agttd2, Rstlss1, AlertClm0, Drwsy-1, Lt Sdtn-2, Mod Sdtn-3, Dp Sdtn-4, UnArsble-5 Outcome: 23:11 Discharge ordered by . rush 23:23 Condition: stable jd3 23:23 Discharge instructions given to patient, Instructed on discharge instructions, follow up and referral plans. Demonstrated understanding of instructions, follow-up care. 23:36 Discharged to the lobby to wait for a ride back to the " [place] [employer]." jd3 23:37 Patient left the ED. jd3 Signatures: Dispatcher [employer] EDMS Varun Ham PA PA jmm Luis, Crystal ds1 John Messina RN RN jd3 Conchita Muniz RN RN ls4 Corrections: (The following items were deleted from the chart) 21:40 21:00 Injury Description: Laceration sustained to top of head is clean, 2.6 to 7.5 cm jd3 long, a small amount of bleeding noted at this time. jd3
[2019-12-12 23:53] VITALS: BP 139/82; TEMP 98.3; O2SAT 100
--- NOTE | 2019-12-14 09:43 | RAD REPORT ---
EXAM DESCRIPTION: CT - Head Brain Wo Cont - 12/12/2019 10:53 pm CLINICAL HISTORY: Head injury COMPARISON: None Available TECHNIQUE: Contiguous axial CT images of the head were obtained. Coronal and sagittal reconstructions were created from the axial data. This exam was performed according to our departmental dose-optimization program, which includes autom ated exposure control, adjustment of the mA and/or kV according to patient size and/or use of iterati ve reconstruction technique. FINDINGS: There is no evidence of acute mass, mass effect, midline shift or hemorrhage. The ventricl es and extra-axial CSF spaces are unremarkable. The brain parenchyma appears normal for the patient's age. No acute abnormalities of the bones is seen. IMPRESSION: No acute intracranial abnormality. Electronically signed by: Kaushal Graham 12/12/2019 10:28 PM CDT Due to temporary technical issues with the PACS/Fluency reporting system, reports are being signed by the in house radiologist without review as a courtesy to ensure prompt reporting. The interpreting r adiologist is fully responsible for the content of the report.
== END 2019-12-12 23:37 | disposition home or self-care (01) ==
LOC: ER 20:33
PROC: 0JQ00ZZ Repair Scalp Subcutaneous Tissue and Fascia, Open Approach (ICD-10-PCS; principal; 2019-12-12)
DX: S01.01XA Laceration without foreign body of scalp, initial encounter (principal); W22.8XXA Striking against or struck by other objects, initial encounter; Y93.89 Activity, other specified; Y92.9 Unspecified place or not applicable; F17.210 Nicotine dependence, cigarettes, uncomplicated; E11.9 Type 2 diabetes mellitus without complications; Z88.8 Allergy status to other drugs, medicaments and biological substances
CPT/HCPCS: 70450; 99284

== ENCOUNTER 2019-12-23 11:31 | Emergency (ER) | payer SELFPAY ==
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
--- OUTSIDE RECORDS SUMMARY | 2019-12-23 12:25 | XMS REPORT | Continuity of Care Document ---
:[address] [facility] t Address [address] [place] [address] Care Team Providers Name Role Phone Karen [...] STABBING 00:00: Clive trinh 00 Active 01/08/2016 [facility] HARPREET Diagnosis Active 2016-04-09 Memoria BILLING/#3 01-07 12:05:00 l 854 00:00: Andrae MULLINS 00 BILLING/#3 854 Active 01/08/2016 [facility] STABBING Diagnosis Active 2016-04-09 M emoria TO BACK 01-07 12:04:00 l STABBING 00:00: Clive trinh TO BACK 00 Active 01/08/2016 [facility] Infestatio Problem Resolve 2016-01-23 Memoria n by d 01:07:53 l Sarcoptes Swisher scabiei Infestatio lanre n by hominis Sarcoptes (disorder) scabiei lanre hominis (disorder) Resolved Problem 01/23/2016 [facility] Loculated Problem Active 2016-01-23 Me moria pleural 01:07:53 l effusion Swisher (disorder) Loculated pleural effusion (disorder) Active Problem 01/23/2016 [facility] LAC W/O FB Diagnosis Active 2016-04-09 Memoria OF LOW 12:04:00 l BACK AND LAC W/O Lexus nn PELVIS W FB OF LOW PENE BACK AND PELVIS W PENE Active [facility] Allergies, Adverse Reactions, Alerts Allergy Allergy Status Severity Reaction(s) Onset Inactive Treating Comm ents Source Name Type Date Date Clinician Antihist DA Active [facility] amines - 09-06 Mainlan Alkylami 00:00: d ne 00 [facility] No Known DA Active [facility] Allergie 06-11 Mainlan s 00:00: d 00 [facility] Benadryl Benadryl Active Dale a ambrose Abebe Social History Social Habit Start Date Stop Date Quantity Comments Source Social History 2016-01-11 2016-01-11 [facility] katelyn 17:26:34 17:26:34 Medications Ordered [...] Route: l 21:00: IVPB, Drug form: PDR/INJ, [id number], Dosing Weight 118.182, kg, Start date: 01/18/16 [...] dine 8-16 microgram, l 17:56: 100 mL, Swisher 00 Rate: Titrate, Start Dose: 0.2 microgram/ [...] being intubated (unless the nurse is a WINDOWS SUPPORT ENGINEER). Same as: Diprivan Ancef No 120 kg Memoria 8-15 l 20:28: Andrae Ativan No Notes: Memoria 8-15 (Same as: l 18:26: Ativan) Swisher Haldol No Notes: Memoria 8-15 (Same as: l 18:25: Haldol) Swisher 00 Clonidine No Notes: Memori a Hydrochlori [...] a 8-15 (Same as: l 02:00: Risperdal) Swisher Vancomycin No 2001 mg: Me moria 8-14 infuse l 23:00: over 2.5 Swisher 00 hours MEDICATION WASTE Product Size: 1000 [...] moria 8-14 infuse l 16:00: over 2.5 Swisher 00 hours Haldol No Notes: Memoria 8-14 (Same as: l 15:44: Haldol) Swisher Haldol No Notes: Memoria 8-14 (Same as: l 15:43: Haldol) Swisher Permethrin No Notes: Memor ia 50 MG/ML 8-14 (Same as: l Topical 11:00: Elimite) Clive n Cream 00 WASTE: F/P - Black; E - Municipal Trash Bin Clonidine No Notes: Memori a Hydrochlori 8-14 (Same As: l de 0.1 MG 09:00: Catapres) Her morrell Oral Tablet Valium No Notes: Memoria 8-14 (Same as: l 08:44: Valium) Swisher Vancomycin No 2001 mg: Me moria 8-13 infuse l 20:00: over 2.5 Andrae 00 hours MEDICATION WASTE Product Size: 1000 mg Product Wasted: ___ mg Versed No Notes: Memoria 8-13 (Same as: l 19:00: Versed) Swisher 00 MEDICATION WASTE Product Size: 5 mg [...] Memoria 8- microgram, l 23:45: 20 mL, Swisher 00 Rate: Titrate, Start Dose: 50 microgram/ [...] being intubated (unless the nurse is a WINDOWS SUPPORT ENGINEER). Same as: Diprivan Isolyte S No Notes: Memori a (PH 7.4) 01-12 (Same as: l 1000 mL 05:00: Isolyte S Lexus nn 1,000 mL 00 PH 7.4) Morphine No Notes: Memoria 8-11 (Same l 20:53: as:MORPhin Swisher e Sulfate) Dilaudid No Notes: Memoria 811 Same as: l 20:53: Dilaudid Swisher 00 Morphine No Notes: Memoria 8-11 (Same l 19:57: as:MORPhin Andrae 00 e Sulfate) Morphine No Notes: Memoria 8-11 (Same l 19:13: as:MORPhin Swisher e Sulfate) Zofran No Notes: Memoria 8-11 [...] polysacchar sennosides, No Notes: Shane ana paula LONGTERM 01-08 (Same as: l 02:00: Senokot) Andrae [...] Notes: Memoria 01-07 (Same l 13:30: as:MORPhin Swisher 00 e Sulfate) Oxycodone No Notes: Memori a Hydrochlori 01-07 (Same as: l de 5 MG 13:15: Roxicodone Herm erlin Oral Tablet 00 ) Acetaminoph No Notes: Max Memoria en 01-07 acetaminop l 13:15: hen 4000 Swisher 00 mg/day (4 gm/day). (Same as: Tylenol Extra Strength) celecoxib No Notes: Memori a 01-07 NSAID. l 13:15: Please Andrae 00 check indication . Not for seizure. (Same As: CeleBREX) pregabalin No Notes: Memor ia 01-07 (Same as: l 13:15: Lyrica) iodixanol No Notes: Memori a 01-07 (Same as: l 12:04: Visipaque) Swisher 00 . WASTE: F/P - Black; E [...] 25 Memoria 8-07 microgram, l 10:43: Route: Swisher 00 IVP, ONCE, Dosing Weight 129.545, kg, [...] Systolic (mm Hg) 2016-01-20 16:09:00 Shane rial Swisher Diastolic (mm Hg) 2016-01-20 16:09:00 Mem orial Swisher Respitory Rate 2016-01-20 16:09:00 Memori al Andrae Heart Rate 2016-01-20 16:09:00 [facility] Andrae Temperature Oral (F) 2016-01-20 16:09:00 99.6 F [facility] Swisher Respitory Rate 2016-01-20 13:51:00 Memori al Andrae Heart Rate 2016-01-20 12:26:00 [facility] Swisher Temperature Oral (F) 2016-01-20 12:26:00 98.7 F [facility] [address]rae Systolic (mm Hg) 2016-01-20 12:26:00 Shane rial Andrae Diastolic (mm Hg) 2016-01-20 12:26:00 Mem orial Andrae Respitory Rate 2016-01-20 12:26:00 Memori al Swisher Temperature Oral (F) 2016-01-20 09:01:00 97.9 F [facility] Swisher Systolic (mm Hg) 2016-01-20 09:01:00 Shane rial Swisher Diastolic (mm Hg) 2016-01-20 09:01:00 Mem orial Swisher Heart Rate 2016-01-20 09:01:00 [facility] Swisher Height 2016-01-18 09:51:00 170.18 cm [facility] Swisher Height 2016-01-18 04:20:00 170.18 cm [facility] Swisher Height 2016-01-18 00:30:00 170.18 cm [facility] Swisher BMI Calculated 2016-01-08 16:52:00 Memori al Swisher Weight 2016-01-08 16:52:00 [facility] Andrae Weight 2016-01-08 10:05:00 [facility] Swisher BMI Calculated 2016-01-08 10:05:00 Memori al Swisher Procedures Procedure Date / Time Performed Performing Clinician Sourc e Tonsillectomy [facility] Swisher Encounters Start End Encounter Admission Attending Care Care Encounter Source Date/Time Date/Time Type Type Clinicians Facility Department ID 2019-10-08 2019-10-08 Emergency Darrin MEJACKIE [id number] 17:53:07 18:29:00 Fanny Colvin [id number] [place] [id number] [id number] 2019-10-08 2019-10-08 Orders Doctor SKYLER [id number] 00:00:00 00:00:00 Only Unassigned, TONY 350.1.13.10 [facility] [id number] [id number] 2019-09-21 2019-09-21 Emergency [facility] [id number] 14:35:52 17:14:00 Rashid Colvin 350.1.13.10 [place] 4.2.7.2.686 [place] [id number] [id number] 2019-09-08 2019-09-08 Emergency [facility] [id number] 19:21:10 23:29:00 Fifi Colvin 350.1.13.10 [place] 4.2.7.2.686 [place] [id number] 2016-01-08 2016-01-20 Outpatient Karl [facility] [id number] 05:00:00 14:45:00 Lee Smyth 69 Results [...] AMI: 0.60 - 1. 5 ng/mL CHEM KFEPQ4205-46-34 05:31:001.9[facility]annCHEM YIODK8915-65-57 05:31:002.9 [facility] NteyqnaWBFXCRBDSXAA2457-77-26 05:31:0014.1[facility] HermannELECTROLYTES 2016-01-20 05:31:57345Nyomkngt SmlhbljYJMONRTQJIVI2172-17-70 05:31:000.63 [facility] DmaekbzSUBIPOEWWMFI4182-58-01 05:31:0013[facility] HermannELECTROLYTES 2016-01-20 05:31:004.1[facility] ItdjbiqNZAVIMTPTBYB8470-42-31 05:31:04670Ttwzxctk FlvuapeQKTFRGOHXWPQ8280-36-67 05:31:70999Abjlrbis TljzkbwQBOLWVCMWGXU7003-46-97 05:31:36475Gvcfsnch BniupjhHVCDIFKGAORS5037-59-61 05:31:008.0[facility] Swisher ENRSFTSLEYDN1679-37-29 05:31:0023[facility] MyzwbtvXREZOKQNRJ8837-02-89 05:31:00 0.3[facility] OdqbsxfBLEYKBRSRT1841-66-82 05:31:002.3[facility] HermannHEMATOLOGY 2016-01-20 05:31:006.7[facility] UzgmxhfJAQMOMLVOX7559-26-03 05:31:0015.2[facility] NvnrudjYLOBDQNYQG4928-53-52 05:31:0075.5[facility] TlhtmtpSIUWOCMOXR3018-01-26 05:31:000.8[facility] YalazjjNIUVZCEBPO0106-15-01 05:31:000.3[facility] [address] KOEXDSYPKJ8914-77-64 05:31:001.9[facility] QwisscgCCKPMKGAVY1648-69-00 05:31:009.4 [facility] ZhzzvpjIBXFPLRFBD2514-43-06 05:31:008.7[facility] HermannHEMATOLOGY 2016-01-20 05:31:0013.5[facility] NdyhzogADLDNQZTKM2373-33-56 05:31:00 Test Item Value Reference Range Interpretation Comments MCH (test code = MCH) 28.3 pg 27.0-31.0 [facility] JctlswyAQYJCFOETV5828-19-76 05:31:59087Grpscbjj HermannHEMATOLOGY 2016-01-20 05:31:0033.4[facility] JdgvjnvRJMXKTSAEP1732-98-72 05:31:0084.6[facility] PaxrqmrREHCRLVKEG8701-03-17 05:31:009.2[facility] ZhcuhplNEMAWHNHZY9027-90-78 05:31:0027.7[facility] ZnghtyrVOEDRUCAUK1261-23-46 05:31:003.27[facility] Andrae UKNHGXNJJT0969-56-44 05:31:0012.5[facility] HermannPARATHYROID UHTTLXA1364-73-85 05:31:001.08[facility] HermannPARATHYROID HAXRTYU2590-82-22 05:31:001.10[facility] TmnmcnsJHBDZGEGVT1331-36-65 17:30:000.09[facility] HermannCHEM FNNXS3526-22-74 05:32:001.9[facility] HermannCHEM YQJVH3953-96-06 05:32:003.8[facility] Swisher VXTPURGMCYJB6296-64-42 05:32:0012.1[facility] McgmluyPVPBLBVZUJUG3308-06-20 05:32:007.8[facility] IhvzyfmLADDFAYKHMLC0863-14-77 05:32:0029[facility] Andrae FIIGWUFDYZRV8438-16-56 05:32:0094[facility] AioliwqYJQTIKWZVHEA0607-88-49 05:32:00 4.1[facility] VyxqcogHBFWJRMQDKRJ8559-86-44 05:32:84706Rteiazjf Swisher OJQLKEQXGWHR3542-62-87 05:32:000.53[facility] WegvpboWVLILHBZXICQ1072-17-90 05:32:0014[facility] OrhozraTNDKEGRELECJ7844-23-08 05:32:44266Dscndclg Swisher OMDZHHYHHCXQ0499-80-32 05:32:59560Nksrdafc NyiblzmHQMBKNQBDQ0931-58-29 05:32:00 2.2[facility] NvotjepLREXIGKBDT2028-96-32 05:32:008.5[facility] HermannHEMATOLOGY 2016-01-19 05:32:003.1[facility] TzrqbrgODYYNAKOOA1184-14-65 05:32:001.1[facility] AksusyqJZVAAWDCPW5926-23-36 05:32:000.1[facility] VqmtykpMBIQQYEWQG1739-96-74 05:32:000.4[facility] EpwwlvwHYFHSBGQXD8443-09-00 05:32:000.8[facility] Swisher RIDQORRTIH7684-95-01 05:32:006.4[facility] ZwtdokhDFUZOURQKV7177-08-94 05:32:00 70.9[facility] OipgwshBAQHIGEILD6693-01-59 05:32:0018.5[facility] HermannHEMATOLOGY 2016-01-19 05:32:76277Ewhqxght IddcrfxGSJPEEUMWW1033-39-22 05:32:008.9[facility] EyvgckjAIHLFATAUO3409-74-74 05:32:0032.9[facility] OjzppsfUPYZDOUVTU0036-77-68 05:32:0013.6[facility] NcohmwaPFDZSUMXVC2788-90-50 05:32:0085.1[facility] Andrae GHNLEYGBHK7930-36-94 05:32:00 Test Item Value Reference Range Interpretation Comments MCH (test code = MCH) 28.0 pg 27.0-31.0 Memorial DxyxnnwDQUTZGXAQG7765-78-37 05:32:0026.7[facility] HermannHEMATOLOGY 2016-01-19 05:32:003.14[facility] JnuxnglMOFPAJHXZY8669-30-49 05:32:008.8[facility] NteaoqjOMDTNQOOOH6262-18-68 05:32:0012.0[facility] HermannPARATHYROID PROFILE 2016-01-19 05:32:001.12[facility] HermannPARATHYROID BJSHGNF4788-60-00 05:32:00 1.12[facility] HermannCHEM MBFSF5813-93-69 05:20:00226Mkjsmarl HermannCHEM PANEL 2016-01-18 05:20:73441Scljmnsy HermannCHEM NQOPT0304-29-43 05:20:0018[facility] HermannCHEM XSJNP2530-13-30 05:20:000.55[facility] HermannCHEM FUBAK4147-45-19 05:20:004.4[facility] HermannCHEM RVUFQ1217-67-06 05:20:60161Yuzyuraf HermannCHEM GXBBL1449-06-41 05:20:007.7[facility] HermannCHEM BKHZV4939-33-44 05:20:84297 [facility] HermannCHEM UWPQP5325-23-68 05:20:0027[facility] HermannCHEM PANEL 2016-01-18 05:20:0012.4[facility] HermannCHEM BWAIU0723-47-88 05:20:002.2[facility] HermannCHEM MFVTM1060-16-52 05:20:002.9[facility] RlzdggmTLCVSVBETJ7545-82-11 05:20:00Normal (01/18/16 12:20 AM)[facility] AowipgjJVHSZNBVFV4172-79-84 05:20:00 Normal (01/18/16 12:20 AM)[facility] RbrbcxfFLQUHPHTRY4160-70-93 05:20:0015.5 [facility] NcpwhnqLXMKZEEJUZ6677-69-76 05:20:0071.9[facility] HermannHEMATOLOGY 2016-01-18 05:20:0011.2[facility] RvaoagkLYRWNWVJSI1550-51-01 05:20:006.9[facility] GasqfhlFKLDLCBNQM7294-49-90 05:20:000.4[facility] EsfsanjPWFKSKNLER9455-73-93 05:20:001.5[facility] RehnodiIRZKRISCEQ3248-70-42 05:20:001.0[facility] Andrae XGNMHOPNWO6067-29-48 05:20:000.1[facility] YiwhtuxDSXBLZWHOR8818-96-36 05:20:001.1 [facility] YvwstuuBEQLYKDBGI9775-63-72 05:20:000.04[facility] HermannHEMATOLOGY 2016-01-18 05:20:56419Ahxxsdsn JnjjeczARFPXHXVMS1292-40-74 05:20:0013.8[facility] YcbxotmIIUOERLBVR3673-19-05 05:20:009.6[facility] DlqfzzsDIDTINGENH5797-18-74 05:20:008.5[facility] FyduhvnKXZQWFRSAI6714-67-73 05:20:0084.4[facility] Swisher SFMGPMDWKT6030-44-81 05:20:0033.6[facility] RsouwdhCGBKXQQGQN5144-61-70 05:20:00 Test Item Value Reference Range Interpretation Comments MCH (test code = MCH) 28.3 pg 27.0-31.0 [facility] YlxwuqyXXAXOXBQNV4245-54-45 05:20:0025.9[facility] HermannHEMATOLOGY 2016-01-18 05:20:008.7[facility] QfnzreeHSBNPSGROE2458-38-61 05:20:003.07[facility] HermannPARATHYROID RQXIKTO8678-60-72 05:20:001.13[facility] HermannPARATHYROID ELBTFWG9253-84-77 05:20:001.08[facility] JqukjorLFGBBOSNMT6811-24-35 08:12:000.1 [facility] HermannBLOOD BANK QSFHHVF2723-77-64 05:05:00Negative (01/16/16 12:05 AM) [facility] KegkakyTDWRHCIPXH2261-60-07 13:15:240468Ulumloiw HermannTOXICOLOGY 2016-01-15 13:15:004.9[facility] HermannURINE AND NLCAL9411-04-29 12:03:003 [facility]UR[facility] AND LIKVG6879-91-67 12:03:001[facility]annUR[facility] AND LKKBE0444-16-09 12:03:00Negative (01/14/16 7:03 AM)[facility] AND ZLZSQ5425-01-02 12:03:00Negative *NA*(01/14/16 7:03 AM)[facility] AND ASJPI9199-13-02 12:03:00 Test Item Value Reference Range Interpretation Comments UA pH (test code = UA pH) 5.5 1 5.0-8.0 [facility] BWJGI5934-16-55 12:03:00Negative (01/14/16 7:03 AM) [facility] RQMKC4188-44-17 12:03:00Trace *ABN*(01/14/16 7:03 AM) [facility] MIPYR7530-23-60 12:03:00Negative *NA*(01/14/16 7:03 AM) [facility] XVFAS1548-25-32 12:03:00 Test Item Value Reference Range Interpretation Comments UA Spec Grav (test code = UA Spec 1.025 1 Grav) [facility] TNSPV6655-89-30 12:03:00Clear (01/14/16 7:03 AM) [facility] EAQDW9132-88-01 12:03:00Yellow *NA*(01/14/16 7:03 AM) [facility] VDTIF3930-63-12 12:03:00Negative (01/14/16 7:03 AM) [facility] NRJXX2460-91-97 12:03:00None Seen (01/14/16 7:03 AM) [facility] SMRNS2072-92-40 12:03:001.0[facility] VXULE5290-24-96 12:03:00Negative (01/14/16 7:03 AM)[facility] 2016-01-13 14:28:003.4[facility] XralyjhXOCHZUAXCO1264-13-07 14:28:00 Test Item Value Reference Range Interpretation Comments Max Amplitude Rapid (test code = Max 76 mm 52-71 Amplitude Rapid) [facility] CenterFuwcyxwKJKCNFEIFG1496-91-54 14:28[facility]0015.8[facility] 2016-01-13 14:28:00 Test Item Value Reference Range Interpretation Comments R-time Rapid (test code = R-time 0.9 min 0.4-0.7 Rapid) [facility] CenterPayddemSTHVDTZXDY9808-21-51 14:28:00 Test Item Value Reference Range Interpretation Comments K-time Rapid (test code = K-time 1.1 min 0.6-2.3 Rapid) [facility] CenterGtwndjnKLRQYUBLXO0589-86-69 14:28:00 Test Item Value Reference Range Interpretation Comments Angle Rapid (test code = Angle 78 degrees 64-80 Rapid) [facility] CenterIafjubjARCHHDLEBO6511-26-08 14:28:00 Test Item Value Reference Range Interpretation Comments ACT (TEG) Rapid (test code = ACT (TEG) 136 s 86-118 Rapid) [facility] CenterYpzfnhqUZGITTPWPR9284-37-90 14:28:00 Test Item Value Reference Range Interpretation Comments Split Point Rapid (test code = Split 0.8 min Point Rapid) [facility] RHZKSLS0592-84-96 05:34:00Negative (01/13/16 12:34 AM) [facility] CenterPughcteEAYIRHTAOG4192-19-08 05:34:00 Test Item Value Reference Range Interpretation Comments PTT (test code = PTT) 42.2 s 22.9-35.8 [facility] CenterZfivvrmMTKFYIYGON9444-71-42 05:34:001.15[facility] HermannHEMATOLOGY 2016-01-13 05:34:00 Test Item Value Reference Range Interpretation Comments PT (test code = PT) 15.0 s 12.0-14.7 [facility] MxrcdgxOHCOLXKPMW9971-04-77 09:47:00Normal (01/11/16 4:47 AM)[facility] QvlurdlFWKDVVUPQE6337-36-75 09:47:00Normal (01/11/16 4:47 AM)[facility] HermannCHEM EAFCL7938-75-55 10:16:001.2[facility] HermannCHEM EKTCV1813-17-12 23:00:002.2 [facility] HermannCHEM DTFZH2537-58-31 16:03:002.0[facility] HermannDRUG SCREEN 2016-01-08 12:28:00See Note (01/08/16 [...] 2016-01-08 12:28:000-2 (01/08/16 7:28 AM)[facility] AND TSKTO2950-32-42 12:28:00 Test Item Value Reference Range Interpretation Comments UA pH (test code = UA pH) 6.0 1 5.0-8.0 [facility] ORTNX0800-93-01 12:28:00Small *ABN*(01/08/16 7:28 AM) [facility] GYZFF4089-34-87 12:28:000.2[facility] AND QPASP8768-43-91 12:28:00Negative (01/08/16 7:28 AM)[facility] STOOL 2016-01-08 12:28:00Negative (01/08/16 7:28 AM)[facility] STOOL 2016-01-08 12:28:00Negative (01/08/16 7:28 AM)[facility] STOOL 2016-01-08 12:28:00Negative *NA*(01/08/16 7:28 AM)[facility] STOOL 2016-01-08 12:28:00Negative *NA*(01/08/16 7:28 AM)[facility] STOOL 2016-01-08 12:28:00 Test Item Value Reference Range Interpretation Comments UA Spec Grav (test code = UA Spec 1.027 1 Grav) [facility] TNGNF6970-71-28 12:28:00Clear (01/08/16 7:28 AM)[facility] MKEDS6172-74-13 12:28:00Yellow *NA*(01/08/16 7:28 AM)[facility] FwxcfriFSNKJGUEVF6106-09-22 10:16:150.1[facility] JjpbzmaJWERQVTBNW2370-19-25 10:16:15 Test Item Value Reference Range Interpretation Comments Split Point Rapid (test code = Split 0.6 min Point Rapid) [facility] CjantqxKMJDZIBRYW0145-96-94 10:16:15 Test Item Value Reference Range Interpretation Comments ACT (TEG) Rapid (test code = ACT (TEG) 113 s 86-118 Rapid) [facility] AqnlfkxJMHHJAWJCY0077-55-71 10:16:15 Test Item Value Reference Range Interpretation Comments Angle Rapid (test code = Angle 72 degrees 64-80 Rapid) [facility]CxqpelhFUKGGKDCNH7731-87-61 10:16:15 Test Item Value Reference Range Interpretation Comments K-time Rapid (test code = K-time 1.5 min 0.6-2.3 Rapid) [facility] CenterUgchuzlAPPJNSRWKQ8501-48-91 10:16:15 Test Item Value Reference Range Interpretation Comments R-time Rapid (test code = R-time 0.7 min 0.4-0.7 Rapid) [facility] CenterFnssgsyYTJECJNUNP1738-79-86 10:16:15 Test Item Value Reference Range Interpretation Comments Max Amplitude Rapid (test code = Max 61 mm 52-71 Amplitude Rapid) [facility] CenterWpwsvczLEYJDKVCVV7192-28-83 10:16:157.9[facility] 2016-01-08 10:16:151.4[facility] GWGLAUF0944-36-78 10:13:00 Negative (01/08/16 5:13 AM)[facility]
--- NOTE | 2019-12-23 12:27 | ER ---
Nurse's Notes [facility] Name: Yaw Aldrich Jr Age: 29 yrs Sex: Male : 1990 Arrival Date: 12/23/2019 Time: 11:38 Bed 15 Private MD: Diagnosis: Blister (nonthermal) of foot Presentation: 12/22 11:41 Chief complaint: Patient states: pt reports that he is homeless and has a hx of jr10 neuropathy and DM, has been out of his medication for 3 days; c/o kayleigh foot pain and tingling secondary to neuropathy; BG 203 EMS reported. Coronavirus screen: Patient reports a cough. Patient denies shortness of breath or difficulty breathing. Patient denies measured and/or subjective temperature greater than 100.4F prior to today's visit. Patient denies travel on a cruise ship or to a country the [facility] currently lists as an affected area. Patient denies contact with known and/or suspected case of COVID-19. Ebola Screen: No symptoms or risks identified at this time. Initial Sepsis Screen: Does the patient meet any 2 criteria? No. Patient's initial sepsis screen is negative. Does the patient have a suspected source of infection? No. Patient's initial sepsis screen is negative. Risk Assessment: Do you want to hurt yourself or someone else? Patient reports no desire to harm self or others. Onset of symptoms was December 23, 2019. 11:41 Method Of Arrival: EMS 10 11:41 Acuity: SHEY 3 jr10 Triage Assessment: 11:46 General: Appears in no apparent distress. Behavior is appropriate for age. Pain: jr10 Complains of pain in right foot and left foot. Historical: - Allergies: 11:46 ANTIHISTAMINES; jr10 11:46 Benadryl; jr10 - Home Meds: 11:46 Metformin Oral [Active]; Albuterol Inhl [Active]; jr10 - PMHx: 11:46 Asthma; Diabetes - NIDDM; Hypertension; jr10 - Immunization history:: Adult Immunizations up to date. - Social history:: Smoking status: Patient denies any tobacco usage or history of. Patient uses alcohol, street drugs, marijuana. - Family history:: not pertinent. - Hospitalizations: : No recent hospitalization is reported. Screenin:25 Abuse screen: Denies threats or abuse. Denies injuries from another. Nutritional jr10 screening: No deficits noted. Tuberculosis screening: No symptoms or risk factors identified. Fall Risk None identified. Assessment: 11:40 General: Appears in no apparent distress. Behavior is cooperative. Neuro: No deficits jr10 noted. Cardiovascular: No deficits noted. Respiratory: Reports cough that is dry, hx of asthma and reports that he has been out of his medications x3 days; pt reports that he is homeless Denies shortness of breath. GI: No deficits noted. : No deficits noted. Derm: Skin has blisters on to left foot; pt reports trying to "open it" and pull the skin off; states "there's all this skin that needs to be removed Reports peeling. Musculoskeletal: No deficits noted. 12:42 Reassessment: wound care provided, blisters cleaned with iodine and dressed with jr10 kerlix; instructed pt on proper care of diabetic foot wounds; understanding verbalized; pt tolerated well. Vital Signs: 11:17 BP 149 / 89; Pulse 85; Resp 90; Pulse Ox 100% ; jr10 11:41 BP 145 / 84; Pulse 85; Resp 20; Temp 97.7; Pulse Ox 96% on R/A; Pain 6/10; jr10 12:15 BP 126 / 76; Pulse 84; Resp 20; Temp 98.5(O); Pulse Ox 100% ; Pain 0/10; jr10 ED Course: 11:38 Patient arrived in ED. jr10 11:45 Triage completed. jr10 11:47 Arm band placed on right wrist. jr10 11:47 Patient has correct armband on for positive identification. Placed in gown. Bed in low jr10 position. Call light in reach. Side rails up X2. Pulse ox on. NIBP on. 11:53 Pedro Pino MD is Attending Physician. rn 12:23 Lamar Ohara, FOX is Primary Nurse. jr10 12:45 Patient did not have IV access during this emergency room visit. jr10 Administered Medications: No medications were administered Outcome: 12:26 Discharge ordered by MD. rn 12:43 Discharged to home jr10 12:43 Discharged to home ambulatory, community resources provided to patient upon d/c 12:43 Condition: good 12:43 Discharge instructions given to patient, Instructed on discharge instructions, Demonstrated understanding of instructions, follow-up care, medications, wound care, Prescriptions given X 1. 12:45 Patient left the ED. jr10 Signatures: Pedro Pino MD MD rn Rivera, Jessica, RN RN jr10 Corrections: (The following items were deleted from the chart) :44 12:43 Discharge instructions given to patient, jr10 jr10 :44 12:43 Discharged to home ambulatory, community resources provided to patient upon d/c jr10 jr10
--- NOTE | 2019-12-23 12:27 | EDPHYS ---
Physician Documentation [facility] Name: Yaw Aldrich Jr Age: 29 yrs Sex: Male : 1990 Arrival Date: 12/23/2019 Time: 11:38 Bed 15 Private MD: ED Physician Pedro Pino HPI: 12/22 12:18 This 29 yrs old Male presents to ER via EMS with complaints of Foot Pain. rn 12:18 The patient presents with pain, that is acute. The complaints affect the left foot, rn right foot. Onset: The symptoms/episode began/occurred at an unknown time. Associated signs and symptoms: The patient has no apparent associated signs or symptoms, Pertinent negatives: fever. Severity of symptoms: At their worst the symptoms were mild, in the emergency department the symptoms are unchanged. The patient has not experienced similar symptoms in the past. Reports is homeless, diabetic, had blisters on feet from walking around with wet feet, popped them with scissors, leaked clear fluid, no fever, told by mom to get checked at hospital so called 911.. Historical: - Allergies: 11:46 ANTIHISTAMINES; jr10 11:46 Benadryl; jr10 - Home Meds: 11:46 Metformin Oral [Active]; Albuterol Inhl [Active]; jr10 - PMHx: 11:46 Asthma; Diabetes - NIDDM; Hypertension; jr10 - Immunization history:: Adult Immunizations up to date. - Social history:: Smoking status: Patient denies any tobacco usage or history of. Patient uses alcohol, street drugs, marijuana. - Family history:: not pertinent. - Hospitalizations: : No recent hospitalization is reported. ROS: 12:18 Constitutional: Negative for fever, chills, and weight loss, Cardiovascular: Negative rn for chest pain, palpitations, and edema, Respiratory: Negative for shortness of breath, cough, wheezing, and pleuritic chest pain, MS/Extremity: Negative for deformity, Skin: + blisters to bottom of both feet Exam: 12:18 Constitutional: Disheveled, no acute distress, joking Skin: Warm, dry, no cellulitis, rn + superficial blisters on bottom of feet, no redness/warmth Vital Signs: 11:17 BP 149 / 89; Pulse 85; Resp 90; Pulse Ox 100% ; jr10 11:41 BP 145 / 84; Pulse 85; Resp 20; Temp 97.7; Pulse Ox 96% on R/A; Pain 6/10; jr10 12:15 BP 126 / 76; Pulse 84; Resp 20; Temp 98.5(O); Pulse Ox 100% ; Pain 0/10; jr10 MDM: 11:54 Patient medically screened. rn 12:18 Differential diagnosis: blisters, open wounds. Data reviewed: vital signs, nurses rn notes, and as a result, I will discharge patient. Counseling: I had a detailed discussion with the patient and/or guardian regarding: the historical points, exam findings, and any diagnostic results supporting the discharge/admit diagnosis, the need for outpatient follow up, to return to the emergency department if symptoms worsen or persist or if there are any questions or concerns that arise at home. Special discussion: I discussed with the patient/guardian in detail that at this point there is no indication for admission to the hospital. It is understood, however, that if the symptoms persist or worsen the patient needs to return immediately for re-evaluation. 12/22 12:15 Order name: Wound Care; Complete Time: 12:40 rn Administered Medications: No medications were administered Disposition: 12/23/19 12:26 Discharged to Home. Impression: Blister (nonthermal) of foot. - Condition is Stable. - Discharge Instructions: Blisters, Adult. - Prescriptions for Clindamycin HCl 300 mg Oral Capsule - take 1 capsule by ORAL route every 6 hours for 10 days; 40 capsule. - Medication Reconciliation Form, Thank You Letter, Antibiotic Education, Prescription Opioid Use form. - Follow up: Private Physician; When: As needed; Reason: Recheck today's complaints, Re-evaluation by your physician. - Problem is new. - Symptoms are unchanged. Signatures: Pedro Pino MD MD rn Rivera, Jessica, RN RN jr10 Corrections: (The following items were deleted from the chart) 12:45 12:26 12/23/2019 12:26 Discharged to Home. Impression: Blister (nonthermal) of foot. jr10 Condition is Stable. Forms are Medication Reconciliation Form, Thank You Letter, Antibiotic Education, Prescription Opioid Use. Follow up: Private Physician; When: As needed; Reason: Recheck today's complaints, Re-evaluation by your physician. Problem is new. Symptoms are unchanged. rn
[2019-12-23 20:41] VITALS: BP 126/76; TEMP 98.5; O2SAT 100
== END 2019-12-23 12:45 | disposition home or self-care (01) ==
LOC: ER 11:31
DX: S90.822A Blister (nonthermal), left foot, initial encounter (principal); X58.XXXA Exposure to other specified factors, initial encounter; J45.909 Unspecified asthma, uncomplicated; E11.9 Type 2 diabetes mellitus without complications; Z88.8 Allergy status to other drugs, medicaments and biological substances
CPT/HCPCS: 99283

== ENCOUNTER 2019-12-25 02:03 | Emergency (ER) | payer SELFPAY ==
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
[2019-12-25 02:42] LABS: Absolute Lymphocytes (CBC) 3.5 K/uL (0.7-4.9); Hematocrit 43.5 % (39.6-49.0); Lymphocytes % 30.5 % (15.3-44.8); MPV 7.9 fL (7.6-11.3); RBC Red Blood Cell Count 4.97 M/uL (4.33-5.43)
[2019-12-25 02:45] LABS: Protime INR 1.1
[2019-12-25 03:10] LABS: ALT/SGPT 43 U/L (12-78); AST/SGOT 54 U/L (15-37); Albumin 3.8 g/dL (3.4-5.0); Alkaline Phosphatase 80 U/L (45-117); BUN Blood Urea Nitrogen 17 mg/dL (7-18); Bicarbonate 25 mmol/L (21-32); Bilirubin Direct 0.1 mg/dL (0-0.2); Bilirubin Total 0.6 mg/dL (0.2-1.0); Glucose Level 187 mg/dL (74-106); Potassium 3.4 mmol/L (3.5-5.1); Protein, Total 7.5 g/dL (6.4-8.2); Sodium Level 137 mmol/L (136-145)
[2019-12-25 05:15] LABS: Barbiturates NEGATIVE (NEGATIVE); Benzodiazepines NEGATIVE (NEGATIVE); Cocaine NEGATIVE (NEGATIVE); METHAMPHETAM NEGATIVE (NEGATIVE); Methadone NEGATIVE (NEGATIVE); Opiates NEGATIVE (NEGATIVE); Phencyclidine NEGATIVE (NEGATIVE); THC Cannibis POSITIVE (NEGATIVE)
--- NOTE | 2019-12-25 06:49 | EDPHYS ---
Physician Documentation [facility] Name: Yaw Aldrich Jr Age: 29 yrs Sex: Male : 1990 Arrival Date: 12/25/2019 Time: 02:03 Bed 5 Private MD: ED Physician Jhonny Ferrer HPI: 12/24 02:22 This 29 yrs old Male presents to ER via Unassigned with complaints of mh7 Depression. Suicidal Ideation.. 02:22 The patient presents to the emergency department with depression, over unknown mh7 circumstances, suicide ideation, but the patient has no formulated plan. 02:25 The patient presents to the emergency department with depression, psychosis, has mh7 experienced auditory hallucinations, voices are telling patient to commit sucide, a history of substance abuse, Clear. Onset: The symptoms/episode began/occurred yesterday. Past psychiatric history: Prior diagnosis: no previous psychiatric diagnosis known, Psychiatric medications include: none, Primary psychiatric physician: the patient does not have a primary psychiatric physician, the patient has not had a prior suicide gesture, the patient does not have a previous inpatient psychiatric history, the patient's last psychiatric treatment was none. Associated signs and symptoms: Pertinent positives; depression, hallucinations, suicide ideation, Pertinent negatives: abdominal pain, anxiety, chest pain, chills, delusions, fever, headache, homicidal ideation, nausea, night sweats, palpitations, paranoia, shortness of breath, substance abuse, tremor, vomiting. Severity of symptoms: At their worst the symptoms were moderate today, in the emergency department the symptoms are unchanged. Historical: - Allergies: 07:33 No Known Allergies; hb - PMHx: 02:37 Asthma; Diabetes - NIDDM; Hypertension; sg - Immunization history:: Adult Immunizations not up to date. - Social history:: Smoking status: Patient reports the use of cigarette tobacco products, Patient uses street drugs, Methamphetamine (Meth) The [place], No barriers to communication noted, The patient speaks fluent [place], The patient is unemployed. ROS: 02:25 Constitutional: Negative for fever, chills, and weight loss, Eyes: Negative for injury, mh7 pain, redness, and discharge, ENT: Negative for injury, pain, and discharge, Neck: Negative for injury, pain, and swelling, Cardiovascular: Negative for chest pain, palpitations, and edema, Respiratory: Negative for shortness of breath, cough, wheezing, and pleuritic chest pain, Abdomen/GI: Negative for abdominal pain, nausea, vomiting, diarrhea, and constipation, Back: Negative for injury and pain, : Negative for injury, bleeding, discharge, and swelling, MS/Extremity: Negative for injury and deformity, Skin: Negative for injury, rash, and discoloration, Neuro: Negative for headache, weakness, numbness, tingling, and seizure, Allergy/Immunology: Negative for hives, rash, and allergies, Endocrine: Negative for neck swelling, polydipsia, polyuria, polyphagia, and marked weight changes, Hematologic/Lymphatic: Negative for swollen nodes, abnormal bleeding, and unusual bruising. Exam: 02:25 Constitutional: This is a well developed, well nourished patient who is awake, alert, mh7 and in no acute distress. Head/Face: Normocephalic, atraumatic. Neck: Trachea midline, no thyromegaly or masses palpated, and no cervical lymphadenopathy. Supple, full range of motion without nuchal rigidity, or vertebral point tenderness. No Meningismus. Chest/axilla: Normal chest wall appearance and motion. Nontender with no deformity. No lesions are appreciated. Cardiovascular: Regular rate and rhythm with a normal S1 and S2. No gallops, murmurs, or rubs. Normal PMI, no JVD. No pulse deficits. Respiratory: Lungs have equal breath sounds bilaterally, clear to auscultation and percussion. No rales, rhonchi or wheezes noted. No increased work of breathing, no retractions or nasal flaring. Abdomen/GI: Soft, non-tender, with normal bowel sounds. No distension or tympany. No guarding or rebound. No evidence of tenderness throughout. Back: No spinal tenderness. No costovertebral tenderness. Full range of motion. Skin: Warm, dry with normal turgor. Normal color with no rashes, no lesions, and no evidence of cellulitis. MS/ Extremity: Pulses equal, no cyanosis. Neurovascular intact. Full, normal range of motion. Neuro: Awake and alert, GCS 15, oriented to person, place, time, and situation. Cranial nerves II-XII grossly intact. Motor strength 5/5 in all extremities. Sensory grossly intact. Cerebellar exam normal. Normal gait. 02:25 Psych: Behavior/mood is cooperative, depressed, Affect is calm, Oriented to person, place, time, Patient having thoughts of suicide. Plan for suicide is cut himself Judgement / Insight is impaired. Memory is normal. Delusions/hallucinations are present and described as auditory. 02:34 ECG was reviewed by the Attending Physician. [facility] Vital Signs: 02:42 BP 144 / 95; Pulse 84; Resp 16; Temp 98.8(O); Pulse Ox 100% on R/A; Weight 113.4 kg jb4 (R); Height 5 ft. 9 in. (175.26 cm) (R); Pain 0/10; 07:44 BP 121 / 72; Pulse 93; Resp 20; Pulse Ox 93% on R/A; bp 08:49 BP 117 / 70; Pulse 81; Resp 16; Pulse Ox 99% ; bp 09:51 BP 118 / 76; Pulse 72; Resp 16; Pulse Ox 100% ; bp 11:54 BP 112 / 74; Pulse 94; Resp 16; Pulse Ox 99% ; bp 12:57 BP 103 / 53; Pulse 73; Resp 14; Pulse Ox 100% ; bp 14:00 BP 118 / 64; Pulse 69; Resp 18; Pulse Ox 100% ; sv 15:00 BP 120 / 79; Pulse 72; Resp 16; Pulse Ox 100% ; bp 17:00 BP 127 / 72; Pulse 86; Resp 16; Pulse Ox 100% ; bp 02:42 Body Mass Index 36.92 (113.40 kg, 175.26 cm) jb4 MDM: 02:21 Patient medically screened. [facility] 06:38 Differential diagnosis: drug withdrawal. acute psychotic break, depression, psychosis mh7 secondary to non-compliance, Substance Abuse. Data reviewed: vital signs, nurses notes, lab test result(s), CBC, drug level(s), urinalysis, urine drug screen. Data interpreted: Pulse oximetry: on room air is 100 %. Interpretation: normal. 06:46 ED course: Patient pushed staff and ran out of ED. Police contacted about incident and [facility] will try to apprehend patient.. 09:59 ED course: Patient has been apprehended and now in our care again. Has been chemically jr8 restrained for safety of himself and staff . 17:22 ED course: Patient has been sleeping since restraint. Non violent at this time. Remains jr8 stable. Still awaiting acceptance to psych facility . 23:40 ED course: Pt sleeping, no complaints, concerns voiced. snw 12/25 00:55 Awaiting: all clinicals resent to area psych facilities, awaiting response. snw 00:56 Transition of care: After a detail discussion of the patient's case, care is snw transferred to Hammad Csae MD. 07:31 Test interpretation: by ED physician or midlevel provider: ECG. Counseling: I had a eliezer detailed discussion with the patient and/or guardian regarding: the historical points, exam findings, and any diagnostic results supporting the discharge/admit diagnosis, lab results. ED course: pt alert and oriented, pt not suicidal and not homicidal. 12/24 02:21 Order name: Acetaminophen; Complete Time: 03:32 12/24 02:21 Order name: Basic Metabolic Panel; Complete Time: 03:32 12/24 02:21 Order name: CBC with Diff; Complete Time: 03:32 12/24 02:21 Order name: ETOH Level; Complete Time: 03:32 12/24 02:21 Order name: Hepatic Function; Complete Time: 03:32 12/24 02:21 Order name: PT-INR; Complete Time: 03:32 12/24 02:21 Order name: Ptt, Activated; Complete Time: 03:32 12/24 02:21 Order name: Salicylate; Complete Time: 03:32 12/24 02:21 Order name: Urine Drug Screen; Complete Time: 05:24 12/24 02:21 Order name: EKG; Complete Time: 02:22 12/24 02:21 Order name: EKG - Nurse/Tech; Complete Time: 02:42 12/24 02:21 Order name: IV Saline Lock; Complete Time: 02:42 12/24 02:21 Order name: Labs collected and sent; Complete Time: 02:42 12/24 02:21 Order name: Urine Dipstick-Ancillary (obtain specimen); Complete Time: 04:55 [facility] 12/24 04:55 Order name: Straight Cath - Urine; Complete Time: 04:55 12/24 07:34 Order name: Restraint:Violent/Self Destructive (Adult:18yo or >); Complete Time: 07:35 bp 12/25 06:08 Order name: Diet Finger Food; Complete Time: 06:09 EC/24 02:34 Rate is 81 beats/min. Rhythm is regular, Normal Sinus Rhythm. QRS [place] is Normal. MA mh7 interval is normal. QRS interval is normal. QT interval is normal. No Q waves. T waves are Normal. No ST changes noted. Clinical impression: Normal ECG. Administered Medications: 07:32 Drug: Benadryl 50 mg Route: IVP; Site: left antecubital; hb 07:32 Drug: Ativan 2 mg Route: IVP; Site: left antecubital; hb 07:32 Drug: Haloperidol 5 mg Route: IVP; Site: left antecubital; hb 21:40 Drug: Phenergan 12.5 mg Route: IVP; Site: left antecubital; jd3 22:30 Follow up: Response: No adverse reaction jd3 Disposition: 12/25 07:33 Co-signature as Attending Physician, Jhonny Ferrer MD I agree with the assessment and eliezer plan of care. Disposition: 12/26/19 07:36 Discharged to Home. Impression: Abuse of non-psychoactive substances, Adverse effect of amphetamines, Major depressive disorder, recurrent, Suicidal ideations - resolved. - Condition is Stable. - Discharge Instructions: Stimulant Use Disorder-Amphetamines, Substance Use Disorder, Suicidal Feelings: How to Help Yourself, Stimulant Use Disorder-Methamphetamines, Major Depressive Disorder, [id number], Major Depressive Disorder. - Medication Reconciliation Form, Thank You Letter, Antibiotic Education, Prescription Opioid Use form. - Follow up: Private Physician; When: 2 - 3 days; Reason: Recheck today's complaints, Continuance of care, Re-evaluation by your physician. Follow up: Shiva Mitchell MD; When: 2 - 3 days; Reason: Recheck today's complaints, Re-evaluation by your physician. - Problem is new. - Symptoms have improved. Signatures: Dispatcher [employer] EDAdrian Jimenez RN RN sg Anderson, Corey, MD MD cha Waters, Shelly, PROFESSIONAL BASS FISHERMAN-C PROFESSIONAL BASS FISHERMAN-Csnw Sivakumar Levy PA PA jr8 Veornika Sanchez RN RN hb Bryson, James, RN RN jb4 John Messina RN RN jd3 Kehinde Flowers RN Hammad Villavicencio MD MD 7 Corrections: (The following items were deleted from the chart) 12/24 06:49 06:48 12/25/2019 06:48 Patient left the facility after being seen by provider. jb4 Preliminary diagnosis is Depression; Psychosis. Reason stated they are leaving due to (see nurse's notes). Condition is Stable. Problem is new. Symptoms are unchanged. mh7 07:07 06:49 12/25/2019 06:48 Patient left the facility after being seen by provider. sg Preliminary diagnosis is Depression; Psychosis. Reason stated they are leaving due to (see nurse's notes). Condition is Stable. Problem is new. Symptoms are unchanged. jb4 07:37 02:37 Allergies: ANTIHISTAMINES; [facility] 07:37 02:37 Allergies: Benadryl; [facility] 12/25 07:37 07:36 12/26/2019 07:36 Discharged to Home. Impression: Abuse of non-psychoactive eliezer substances; Adverse effect of amphetamines. Condition is Stable. Forms are Medication Reconciliation Form, Thank You Letter, Antibiotic Education, Prescription Opioid Use. Follow up: Private Physician; When: 2 - 3 days; Reason: Recheck today's complaints, Continuance of care, Re-evaluation by your physician. Problem is new. Symptoms have improved. eliezer 07:38 07:37 12/26/2019 07:36 Discharged to Home. Impression: Abuse of non-psychoactive eliezer substances; Adverse effect of amphetamines. Condition is Stable. Forms are Medication Reconciliation Form, Thank You Letter, Antibiotic Education, Prescription Opioid Use. Follow up: Private Physician; When: 2 - 3 days; Reason: Recheck today's complaints, Continuance of care, Re-evaluation by your physician. Follow up: Shiva Mitchell; When: 2 - 3 days; Reason: Recheck today's complaints, Re-evaluation by your physician. Problem is new. Symptoms have improved. eliezer 08:28 07:38 12/26/2019 07:36 Discharged to Home. Impression: Abuse of non-psychoactive bp substances; Adverse effect of amphetamines; Major depressive disorder, recurrent; Suicidal ideations - resolved. Condition is Stable. Discharge Instructions: Stimulant Use Disorder-Amphetamines, Substance Use Disorder, Stimulant Use Disorder-Methamphetamines. Forms are Medication Reconciliation Form, Thank You Letter, Antibiotic Education, Prescription Opioid Use. Follow up: Private Physician; When: 2 - 3 days; Reason: Recheck today's complaints, Continuance of care, Re-evaluation by your physician. Follow up: Shiva Mitchell; When: 2 - 3 days; Reason: Recheck today's complaints, Re-evaluation by your physician. Problem is new. Symptoms have improved. eliezer
--- NOTE | 2019-12-25 06:49 | ER ---
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 awareness, Impulsive, Circulation: Within defined parameters (based on Cardiovascular assessment). Skin integrity: Within defined parameters (based on Integumentary assessment) No injuries due to Restraints noted. Range of Motion: declined. Hydration/Food: patient declined. Elimination/Hygiene: Patient declined. Restraint status: Soft wrist restraint (Right) Continued. Soft wrist restraint (Left) Continued. Readiness for Discontinue: Criteria not met. Patient still violent/self destructive and Alternative interventions still ineffective. Restraint continued. 09:15 Violent/Self Destructive Restraint: Observed actions/behavior: severely aggressive, bp confusion/disorientation, impaired decision making, repeated attempts to get up from bed/chair without assistance. Less restrictive alternatives attempted: decreased environmental stimuli, placed near Nurse station, reoriented to location, medications evaluated, trained sitter in room, Alternative interventions: Ineffective. Clinical justification for use: Violent/self destructing behavior impacts therapeutic environment. Poses a serious danger to physical safety of self \\T\\ others. Monitoring: Mental status: confused. Cognition: poor judgement, poor safety awareness, Impulsive, Circulation: Within defined parameters (based on Cardiovascular assessment). Skin integrity: Within defined parameters (based on Integumentary assessment) No injuries due to Restraints noted. Restraint status: Soft wrist restraint (Right) Continued. Soft wrist restraint (Left) Continued. Readiness for Discontinue: Criteria not met. Patient still violent/self destructive and Alternative interventions still ineffective. Restraint continued. 09:30 Violent/Self Destructive Restraint: Observed actions/behavior: bp confusion/disorientation, impaired decision making, repeated attempts to get up from bed/chair without assistance. Less restrictive alternatives attempted: decreased environmental stimuli, placed near Nurse station, reoriented to location, trained sitter in room, Alternative interventions: Ineffective. Clinical justification for use: Violent/self destructing behavior impacts therapeutic environment. Poses a serious danger to physical safety of self \\T\\ others. Monitoring: Mental status: agitated/restless, confused. Cognition: poor judgement, poor safety awareness, Impulsive, Circulation: Within defined parameters (based on Cardiovascular assessment). Skin integrity: Within defined parameters (based on Integumentary assessment) No injuries due to Restraints noted. Restraint status: Soft wrist restraint (Right) Continued. Soft wrist restraint (Left) Continued. Readiness for Discontinue: Criteria not met. Patient still violent/self destructive and Alternative interventions still ineffective. Restraint continued. 09:45 Violent/Self Destructive Restraint: Observed actions/behavior: bp confusion/disorientation, impaired decision making, repeated attempts to get up from bed/chair without assistance. Less restrictive alternatives attempted: decreased environmental stimuli, placed near Nurse station, medications evaluated, Alternative interventions: Ineffective. Clinical justification for use: Violent/self destructing behavior impacts therapeutic environment. Poses a serious danger to physical safety of self \\T\\ others. Monitoring: Mental status: confused. Cognition: poor judgement, poor safety awareness, Impulsive, Circulation: Within defined parameters (based on Cardiovascular assessment). Skin integrity: Within defined parameters (based on Integumentary assessment) No injuries due to Restraints noted. Restraint status: Soft wrist restraint (Right) Continued. Soft wrist restraint (Left) Continued. Readiness for Discontinue: Criteria not met. Patient still violent/self destructive and Alternative interventions still ineffective. Restraint continued. 10:00 Violent/Self Destructive Restraint: Observed actions/behavior: bp confusion/disorientation, impaired decision making, repeated attempts to get up from bed/chair without assistance. Less restrictive alternatives attempted: decreased environmental stimuli, placed near Nurse station, reoriented to location, trained sitter in room, Alternative interventions: Ineffective. Clinical justification for use: Violent/self destructing behavior impacts therapeutic environment. Poses a serious danger to physical safety of self \\T\\ others. Monitoring: Mental status: confused. Cognition: poor judgement, poor safety awareness, Impulsive, Circulation: Within defined parameters (based on Cardiovascular assessment). Skin integrity: Within defined parameters (based on Integumentary assessment) No injuries due to Restraints noted. Restraint status: Soft wrist restraint (Right) Continued. Soft wrist restraint (Left) Continued. Readiness for Discontinue: Criteria not met. Patient still violent/self destructive and Alternative interventions still ineffective. Restraint continued. 10:00 Violent/Self Destructive Restraint: Range of Motion: declined. Hydration/Food: patient bp declined. Elimination/Hygiene: Patient declined. 10:15 Violent/Self Destructive Restraint: Observed actions/behavior: bp confusion/disorientation, impaired decision making, repeated attempts to get up from bed/chair without assistance. Less restrictive alternatives attempted: decreased environmental stimuli, placed near Nurse station, reoriented to location, trained sitter in room, Alternative interventions: Ineffective. Clinical justification for use: Violent/self destructing behavior impacts therapeutic environment. Poses a serious danger to physical safety of self \\T\\ others. Monitoring: Mental status: confused. Cognition: poor judgement, poor safety awareness, Impulsive, Circulation: Within defined parameters (based on Cardiovascular assessment). Skin integrity: Within defined parameters (based on Integumentary assessment) No injuries due to Restraints noted. Restraint status: Soft wrist restraint (Right) Continued. Soft wrist restraint (Left) Continued. Readiness for Discontinue: Criteria not met. Patient still violent/self destructive and Alternative interventions still ineffective. Restraint continued. 10:30 Violent/Self Destructive Restraint: Observed actions/behavior: bp confusion/disorientation, impaired decision making, repeated attempts to get up from bed/chair without assistance. Less restrictive alternatives attempted: decreased environmental stimuli, placed near Nurse station, reoriented to location, trained sitter in room, Alternative interventions: Ineffective. Clinical justification for use: Violent/self destructing behavior impacts therapeutic environment. Poses a serious danger to physical safety of self \\T\\ others. Monitoring: Mental status: confused. Cognition: poor judgement, poor safety awareness, Impulsive, Circulation: Within defined parameters (based on Cardiovascular assessment). Skin integrity: Within defined parameters (based on Integumentary assessment) No injuries due to Restraints noted. Restraint status: Soft wrist restraint (Right) Continued. Soft wrist restraint (Left) Continued. Readiness for Discontinue: Criteria not met. Patient still violent/self destructive and Alternative interventions still ineffective. Restraint continued. 10:45 Violent/Self Destructive Restraint: Observed actions/behavior: bp confusion/disorientation, impaired decision making, repeated attempts to get up from bed/chair without assistance. Less restrictive alternatives attempted: decreased environmental stimuli, placed near Nurse station, reoriented to location, trained sitter in room, Alternative interventions: Ineffective. Clinical justification for use: Violent/self destructing behavior impacts therapeutic environment. Poses a serious danger to physical safety of self \\T\\ others. Monitoring: Mental status: confused. Cognition: poor judgement, poor safety awareness, Impulsive, Circulation: Within defined parameters (based on Cardiovascular assessment). Skin integrity: Within defined parameters (based on Integumentary assessment) No injuries due to Restraints noted. Restraint status: Soft wrist restraint (Right) Continued. Soft wrist restraint (Left) Continued. Readiness for Discontinue: Criteria not met. Patient still violent/self destructive and Alternative interventions still ineffective. Restraint continued. 11:00 Violent/Self Destructive Restraint: Observed actions/behavior: bp confusion/disorientation, impaired decision making, repeated attempts to get up from bed/chair without assistance. Less restrictive alternatives attempted: decreased environmental stimuli, placed near Nurse station, reoriented to location, trained sitter in room, Alternative interventions: Ineffective. Clinical justification for use: Violent/self destructing behavior impacts therapeutic environment. Poses a serious danger to physical safety of self \\T\\ others. Monitoring: Mental status: confused. Cognition: poor judgement, poor safety awareness, Impulsive, Circulation: Within defined parameters (based on Cardiovascular assessment). Skin integrity: Within defined parameters (based on Integumentary assessment) No injuries due to Restraints noted. Range of Motion: declined. Hydration/Food: patient declined. Elimination/Hygiene: Patient declined. Restraint status: Soft wrist restraint (Right) Continued. Soft wrist restraint (Left) Continued. Readiness for Discontinue: Criteria not met. Patient still violent/self destructive and Alternative interventions still ineffective. Restraint continued. 11:15 Violent/Self Destructive Restraint: Observed actions/behavior: bp confusion/disorientation, impaired decision making, repeated attempts to get up from bed/chair without assistance. Less restrictive alternatives attempted: decreased environmental stimuli, placed near Nurse station, reoriented to location, trained sitter in room, Alternative interventions: Ineffective. Clinical justification for use: Violent/self destructing behavior impacts therapeutic environment. Poses a serious danger to physical safety of self \\T\\ others. Monitoring: Mental status: confused. Cognition: poor judgement, poor safety awareness, Impulsive, Circulation: Within defined parameters (based on Cardiovascular assessment). Skin integrity: Within defined parameters (based on Integumentary assessment) No injuries due to Restraints noted. Restraint status: Soft wrist restraint (Right) Continued. Soft wrist restraint (Left) Continued. Readiness for Discontinue: Criteria not met. Patient still violent/self destructive and Alternative interventions still ineffective. Restraint continued. 11:30 Violent/Self Destructive Restraint: Observed actions/behavior: bp confusion/disorientation, impaired decision making, decreased Level of Consciousness (LOC), Less restrictive alternatives attempted: decreased environmental stimuli, placed near Nurse station, reoriented to location, trained sitter in room, Alternative interventions: Ineffective. Clinical justification for use: Violent/self destructing behavior impacts therapeutic environment. Poses a serious danger to physical safety of self \\T\\ others. Monitoring: Mental status: confused. Cognition: poor judgement, poor safety awareness, Impulsive, Circulation: Within defined parameters (based on Cardiovascular assessment). Skin integrity: Within defined parameters (based on Integumentary assessment) No injuries due to Restraints noted. Restraint status: Soft wrist restraint (Right) Continued. Soft wrist restraint (Left) Continued. Readiness for Discontinue: Criteria not met. Patient still violent/self destructive and Alternative interventions still ineffective. Restraint continued. 11:45 Violent/Self Destructive Restraint: Observed actions/behavior: bp confusion/disorientation, impaired decision making, decreased Level of Consciousness (LOC), Monitoring: Mental status: confused. Cognition: poor judgement, poor safety awareness, poor attention/concentration, Circulation: Within defined parameters (based on Cardiovascular assessment). Skin integrity: Within defined parameters (based on Integumentary assessment) No injuries due to Restraints noted. Restraint status: Soft wrist restraint (Right) Continued. Soft wrist restraint (Left) Continued. Readiness for Discontinue: Criteria not met. Patient still violent/self destructive and Alternative interventions still ineffective. Restraint continued. 12:00 Violent/Self Destructive Restraint: Observed actions/behavior: bp confusion/disorientation, impaired decision making, decreased Level of Consciousness (LOC), Less restrictive alternatives attempted: decreased environmental stimuli, placed near Nurse station, reoriented to location, trained sitter in room, Alternative interventions: Ineffective. Clinical justification for use: Violent/self destructing behavior impacts therapeutic environment. Poses a serious danger to physical safety of self \\T\\ others. Monitoring: Mental status: agitated/restless, confused. Cognition: poor judgement, poor safety awareness, poor attention/concentration, Circulation: Within defined parameters (based on Cardiovascular assessment). Skin integrity: Within defined parameters (based on Integumentary assessment) No injuries due to Restraints noted. Range of Motion: declined. Hydration/Food: patient declined. Elimination/Hygiene: Patient declined. Restraint status: Soft wrist restraint (Right) Continued. Soft wrist restraint (Left) Continued. Readiness for Discontinue: Criteria not met. Patient still violent/self destructive and Alternative interventions still ineffective. Restraint continued. 12:15 Violent/Self Destructive Restraint: Observed actions/behavior: bp confusion/disorientation, impaired decision making, decreased Level of Consciousness (LOC), Less restrictive alternatives attempted: decreased environmental stimuli, placed near Nurse station, reoriented to location, trained sitter in room, Alternative interventions: Ineffective. Clinical justification for use: Violent/self destructing behavior impacts therapeutic environment. Poses a serious danger to physical safety of self \\T\\ others. Monitoring: Mental status: confused. Cognition: poor judgement, poor safety awareness, poor attention/concentration, Circulation: Within defined parameters (based on Cardiovascular assessment). Skin integrity: Within defined parameters (based on Integumentary assessment) No injuries due to Restraints noted. Restraint status: Soft wrist restraint (Right) Continued. Soft wrist restraint (Left) Continued. Readiness for Discontinue: Criteria not met. Patient still violent/self destructive and Alternative interventions still ineffective. Restraint continued. 12:30 Violent/Self Destructive Restraint: Observed actions/behavior: bp confusion/disorientation, impaired decision making, decreased Level of Consciousness (LOC), Less restrictive alternatives attempted: decreased environmental stimuli, placed near Nurse station, reoriented to location, trained sitter in room, Alternative interventions: Ineffective. Clinical justification for use: Violent/self destructing behavior impacts therapeutic environment. Poses a serious danger to physical safety of self \\T\\ others. Monitoring: Mental status: confused. Cognition: poor judgement, poor safety awareness, poor attention/concentration, Circulation: Within defined parameters (based on Cardiovascular assessment). Skin integrity: Within defined parameters (based on Integumentary assessment) No injuries due to Restraints noted. Restraint status: Soft wrist restraint (Right) Continued. Soft wrist restraint (Left) Continued. Readiness for Discontinue: Criteria not met. Patient still violent/self destructive and Alternative interventions still ineffective. Restraint continued. 12:45 Violent/Self Destructive Restraint: Observed actions/behavior: bp confusion/disorientation, impaired decision making, decreased Level of Consciousness (LOC), Less restrictive alternatives attempted: decreased environmental stimuli, placed near Nurse station, reoriented to location, trained sitter in room, Alternative interventions: Ineffective. Clinical justification for use: Violent/self destructing behavior impacts therapeutic environment. Poses a serious danger to physical safety of self \\T\\ others. Monitoring: Mental status: confused. Cognition: poor judgement, poor safety awareness, poor attention/concentration, Circulation: Within defined parameters (based on Cardiovascular assessment). Skin integrity: Within defined parameters (based on Integumentary assessment) No injuries due to Restraints noted. Restraint status: Soft wrist restraint (Right) Continued. Soft wrist restraint (Left) Continued. Readiness for Discontinue: Criteria not met. Patient still violent/self destructive and Alternative interventions still ineffective. Restraint continued. 13:00 Violent/Self Destructive Restraint: Observed actions/behavior: bp confusion/disorientation, impaired decision making, decreased Level of Consciousness (LOC), Less restrictive alternatives attempted: decreased environmental stimuli, placed near Nurse station, reoriented to location, trained sitter in room, Alternative interventions: Ineffective. Clinical justification for use: Violent/self destructing behavior impacts therapeutic environment. Poses a serious danger to physical safety of self \\T\\ others. Monitoring: Mental status: confused. Cognition: poor judgement, poor safety awareness, poor attention/concentration, Circulation: Within defined parameters (based on Cardiovascular assessment). Skin integrity: Within defined parameters (based on Integumentary assessment) No injuries due to Restraints noted. Restraint status: Soft wrist restraint (Right) Continued. Soft wrist restraint (Left) Continued. Readiness for Discontinue: Criteria not met. Patient still violent/self destructive and Alternative interventions still ineffective. Restraint continued. 13:15 Violent/Self Destructive Restraint: Observed actions/behavior: sv confusion/disorientation, difficulty remembering or follow instructions, impaired decision making, repeated attempts to get up from bed/chair without assistance. decreased Level of Consciousness (LOC), unable to follow instructions, rptd attempts to remove/tamper lines/tubes/IV/med devices \\T\\ wnd dressing, Less restrictive alternatives attempted: decreased environmental stimuli, 1:1 patient care, placed near Nurse station, reoriented to location, medications evaluated, trained sitter in room, covered lines/tubes, eliminated unnecessary lines/tubes, Alternative interventions: Ineffective. Clinical justification for use: Violent/self destructing behavior impacts therapeutic environment. Poses a serious danger to physical safety of self \\T\\ others. Monitoring: Mental status: patient asleep, Cognition: poor judgement, poor safety awareness, Impulsive, poor attention/concentration, unable to follow commands, Circulation: Within defined parameters (based on Cardiovascular assessment). Skin integrity: Within defined parameters (based on Integumentary assessment) No injuries due to Restraints noted. Restraint status: Side rails up x 4 Continued. Soft wrist restraint (Right) Continued. Soft wrist restraint (Left) Continued. Readiness for Discontinue: Criteria not met. Patient still violent/self destructive and Alternative interventions still ineffective. Restraint continued. 13:30 Violent/Self Destructive Restraint: Observed actions/behavior: sv confusion/disorientation, difficulty remembering or follow instructions, impaired decision making, repeated attempts to get up from bed/chair without assistance. decreased Level of Consciousness (LOC), unable to follow instructions, rptd attempts to remove/tamper lines/tubes/IV/med devices \\T\\ wnd dressing, Less restrictive alternatives attempted: decreased environmental stimuli, 1:1 patient care, placed near Nurse station, medications evaluated, trained sitter in room, covered lines/tubes, eliminated unnecessary lines/tubes, Alternative interventions: Ineffective. Clinical justification for use: Violent/self destructing behavior impacts therapeutic environment. Poses a serious danger to physical safety of self \\T\\ others. Monitoring: Mental status: patient asleep, Cognition: poor judgement, poor safety awareness, Impulsive, poor attention/concentration, unable to follow commands, Circulation: Within defined parameters (based on Cardiovascular assessment). Skin integrity: Within defined parameters (based on Integumentary assessment) No injuries due to Restraints noted. Restraint status: Side rails up x 4 Continued. Soft wrist restraint (Right) Continued. Soft wrist restraint (Left) Continued. Readiness for Discontinue: Criteria not met. Patient still violent/self destructive and Alternative interventions still ineffective. Restraint continued. 13:45 Violent/Self Destructive Restraint: Observed actions/behavior: sv confusion/disorientation, difficulty remembering or follow instructions, impaired decision making, repeated attempts to get up from bed/chair without assistance. decreased Level of Consciousness (LOC), unable to follow instructions, rptd attempts to remove/tamper lines/tubes/IV/med devices \\T\\ wnd dressing, Less restrictive alternatives attempted: decreased environmental stimuli, 1:1 patient care, placed near Nurse station, trained sitter in room, covered lines/tubes, eliminated unnecessary lines/tubes, Alternative interventions: Ineffective. Clinical justification for use: Violent/self destructing behavior impacts therapeutic environment. Poses a serious danger to physical safety of self \\T\\ others. Monitoring: Mental status: patient asleep, Cognition: poor judgement, poor safety awareness, Impulsive, poor attention/concentration, unable to follow commands, Circulation: Within defined parameters (based on Cardiovascular assessment). Skin integrity: Within defined parameters (based on Integumentary assessment) No injuries due to Restraints noted. Restraint status: Side rails up x 4 Continued. Soft wrist restraint (Right) Continued. Soft wrist restraint (Left) Continued. Readiness for Discontinue: Criteria not met. Patient still violent/self destructive and Alternative interventions still ineffective. Restraint continued. 14:00 Violent/Self Destructive Restraint: Observed actions/behavior: sv confusion/disorientation, difficulty remembering or follow instructions, impaired decision making, repeated attempts to get up from bed/chair without assistance. decreased Level of Consciousness (LOC), unable to follow instructions, rptd attempts to remove/tamper lines/tubes/IV/med devices \\T\\ wnd dressing, Less restrictive alternatives attempted: decreased environmental stimuli, 1:1 patient care, placed near Nurse station, medications evaluated, trained sitter in room, covered lines/tubes, eliminated unnecessary lines/tubes, Alternative interventions: Ineffective. Clinical justification for use: Violent/self destructing behavior impacts therapeutic environment. Poses a serious danger to physical safety of self \\T\\ others. Monitoring: Mental status: patient asleep, Cognition: poor judgement, poor safety awareness, Impulsive, poor attention/concentration, unable to follow commands, Circulation: Within defined parameters (based on Cardiovascular assessment). Skin integrity: Within defined parameters (based on Integumentary assessment) No injuries due to Restraints noted. Restraint status: Side rails up x 4 Continued. Soft wrist restraint (Right) Continued. Soft wrist restraint (Left) Continued. Readiness for Discontinue: Criteria not met. Patient still violent/self destructive and Alternative interventions still ineffective. Restraint continued. 14:15 Violent/Self Destructive Restraint: Observed actions/behavior: bp confusion/disorientation, difficulty remembering or follow instructions, impaired decision making, unable to follow instructions, Less restrictive alternatives attempted: decreased environmental stimuli, placed near Nurse station, reoriented to location, trained sitter in room, Alternative interventions: Ineffective. Clinical justification for use: Violent/self destructing behavior impacts therapeutic environment. Poses a serious danger to physical safety of self \\T\\ others. Monitoring: Mental status: agitated/restless, confused. Cognition: poor judgement, poor safety awareness, poor attention/concentration, Circulation: Within defined parameters (based on Cardiovascular assessment). Skin integrity: Within defined parameters (based on Integumentary assessment) No injuries due to Restraints noted. Restraint status: Soft wrist restraint (Right) Continued. Soft wrist restraint (Left) Continued. Readiness for Discontinue: Criteria not met. Patient still violent/self destructive and Alternative interventions still ineffective. Restraint continued. 14:30 Violent/Self Destructive Restraint: Observed actions/behavior: bp confusion/disorientation, difficulty remembering or follow instructions, impaired decision making, decreased Level of Consciousness (LOC), unable to follow instructions, Less restrictive alternatives attempted: decreased environmental stimuli, placed near Nurse station, reoriented to location, trained sitter in room, Alternative interventions: Ineffective. Clinical justification for use: Violent/self destructing behavior impacts therapeutic environment. Poses a serious danger to physical safety of self \\T\\ others. Monitoring: Mental status: confused. Cognition: poor judgement, poor safety awareness, poor attention/concentration, unable to follow commands, Circulation: Within defined parameters (based on Cardiovascular assessment). Skin integrity: Within defined parameters (based on Integumentary assessment) No injuries due to Restraints noted. Restraint status: Soft wrist restraint (Right) Continued. Soft wrist restraint (Left) Continued. Readiness for Discontinue: Criteria not met. Patient still violent/self destructive and Alternative interventions still ineffective. Restraint continued. 14:45 Violent/Self Destructive Restraint: Observed actions/behavior: bp confusion/disorientation, difficulty remembering or follow instructions, impaired decision making, decreased Level of Consciousness (LOC), unable to follow instructions, Less restrictive alternatives attempted: decreased environmental stimuli, placed near Nurse station, reoriented to location, trained sitter in room, Alternative interventions: Ineffective. Clinical justification for use: Violent/self destructing behavior impacts therapeutic environment. Poses a serious danger to physical safety of self \\T\\ others. Monitoring: Mental status: confused. Cognition: poor judgement, poor safety awareness, poor attention/concentration, Circulation: Within defined parameters (based on Cardiovascular assessment). Skin integrity: Within defined parameters (based on Integumentary assessment) No injuries due to Restraints noted. Restraint status: Soft wrist restraint (Right) Continued. Soft wrist restraint (Left) Continued. Readiness for Discontinue: Criteria not met. Patient still violent/self destructive and Alternative interventions still ineffective. Restraint continued. 15:00 Violent/Self Destructive Restraint: Observed actions/behavior: bp confusion/disorientation, difficulty remembering or follow instructions, impaired decision making, decreased Level of Consciousness (LOC), unable to follow instructions, Less restrictive alternatives attempted: decreased environmental stimuli, placed near Nurse station, reoriented to location, trained sitter in room, Alternative interventions: Ineffective. Clinical justification for use: Violent/self destructing behavior impacts therapeutic environment. Poses a serious danger to physical safety of self \\T\\ others. Monitoring: Mental status: agitated/restless, confused. Cognition: poor judgement, poor safety awareness, poor attention/concentration, Circulation: Within defined parameters (based on Cardiovascular assessment). Skin integrity: Within defined parameters (based on Integumentary assessment) No injuries due to Restraints noted. Range of Motion: declined. Hydration/Food: patient declined. Elimination/Hygiene: Patient declined. Restraint status: Soft wrist restraint (Right) Continued. Soft wrist restraint (Left) Continued. Readiness for Discontinue: Criteria not met. Patient still violent/self destructive and Alternative interventions still ineffective. Restraint continued. 15:15 Violent/Self Destructive Restraint: Observed actions/behavior: bp confusion/disorientation, difficulty remembering or follow instructions, impaired decision making, unable to follow instructions, Less restrictive alternatives attempted: decreased environmental stimuli, placed near Nurse station, reoriented to location, trained sitter in room, Alternative interventions: Ineffective. Clinical justification for use: Violent/self destructing behavior impacts therapeutic environment. Poses a serious danger to physical safety of self \\T\\ others. Monitoring: Mental status: confused. Cognition: poor judgement, poor safety awareness, poor attention/concentration, Circulation: Within defined parameters (based on Cardiovascular assessment). Skin integrity: Within defined parameters (based on Integumentary assessment) No injuries due to Restraints noted. Restraint status: Soft wrist restraint (Right) Continued. Soft wrist restraint (Left) Continued. Readiness for Discontinue: Criteria not met. Patient still violent/self destructive and Alternative interventions still ineffective. Restraint continued. 15:30 Violent/Self Destructive Restraint: Observed actions/behavior: bp confusion/disorientation, difficulty remembering or follow instructions, impaired decision making, decreased Level of Consciousness (LOC), unable to follow instructions, Less restrictive alternatives attempted: decreased environmental stimuli, placed near Nurse station, reoriented to location, trained sitter in room, Alternative interventions: Ineffective. Clinical justification for use: Violent/self destructing behavior impacts therapeutic environment. Poses a serious danger to physical safety of self \\T\\ others. Monitoring: Mental status: confused. Cognition: poor judgement, poor safety awareness, poor attention/concentration, unable to follow commands, Circulation: Within defined parameters (based on Cardiovascular assessment). Skin integrity: Within defined parameters (based on Integumentary assessment) No injuries due to Restraints noted. Restraint status: Soft wrist restraint (Right) Continued. Soft wrist restraint (Left) Continued. Readiness for Discontinue: Criteria not met. Patient still violent/self destructive and Alternative interventions still ineffective. Restraint continued. 15:45 Violent/Self Destructive Restraint: Observed actions/behavior: bp confusion/disorientation, difficulty remembering or follow instructions, impaired decision making, decreased Level of Consciousness (LOC), Less restrictive alternatives attempted: decreased environmental stimuli, placed near Nurse station, reoriented to location, trained sitter in room, Alternative interventions: Ineffective. Clinical justification for use: Violent/self destructing behavior impacts therapeutic environment. Poses a serious danger to physical safety of self \\T\\ others. Monitoring: Mental status: confused. Cognition: poor judgement, poor safety awareness, poor attention/concentration, Circulation: Within defined parameters (based on Cardiovascular assessment). Skin integrity: Within defined parameters (based on Integumentary assessment) No injuries due to Restraints noted. Restraint status: Soft wrist restraint (Right) Continued. Soft wrist restraint (Left) Continued. Readiness for Discontinue: Criteria not met. Patient still violent/self destructive and Alternative interventions still ineffective. Restraint continued. 16:00 Violent/Self Destructive Restraint: Observed actions/behavior: difficulty remembering bp or follow instructions, impaired decision making, Less restrictive alternatives attempted: decreased environmental stimuli, placed near Nurse station, reoriented to location, trained sitter in room, Alternative interventions: Ineffective. Clinical justification for use: Violent/self destructing behavior impacts therapeutic environment. Poses a serious danger to physical safety of self \\T\\ others. Monitoring: Mental status: patient asleep, Cognition: follow commands, Circulation: Within defined parameters (based on Cardiovascular assessment). Skin integrity: Within defined parameters (based on Integumentary assessment) No injuries due to Restraints noted. Range of Motion: Performed. Hydration/Food: patient declined. Elimination/Hygiene: Patient declined. Restraint status: Soft wrist restraint (Right) Continued. Soft wrist restraint (Left) Continued. Readiness for Discontinue: Criteria not met. Patient still violent/self destructive and Alternative interventions still ineffective. Restraint continued. 16:15 Violent/Self Destructive Restraint: Observed actions/behavior: decreased Level of bp Consciousness (LOC), Less restrictive alternatives attempted: decreased environmental stimuli, placed near Nurse station, reoriented to location, medications evaluated, medicated for pain/anxiety, trained sitter in room, Alternative interventions: Effective. Monitoring: Mental status: subdued, Cognition: follow commands, no short term memory loss, Circulation: Within defined parameters (based on Cardiovascular assessment). Skin integrity: Within defined parameters (based on Integumentary assessment) No injuries due to Restraints noted. Restraint status: Soft wrist restraint (Right) Discontinued. Soft wrist restraint (Left) Discontinued. Readiness for Discontinue: Release criteria met. No longer exhibiting violent or self destructive behavior. Alt interventions effective. Restraint discontinuation: Discontinued at December 25, 2019 at 16:15 Effective alternative interventions: decrease environmental stimuli, placed near Nurse station, reoriented to location, medications evaluated, medicated for pain/anxiety, Debriefing: Conducted: Debriefing not conducted due to the following reasons: UNIT ACUITY. Administered Medications: 07:32 Drug: Benadryl 50 mg Route: IVP; Site: left antecubital; hb 07:32 Drug: Ativan 2 mg Route: IVP; Site: left antecubital; hb 07:32 Drug: Haloperidol 5 mg Route: IVP; Site: left antecubital; hb 21:40 Drug: Phenergan 12.5 mg Route: IVP; Site: left antecubital; jd3 22:30 Follow up: Response: No adverse reaction jd3 Outcome: 12/25 07:36 Discharge ordered by . eliezer 08:09 Discharged to home ambulatory. bp 08:28 Patient left the ED. bp Signatures: Brigid Celestin RN RN Adrian Rand RN RN sg Anderson, Corey, MD MD cha Waters, Shelly, [employer] BILLING PAYROLL CLERK-C [employer] B[employer]ING PAYROLL CLERK-Csnw Candy Sanchez RN RN Presley Mathews RN RN jb4 John Messina RN RN jd3 Peltier, Brian, RN RN bp Botello, Elizabeth eb Lewis, Charde cl3 Hammad Case MD MD [id number] Corrections: (The following items were deleted from the chart) 12/24 02:41 02:30 Patient has correct armband on for positive identification. Bed in low position. jb4 Call light in reach. Side rails up X 1. jb4 04:12 02:30 General: Appears in no apparent distress. comfortable, Behavior is calm, jb4 cooperative, appropriate for age, jb4 06:42 06:25 Reassessment: pt standing in exam room 5, instructed to get back into bed sg multiple times. pt sat on the exam room stretcher, then stood up and bolted toward the exam room door, pushing histotechnologist Qing to the side and running out of the ED. [employer] notified sg 07:07 06:49 Patient left the ED. jb4 sg 07:20 04:53 Reassessment: pt laying supine in bed, making sounds like a dog at this time, sg requesting oxygen, pt instructed his VSS and that his RR is WNL, pt stated understanding. notified sg 07:37 02:37 Allergies: ANTIHISTAMINES; hb 07: 02:37 Allergies: Benadryl; [facility] 12/25 01:59 01:20 Reassessment: Patient is alert, oriented x 3, equal unlabored respirations, skin jd3 warm/dry/pink. pt pressed code blue button to get in contact with nurse, pt notified that next time he needs anything to notify the sitter. pt requesting to call family. pt called with no answer. pt back to room and is resting in bed. jd3
[2019-12-25 06:56] VITALS: TEMP 98.8
[2019-12-25] MEDS ORDERED: HALOPERIDOL LACT 5 MG/ML INJ ONE (07:33)
[2019-12-25] MEDS ORDERED: LORazepam 2 MG/ML VIAL ONE (07:33)
[2019-12-25] MEDS ORDERED: DIPHENHYDRAMINE 50 MG/ML VIAL ONE (07:33)
--- NOTE | 2019-12-25 15:25 | EKG ---
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
[2019-12-25] MEDS ORDERED: PROMETHAZINE INJ 25 MG/ML AMP ONE (21:44)
[2019-12-26 08:43] VITALS: O2SAT 100
[2019-12-26 08:47] VITALS: BP 127/72
== END 2019-12-26 08:28 | disposition home or self-care (01) ==
LOC: ER 02:03
DX: F33.9 Major depressive disorder, recurrent, unspecified (principal); T43.625A Adverse effect of amphetamines, initial encounter; I10 Essential (primary) hypertension; F17.210 Nicotine dependence, cigarettes, uncomplicated
CPT/HCPCS: 36415; 51702; 80048; 80076; 80307; 80320; 80329; 85025; 85610; 85730; 93005; 96374; 96375; 99284; J1200; J1630; J2550

== ENCOUNTER 2019-12-27 18:37 | Emergency (ER) | payer SELFPAY ==
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
--- NOTE | 2019-12-27 19:21 | EDPHYS ---
Physician Documentation [facility] Name: Yaw Aldrich Jr Age: 29 yrs Sex: Male : 1990 Arrival Date: 12/27/2019 Time: 19:09 Bed 13 Private MD: ED Physician Jhonny Ferrer HPI: 12/26 19:12 This 29 yrs old Male presents to ER via Unassigned with complaints of eliezer blisters on both feet. 19:12 The patient presents with pain, swelling, tenderness. The complaints affect the right eliezer foot and left foot. Context: The problem was sustained on a street or driveway. Onset: The symptoms/episode began/occurred just prior to arrival. Modifying factors: The symptoms are alleviated by elevation of extremity, the symptoms are aggravated by movement, wearing shoes. Associated signs and symptoms: The patient has no apparent associated signs or symptoms. Severity of symptoms: At their worst the symptoms were mild, in the emergency department the symptoms are unchanged. The patient has experienced similar episodes in the past, several times. Historical: - Allergies: 19:12 No Known Allergies; ks7 - PMHx: 19:12 Asthma; Diabetes - NIDDM; Hypertension; ks7 - Immunization history:: Adult Immunizations not up to date. - Social history:: Smoking status: Patient reports the use of cigarette tobacco products, smokes one-half pack cigarettes per day. - Family history:: not pertinent. ROS: 19:12 Constitutional: Negative for fever, chills, and weight loss, Eyes: Negative for injury, eliezer pain, redness, and discharge, ENT: Negative for injury, pain, and discharge, Neck: Negative for injury, pain, and swelling, Cardiovascular: Negative for chest pain, palpitations, and edema, Respiratory: Negative for shortness of breath, cough, wheezing, and pleuritic chest pain, Abdomen/GI: Negative for abdominal pain, nausea, vomiting, diarrhea, and constipation, Back: Negative for injury and pain, : Negative for injury, bleeding, discharge, and swelling, Skin: Negative for injury, rash, and discoloration, Neuro: Negative for headache, weakness, numbness, tingling, and seizure, Psych: Negative for depression, anxiety, suicide ideation, homicidal ideation, and hallucinations, Allergy/Immunology: Negative for hives, rash, and allergies, Endocrine: Negative for neck swelling, polydipsia, polyuria, polyphagia, and marked weight changes, Hematologic/Lymphatic: Negative for swollen nodes, abnormal bleeding, and unusual bruising. 19:12 MS/extremity: Positive for pain, swelling, tenderness, blisters on plantar surfaces of both feet. Exam: 19:12 Constitutional: This is a well developed, well nourished patient who is awake, alert, eliezer and in no acute distress. Head/Face: Normocephalic, atraumatic. Eyes: Pupils equal round and reactive to light, extra-ocular motions intact. Lids and lashes normal. Conjunctiva and sclera are non-icteric and not injected. Cornea within normal limits. Periorbital areas with no swelling, redness, or edema. ENT: Nares patent. No nasal discharge, no septal abnormalities noted. Tympanic membranes are normal and external auditory canals are clear. Oropharynx with no redness, swelling, or masses, exudates, or evidence of obstruction, uvula midline. Mucous membranes moist. Neck: Trachea midline, no thyromegaly or masses palpated, and no cervical lymphadenopathy. Supple, full range of motion without nuchal rigidity, or vertebral point tenderness. No Meningismus. Chest/axilla: Normal chest wall appearance and motion. Nontender with no deformity. No lesions are appreciated. Cardiovascular: Regular rate and rhythm with a normal S1 and S2. No gallops, murmurs, or rubs. Normal PMI, no JVD. No pulse deficits. Respiratory: Lungs have equal breath sounds bilaterally, clear to auscultation and percussion. No rales, rhonchi or wheezes noted. No increased work of breathing, no retractions or nasal flaring. Abdomen/GI: Soft, non-tender, with normal bowel sounds. No distension or tympany. No guarding or rebound. No evidence of tenderness throughout. Back: No spinal tenderness. No costovertebral tenderness. Full range of motion. Male : Normal genitalia with no discharge or lesions. Neuro: Awake and alert, GCS 15, oriented to person, place, time, and situation. Cranial nerves II-XII grossly intact. Motor strength 5/5 in all extremities. Sensory grossly intact. Cerebellar exam normal. Normal gait. Psych: Awake, alert, with orientation to person, place and time. Behavior, mood, and affect are within normal limits. 19:12 Skin: abscess, that is small, of the right foot and left foot, with drainage, with fluctuance, that is moderate, cellulitis, injury. Vital Signs: 19:12 BP 134 / 99; Pulse 76; Resp 18; Temp 98.2(TE); Pulse Ox 98% on R/A; Pain 2/10; ks7 Procedures: 19:12 I \T\ D: Incision and drainage was performed for an abscess of the bilateral Prepped with [facility] Betadine, Anesthetized with nothing. Incised with 18 gauge to open, drain, covered. MDM: 19:10 Patient medically screened. [facility] 19:12 Differential diagnosis: cellulitis. Data reviewed: vital signs, nurses notes. Data [facility] interpreted: electronic device monitor: rate is 82 beats/min, Pulse oximetry: on room air is 96 %. Counseling: I had a detailed discussion with the patient and/or guardian regarding: the historical points, exam findings, and any diagnostic results supporting the discharge/admit diagnosis, the need for outpatient follow up, for definitive care, a clinical psychologist. 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 Exp: mt2 07/17/2021. Lot #: [id number]. } Route: IM; Site: right deltoid; 19:50 Follow up: Response: No adverse reaction fl2 19:33 Drug: Bactrim (160 mg-800 mg (DS) 1 tablet Route: PO; mt2 19:50 Follow up: Response: No adverse reaction fl2 19:47 Drug: Bactroban Ointment 2 % 1 application Route: Topical; Site: wound; mt2 20:00 Follow up: Response: No adverse reaction; Medication administered at discharge. fl2 Disposition: 12/27/19 19:20 Discharged to Home. Impression: Blister (nonthermal) of foot - infected, drained, Type 2 diabetes mellitus. - Condition is Stable. - Discharge Instructions: Blisters, Adult, Cellulitis, Adult, Cellulitis, Adult, [id number]. - Prescriptions for Bactroban 2 % Topical Ointment - Apply to affected area 1 application by TOPICAL route every 12 hours; 30 gram. Bactrim DS 800- 160 mg Oral Tablet - take 1 tablet by ORAL route every 12 hours for 7 days; 14 tablet. - Medication Reconciliation Form, Thank You Letter, Antibiotic Education, Prescription Opioid Use form. - Follow up: Private Physician; When: 2 - 3 days; Reason: Recheck today's complaints, Continuance of care, Re-evaluation by your physician. Follow up: Kehinde Roman DPM; When: 2 - 3 days; Reason: Recheck today's complaints, Re-evaluation by your physician. - Problem is new. - Symptoms have improved. Signatures: Jhonny Ferrer MD MD cha Songcuan, Kathleen RN RN ks7 Carole Courtney, RN RN mt2 Corrections: (The following items were deleted from the chart) 19:23 19:20 12/27/2019 19:20 Discharged to Home. Impression: Blister (nonthermal) of foot - eliezer infected, drained. Condition is Stable. Forms are Medication Reconciliation Form, Thank You Letter, Antibiotic Education, Prescription Opioid Use. Follow up: Private Physician; When: 2 - 3 days; Reason: Recheck today's complaints, Continuance of care, Re-evaluation by your physician. Follow up: Dr. Kehinde Roman; When: 2 - 3 days; Reason: Recheck today's complaints, Re-evaluation by your physician. Problem is new. Symptoms have improved. eliezer 19:48 19:23 12/27/2019 19:20 Discharged to Home. Impression: Blister (nonthermal) of foot - mt2 infected, drained; Type 2 diabetes mellitus. Condition is Stable. Discharge Instructions: Blisters, Adult, Cellulitis, Adult, Cellulitis, Adult, [id number]. Prescriptions for Bactroban 2 % Topical Ointment - Apply to affected area 1 application by TOPICAL route every 12 hours; 30 gram, Bactrim DS 800-160 mg Oral Tablet - take 1 tablet by ORAL route every 12 hours for 7 days; 14 tablet. and Forms are Medication Reconciliation Form, Thank You Letter, Antibiotic Education, Prescription Opioid Use. Follow up: Private Physician; When: 2 - 3 days; Reason: Recheck today's complaints, Continuance of care, Re-evaluation by your physician. Follow up: Dr. Kehinde Roman; When: 2 - 3 days; Reason: Recheck today's complaints, Re-evaluation by your physician. Problem is new. Symptoms have improved. eliezer
--- NOTE | 2019-12-27 19:21 | ER ---
Nurse's Notes [facility] Name: Yaw Aldrich Jr Age: 29 yrs Sex: Male : 1990 Arrival Date: 12/27/2019 Time: 19:09 Bed 13 Private MD: Diagnosis: Blister (nonthermal) of foot-infected, drained;Type 2 diabetes mellitus Presentation: 12/26 19:10 Chief complaint: EMS states: BIBA: pt has painful blisters to bilateral ks7 toes/trenchfoot. pt aaox4, ambulatory, homeless and unable to keep feet dry, frequent walking. Coronavirus screen: Patient denies a cough. Patient denies shortness of breath or difficulty breathing. Patient denies measured and/or subjective temperature greater than 100.4F prior to today's visit. Patient denies travel on a cruise ship or to a country the [facility] currently lists as an affected area. Patient denies contact with known and/or suspected case of COVID-19. Patient instructed to continue to wear a mask when interacting with others. Patient moved to private room, placed in contact and droplet isolation with eye protection until further assessment. Ebola Screen: Patient negative for fever greater than or equal to 101.5 degrees Fahrenheit, and additional compatible Ebola Virus Disease symptoms Patient denies exposure to infectious person. Patient denies travel to an Ebola-affected area in the 21 days before illness onset. Initial Sepsis Screen: Does the patient meet any 2 criteria? No. Patient's initial sepsis screen is negative. Does the patient have a suspected source of infection? No. Patient's initial sepsis screen is negative. Risk Assessment: Do you want to hurt yourself or someone else? Patient reports no desire to harm self or others. Onset of symptoms is unknown. 19:10 Method Of Arrival: EMS: [facility] ks7 19:10 Acuity: SHEY 4 ks7 Triage Assessment: 19:12 General: Appears uncomfortable, Behavior is calm, cooperative. Pain: Complains of pain ks7 in right foot and left foot Pain currently is 2 out of 10 on a pain scale. at worst was 9 out of 10 on a pain scale. Quality of pain is described as burning. Derm: Wound noted right foot and left foot toes Wound is Blisters / trench foot. Historical: - Allergies: 19:12 No Known Allergies; ks7 - PMHx: 19:12 Asthma; Diabetes - NIDDM; Hypertension; ks7 - Immunization history:: Adult Immunizations not up to date. - Social history:: Smoking status: Patient reports the use of cigarette tobacco products, smokes one-half pack cigarettes per day. - Family history:: not pertinent. Screenin:17 Abuse screen: Denies threats or abuse. Denies injuries from another. Nutritional ks7 screening: No deficits noted. Tuberculosis screening: No symptoms or risk factors identified. Fall Risk None identified. Assessment: 19:17 General: Behavior is restless, pt called 911 d/t blisters on bottom of feet/toes. pain ks7 relieved when sitting or laying down, 8/10 pain with walking. pt homeless, unable to change socks and keep feet dry. 19:47 Reassessment: Patient and/or family updated on plan of care and expected duration. Pain mt2 level reassessed. Patient states feeling better. Patient states symptoms have improved. General: Appears Behavior is. Pain: Denies pain. Vital Signs: 19:12 BP 134 / 99; Pulse 76; Resp 18; Temp 98.2(TE); Pulse Ox 98% on R/A; Pain 2/10; ks7 ED Course: 19:09 Patient arrived in ED. [facility] 19:10 Jhonny Ferrer MD is Attending Physician. [facility] 19:12 Triage completed. ks7 19:12 Arm band placed on right wrist. ks7 19:17 Carole Courtney, RN is Primary Nurse. mt2 19:17 Patient has correct armband on for positive identification. Bed in low position. Call ks7 light in reach. Side rails up X2. 19:17 No provider procedures requiring assistance completed. Patient did not have IV access ks7 during this emergency room visit. 19:19 Kehinde Roman DPM is Referral Physician. 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 Exp: mt2 07/17/2021. Lot #: [id number]. } Route: IM; Site: right deltoid; 19:50 Follow up: Response: No adverse reaction mt2 19:33 Drug: Bactrim (160 mg-800 mg (DS) 1 tablet Route: PO; mt2 19:50 Follow up: Response: No adverse reaction mt2 19:47 Drug: Bactroban Ointment 2 % 1 application Route: Topical; Site: wound; mt2 20:00 Follow up: Response: No adverse reaction; Medication administered at discharge. mt2 Outcome: 19:20 Discharge ordered by MD. martins 19:48 Discharged to home mt2 19:48 Discharged to home ambulatory. 19:48 Condition: good 19:48 Condition: good 19:48 Discharge instructions given to patient, Instructed on discharge instructions, follow up and referral plans. medication usage, Demonstrated understanding of instructions, follow-up care, medications, wound care, Prescriptions given X 2. 19:48 Patient left the ED. mt2 Signatures: Jhonny Ferrer MD MD cha Acob, Cheryl, RN RN ca1 Ashely Hampton, FOX BRAXTON ks7 Carole Courtney RN RN mt2
[2019-12-27] MEDS ORDERED: SMZ./TMP. 800/160 MG TABLET ONE (19:33)
[2019-12-27] MEDS ORDERED: TETANUS & DIPHTHERIA TOX,ADULT 0.5 ML VIAL ONE (19:33)
[2019-12-27] MEDS ORDERED: MUPIROCIN 2% OINT 22GM TUBE TOP ONE (19:48)
[2019-12-27 19:54] VITALS: BP 134/99; TEMP 98.2; O2SAT 98
== END 2019-12-27 19:48 | disposition home or self-care (01) ==
LOC: ER 18:37
PROC: 0J9R0ZZ Drainage of Left Foot Subcutaneous Tissue and Fascia, Open Approach (ICD-10-PCS; principal; 2019-12-27)
PROC: 0J9Q0ZZ Drainage of Right Foot Subcutaneous Tissue and Fascia, Open Approach (ICD-10-PCS; 2019-12-27)
DX: S90.822A Blister (nonthermal), left foot, initial encounter (principal); S90.821A Blister (nonthermal), right foot, initial encounter; E11.9 Type 2 diabetes mellitus without complications; I10 Essential (primary) hypertension; F17.210 Nicotine dependence, cigarettes, uncomplicated; Z23 Encounter for immunization
CPT/HCPCS: 90471; 90714; 99283

== ENCOUNTER 2019-12-30 20:11 | Emergency (ER) | payer SELFPAY ==
--- OUTSIDE RECORDS SUMMARY | 2019-12-30 20:14 | XMS REPORT | Continuity of Care Document ---
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 IMPRESSION: Image labeled 1535: Small to moderate persistent right lateral pneumothorax with chest tube in place. Unchanged small right effusion. Chest 1view DX EXAM: XR CHEST 1 VIEW 01/12/[address] [facility] edical DATE: 01/12/2016 3:50 PM CDT Cent er INDICATION: Tube placement/removal/reposition COMPARISON: 01/12/2016 at 1516. TECHNIQUE: AP chest IMPRESSION: Image labeled 15;30: Unchanged small to moderate right hydropneumotho rax. Right chest tube remains in place. Right chest wall subcutaneous emphysema. Enlarged cardiac silhouette. Chest 1view DX EXAM: XR CHEST 1 VIEW 01/12/[address] [facility] edical DATE: 01/12/2016 3:50 PM [...] DX EXAM: XR CHEST 1 VIEW 01/12/[address] [facility] edical DATE: 01/12/2016 3:50 PM [...] DX EXAM: XR CHEST 1 VIEW 01/12/[address] [facility] edical DATE: 01/12/2016 2:57 PM [...] DX EXAM: XR CHEST 1 VIEW 01/12/[address] [facility] edical DATE: 01/12/2016 2:13 PM [...] CTA CHEST WITH CONTRAST 01/12/2016 [facility] [place] [facility] DATE: 01/12/2016 10:14 AM [...] EXAM: [facility]: 01[facility]12/2016 3:00 AM CDT [place] INDICATION: Shortness of Breath COMPARISON: Chest [...] DX EXAM: XR CHEST 2 VIEWS 01/11/2016 [facility] DATE: 01/11/2016 9:00 PM CDT [place] INDICATION: Tube placement/removal/reposition COMPARISON: Chest radiograph [...] DX EXAM: XR CHEST 1 VIEW 01/11/2016 [facility] DATE: 01/11/2016 5:34 PM CDT [place] INDICATION: Tube placement/removal/reposition COMPARISON: Chest radiograph 01/11/2016 at 3:39 PM TECHNIQUE: AP chest FINDINGS: Unchanged small right hydropneumothorax and tiny left apical pneumothorax. Mild right basilar atelectasis. Cardiac contours are unchanged. Bilateral chest wall gas unchanged. IMPRESSION: No significant interval change. Chest 1view DX EXAM: XR CHEST 1 VIEW 01/11/[address] [facility] edical DATE: 01/11/2016 2:35 PM [...] DX EXAM: XR CHEST 1 VIEW 01/11/[address] [facility] edical DATE: 01/11/2016 5:21 AM CDT [facility] er INDICATION: Tube placement/removal/reposition. FINDINGS: [...] DX EXAM: XR CHEST 1 VIEW 01/11/[address] [facility] edical DATE: 01/11/2016 2:34 AM CDT [facility] er INDICATION: Respiratory distress COMPARISON: [...] DX EXAM: XR CHEST 1 VIEW 01/10/[address] [facility] edical DATE: 01/10/2016 9:17 PM [...] DX EXAM: XR CHEST 1 VIEW 01/10/[address] [facility] edical DATE: 01/10/2016 7:00 PM [...] DX EXAM: XR CHEST 1 VIEW 01/10/[address] [facility] edical DATE: 01/10/2016 12:00 AM CDT [facility] er INDICATION: Tube placement/removal/reposition. FINDINGS: [...] EXAM: CT CHEST WITH CONTRAST 01/08/2016 [facility] IV contrast CT EXAM: CT ABDOMEN [...] DX EXAM: XR CHEST 1 VIEW 01/08/[address] [facility] edical DATE: 01/08/2016 2:00 PM [...] DX EXAM: XR CHEST 1 VIEW 01/08/[address] [facility] edical DATE: 01/08/2016 6:10 AM [...] DX EXAM: XR CHEST 1 VIEW 01/08/[address] [facility] edical DATE: 01/08/2016 6:00 AM [...] EXAM: XR CHEST [facility]: 01/08/2016 5:03 AM CDT Lyle braswell [...] Comments Source Systolic (mm Hg) 145 01/20/2016 [facility] Diastolic (mm Hg) 76 01/20/2016 [facility] Respitory Rate 20 01/20/2016 [facility] Heart Rate 90 01/20/2016 [facility] Temperature Oral (F) 99.6 F 01/20/2016 [facility] Respitory Rate 19 01/20/2016 [facility] Heart Rate 80 01/20/2016 [facility] Temperature Oral (F) 98.7 F 01/20/2016 [facility] Systolic (mm Hg) 138 01/20/2016 [facility] Diastolic (mm Hg) 79 01/20/2016 [facility] Respitory Rate 19 01/20/2016 [facility] Temperature Oral (F) 97.9 F 01/20/2016 [facility] Systolic (mm Hg) 120 01/20/2016 [facility] Diastolic (mm Hg) 61 01/20/2016 [facility] Heart Rate 83 01/20/2016 [facility] Height 170.18 cm 01/18/2016 [facility] Height 170.18 cm 01/18/2016 [facility] Height 170.18 cm 01/18/2016 [facility] BMI Calculated 40.81 01/08/2016 [facility] Weight 118.182 01/08/2016 [facility] Weight 129.545 01/08/2016 [facility] BMI Calculated 44.73 01/08/2016 [facility] Encounters Location Location Encounter Encounter Reason Attending ADM DC Stat us Source Details Type Number For Provider Date Date Visit [facility] [id number] [place] 01/07 01/19 [facility] [place] /2015 [facility] [place] Procedures Procedure Code Date Perfomer Comments Source Tonsillectomy [id number] [facility] Assessment and Plan Assessment and Plan Date Source Extracted from:Title: Clinical Document 01/20/2016 [facility] Author: Coby Blackburn NP Date: 01/20/16 Trauma Surgery Floor Progress Note: Today's Date: 01/20/16 Hospital Day # 12 Chief Complaint: "My dressing is wet" [facility] 101/[facility]: R chest [...] 01/18/16 16:00 cefTRIAXone (Rocephin) 1 gm IVPB [id number]- day 10/07 Central venous access:none DVT prophylaxis: [...] with trauma clinic in 10 days- call [place] Trauma at Assessment and Plan: 25 year [...] dc home today. Coby Blackburn [facility] [id number] Addendum by Coby Blackburn TRANSIT MIXER OPERATOR on 01/20/2016 16:29 Leukocytosis- wbc 12.5(12.0) [...] juan luis braswell who lives outside of [place] to recover. 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 -Haldol 2.5 mg IV [id number] PRN along with Ativan 2 mg IV q4ho urs PRN agitation. -Psychiatry will reevaluate 01/17/16, nemo nk you for the consult and please contact us with any further questions. Resident: Varun Evans MD, PGY-4 Psychiatry Pager: [phone] PSYCHIATRY ATTENDING ADDENDUM I have interviewed and [...] call with any questions. Dileep Hairston M.D. [id number] Extracted from:Title: [place] [facility] History and [...] and he was lifeflighted to [facility]. On arrival GCS 15, SBP: [...] and he was lifeflighted to [facility]. On arrival GCS 15, SBP: [...] Nugent MD Trauma Surgery PGY III [facility] [id number] Trauma Attending Attestation I have seen and examined the patient wit h the resident and agree with the findings and plan as stated above. I was present prior to arrival via en route notification and managed the patient throughout t he primary and secondary surveys during resuscitation. Briefly, 25M transferred to [facility] from OSH s/p SW to [...] Ian Barajas MD, MS Attending Surgeon MSO #[id number] Plan of Care No Data Provided for This Section Social History Social History Date Source Social History TypeResponse 01/11/2016 [facility] Substance Abuse Use: Current. Type: [...]
--- OUTSIDE RECORDS SUMMARY | 2019-12-30 20:15 | XMS REPORT | Continuity of Care Document ---
:[address] [facility] t Address [address] [place] [address] Care Team Providers Name Role Phone Karen [...] Clinician Date STABBING Diagnosis Active 2016-01-08 M moni 01-07 06:16:00 l STABBING 00:00: Clive trinh 00 Active 01/08/2016 [facility] HARPREET Diagnosis Active 2016-04-09 Memoria BILLING/#3 01-07 12:05:00 l 854 00:00: Andrae MULLINS 00 BILLING/#3 854 Active 01/08/2016 [facility] STABBING Diagnosis Active 2016-04-09 M emoria TO BACK 01-07 12:04:00 l STABBING 00:00: Clive trinh TO BACK 00 Active 01/08/2016 [facility] Infestatio Problem Resolve 2016-01-23 Memoria n by d 01:07:53 l Sarcoptes [place] scabiei Infestatio lanre n by hominis Sarcoptes (disorder) scabiei lanre hominis (disorder) Resolved Problem 01/23/2016 [facility] Loculated Problem Active 2016-01-23 Me moria pleural 01:07:53 l effusion [place] (disorder) Loculated pleural effusion (disorder) Active Problem 01/23/2016 [facility] LAC W/O FB Diagnosis Active 2016-04-09 Memoria OF LOW 12:04:00 l BACK AND LAC W/O [place] nn PELVIS W FB OF LOW PENE BACK AND PELVIS W PENE Active [facility] Allergies, Adverse Reactions, Alerts Allergy Allergy Status Severity Reaction(s) Onset Inactive Treating Comm ents Source Name Type Date Date Clinician Antihist DA Active [facility] am[facility] - 09-06 [place] Alkylami 00:00: d ne 00 [facility] No Known DA Active [facility] Allergie 06-11 Mainlan s 00:00: d 00 [facility] Benadryl Benadryl Active Dale [facility]rose Abebe Social History Social Habit Start Date Stop Date Quantity Comments Source Social History 2016-01-11 2016-01-11 [facility] katelyn 17:26:34 17:26:34 Medications Ordered Filled [...] Route: l 21:00: IVPB, Drug form: PDR/INJ, [id number], Dosing Weight 118.182, kg, Start date: 01/18/16 [...] dine 8-16 microgram, l 17:56: 100 mL, [place] 00 Rate: Titrate, Start Dose: 0.2 microgram/ [...] being intubated (unless the nurse is a [employer]). Same as: Diprivan Ancef No 120 kg Memoria 8-15 l 20:28: [place] Ativan No Notes: Memoria 8-15 (Same as: l 18:26: Ativan) [place] Haldol No Notes: Memoria 8-15 (Same as: l 18:25: Haldol) [place] 00 Clonidine No Notes: Memori a Hydrochlori [...] a 8-15 (Same as: l 02:00: Risperdal) [place] Vancomycin No 2001 mg: Me moria 8-14 infuse l 23:00: over 2.5 [place] 00 hours MEDICATION WASTE Product Size: 1000 [...] moria 8-14 infuse l 16:00: over 2.5 [place] 00 hours Haldol No Notes: Memoria 8-14 (Same as: l 15:44: Haldol) [place] Haldol No Notes: Memoria 8-14 (Same as: l 15:43: Haldol) [place] Permethrin No Notes: Memor ia 50 MG/ML 8-14 (Same as: l Topical 11:00: Elimite) Clive n Cream 00 WASTE: F/P - Black; E - [employer] Clonidine No Notes: Memori a Hydrochlori 8-14 (Same As: l de 0.1 MG 09:00: Catapres) Her morrell Oral Tablet Valium No Notes: Memoria 8-14 (Same as: l 08:44: Valium) [place] Vancomycin No 2001 mg: Me moria 8-13 infuse l 20:00: over 2.5 Andrae 00 hours MEDICATION WASTE Product Size: 1000 mg Product Wasted: ___ mg Versed No Notes: Memoria 8-13 (Same as: l 19:00: Versed) [place] 00 MEDICATION WASTE Product Size: 5 mg [...] Memoria 8- microgram, l 23:45: 20 mL, [place] 00 Rate: Titrate, Start Dose: 50 microgram/ [...] being intubated (unless the nurse is a [employer]). Same as: Diprivan Isolyte S No Notes: Memori a (PH 7.4) 01-12 (Same as: l 1000 mL 05:00: Isolyte S [place] nn 1,000 mL 00 PH 7.4) Morphine No Notes: Memoria 8-11 (Same l 20:53: as:MORPhin [place] e Sulfate) Dilaudid No Notes: Memoria 811 Same as: l 20:53: Dilaudid [place] 00 Morphine No Notes: Memoria 8-11 (Same l 19:57: as:MORPhin [place] 00 e Sulfate) Morphine No Notes: Memoria 8-11 (Same l 19:13: as:MORPhin [place] e Sulfate) Zofran No Notes: Memoria 8-11 [...] polysacchar sennosides, No Notes: Shane ana paula LONG-TERM 01-08 (Same as: l 02:00: Senokot) Andrae [...] Notes: Memoria 01-07 (Same l 13:30: as:MORPhin [place] 00 e Sulfate) Oxycodone No Notes: Memori a Hydrochlori 01-07 (Same as: l de 5 MG 13:15: Roxicodone Herm erlin Oral Tablet 00 ) Acetaminoph No Notes: Max Memoria en 01-07 acetaminop l 13:15: hen 4000 [place] 00 mg/day (4 gm/day). (Same as: Tylenol Extra Strength) celecoxib No Notes: Memori a 01-07 NSAID. l 13:15: Please Andrae 00 check indication . Not for seizure. (Same As: CeleBREX) pregabalin No Notes: Memor ia 01-07 (Same as: l 13:15: Lyrica) iodixanol No Notes: Memori a 01-07 (Same as: l 12:04: Visipaque) [place] 00 . WASTE: F/P - Black; E [...] 25 Memoria 8-07 microgram, l 10:43: Route: [place] 00 IVP, ONCE, Dosing Weight 129.545, kg, [...] Systolic (mm Hg) 2016-01-20 16:09:00 Shane rial [place] Diastolic (mm Hg) 2016-01-20 16:09:00 Mem orial [place] Respitory Rate 2016-01-20 16:09:00 Memori al [place] Heart Rate 2016-01-20 16:09:00 [facility] [place] Temperature Oral (F) 2016-01-20 16:09:00 99.6 F [facility] [place] Respitory Rate 2016-01-20 13:51:00 Memori al [place] Heart Rate 2016-01-20 12:26:00 [facility] [place] Temperature Oral (F) 2016-01-20 12:26:00 98.7 F [facility] [place] Systolic (mm Hg) 2016-01-20 12:26:00 Shane rial [place] Diastolic (mm Hg) 2016-01-20 12:26:00 Mem orial [place] Respitory Rate 2016-01-20 12:26:00 Memori al [place] Temperature Oral (F) 2016-01-20 09:01:00 97.9 F [facility] [place] Systolic (mm Hg) 2016-01-20 09:01:00 Shane rial [place] Diastolic (mm Hg) 2016-01-20 09:01:00 Mem orial [place] Heart Rate 2016-01-20 09:01:00 [facility] [place] Height 2016-01-18 09:51:00 170.18 cm [facility] [place] Height 2016-01-18 04:20:00 170.18 cm [facility] [place] Height 2016-01-18 00:30:00 170.18 cm [facility] [place] BMI Calculated 2016-01-08 16:52:00 Memori al [place] Weight 2016-01-08 16:52:00 [facility] [place] Weight 2016-01-08 10:05:00 [facility] [place] BMI Calculated 2016-01-08 10:05:00 Memori al [place] Procedures Procedure Date / Time Performed Performing Clinician Sourc e Tonsillectomy [facility] [place] Encounters Start End Encounter Admission Attending Care Care Encounter Source Date/Time Date/Time Type Type Clinicians Facility Department ID 2019-10-08 2019-10-08 Emergency Darrin CTJACKIE [id number] 17:53:07 18:29:00 Fanny Colvin 350.1.13.10 [place] 4.2.7.2.[address] [id number] 2019-10-08 2019-10-08 Orders Doctor SKYLER [id number] 00:00:00 00:00:00 Only Unassigned, TONY 350.1.13.10 [facility] 4.2.7.2.686 [id number] 2019-09-21 2019-09-21 Emergency [facility] [id number] 14:35:52 17:14:00 Rashid Colvin 350.1.13.10 [place] 4.2.7.2.686 [place] [id number] 2019-09-08 2019-09-08 Emergency [facility] [id number] 19:21:10 23:29:00 Fifi Colvin 350.1.13.10 [place] 4.2.7.2.686 [place] [id number] 2016-01-08 2016-01-20 Outpatient Karl [facility] [id number] 05:00:00 14:45:00 Lee Smyth 69 Results [...] AMI: 0.60 - 1. 5 ng/mL CHEM NZIPA5530-48-01 05:31:001.9[facility]annCHEM PQFFA6795-65-35 05:31:002.9 [facility] MdgoqoyDCSCAWAHSFCU5506-31-61 05:31:0014.1[facility] HermannELECTROLYTES 2016-01-20 05:31:46568Iwyqxcmh IklaeuzEOITMCKZASMJ3165-84-78 05:31:000.63 [facility] YjmrfmeOIVEHUBARRCA9882-92-97 05:31:0013[facility] HermannELECTROLYTES 2016-01-20 05:31:004.1[facility] WwqegttDEEMZZKETGFY2325-14-32 05:31:06800Lwnaszkl OsxkxdoUILQIKFUAGUR8098-42-15 05:31:56368Twrowmda LpeduifHEBVVSZRQCMQ7918-11-81 05:31:29102Mksqsofp AsifnghRUWWAOVOFCPN1388-93-31 05:31:008.0[facility] [place] IEBVOPCQIDYA2002-21-79 05:31:0023[facility] TlwjbuqRFRYMCSFHJ2169-86-53 05:31:00 0.3[facility] KjdcxtxBRDGWSVHYW2851-60-44 05:31:002.3[facility] HermannHEMATOLOGY 2016-01-20 05:31:006.7[facility] AlfpudeYRYZPFEOPB0645-13-48 05:31:0015.2[facility] FznxtphODCLLEOQGX1134-04-17 05:31:0075.5[facility] YsbgtkkBYKWOFFRTJ5852-97-28 05:31:000.8[facility] GblzzruJSVFJBYMOO1280-23-34 05:31:000.3[facility] [address] SESBTIJPIQ2724-15-86 05:31:001.9[facility] CcbuiztHQSEQESDZS9445-68-88 05:31:009.4 [facility] XxmoismJQKNITUPGO7244-29-14 05:31:008.7[facility] HermannHEMATOLOGY 2016-01-20 05:31:0013.5[facility] YyjqxhrMWYMLZGIYZ1427-21-01 05:31:00 Test Item Value Reference Range Interpretation Comments MCH (test code = MCH) 28.3 pg 27.0-31.0 [facility] CdxvrzkSDEALFDKMG2516-39-63 05:31:85137Pvugweyn HermannHEMATOLOGY 2016-01-20 05:31:0033.4[facility] EobdwfqQVFXWRJUNF4903-14-25 05:31:0084.6[facility] TbajbgfYIVQMPHKAP5704-75-69 05:31:009.2[facility] DshwvkkHQSZVEODVQ9937-70-51 05:31:0027.7[facility] ZgbegarRGBTMITRDJ7742-06-95 05:31:003.27[facility] [address] DDQWNJRLOV4349-68-15 05:31:0012.5[facility] HermannPARATHYROID FGLOITZ1113-31-73 05:31:001.08[facility] HermannPARATHYROID GYJTLEQ9674-08-91 05:31:001.10[facility] LhywtxiLYNAGGHETM5388-43-99 17:30:000.09[facility] HermannCHEM QZFFC4565-43-51 05:32:001.9[facility] HermannCHEM KQOQZ6819-35-80 05:32:003.8[facility] [place] VSSMPOVMYQSL2335-71-01 05:32:0012.1[facility] CsgoviyUSSJOVPWLMJZ4251-79-29 05:32:007.8[facility] MipgkfiXUPPRDTEZRSD6522-57-63 05:32:0029[facility] NWNIVRHTFKRY4968-10-88 05:32:0094[facility] UxtgcqtBBVZCZCBRYTG5425-25-85 05:32:00 4.1[facility] RgqmabyFWXAZBHQKAYH8422-98-02 05:32:49476Pdnmjqkw [place] DBSRFHVTSLEI7755-29-35 05:32:000.53[facility] MyncjtgFBJLGQTBIUMW0757-25-24 05:32:0014[facility] PzegnvgDEYUNMZZXHUJ7250-00-29 05:32:00160Jdtsdcde [place] CHPDBQVSVUIS5047-46-08 05:32:98090Iwzceaoj MyggwlxAZSUXWFGKS9750-88-67 05:32:00 2.2[facility] FpavzwfANZEMDCWBU8939-87-00 05:32:008.5[facility] HermannHEMATOLOGY 2016-01-19 05:32:003.1[facility] KftqornKYDOFBHODK5184-48-36 05:32:001.1[facility] IpvwqbbHAQOMLIPDJ7705-96-35 05:32:000.1[facility] QkgaitdQHMJBKKSJU2851-43-04 05:32:000.4[facility] KxuaddnDRVAADVHUA9863-46-49 05:32:000.8[facility] [place] RBMBLEXYOU5413-24-91 05:32:006.4[facility] QbyhipaSOQWXETRYM1356-53-74 05:32:00 70.9[facility] GaeabkpFPZVUKHDKR9512-83-65 05:32:0018.5[facility] HermannHEMATOLOGY 2016-01-19 05:32:15839Cpcdxzoy DbsxzutIOIPZBYNLU4560-21-01 05:32:008.9[facility] VkgswswSVGVRLZWFQ4807-25-06 05:32:0032.9[facility] WootamxILWIBQSGSV0953-97-37 05:32:0013.6[facility] XbyggldOBXLZRSEBH7471-03-65 05:32:0085.1[facility] [address] LZEXERXREL1742-48-48 05:32:00 Test Item Value Reference Range Interpretation Comments MCH (test code = MCH) 28.0 pg 27.0-31.0 Memorial MgpzimhVAOZFFYURG5553-34-00 05:32:0026.7[facility] HermannHEMATOLOGY 2016-01-19 05:32:003.14[facility] PlkgcgxEWTXDVPONL2492-24-59 05:32:008.8[facility] LbahnyqWSVQBZCTCC0712-71-27 05:32:0012.0[facility] HermannPARATHYROID PROFILE 2016-01-19 05:32:001.12[facility] HermannPARATHYROID ESAGZYR7589-06-74 05:32:00 1.12[facility] HermannCHEM YRFIZ0351-20-58 05:20:50926Nnfffsbi HermannCHEM PANEL 2016-01-18 05:20:24155Nupoepzv HermannCHEM OQACN9811-56-13 05:20:0018[facility] HermannCHEM XHBYH9380-34-18 05:20:000.55[facility] HermannCHEM DVTRQ3600-65-89 05:20:004.4[facility] HermannCHEM GKPBD1066-24-60 05:20:29272Zeqimbmo HermannCHEM ENOMB8959-98-71 05:20:007.7[facility] HermannCHEM JWLME7374-46-70 05:20:42009 [facility] HermannCHEM QROEN6306-97-91 05:20:0027[facility] HermannCHEM PANEL 2016-01-18 05:20:0012.4[facility] HermannCHEM PBDQK2277-88-21 05:20:002.2[facility] HermannCHEM BWYNG8933-22-44 05:20:002.9[facility] BzdhtrgBWQRYWEATN9889-38-24 05:20:00Normal (01/18/16 12:20 AM)[facility] KkxgkleKWVCSFUGIM0642-33-30 05:20:00 Normal (01/18/16 12:20 AM)[facility] RkneqadJNOTVLNUBQ0940-01-77 05:20:0015.5 [facility] BdrngnwLJADMYPJST0951-62-95 05:20:0071.9[facility] HermannHEMATOLOGY 2016-01-18 05:20:0011.2[facility] GrdprnhFQONVASHHK4734-28-85 05:20:006.9[facility] FrdahdlAXBAJCICTN3962-66-54 05:20:000.4[facility] WtbwnkbLFOBRCXEPK6774-61-84 05:20:001.5[facility] PxlkgttBVGYVQTYAQ3844-18-39 05:20:001.0[facility] [place] XYHESPWMZB2044-30-82 05:20:000.1[facility] WuvditaNYHJDIUAEF0079-23-59 05:20:001.1 [facility] WjlorvkORABJNXLGY5829-63-05 05:20:000.04[facility] HermannHEMATOLOGY 2016-01-18 05:20:34080Gvjlgxhb DvxdrffEVVTXOGVPC9816-76-15 05:20:0013.8[facility] AkjrsvyHHAHUKNPDM0796-15-26 05:20:009.6[facility] SggxntmSCLKYPWWXA7573-47-90 05:20:008.5[facility] BmhbezoJMJSHNSFJV2387-58-75 05:20:0084.4[facility] [place] EDLXCOGRRE6925-30-29 05:20:0033.6[facility] NnvmwcmTOVSIFGDFR2851-69-02 05:20:00 Test Item Value Reference Range Interpretation Comments MCH (test code = MCH) 28.3 pg 27.0-31.0 [facility] ZdgctvgLPXHUHMLOI3939-06-02 05:20:0025.9[facility] HermannHEMATOLOGY 2016-01-18 05:20:008.7[facility] FgjhkaaOCTTNDKXOD3094-40-62 05:20:003.07[facility] HermannPARATHYROID RREOCFK0805-36-62 05:20:001.13[facility] HermannPARATHYROID MMASAKV4784-35-70 05:20:001.08[facility] XqviuomVMMOEIGBQC2357-59-22 08:12:000.1 [facility] HermannBLOOD BANK RGSXJZO6493-58-68 05:05:00Negative (01/16/16 12:05 AM) [facility] UerscoaHLICKHDHMT6197-06-23 13:15:221592Jwryckly HermannTOXICOLOGY 2016-01-15 13:15:004.9[facility] HermannURINE AND OOZPO6445-62-23 12:03:003 [facility]annURINE AND QWTHI8829-35-11 12:03:001[facility]annURINE AND CFIJC6255-28-71 12:03:00Negative (01/14/16 7:03 AM)[facility] AND IISOM6880-06-07 12:03:00Negative *NA*(01/14/16 7:03 AM)[facility]UR[facility] AND UYZLU8637-80-46 12:03:00 Test Item Value Reference Range Interpretation Comments UA pH (test code = UA pH) 5.5 1 5.0-8.0 [facility]UR[facility] AND BPGFX3238-00-11 12:03:00Negative (01/14/16 7:03 AM) [facility] AND PGTQS4670-32-44 12:03:00Trace *ABN*(01/14/16 7:03 AM) [facility] JAGLU0483-15-12 12:03:00Negative *NA*(01/14/16 7:03 AM) [facility] WJBWN7085-89-97 12:03:00 Test Item Value Reference Range Interpretation Comments UA Spec Grav (test code = UA Spec 1.025 1 Grav) [facility] YLJFX3946-80-68 12:03:00Clear (01/14/16 7:03 AM) [facility] IIMMW7546-20-53 12:03:00Yellow *NA*(01/14/16 7:03 AM) [facility] AKMJJ7983-12-76 12:03:00Negative (01/14/16 7:03 AM) [facility] AND YSNXF2009-95-94 12:03:00None Seen (01/14/16 7:03 AM) [facility] UAEQZ5786-69-44 12:03:001.0[facility] APXIT3865-09-43 12:03:00Negative (01/14/16 7:03 AM)[facility] 2016-01-13 14:28:003.4[facility] IqgpnefFYXCETNMQE7277-10-62 14:28:00 Test Item Value Reference Range Interpretation Comments Max Amplitude Rapid (test code = Max 76 mm 52-71 Amplitude Rapid) [facility]anoDtftadyANJQXLVYOX6426-39-31 14:28[facility]0015.8[facility] 14:28:00 Test Item Value Reference Range Interpretation Comments R-time Rapid (test code = R-time 0.9 min 0.4-0.7 Rapid) [facility]anoBnsjrlzUFLMRWMSVX3319-73-70 14:28:00 Test Item Value Reference Range Interpretation Comments K-time Rapid (test code = K-time 1.1 min 0.6-2.3 Rapid) [facility]anoKiwohezBZFKNTHFRA5765-41-43 14:28:00 Test Item Value Reference Range Interpretation Comments Angle Rapid (test code = Angle 78 degrees 64-80 Rapid) [facility]anoOlksrymVXPDRWDYGU6113-52-01 14:28:00 Test Item Value Reference Range Interpretation Comments ACT (TEG) Rapid (test code = ACT (TEG) 136 s 86-118 Rapid) [facility]anoRtcnuoqWTIXSBGISO7467-78-62 14:28:00 Test Item Value Reference Range Interpretation Comments Split Point Rapid (test code = Split 0.8 min Point Rapid) [facility] EWUPXXB8519-98-32 05:34:00Negative (01/13/16 12:34 AM) [facility]anoWqazpkaJLAHIVJVOA8536-40-94 05:34:00 Test Item Value Reference Range Interpretation Comments PTT (test code = PTT) 42.2 s 22.9-35.8 [facility]anoHzbojddDLCYEDUOZG3392-18-17 05:34:001.15[facility] HermannHEMATOLOGY 2016-01-13 05:34:00 Test Item Value Reference Range Interpretation Comments PT (test code = PT) 15.0 s 12.0-14.7 [facility] BvalhioIYRDRETQAZ2314-15-49 09:47:00Normal (01/11/16 4:47 AM)[facility] MlonriwXHFOWYLYDM8280-01-25 09:47:00Normal (01/11/16 4:47 AM)[facility] HermannCHEM ODAMM6460-50-51 10:16:001.2[facility] HermannCHEM LCYFR5151-45-61 23:00:002.2 [facility] HermannCHEM HZKTZ4019-98-27 16:03:002.0[facility] HermannDRUG SCREEN 2016-01-08 12:28:00See Note (01/08/16 [...] 2016-01-08 12:28:000-2 (01/08/16 7:28 AM)[facility] AND AZXBJ3697-62-23 12:28:00 Test Item Value Reference Range Interpretation Comments UA pH (test code = UA pH) 6.0 1 5.0-8.0 [facility] MDCQQ9253-93-87 12:28:00Small *ABN*(01/08/16 7:28 AM) [facility] ELNRR8598-68-30 12:28:000.2[facility]UR[facility] AND PLOYD3226-27-68 12:28:00Negative (01/08/16 7:28 AM)[facility] STOOL 2016-01-08 12:28:00Negative (01/08/16 7:28 AM)[facility] STOOL 2016-01-08 12:28:00Negative (01/08/16 7:28 AM)[facility] STOOL 2016-01-08 12:28:00Negative *NA*(01/08/16 7:28 AM)[facility] STOOL 2016-01-08 12:28:00Negative *NA*(01/08/16 7:28 AM)[facility] STOOL 2016-01-08 12:28:00 Test Item Value Reference Range Interpretation Comments UA Spec Grav (test code = UA Spec 1.027 1 Grav) [facility] OYGZV5984-56-58 12:28:00Clear (01/08/16 7:28 AM)[facility] AND XBHZV5891-65-20 12:28:00Yellow *NA*(01/08/16 7:28 AM)[facility] CzwjotfNOZLTTGGNP4037-75-26 10:16:150.1[facility] HenuppsAUKQQHUFZE8242-61-26 10:16:15 Test Item Value Reference Range Interpretation Comments [place] Rapid (test code = Split 0.6 min Point Rapid) [facility] KwnlwzgXIBBZQXCAX6229-03-24 10:16:15 Test Item Value Reference Range Interpretation Comments ACT (TEG) Rapid (test code = ACT (TEG) 113 s 86-118 Rapid) [facility] DdwlishUVJUHGTXSM0417-88-58 10:16:15 Test Item Value Reference Range Interpretation Comments Angle Rapid (test code = Angle 72 degrees 64-80 Rapid) [facility]XXUVSCDV7730[facility] 10:16:15 Test Item Value Reference Range Interpretation Comments K-time Rapid (test code = K-time 1.5 min 0.6-2.3 Rapid) [facility]anoAufutzgEOPLZUXQEO4443-92-83 10:16:15 Test Item Value Reference Range Interpretation Comments R-time Rapid (test code = R-time 0.7 min 0.4-0.7 Rapid) [facility]anoKjqkoyzHGFACZVMAT5473-97-45 10:16:15 Test Item Value Reference Range Interpretation Comments Max Amplitude Rapid (test code = Max 61 mm 52-71 Amplitude Rapid) [facility]anoDzrsvsuHFPSNPPXEQ7307-58-52 10:16:157.9[facility] 2016-01-08 10:16:151.4[facility] QJJCLHE8456-66-66 10:13:00 Negative (01/08/16 5:13 AM)[facility]
[2019-12-30] MEDS ORDERED: ONDANSETRON 4 MG/2 ML VIAL ONE (20:24)
[2019-12-30] MEDS ORDERED: NA CHLORIDE 0.9% 1,000 ML ONE (20:24)
[2019-12-30 20:36] LABS: Absolute Lymphocytes (CBC) 3.5 K/uL (0.7-4.9); Basophils % 1.5 % (0-1.3); Hematocrit 44.3 % (39.6-49.0); Lymphocytes % 42.3 % (15.3-44.8); MPV 7.8 fL (7.6-11.3); RBC Red Blood Cell Count 5.15 M/uL (4.33-5.43)
[2019-12-30 20:50] LABS: ALT/SGPT 45 U/L (12-78); AST/SGOT 27 U/L (15-37); Albumin 3.8 g/dL (3.4-5.0); Alkaline Phosphatase 90 U/L (45-117); BUN Blood Urea Nitrogen 17 mg/dL (7-18); Bicarbonate 26 mmol/L (21-32); Bilirubin Direct < 0.1 mg/dL (0-0.2); Bilirubin Total 0.2 mg/dL (0.2-1.0); Glucose Level 132 mg/dL (74-106); Lipase 329 U/L (73-393); Potassium 3.9 mmol/L (3.5-5.1); Protein, Total 7.5 g/dL (6.4-8.2); Sodium Level 143 mmol/L (136-145)
--- NOTE | 2019-12-30 22:46 | EDPHYS ---
Physician Documentation [facility] Name: Yaw Aldrich Jr Age: 29 yrs Sex: Male : 1990 Arrival Date: 12/30/2019 Time: 20:13 Bed 2 Private MD: ED Physician Pedro Pino HPI: 12/29 22:40 This 29 yrs old Male presents to ER via EMS with complaints of Flu Symptoms. rn 22:40 The patient presents to the emergency department with nausea, vomiting. Onset: The rn symptoms/episode began/occurred just prior to arrival. Possible causes: unknown. The symptoms are aggravated by nothing. The symptoms are alleviated by nothing. Severity of symptoms: At their worst the symptoms were moderate in the emergency department the symptoms have improved. The patient has not experienced similar symptoms in the past. 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 Reports once ems arrived felt much better, now just a little nausea. NO abd pain. No cough/sob/fever. [employer] fine prior to today. No known sick contacts. . Historical: - Allergies: 20:19 Poultry; ea 20:19 Diphenhydramine; ea 20:19 shrimp; ea - PMHx: 20:19 Asthma; Hypertension; Diabetes - NIDDM; ea - Immunization history:: Adult Immunizations unknown. - Social history:: Smoking status: Patient reports the use of cigarette tobacco products, smokes one pack cigarettes per day. - Family history:: not pertinent. - Hospitalizations: : No recent hospitalization is reported. ROS: 22:43 Constitutional: Negative for fever, chills, and weight loss, Eyes: Negative for injury, rn pain, redness, and discharge, Neck: Negative for injury, pain, and swelling, Cardiovascular: Negative for chest pain, palpitations, and edema, Respiratory: Negative for shortness of breath, cough, wheezing, and pleuritic chest pain, Abdomen/GI: Negative for abdominal pain MS/Extremity: Negative for injury and deformity, Skin: Negative for injury, rash, and discoloration, Neuro: Negative for headache, numbness, tingling, and seizure. Exam: 22:43 Constitutional: This is a well developed, well nourished patient who is awake, alert, rn and in no acute distress. Head/Face: Normocephalic, atraumatic. Eyes: Pupils equal round and reactive to light, extra-ocular motions intact. Lids and lashes normal. Conjunctiva and sclera are non-icteric and not injected. Cornea within normal limits. Periorbital areas with no swelling, redness, or edema. Cardiovascular: Regular rate and rhythm. No pulse deficits. Respiratory: Speaking full sentences. No increased work of breathing, no retractions or nasal flaring. Abdomen/GI: soft, non-tender, no masses MS/ Extremity: Pulses equal, no cyanosis. Neurovascular intact. Full, normal range of motion. Equal circumference. Neuro: Awake and alert, GCS 15, oriented to person, place, time, and situation. Cranial nerves II-XII grossly intact. Motor strength 5/5 in all extremities. Sensory grossly intact. Cerebellar exam normal. Vital Signs: 20:13 BP 137 / 90; Pulse 93; Resp 19; Temp 98; Pulse Ox 98% ; Weight 104.33 kg; Height 5 ft. ea 6 in. (167.64 cm); 21:20 Pulse 80; Resp 18; Pulse Ox 99% on R/A; mg2 21:21 BP 107 / 77; mg2 22:42 BP 110 / 87; Pulse 78; Resp 18; Pulse Ox 98% ; ea 20:13 Body Mass Index 37.12 (104.33 kg, 167.64 cm) ea MDM: 20:17 Patient medically screened. rn 22:43 Differential diagnosis: viral gastroenteritis, gastroenteritis, food poisoning, too rn much food, acid reflux, COVID-19, viral syndrome, heat exhaustion. Data reviewed: vital signs, nurses notes, lab test result(s), and as a result, I will discharge patient. Counseling: I had a detailed discussion with the patient and/or guardian regarding: the historical points, exam findings, and any diagnostic results supporting the discharge/admit diagnosis, lab results, the need for outpatient follow up, to return to the emergency department if symptoms worsen or persist or if there are any questions or concerns that arise at home. Response to treatment: the patient's symptoms have markedly improved after treatment, sleeping, requesting food when woke up, and as a result, I will discharge patient. Special discussion: I discussed with the patient/guardian in detail that at this point there is no indication for admission to the hospital. It is understood, however, that if the symptoms persist or worsen the patient needs to return immediately for re-evaluation. 12/29 20:18 Order name: Basic Metabolic Panel rn 12/29 20:18 Order name: CBC with Diff; Complete Time: 22:37 rn 12/29 20:18 Order name: Hepatic Function rn 12/29 20:18 Order name: Lipase; Complete Time: 22:37 rn 12/29 20:18 Order name: COVID-19 rn 12/29 20:18 Order name: Flu; Complete Time: 22:37 rn 12/29 20:18 Order name: IV Start; Complete Time: 20: rn 12/29 20:18 Order name: Labs collected and sent; Complete Time: 20: rn 12/29 20:19 Order name: Basic Metabolic Panel; Complete Time: 22:37 EDMS 12/29 20:19 Order name: Liver (Hepatic) Function; Complete Time: 22:37 EDMS Administered Medications: 20:26 Drug: NS 0.9% 1000 ml Route: IV; Rate: 1000 ml; Site: left forearm; mg2 21:21 Follow up: Response: No adverse reaction; IV Status: Completed infusion; IV Intake: mg2 1000ml 20:26 Drug: Zofran (Ondansetron) 4 mg Route: IVP; Site: left forearm; mg2 21:21 Follow up: Response: No adverse reaction; Nausea is decreased mg2 Disposition: 12/30/19 22:45 Discharged to Home. Impression: Gastro-esophageal reflux disease, Vomiting, unspecified. - Condition is Stable. - Discharge Instructions: Gastroesophageal Reflux Disease, Adult, Nausea and Vomiting, Adult. - Medication Reconciliation Form, Thank You Letter, Antibiotic Education, Prescription Opioid Use form. - Follow up: Private Physician; When: As needed; Reason: Recheck today's complaints, Re-evaluation by your physician. - Problem is new. - Symptoms have improved. Signatures: Dispatcher [employer] EDMS Pedro Pino MD MD rn Antunez, Elena, RN RN ea Gardose, Michele, RN RN mg2 Corrections: (The following items were deleted from the chart) 22:53 22:45 12/30/2019 22:45 Discharged to Home. Impression: Gastro-esophageal reflux mg2 disease; Vomiting, unspecified. Condition is Stable. Forms are Medication Reconciliation Form, Thank You Letter, Antibiotic Education, Prescription Opioid Use. Follow up: Private Physician; When: As needed; Reason: Recheck today's complaints, Re-evaluation by your physician. Problem is new. Symptoms have improved. rn
--- NOTE | 2019-12-30 22:46 | ER ---
Nurse's Notes [facility] Name: Yaw Aldrich Jr Age: 29 yrs Sex: Male : 1990 Arrival Date: 12/30/2019 Time: 20:13 Bed 2 Private MD: Diagnosis: Gastro-esophageal reflux disease;Vomiting, unspecified Presentation: 12/29 20:13 Chief complaint: Patient states: Pt reports he started having symptoms of dizziness, ea nausea and generalized weakness. Coronavirus screen: Patient denies a cough. Patient denies shortness of breath or difficulty breathing. Patient denies measured and/or subjective temperature greater than 100.4F prior to today's visit. Patient denies travel on a cruise ship or to a country the [facility] currently lists as an affected area. Patient denies contact with known and/or suspected case of COVID-19. pt reports he is unsure if he was exposed to covid. Ebola Screen: No symptoms or risks identified at this time. Initial Sepsis Screen: Does the patient meet any 2 criteria? No. Patient's initial sepsis screen is negative. Does the patient have a suspected source of infection? No. Patient's initial sepsis screen is negative. Risk Assessment: Do you want to hurt yourself or someone else? Patient reports no desire to harm self or others. Onset of symptoms was December 30, 2019. 20:13 Method Of Arrival: EMS: [facility] ea 20:13 Acuity: SHEY 3 ea Triage Assessment: 20:19 General: Appears in no apparent distress. Behavior is appropriate for age. Pain: Denies ea pain. Historical: - Allergies: 20:19 Poultry; ea 20:19 Diphenhydramine; ea 20:19 shrimp; ea - PMHx: 20:19 Asthma; Hypertension; Diabetes - NIDDM; ea - Immunization history:: Adult Immunizations unknown. - Social history:: Smoking status: Patient reports the use of cigarette tobacco products, smokes one pack cigarettes per day. - Family history:: not pertinent. - Hospitalizations: : No recent hospitalization is reported. Screenin:18 Abuse screen: Denies threats or abuse. Nutritional screening: No deficits noted. ea Tuberculosis screening: No symptoms or risk factors identified. Fall Risk None identified. Assessment: 20:19 General: Appears in no apparent distress. Behavior is appropriate for age. Pain: Denies ea pain. Neuro: Level of Consciousness is awake, alert, obeys commands, Oriented to person, place, time, situation. Cardiovascular: Patient's skin is warm and dry. Respiratory: Airway is patent Respiratory effort is even, unlabored, Respiratory pattern is regular, symmetrical. Derm: Skin is pink, warm \T\ dry. 21:20 Reassessment: Patient appears in no apparent distress at this time. Patient and/or mg2 family updated on plan of care and expected duration. Pain level reassessed. Patient is alert, oriented x 3, equal unlabored respirations, skin warm/dry/pink. 22:19 Reassessment: Pt resting with eyes closed, respiration s even and unlabored. Chest ea expansions even and symmetrical. No s/s of pain or discomfort noted at this time. 22:42 Reassessment: Patient and/or family updated on plan of care and expected duration. Pain ea level reassessed. Patient is alert, oriented x 3, equal unlabored respirations, skin warm/dry/pink. Provider at bedside updating pt on plan of care. Vital Signs: 20:13 BP 137 / 90; Pulse 93; Resp 19; Temp 98; Pulse Ox 98% ; Weight 104.33 kg; Height 5 ft. ea 6 in. (167.64 cm); 21:20 Pulse 80; Resp 18; Pulse Ox 99% on R/A; mg2 21:21 BP 107 / 77; mg2 22:42 BP 110 / 87; Pulse 78; Resp 18; Pulse Ox 98% ; ea 20:13 Body Mass Index 37.12 (104.33 kg, 167.64 cm) ea ED Course: 20:13 Patient arrived in ED. ea 20:14 Amberly Haley FNP-C is PHCP. snw 20:14 Pedro Pino MD is Attending Physician. snw 20:18 Triage completed. ea 20:18 Arm band placed on right wrist. Patient placed in an exam room, on a stretcher, on ea pulse oximetry. 20:18 Patient has correct armband on for positive identification. Bed in low position. Call ea light in reach. Side rails up X2. 20:20 Inserted saline lock: 20 gauge 22 gauge in left forearm, using aseptic technique. Blood mg2 collected. 20:21 Clare Murphy RN is Primary Nurse. ea 20:26 No provider procedures requiring assistance completed. mg2 22:52 IV discontinued, intact, bleeding controlled, No redness/swelling at site. Pressure mg2 dressing applied. Administered Medications: 20:26 Drug: NS 0.9% 1000 ml Route: IV; Rate: 1000 ml; Site: left forearm; mg2 21:21 Follow up: Response: No adverse reaction; IV Status: Completed infusion; IV Intake: mg2 1000ml 20:26 Drug: Zofran (Ondansetron) 4 mg Route: IVP; Site: left forearm; mg2 21:21 Follow up: Response: No adverse reaction; Nausea is decreased mg2 Intake: 21:21 IV: 1000ml; Total: 1000ml. mg2 Outcome: 22:45 Discharge ordered by . rn 22:52 Discharged to home ambulatory. mg2 22:52 Condition: stable 22:52 Discharge instructions given to patient, Instructed on discharge instructions, follow up and referral plans. Demonstrated understanding of instructions, follow-up care. 22:53 Patient left the ED. mg2 Addendum: 01/04/2020 11:45 Addendum: COVID-19 Result: Negative result given to RN to notify pt. Attempted to d m5 contact pt regarding negative COVID-19 swab results. Left voice mail. Signatures: Niharika Lu RN RN dm5 Amberly Haley, BROADCAST SUPERVISOR-C BROADCAST SUPERVISOR-Csnw Pedro Pino MD MD rn Antunez, Elena, RN RN ea Gardose, Michele, RN RN mg2
[2019-12-30 23:17] VITALS: TEMP 98
[2019-12-30 23:21] VITALS: BP 110/87; O2SAT 98
== END 2019-12-30 22:53 | disposition home or self-care (01) ==
LOC: ER 20:11
DX: K21.9 Gastro-esophageal reflux disease without esophagitis (principal); Z20.828 Contact with and (suspected) exposure to other viral communicable diseases; I10 Essential (primary) hypertension; F17.210 Nicotine dependence, cigarettes, uncomplicated; Z88.8 Allergy status to other drugs, medicaments and biological substances; Z91.013 Allergy to seafood; Z91.018 Allergy to other foods
CPT/HCPCS: 36415; 80048; 80076; 83690; 85025; 87804; 96361; 96374; 99284; J2405; J7030; U0001

== ENCOUNTER 2020-01-06 15:57 | Emergency (ER) | payer SELFPAY ==
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
--- OUTSIDE RECORDS SUMMARY | 2020-01-06 16:36 | XMS REPORT | Continuity of Care Document ---
:1990 Author Organization [facility] t Address [address] [place] [address] Care Team Providers Name Role Phone Bernabe Fatima MD Attending Clinician Karen Clifford DO Attending Clinician Doctor Unassigned, [...] STABBING 00:00: Clive trinh 00 Active 01/08/2016 [facility] HARPREET Diagnosis Active 2016-04-09 Tye BILLING/#3 01-07 12:05:00 l 854 00:00: Andrae MULLINS 00 BILLING/#3 854 Active 01/08/2016 [facility] STABBING Diagnosis Active 2016-04-09 M emoria TO BACK 01-07 12:04:00 l STABBING 00:00: Clive n TO BACK 00 Active 01/08/2016 [facility] Infestatio Problem Resolve 2016-01-23 Memoria n by d 01:07:53 l Sarcoptes Andrae scabiei Infestatio lanre n by hominis Sarcoptes (disorder) scabiei lanre hominis (disorder) Resolved Problem 01/23/2016 [facility] Loculated Problem Active 2016-01-23 Me moria pleural 01:07:53 l effusion [place] (disorder) Loculated pleural effusion (disorder) Active Problem 01/23/2016 [facility] LAC W/O FB Diagnosis Active 2016-04-09 Memoria OF LOW 12:04:00 l BACK AND LAC W/O [place] nn PELVIS W FB OF LOW PENE BACK AND PELVIS W PENE Active [facility] Allergies, Adverse Reactions, Alerts Allergy Allergy Status Severity Reaction(s) Onset Inactive Treating Comm ents Source Name Type Date Date Clinician Antihist DA Active [facility] am[facility] - 09-06 Mainlan Alkylami 00:00: d ne 00 [facility] No Known DA Active [facility] Allergie 06-11 Mainlan s 00:00: d 00 [facility] Benadryl Benadryl Active Dale Abebe Social History Social Habit Start Date [...] Oral Tablet 18:48: Q24H, X 7 H ermerlin [Levaquin] day, # 7 tab, 0 Refill(s) [...] Route: l 21:00: IVPB, Drug form: PDR/INJ, [id number], Dosing Weight 118.182, kg, Start date: 01/18/16 [...] ___ mg gabapentin No Notes: Memor ia 8-17 (Same as: l 10:30: Neurontin) dexmedetomi No 24 hours M emoria dine 400 8-16 l microgram + 18:04: Clive n sodium 00 chloride 0.9% INJ 96 mL Dexmedetomi No 400 Memori a dine 8-16 microgram, l 17:56: 100 mL, Andrae Rate: Titrate, Start Dose: 0.2 microgram/ kg/hr, Titration: 0.1 microgram/ kg/hr every 30 min, Goal(s): sedation, Max Dose: 1.5 microgram/ kg/hr, Route: IV, Dosing Weight 118.182 kg, Total Volume: 100, Start date: 01/17/16 12:56:00.. . Fentanyl No Notes: Memoria 8-16 (Same as: l 00:02: Sublimaze) Preservat yissel free. Propofol 10 No Notes: If M emoria MG/ML 8-15 Diprivan - l Injectable 23:42: change [place] nn Suspension 00 bottle & tubing every 12 hr Per state nursing law propofol can only be given by a nurse if patient is intubated or being intubated (unless the nurse is a INSPECTOR TUBES). Same as: Diprivan Ancef No 120 kg Memoria 8-15 l 20:28: Ativan No Notes: Memoria 8-15 (Same as: l 18:26: Ativan) Haldol No Notes: Memoria 8-15 (Same as: l 18:25: Haldol) Clonidine No Notes: Memori a Hydrochlori 8-15 (Same As: l de 0.1 MG 17:00: Catapres) Her morrell Oral Tablet 00 Rocephin + No Notes: Memor ia sodium 8-15 (Same As: l chloride 16:00: Rocephin). Her morrell 0.9% INJ 50 00 mL Rocephin No Notes: Memoria 8-15 (Same As: l 15:00: Rocephin). Neutra-Phos No Notes: Shane ana paula 8-15 [...] MG 17:00: Catapres) Her morrell Oral Tablet Vancomycin No 2001 mg: Me moria 8-14 infuse l 16:00: over 2.5 Andrae 00 hours Haldol No Notes: Memoria 8-14 (Same as: l 15:44: Haldol) Andrae Haldol No Notes: Memoria 8-14 (Same as: l 15:43: Haldol) Andrae Permethrin No Notes: Memor ia 50 MG/ML [...] moria 8-13 infuse l 20:00: over 2.5 [place] 00 hours MEDICATION WASTE Product Size: 1000 mg Product Wasted: ___ mg Versed No Notes: Memoria 8-13 (Same as: l 19:00: Versed) MEDICATION WASTE Product Size: 5 mg Product Wasted: ___ mg Rocuronium No Notes: Memor ia -13 (Same as: l 14:13: Zemeron) Midazolam No Notes: Memori a - (Same as: l 14:13: Versed) MEDICATION WASTE Product Size: 5 mg Product Wasted: ___ mg Fentanyl No Notes: Memoria 01-13 (Same as: l 14:12: Sublimaze) Preservat yissel free. Risperdal No Notes: Memori a 01-13 (Same as: l 14:00: Risperdal) Haldol No Notes: Memoria 01-13 (Same as: l 13:58: Haldol) Ceftazidime No Notes: Shane ana paula 01-13 (Same as: l 12:00: Fortaz) MEDICATION WASTE Product Size: 1000 mg Product Wasted: ___ mg Flagyl No Notes: Memoria 01-13 (Same as: l 12:00: Flagyl) Avoid alcohol. Isolyte S No Notes: Memori a PH-7.4 01-13 (Same as: l (Bolus) IV 11:42: Isolyte S PH 7.4) Vancomycin No 2001 mg: Me moria 01-13 infuse l 11:31: over 2.5 hours MEDICATION WASTE Product Size: 1000 mg Product Wasted: ___ mg Pepcid No Notes: Memoria 01-13 (Same as: l 02:00: Pepcid) Insulin No 60 Memoria regular 8-12 units) l 23:46: WASTE: F/P - Black; E - Municipal Trash Bin Stable for 28 days at room temperatur e Expires in days from ____Date Dextrose 2015- No 12.5 gm, Memor ia 50% Syringe 01-12 25 mL, l 23:46: Route: Andrae 00 IVP, Drug Form: INJ, Dosing Weight 118.182, kg, PRN, PRN Abnormal Lab Result, Start date: 01/13/16 18:46:00 CDT, Duration: 30 day, Stop date: 02/12/16 18:45:00 CDT, For FSBG 40 mg/dL - 60 mg/dL Fentanyl No 1,000 Memoria 8- microgram, l 23:45: 20 mL, [place] 00 Rate: Titrate, Start Dose: 50 microgram/ [...] intubated (unless the nurse is a INSPECTOR TUBES). Same as: Diprivan Isolyte S No Notes: Memori a (PH 7.4) 01-12 (Same as: l 1000 mL 05:00: Isolyte S Lexus nn 1,000 mL 00 PH 7.4) Morphine No Notes: Memoria 8- (Same l 20:53: as:MORPhin Andrae 00 e Sulfate) Dilaudid No Notes: Memoria 8-11 Same as: l 20:53: Dilaudid Morphine No Notes: Memoria 8-11 (Same l 19:57: as:MORPhin [place] 00 e Sulfate) Morphine No Notes: Memoria 8-11 (Same l 19:13: as:MORPhin Andrae 00 e Sulfate) Zofran No Notes: Memoria 8- (Same as: l 19:13: Zofran) [place] 00 MEDICATION WASTE Product Size: 4 mg Product Wasted: ___ mg Iohexol No Notes: Memoria 8- (same l 16:15: as:Omnipaq [place] 00 ue 350). WASTE: F/P - Black; E - Municipal Trash Bin Thiamine No Notes: Memoria 01-11 (Same As: l 14:00: Vitamin B1) Prenate No 1 tab, Memoria 01-11 Route: PO, l 14:00: Drug Form: TAB, [...] polysacchar sennosides, No Notes: Shane ana paula JAIL 01-08 (Same as: l 02:00: Senokot) Andrae Isolyte S No Notes: Memori a PH-7.4 [...] l Topical 19:05: Elimite) Clive n Cream WASTE: F/P - Black; E - Municipal Trash Bin Morphine No Notes: Memoria 01-07 (Same l 14:58: as:MORPhin Andrae 00 e Sulfate) Enoxaparin No Notes: Memor ia 01-07 (Same as: l 14:00: Lovenox) Andrae Docusate No Notes: Memoria 01-07 (Same as: l 14:00: Colace) [place] (Do Not Crush) Morphine No Notes: Memoria 01-07 (Same l 13:30: as:MORPhin [place] 00 e Sulfate) Oxycodone No Notes: Memori [...] a 01-07 (Same as: l 12:04: Visipaque) [place] 00 . WASTE: F/P - Black; E [...] 25 Memoria 8-07 microgram, l 10:43: Route: [place] 00 IVP, ONCE, Dosing Weight 129.545, kg, Priority: STAT, Start date: 01/08/16 5:43:00 CDT, Stop date: 01/08/16 5:43:00 CDT Fentanyl No 50 Memoria 8-07 microgram, l 10:29: Route: [place] 00 IVP, ONCE, Dosing Weight 129.545, kg, Priority: STAT, Start date: 01/08/16 5:29:00 CDT, Stop date: 01/08/16 5:29:00 CDT Cefazolin No 2 gm, Memoria 01-07 Route: l 10:29: IVPB, Andrae 00 ONCE, Dosing Weight 129.545, kg, Priority: STAT, Start date: 01/08/16 5:29:00 CDT, Stop date: 01/08/16 5:29:00 CDT Saline No Notes: Memoria Flush 0.9% 01-07 Same as: l 10:05: BD Andrae 00 Posiflush Sterile Vital Signs Vital Name Observation Time Observation Value Comments Source Systolic (mm Hg) 2016-01-20 16:09:00 Shane rial Andrae Diastolic (mm Hg) 2016-01-20 16:09:00 Mem orial [place]rae Respitory Rate 2016-01-20 16:09:00 Memori al [place] Heart Rate 2016-01-20 16:09:00 [facility] [place] Temperature Oral (F) 2016-01-20 16:09:00 99.6 F [facility] [place] Respitory Rate 2016-01-20 13:51:00 Memori al [place] Heart Rate 2016-01-20 12:26:00 [facility] [place] Temperature Oral (F) 2016-01-20 12:26:00 98.7 F [facility] [place] Systolic (mm Hg) 2016-01-20 12:26:00 Shane rial [place] Diastolic (mm Hg) 2016-01-20 12:26:00 Mem orial [place] Respitory Rate 2016-01-20 12:26:00 Memori al [place] Temperature Oral (F) 2016-01-20 09:01:00 97.9 F [facility] [place] Systolic (mm Hg) 2016-01-20 09:01:00 Shane rial [place] Diastolic (mm Hg) 2016-01-20 09:01:00 Mem orial [place] Heart Rate 2016-01-20 09:01:00 [facility] [place] Height 2016-01-18 09:51:00 170.18 cm [facility] [place] Height 2016-01-18 04:20:00 170.18 cm [facility] [place] Height 2016-01-18 00:30:00 170.18 cm [facility] [place] BMI Calculated 2016-01-08 16:52:00 Memori al [place] Weight 2016-01-08 16:52:00 [facility] [place] Weight 2016-01-08 10:05:00 [facility] [place] BMI Calculated 2016-01-08 10:05:00 Memori al [place] Procedures Procedure Date / Time Performed Performing Clinician Sourc e Tonsillectomy [facility] Encounters Start End Encounter Admission Attending Care Care Encounter Source Date/Time Date/Time Type Type Clinicians Facility Department ID 2020-01-01 2020-01-01 [facility] [id number] 21:44:53 23:23:00 Chaalonzolaxmi Bernabe Marii [id number] Frannie [id number] [place] [id number] 2019-10-08 2019-10-08 [id number] 17:53:07 18:29:00 Fanny Jones Marii [id number] Frannie [id number] [place] [id number] 2019-10-08 2019-10-08 Orders Doctor SKYLER [id number] 00:00:00 00:00:00 Only Unassigned, TONY 350.1.13.10 [place] [facility] [id number] [id number] 2019-09-21 2019-09-21 Emergency [facility] [id number] 14:35:52 17:14:00 Rashid Colvin [id number] Frannie [id number] [place] [id number] 2019-09-08 2019-09-08 Emergency [facility] [id number] 19:21:10 23:29:00 Fifi Colvin [id number] Frannie 4.2.7.2.686 [place] [id number] 2016-01-08 2016-01-20 Outpatient Karl [facility] [id number] 05:00:00 14:45:00 Lee Smyth 69 Results [...] AMI: 0.60 - 1. 5 ng/mL CHEM NJLLF7831-84-53 05:31:001.9[facility]annCHEM RFGSS6252-78-19 05:31:002.9 [facility] PuqykecCNNOPZDQZYYF8703-09-50 05:31:0014.1[facility] HermannELECTROLYTES 2016-01-20 05:31:23936Njckqvjp UqsaoyfKDTTGSXLAMZV5979-83-60 05:31:000.63 Memorial XbujigpQWUBDRSPRJUT0001-16-77 05:31:0013[facility] HermannELECTROLYTES 2016-01-20 05:31:004.1[facility] SfqcfldCCRXYEJUUTIQ2417-93-40 05:31:72776Kjstyenk VpamgsdKNEPFCUPIKTP2526-32-12 05:31:49094Nrlyhcdz KcugzhiWYPPBWCFEGNQ9120-72-15 05:31:74651Aqjblgor LeukwnhRJNRFIHVNRKI9505-50-14 05:31:008.0[facility] [place] NDIDWJILRIKI8365-54-21 05:31:0023[facility] GjhnyxvTGLLNCLOQV4732-70-98 05:31:00 0.3[facility] QpcavlwOJXQNWXCTQ1977-22-16 05:31:002.3[facility] HermannHEMATOLOGY 2016-01-20 05:31:006.7[facility] DvzkuxhAFHUXUYOQX0265-43-01 05:31:0015.2[facility] RquisekUEMQQRYTEE9635-69-35 05:31:0075.5[facility] AkmkayxDEWVTIGTOZ7908-04-49 05:31:000.8[facility] BrcnoctPVYFMJBFRZ0022-26-79 05:31:000.3[facility] [place] WVBSWSUPQR6089-11-90 05:31:001.9[facility] XdzfdiwCATCIVUQSD4117-12-28 05:31:009.4 [facility] KztrmdiJKXDDGVYZK9530-41-97 05:31:008.7[facility] HermannHEMATOLOGY 2016-01-20 05:31:0013.5[facility] DgmkehsKACGAIJYBZ1042-15-88 05:31:00 Test Item Value Reference Range Interpretation Comments MCH (test code = MCH) 28.3 pg 27.0-31.0 Memorial ZbpzwtaMZDHFQBCIO8707-14-22 05:31:43871Vyehycbq HermannHEMATOLOGY 2016-01-20 05:31:0033.4[facility] BckslklQKTEVEQBPW7570-24-27 05:31:0084.6[facility] QmravmhQQSNHFFIDR1372-88-35 05:31:009.2[facility] EknqkemZGDBCCKGMK1634-30-82 05:31:0027.7[facility] HxaikkkOJCLTWOSMB4040-83-92 05:31:003.27[facility] [place] DJZWXNQWFV0378-44-59 05:31:0012.5[facility] HermannPARATHYROID TTCYHBC9082-51-62 05:31:001.08[facility] HermannPARATHYROID KKWVKTF5068-11-74 05:31:001.10[facility] JdyfokdBIYGFUFAJJ5499-09-18 17:30:000.09[facility] HermannCHEM CCLNL1146-47-92 05:32:001.9[facility] HermannCHEM ULNJT6416-50-78 05:32:003.8[facility] [place] MJEPTQRAQQQO8937-32-35 05:32:0012.1[facility] ScuodmyIETMDRFNDWSQ2306-95-33 05:32:007.8[facility] BumrwvhLAWKHACXQXKZ5738-26-96 05:32:0029[facility] [place] AECFEXKUXZFF9993-43-82 05:32:0094[facility] UzzrfatMROLUKRWYEZH0939-36-31 05:32:00 4.1[facility] PlmbmsfZKCLCBGCYJFP0696-06-81 05:32:13736Msadlwdl [place] KWFUWXXOYBEI9977-86-96 05:32:000.53[facility] JomsbhzXQEYMTIUTXEF2561-38-46 05:32:0014[facility] GdwheugGHTRPBSLZPWS9369-18-30 05:32:58793Aqapkfkc [place] NLVNHPHRMDCP1759-43-53 05:32:16886Cpjvphbw ZtwmtipTSKJVNQGZN8739-84-88 05:32:00 2.2[facility] KbgggvgIHHQGJJCYW9392-75-76 05:32:008.5[facility] HermannHEMATOLOGY 2016-01-19 05:32:003.1[facility] HijntfbSLOCWALGWY6968-80-37 05:32:001.1[facility] TwaftjkCRIDJJKPTQ1981-26-06 05:32:000.1[facility] EdphmriNRTXZGQZPS9785-92-46 05:32:000.4[facility] PhehhtmLEATOJGIYC0809-62-64 05:32:000.8[facility] [place] MSHJPAILBZ0366-43-84 05:32:006.4[facility] ZcphrqzVIKDDMMZTS2918-46-08 05:32:00 70.9[facility] DdvpcziBZODKCRUPD1871-98-89 05:32:0018.5[facility] HermannHEMATOLOGY 2016-01-19 05:32:99699Ardcazcz YhpuachWOKMMFMQAR3270-21-45 05:32:008.9[facility] WpohfluPPYNLSBQUS2881-35-17 05:32:0032.9[facility] DcrkbbzVVWWBFNCSG4820-74-71 05:32:0013.6[facility] LiqrsvqSTZRPANCJU5076-47-11 05:32:0085.1[facility] [place] MBQJELTTVU5164-59-14 05:32:00 Test Item Value Reference Range Interpretation Comments MCH (test code = MCH) 28.0 pg 27.0-31.0 [facility] EpvzcuiJHHKRPINKF0879-16-38 05:32:0026.7[facility] HermannHEMATOLOGY 2016-01-19 05:32:003.14[facility] JrdgknlWOQYVCUSKI2375-15-97 05:32:008.8[facility] LnemggyYZPDBHESAH6658-62-81 05:32:0012.0[facility] HermannPARATHYROID PROFILE 2016-01-19 05:32:001.12[facility] HermannPARATHYROID LORSHYS4636-02-43 05:32:00 1.12[facility] HermannCHEM RPLGC5175-20-63 05:20:68079Oixqoawq HermannCHEM PANEL 2016-01-18 05:20:52379Puakptge HermannCHEM EUSFI2474-62-22 05:20:0018[facility] HermannCHEM TXHCB4959-83-10 05:20:000.55[facility] HermannCHEM VBZEO9316-80-26 05:20:004.4[facility] HermannCHEM EPSWN7724-69-26 05:20:37008Yetpliwd HermannCHEM TYVFG9666-99-86 05:20:007.7[facility] HermannCHEM HRYPX6957-95-62 05:20:19958 [facility] HermannCHEM TKCQA1044-62-76 05:20:0027[facility] HermannCHEM PANEL 2016-01-18 05:20:0012.4[facility] HermannCHEM GQNGH9560-89-88 05:20:002.2[facility] HermannCHEM UINWX6636-44-13 05:20:002.9[facility] YndsmmjMWECEOSXES2853-52-88 05:20:00Normal (01/18/16 12:20 AM)[facility] GyqnjeqYXRBNBREFI4948-41-26 05:20:00 Normal (01/18/16 12:20 AM)[facility] MtbngqsFLZYRDIUMK3151-41-64 05:20:0015.5 [facility] DfkjxbtCRRVFKPDLQ8227-77-57 05:20:0071.9[facility] HermannHEMATOLOGY 2016-01-18 05:20:0011.2[facility] YfryzusONWMKUDXIF3878-84-97 05:20:006.9[facility] NhkylzyXAMRTECYAP2224-10-23 05:20:000.4[facility] PtvmynfXHUPTBWWYD5348-29-89 05:20:001.5[facility] BojinjyRZUHVKDYXR5680-96-38 05:20:001.0[facility] [place] BTMACAHBDE3459-77-57 05:20:000.1[facility] BewdqqcLGSHOXVEHM6961-33-48 05:20:001.1 [facility] MfhhmnsRNJSMENIYQ7733-50-24 05:20:000.04[facility] HermannHEMATOLOGY 2016-01-18 05:20:54830Jwodvvsb IwhlgjwIUMDCUKOVX4905-21-44 05:20:0013.8[facility] FwihcvxAUWKIYSSPI6727-99-30 05:20:009.6[facility] GniftgzZGTKJQHRDS9479-13-46 05:20:008.5[facility] YzyyxeaWMHGJAQCWV2706-61-25 05:20:0084.4[facility] [place] EMJLKIIIKS4676-24-81 05:20:0033.6[facility] UvdcstdMZSKWUCUSE5865-44-61 05:20:00 Test Item Value Reference Range Interpretation Comments MCH (test code = MCH) 28.3 pg 27.0-31.0 [facility] BudpnlkESFQUXXLUA2635-08-80 05:20:0025.9[facility] HermannHEMATOLOGY 2016-01-18 05:20:008.7[facility] FompudeQXFEEZOSBB4081-54-52 05:20:003.07[facility] HermannPARATHYROID DAHHINI1888-81-42 05:20:001.13[facility] HermannPARATHYROID WCSFXLY7974-43-64 05:20:001.08[facility] ApzatrqZFZBXLSGIF7164-56-20 08:12:000.1 [facility] HermannBLOOD BANK RTQFJPU5665-82-60 05:05:00Negative (01/16/16 12:05 AM) [facility] TmpnlehNQHDKMDREF9477-62-10 13:15:587100Ohysfyii HermannTOXICOLOGY 2016-01-15 13:15:004.9[facility] HermannURINE AND MKZQT1280-44-70 12:03:003 [facility] AND UKLYV4717-46-33 12:03:001[facility]UR[facility] AND VTYAD0615-49-61 12:03:00Negative (01/14/16 7:03 AM)[facility] AND CJQSV3158-94-23 12:03:00Negative *NA*(01/14/16 7:03 AM)[facility] AND XCAUH3185-22-99 12:03:00 Test Item Value Reference Range Interpretation Comments UA pH (test code = UA pH) 5.5 1 5.0-8.0 [facility] CYMAZ2637-11-39 12:03:00Negative (01/14/16 7:03 AM) [facility] QQTDY1119-21-33 12:03:00Trace *ABN*(01/14/16 7:03 AM) [facility] PRWLK4432-04-97 12:03:00Negative *NA*(01/14/16 7:03 AM) [facility] QXUOL3777-49-13 12:03:00 Test Item Value Reference Range Interpretation Comments UA Spec Grav (test code = UA Spec 1.025 1 Grav) [facility] TGJJD2099-88-57 12:03:00Clear (01/14/16 7:03 AM) [facility] WIDFA0673-71-85 12:03:00Yellow *NA*(01/14/16 7:03 AM) [facility] HHBPH6365-31-13 12:03:00Negative (01/14/16 7:03 AM) [facility] KGDWK6830-18-81 12:03:00None Seen (01/14/16 7:03 AM) [facility] KDGQI4993-72-26 12:03:001.0[facility]UR[facility] AND IRDWJ3279-06-02 12:03:00Negative (01/14/16 7:03 AM)[facility]13 14:28:003.4[facility] OmuirfoCMWZZLXIWD3267-35-66 14:28:00 Test Item Value Reference Range Interpretation Comments Max Amplitude Rapid (test code = Max 76 mm 52-71 Amplitude Rapid) [facility]ItuefngSAPABMIKFW9747-56-81 14:28:0015.8[facility] 2016-01-13 14:28:00 Test Item Value Reference Range Interpretation Comments R-time Rapid (test code = R-time 0.9 min 0.4-0.7 Rapid) [facility]FjhnwskABVYSVXVZI7818-70-41 14:28:00 Test Item Value Reference Range Interpretation Comments K-time Rapid (test code = K-time 1.1 min 0.6-2.3 Rapid) [facility] HendersonCrewogsLDHJFZXZFM7477-21-91 14:28:00 Test Item Value Reference Range Interpretation Comments Angle Rapid (test code = Angle 78 degrees 64-80 Rapid) [facility] HospitalXtecbstVPRANKJZUI9030-74-01 14:28:00 Test Item Value Reference Range Interpretation Comments ACT (TEG) Rapid (test code = ACT (TEG) 136 s 86-118 Rapid) [facility] HospitalSuivbyoPRBWNLYQQZ1060-25-40 14:28:00 Test Item Value Reference Range Interpretation Comments Split Point Rapid (test code = Split 0.8 min Point Rapid) [facility] ZGRRLWK0803-72-25 05:34:00Negative (01/13/16 12:34 AM) [facility]SrmhyhiFEXYVCKKIG4646-26-45 05:34:00 Test Item Value Reference Range Interpretation Comments PTT (test code = PTT) 42.2 s 22.9-35.8 [facility] PwwdpanILKHRAMATW7335-38-20 05:34:001.15[facility]annHE[facility]OLOGY 2016-01-13 05:34:00 Test Item Value Reference Range Interpretation Comments PT (test code = PT) 15.0 s 12.0-14.7 [facility] GbjcxgkOREOULYWJP5003-50-56 09:47:00Normal (01/11/16 4:47 AM)[facility] GmasgelIORWJDIIAE4291-68-10 09:47:00Normal (01/11/16 4:47 AM)[facility] HermannCHEM QLDDC2503-43-64 10:16:001.2[facility] HermannCHEM ALENW9816-15-78 23:00:002.2 [facility] HermannCHEM YLQAP2466-85-55 16:03:002.0[facility] HermannDRUG SCREEN 2016-01-08 12:28:00See Note (01/08/16 [...] 2016-01-08 12:28:000-2 (01/08/16 7:28 AM)[facility] EGALN5339-99-89 12:28:00 Test Item Value Reference Range Interpretation Comments UA pH (test code = UA pH) 6.0 1 5.0-8.0 [facility] FODTB7919-51-65 12:28:00Small *ABN*(01/08/16 7:28 AM) [facility] CZXHA9647-79-53 12:28:000.2[facility] KKXCY3208-88-69 12:28:00Negative (01/08/16 7:28 AM)[facility] STOOL 2016-01-08 12:28:00Negative (01/08/16 7:28 AM)[facility] STOOL 2016-01-08 12:28:00Negative (01/08/16 7:28 AM)[facility] STOOL 2016-01-08 12:28:00Negative *NA*(01/08/16 7:28 AM)[facility] STOOL 2016-01-08 12:28:00Negative *NA*(01/08/16 7:28 AM)[facility] STOOL 2016-01-08 12:28:00 Test Item Value Reference Range Interpretation Comments UA Spec Grav (test code = UA Spec 1.027 1 Grav) [facility] RXNUF2607-76-48 12:28:00Clear (01/08/16 7:28 AM)[facility] MYZAH8306-19-30 12:28:00Yellow *NA*(01/08/16 7:28 AM)[facility] ZxtuxzeEJBWCPTQSZ6458-69-05 10:16:150.1[facility] KweyhezBXJUXUAMKU3206-57-06 10:16:15 Test Item Value Reference Range Interpretation Comments [place] Rapid (test code = Split 0.6 min Point Rapid) [facility] NqzmictRLBYODKZQM3028-46-63 10:16:15 Test Item Value Reference Range Interpretation Comments ACT (TEG) Rapid (test code = ACT (TEG) 113 s 86-118 Rapid) [facility] HospitalHsqatvlWSMZVLUXUA0833-67-74 10:16:15 Test Item Value Reference Range Interpretation Comments Angle Rapid (test code = Angle 72 degrees 64-80 Rapid) [facility] HospitalQsrkiodOLWCESJTKZ9498-08-02 10:16:15 Test Item Value Reference Range Interpretation Comments K-time Rapid (test code = K-time 1.5 min 0.6-2.3 Rapid) [facility] HospitalAlwjbmrVKJOUGNOHU3876-78-87 10:16:15 Test Item Value Reference Range Interpretation Comments R-time Rapid (test code = R-time 0.7 min 0.4-0.7 Rapid) [facility] HospitalSmopsggFYEANGLMSH5467-05-86 10:16:15 Test Item Value Reference Range Interpretation Comments Max Amplitude Rapid (test code = Max 61 mm 52-71 Amplitude Rapid) [facility] HospitalLfsxdnuGYLBNLHHCL8738-00-01 10:16:157.9MeCore[facility] HospitalAT[facility] 2016-[facility]-08 10:16[facility] [id number] 10:13:00 Negative (01/08/16 5:13 AM)[facility]
--- OUTSIDE RECORDS SUMMARY | 2020-01-06 16:36 | XMS REPORT | Summary of Care ---
:1990 Author Organization [facility] Address [address] [place] [id number] Care Team Providers Name Role Phone Richard Chung Primary Care Provider Reason for Visit Reason Comments Dizziness WITHDRAWAL Auth/Cert Status Reason Specialty Diagnoses / Referred By Referred To Procedures Contact Contact Emergency Medicine [facility] Em ergency Dept [address] [place] [address] Fax: Encounter Details Date Type Department Care Team Description 01/01/2020 Emergency [facility]-Emergency Kirt Fatima Malingeri ng (Primary Dx); Department Methamphetamine abuse [id number] [place] [address] [place], [place] [phone] [id number] Allergies Active Allergy Reactions Severity Noted Date Comments Antihistimine Swelling 02/07/2015 documented as of this encounter (statuses as of 01/01/2020) Medications Medication Sig Dispensed Refills Start Date [...] as of this encounter (statuses as of 01/01/2020) Active Problems No known active problemsdocumented as of this encounter (statuses as of 01/01/2020) Social History Tobacco Use Types Packs/Day Years Used Date Never Assessed Sex Assigned at Date Recorded Not on file Job Start Date Occupation Industry Not on file Not on file Not on file Travel History Travel Start Travel End No recent travel history available. COVID-19 Exposure Response Date Recorded In the last month, have you been in contact with Yes 01/01/2020 9:47 PM CDT someone who was confirmed or suspected to have Coronavirus / COVID-19? documented as of this encounter Last Filed Vital Signs Vital Sign Reading Time Taken Comments Blood Pressure 132/80 01/01/2020 11:00 PM CDT Pulse 89 01/01/2020 11:00 PM CDT Temperature 37.1 C (98.7 F) 01/01/2020 9:51 PM CDT Respiratory Rate 18 01/01/2020 11:00 PM CDT Oxygen Saturation 100% 01/01/2020 11:00 PM CDT Inhaled Oxygen Concentration - - Weight 112 kg (247 lb) 01/01/2020 9:51 PM CDT Height 167.6 cm (5' 6") 01/01/2020 9:51 PM CDT Body Mass Index 39.87 01/01/2020 9:51 PM CDT documented in this encounter Discharge Instructions Kirt Palacios MD - 01/01/2020 DIAGNOSIS Diagnoses that have been ruled out: None Diagnoses that are still under consideration: None Final diagnoses: Methamphetamine abuse Malingering NO LIFE-THREATENING FINDINGS ON TODAY'S EXAM. PROCEDURES IN THE ER TODAY: Orders Placed This Encounter Procedures CBC WITH DIFF COMP. METABOLIC PANEL (85086) MEDICATIONS ADMINISTERED IN THE ER TODAY AND DISCHARGE MEDICATIONS: No orders of the defined types were placed in this encounter. FOLLOW-UP RECOMMENDATIONS: RECOMMEND FOLLOW-UP WITH YOUR PRIMARY CARE PROVIDER OR WITH THE [facility] DISCUSSED FOR THE METHAMPHETAMINE ADDICTION/ABUSE AttachmentsThe following attachments cannot be sent through Care Everywhere. Getting Help, Addiction (Tunisian)documented in this encounter Plan of Treatment Health Maintenance Due Date Last Done Comments VARICELLA VACCINES (1 of 2 - 02/13/1993 2-dose childhood series) DTaP,Tdap,and Td Vaccines (1 - 02/13/2003 Tdap) Depression Screening 2004 INFLUENZA VACCINE (#1) 2020 PNEUMOCOCCAL 0-64 YEARS COMBINED Aged Out No longer eligible based on SERIES patient's age to complete this topic documented as of this encounter Procedures Procedure Name Priority Date/Time Associated Diagnosis Comme nts CBC WITH DIFF STAT 01/01/2020 10:01 Methamphetamine abuse R esults for this PM CDT procedure are i n the results section. COMP. METABOLIC STAT 01/01/2020 10:01 Methamphetamine abuse Results for this PANEL ([id number]) PM CDT procedure are in the results section. EKG-12 LEAD Routine 01/01/2020 9:58 PM CDT documented in this encounter Results COMP. METABOLIC PANEL ([id number]) (01/01/2020 10:01 PM CDT) Pathologist Sig nature NA 137 135 - 145 [facility] mmol/L [facility] K 3.8 3.5 - 5.0 [facility] mmol/L [facility] CL 106 98 - 108 mmol/L [facility] CO2 TOTAL 26 23 - 31 mmol/L [facility] AGAP 5 2 - 16 [facility] BUN 20 7 - 23 mg/dL [facility] GLUCOSE 172 (H) 70 - 110 mg/dL [facility] CREATININE 1.15 0.60 - 1.25 [facility] mg/dL [facility] TOTAL BILI 0.1 0.1 - 1.1 mg/dL [facility] CALCIUM 8.8 8.6 - 10.6 [facility] mg/dL [facility] T PROTEIN 6.4 6.3 - 8.2 g/dL [facility] ALBUMIN 3.6 3.5 - 5.0 g/dL [facility] ALK PHOS 59 34 - 122 U/L [facility] ALTv 33 5 - 50 U/L [facility] AST(SGOT) 38 13 - 40 U/L [facility] eGFR Calculation 76.3 mL/min/1.73m2 [facility] ([facility] [place]) eGFR Calculation 92.5 mL/min/1.73m2 [facility] () [facility] Specimen Blood - VENOUS Narrative Performed At Association of Glomerular Filtration Rate (GFR) [facility] and Staging of Kidney Disease* [...] tests). Performing Organization Address City/State/Zipcode Phone Number [facility] CLIA: [id number], [address] [place], [place] [address] CBC WITH DIFF (01/01/2020 10:01 PM CDT) [facility] nature WBC 7.91 4.20 - 10.70 [facility] 10*3/L [facility] RBC 4.68 4.26 - 5.52 [facility] 10*6/L [facility] HGB 14.0 12.2 - 16.4 g/dL [facility] HCT 40.5 38.4 - 49.3 % [facility] MCV 86.5 81.7 - 95.6 fL [facility] MCH 29.9 26.1 - 32.7 pg [facility] MCHC 34.6 31.2 - 35.0 g/dL [facility] RDW-SD 39.4 38.5 - 51.6 fL [facility] RDW-CV 12.6 12.1 - 15.4 % [facility] PLT 255 150 - 328 [facility] 10*3/L [facility] MPV 9.3 (L) 9.8 - 13.0 fL [facility] NRBC/100 WBC 0.0 0.0 - 10.0 /100 [facility] WBCs [facility] NRBC x10^3 <0.01 10*3/L [facility] GRAN MAT (NEUT) % 49.1 % [facility] IMM GRAN % 0.30 % [facility] LYMPH % 38.6 % [facility] MONO % 8.2 % [facility] EOS % 3.3 % [facility] BASO % 0.5 % [facility] GRAN MAT x10^3(ANC) 3.89 1.99 - 6.95 [facility] 10*3/uL [facility] IMM GRAN x10^3 <0.03 0.00 - 0.06 [facility] 10*3/uL [facility] LYMPH x10^3 3.05 1.09 - 3.23 [facility] 10*3/uL [facility] MONO x10^3 0.65 0.36 - 1.02 [facility] 10*3/uL [facility] EOS x10^3 0.26 0.06 - 0.53 [facility] 10*3/uL [facility] BASO x10^3 0.04 0.01 - 0.09 [place] [address]*3/uL [facility] Specimen Blood - VENOUS Performing Organization Address City/State/Zipcode Phone Number [facility] CLIA: [id number], [address] [place], [place] [address] documented in this encounter Visit Diagnoses Diagnosis Malingering - Primary Person feigning illness Methamphetamine abuse Nondependent amphetamine or related acti ng sympathomimetic abuse, unspecified documented in this encounter
--- NOTE | 2020-01-06 18:00 | ER ---
Nurse's Notes [facility] Name: Yaw Aldrich Jr Age: 29 yrs Sex: Male : 1990 Arrival Date: 01/06/2020 Time: 15:58 Bed Waiting Private MD: Diagnosis: Presentation: 01/05 15:58 Chief complaint: EMS states: At local [facility] when outreach librarian called stating that ss patient had passed out. Pt is awake at this time, drowsy. States, "I'm just tired and hungry.". Coronavirus screen: Client denies travel out of the [place] in the last 14 days. At this time, the client does not indicate any symptoms associated with coronavirus-19. Ebola Screen: Patient denies exposure to infectious person. Patient denies travel to an Ebola-affected area in the 21 days before illness onset. Initial Sepsis Screen: Does the patient meet any 2 criteria? No. Patient's initial sepsis screen is negative. Does the patient have a suspected source of infection? No. Patient's initial sepsis screen is negative. Risk Assessment: Do you want to hurt yourself or someone else? Patient reports no desire to harm self or others. Onset of symptoms was January 06, 2020. 15:58 Method Of Arrival: EMS: [facility] 15:58 Acuity: SHEY 3 Historical: - Allergies: 16:03 Poultry; ss 16:03 shrimp; ss - PMHx: 16:03 Asthma; Diabetes - NIDDM; Hypertension; 16:03 ED; STD; anal leakage; ss - Immunization history:: Adult Immunizations up to date. - Social history:: Smoking status: Patient/guardian denies using tobacco, Stopped _ months ago .5. Assessment: 17:57 Reassessment: called patient to ED exam room. No answer, unable to locate patient. Registration staff members state that just after triage patient eloped from waiting area with steady gait. Vital Signs: 15:58 BP 124 / 77; Pulse 92; Resp 15; Temp 97.4; Pulse Ox 98% on R/A; Weight 73.94 kg; Height ss 5 ft. 6 in. (167.64 cm); Pain 0/10; 15:58 Body Mass Index 26.31 (73.94 kg, 167.64 cm) ED Course: 15:58 Patient arrived in ED. ss 16:02 Triage completed. ss 16:03 Arm band placed on right wrist. ss Administered Medications: No medications were administered Outcome: 17:59 Eloped from waiting room. ss 17:59 Patient left the ED. Signatures: Marilu Brown, RN RN
[2020-01-06 18:33] VITALS: BP 124/77; TEMP 97.4; O2SAT 98
== END 2020-01-06 17:59 | disposition left against medical advice (07) ==
LOC: ER 15:57
DX: Z02.9 Encounter for administrative examinations, unspecified (principal)
CPT/HCPCS: 99282

== ENCOUNTER 2020-01-24 13:13 | Emergency (ER) | payer SELFPAY ==
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
--- OUTSIDE RECORDS SUMMARY | 2020-01-24 13:18 | XMS REPORT | Continuity of Care Document ---
:1990 Author Organization [facility] t Address [address] [place] [address] Care Team Providers Name Role Phone Bernabe [...] STABBING 00:00: Clive trinh 00 Active 01/08/2016 [facility] HARPREET Diagnosis Active 2016-04-09 Tye BILLING/#3 01-07 12:05:00 l 854 00:00: Andrae MULLINS 00 BILLING/#3 854 Active 01/08/2016 [facility] STABBING Diagnosis Active 2016-04-09 M emoria TO BACK 01-07 12:04:00 l STABBING 00:00: Clive n TO BACK 00 Active 01/08/2016 [facility] Infestatio Problem Resolve 2016-01-23 Memoria n by d 01:07:53 l Sarcoptes [place] scabiei Infestatio lanre n by hominis Sarcoptes (disorder) scabiei lanre hominis (disorder) Resolved Problem 01/23/2016 [facility] Loculated Problem Active 2016-01-23 Me moria pleural 01:07:53 l effusion Andrae (disorder) Loculated pleural effusion (disorder) Active Problem 01/23/2016 [facility] LAC W/O FB Diagnosis Active 2016-04-09 Memoria OF LOW 12:04:00 l BACK AND LAC W/O Lexus nn PELVIS W FB OF LOW PENE BACK AND PELVIS W PENE Active [facility] Allergies, Adverse Reactions, Alerts Allergy Allergy Status Severity Reaction(s) Onset Inactive Treating Comm ents Source Name Type Date Date Clinician Antihist DA Active [facility] am[facility] - 09-06 Mainlan Alkylami 00:00: d ne 00 [facility] No Known DA Active [facility] Allergie 06-11 Mainlan s 00:00: d 00 [facility] Benadryl Benadryl Active Dale Abebe Social History Social Habit Start Date Stop Date Quantity Comments Source Social History 2016-01-11 2016-01-11 [facility] katelyn 17:26:34 17:26:34 Medications Ordered [...] Route: l 21:00: IVPB, Drug form: PDR/INJ, [id number], Dosing Weight 118.182, kg, Start date: 01/18/16 [...] being intubated (unless the nurse is a [employer]). Same as: Diprivan Ancef No 120 kg [...] paula 8-15 (Same as: l 13:00: Neutra-Jovany [place] 00 s) Each 1.25 gm pkt has 250mg phosphorou s. Mix w/2.5oz water and stir. Risperdal No Notes: Memori a 8-15 (Same as: l 02:00: Risperdal) [place] Vancomycin No 2001 mg: Me moria 8-14 [...] moria 8-14 infuse l 16:00: over 2.5 [place] 00 hours Haldol No Notes: Memoria 8-14 (Same as: l 15:44: Haldol) Andrae Haldol No Notes: Memoria 8-14 (Same as: l 15:43: Haldol) [place] Permethrin No Notes: Memor ia 50 MG/ML 8-14 (Same as: l Topical 11:00: Elimite) Clive n Cream 00 WASTE: F/P - Black; E - [employer] Clonidine No Notes: Memori a Hydrochlori 8-14 (Same As: l de 0.1 MG 09:00: Catapres) Her morrell Oral Tablet Valium No Notes: Memoria 8-14 (Same as: l 08:44: Valium) [place] Vancomycin No 2001 mg: Me moria 8-13 infuse l 20:00: over 2.5 [place] 00 hours MEDICATION WASTE Product Size: 1000 [...] Syringe 01-12 25 mL, l 23:46: Route: [place] 00 IVP, Drug Form: INJ, Dosing Weight [...] being intubated (unless the nurse is a [employer]). Same as: Diprivan Isolyte S No Notes: Memori a (PH 7.4) 01-12 (Same as: l 1000 mL 05:00: Isolyte S Lexus nn 1,000 mL 00 PH 7.4) Morphine No Notes: Memoria 8- (Same l 20:53: as:MORPhin [place] 00 e Sulfate) Dilaudid No Notes: Memoria 8-11 Same as: l 20:53: Dilaudid Morphine No Notes: Memoria 8-11 (Same l 19:57: as:MORPhin [place] 00 e Sulfate) Morphine No Notes: Memoria 8-11 (Same l 19:13: as:MORPhin [place] 00 e Sulfate) Zofran No Notes: Memoria 8- (Same as: l 19:13: Zofran) Andrae 00 MEDICATION WASTE Product Size: 4 mg Product Wasted: ___ mg Iohexol No Notes: Memoria 8- (same l 16:15: as:Omnipaq [place] 00 ue 350). WASTE: F/P - Black; [...] Notes: Memoria 01-07 (Same l 14:58: as:MORPhin [place] 00 e Sulfate) Enoxaparin No Notes: Memor ia 01-07 (Same as: l 14:00: Lovenox) [place] Docusate No Notes: Memoria 01-07 (Same as: l 14:00: Colace) [place] (Do Not Crush) Morphine No Notes: Memoria 01-07 (Same l 13:30: as:MORPhin [place]rae 00 e Sulfate) Oxycodone No Notes: Memori a Hydrochlori 01-07 (Same as: l de 5 MG 13:15: Roxicodone Herm erlin Oral Tablet 00 ) Acetaminoph No Notes: Max Memoria en 01-07 acetaminop l 13:15: hen 4000 [place] 00 mg/day (4 gm/day). (Same as: Tylenol Extra Strength) celecoxib No Notes: Memori a 01-07 NSAID. l 13:15: Please Andrae 00 check indication . Not for seizure. (Same As: CeleBREX) pregabalin No Notes: Memor ia 01-07 (Same as: l 13:15: Lyrica) iodixanol No Notes: Memori a 01-07 (Same as: l 12:04: Visipaque) Andrae 00 . WASTE: F/P - Black; E [...] 25 Memoria 8-07 microgram, l 10:43: Route: [place] 00 IVP, ONCE, Dosing Weight 129.545, kg, [...] 0.9% 01-07 Same as: l 10:05: BD [place] 00 Posiflush Sterile Vital Signs Vital Name Observation Time Observation Value Comments Source Systolic (mm Hg) 2016-01-20 16:09:00 Shane rial [place] Diastolic (mm Hg) 2016-01-20 16:09:00 Mem orial [place] Respitory Rate 2016-01-20 16:09:00 Memori al [place] Heart Rate 2016-01-20 16:09:00 [facility] [place] Temperature Oral (F) 2016-01-20 16:09:00 99.6 F [facility] [place] Respitory Rate 2016-01-20 13:51:00 Memori al [place] Heart Rate 2016-01-20 12:26:00 [facility] [place] Temperature Oral (F) 2016-01-20 12:26:00 98.7 F [facility] [place] Systolic (mm Hg) 2016-01-20 12:26:00 Shane rial [place] Diastolic (mm Hg) 2016-01-20 12:26:00 Mem orial [place] Respitory Rate 2016-01-20 12:26:00 Memori al [place] Temperature Oral (F) 2016-01-20 09:01:00 97.9 F [facility] [place] Systolic (mm Hg) 2016-01-20 09:01:00 Shane rial [place] Diastolic (mm Hg) 2016-01-20 09:01:00 Mem orial [place] Heart Rate 2016-01-20 09:01:00 [facility] [place] Height 2016-01-18 09:51:00 170.18 cm [facility] [place] Height 2016-01-18 04:20:00 170.18 cm [facility] [place] Height 2016-01-18 00:30:00 170.18 cm [facility] [place] BMI Calculated 2016-01-08 16:52:00 Memori al [place] Weight 2016-01-08 16:52:00 [facility] [place] Weight 2016-01-08 10:05:00 [facility] [place] BMI Calculated 2016-01-08 10:05:00 Memori al [place] Procedures Procedure Date / Time Performed Performing Clinician Sourc e Tonsillectomy [facility] [place] Encounters Start End Encounter Admission Attending Care Care Encounter Source Date/Time Date/Time Type Type Clinicians Facility Department ID 2020-01-01 2020-01-01 [facility] [id number] 21:44:53 23:23:00 Chaalonzolaxmi Bernabe Marii 350.1.13.10 [place] 4.2.7.2.686 Calvin [id number] 2019-10-08 2019-10-08 [id number] 17:53:07 18:29:00 Fanny Jones Marii 350.1.13.10 [place] 4.2.7.2.686 Calvin [id number] 2019-10-08 2019-10-08 Orders Doctor SKYLER [id number] 00:00:00 00:00:00 Only Unassigned, TONY 350.1.13.10 [place] [facility] 4.2.7.2.686 [id number] 2019-09-21 2019-09-21 Emergency [facility] [id number] 14:35:52 17:14:00 Rashid Colvin 350.1.13.10 [place] 4.2.7.2.686 Calvin [id number] 2019-09-08 2019-09-08 Emergency [facility] [id number] 19:21:10 23:29:00 Fifi Colvin 350.1.13.10 [place] 4.2.7.2.686 Calvin [id number] 2016-01-08 2016-01-20 Outpatient Karl [facility] [id number] 05:00:00 14:45:00 Lee Smyth 69 Results [...] AMI: 0.60 - 1. 5 ng/mL CHEM ZLOVG0920-67-00 05:31:001.9[facility] HermannCHEM CUNDC4293-58-61 05:31:002.9 [facility] TtbxrxiFUMHPRALMBAM8609-72-39 05:31:0014.1[facility] HermannELECTROLYTES 2016-01-20 05:31:53916Ybjuqunm HozmhgyCALMYIDSHDLE6953-59-72 05:31:000.63 [facility] OrfbzxpFJGIIULBGZFY9664-47-30 05:31:0013[facility] HermannELECTROLYTES 2016-01-20 05:31:004.1[facility] PxtacgsKWPOEAGAXJLQ3756-35-54 05:31:45943Yctfmlfr AwzxhfpQMSMKSOWBEDN6255-30-66 05:31:35601Hwtvomig GsnjuxbVQFHBGVMMORY8110-27-58 05:31:35483Xcnkufka ZpgospzGYAFBSWTLQAX5267-06-69 05:31:008.0[facility] WYHYJXGNBDOC5089-43-61 05:31:0023[facility] UnnhzlbILCCCAMQXF0750-68-31 05:31:00 0.3[facility] TmaexykLIIXIMMMVE6936-31-72 05:31:002.3[facility] HermannHEMATOLOGY 2016-01-20 05:31:006.7[facility] YmfpinvTGUIKSIDLL7905-40-45 05:31:0015.2[facility] TgvqsyvIRZAFCVPQJ1883-55-99 05:31:0075.5[facility] RllzrijOZHKXMFHES6464-09-24 05:31:000.8[facility] ThohgdhGCMPANTYEV6064-17-35 05:31:000.3[facility] [place]rae AJBBTZYOLO1455-77-16 05:31:001.9[facility] RhjpuekLYSIOYYNEF5426-59-92 05:31:009.4 [facility] JprpteySNLUPRETBU0478-90-95 05:31:008.7[facility] HermannHEMATOLOGY 2016-01-20 05:31:0013.5[facility] HuyjldlCTNRACYEST6609-10-20 05:31:00 Test Item Value Reference Range Interpretation Comments MCH (test code = MCH) 28.3 pg 27.0-31.0 [facility] NxfgxqoVHFVMHBOYQ5816-24-65 05:31:17792Harqweuf HermannHEMATOLOGY 2016-01-20 05:31:0033.4[facility] JvfrgsfUOKYZORPEP0366-88-16 05:31:0084.6[facility] NbwzgdoAXAYJAVJWK0505-51-43 05:31:009.2[facility] GewiobuLVHGDZEIRF2224-59-95 05:31:0027.7[facility] RtdlpilKVNRFXIQML7932-24-49 05:31:003.27[facility] [place] AMUSSMYMMU6363-82-65 05:31:0012.5[facility] HermannPARATHYROID UVLRIGF7345-73-08 05:31:001.08[facility] HermannPARATHYROID RIQBJND3517-01-08 05:31:001.10[facility] FugmpgeZMHTPXGZKH9753-55-49 17:30:000.09[facility] HermannCHEM FPJGT3230-12-35 05:32:001.9[facility] HermannCHEM GEAKL4235-86-35 05:32:003.8[facility] [place] XQYRDFZLOLUL8163-58-68 05:32:0012.1[facility] TqwufvsBXHAZOASXMPV3561-40-18 05:32:007.8[facility] UgpuxkzXQZEZAGDVXBT8540-47-03 05:32:0029[facility] GPAOIUBOZNZD9971-06-72 05:32:0094[facility] IzhazyaMRWKDJVFBYUL8105-54-07 05:32:00 4.1[facility] AuvxvxxLCGHLXBMPQXO7171-56-39 05:32:70710Hwrxzwwr Andrae BVWEMLOOVNCK9013-35-15 05:32:000.53[facility] BuckxhzDWQECSXUKKPR6338-52-74 05:32:0014[facility] TugeyjrSUJAJWMZFHXG0675-55-71 05:32:11713Sqyndpia [place] AYIAJRANBJKU9024-37-35 05:32:22242Azsyucif FhofssqGRDJHXZRUH2285-31-36 05:32:00 2.2[facility] SfqsafuJDZGVRVUYV2873-78-12 05:32:008.5[facility] HermannHEMATOLOGY 2016-01-19 05:32:003.1[facility] DkpwggbOGRJCDHFFN2692-18-21 05:32:001.1[facility] JjrlenyJKJIKJRCTG7368-99-81 05:32:000.1[facility] RmdjazoKGXLSFSZVY1535-54-11 05:32:000.4[facility] UzayxrlHEYVGNPROX1950-39-18 05:32:000.8[facility] [place] GKRJLHGANJ5627-35-42 05:32:006.4[facility] TvgxrviNBLOENRCWY2140-00-31 05:32:00 70.9[facility] EqhuxduBNXEWFMQKW6919-09-21 05:32:0018.5[facility] HermannHEMATOLOGY 2016-01-19 05:32:90194Gyxgcwhu RxvjtscHTFDVFXOYQ0185-64-99 05:32:008.9[facility] EenruyaWOFRBBIJWW6710-57-91 05:32:0032.9[facility] CxwzjbpRWHKXPAIIY6651-84-01 05:32:0013.6[facility] NidxjzuIFOLRYCKVV9018-14-67 05:32:0085.1[facility] [place] NPRSVBMXXR1066-40-49 05:32:00 Test Item Value Reference Range Interpretation Comments MCH (test code = MCH) 28.0 pg 27.0-31.0 [facility] NsslgbxZXYCDRHNXK0730-28-75 05:32:0026.7[facility] HermannHEMATOLOGY 2016-01-19 05:32:003.14[facility] RjeuiftJGJIEQICOR0859-21-15 05:32:008.8[facility] DghoxtcHHMEDYOWJZ4705-73-00 05:32:0012.0[facility] HermannPARATHYROID PROFILE 2016-01-19 05:32:001.12[facility] HermannPARATHYROID BDPUBKH1421-39-77 05:32:00 1.12[facility] HermannCHEM KOIPQ6964-96-03 05:20:44187Cciocihp HermannCHEM PANEL 2016-01-18 05:20:19157Egjqmylx HermannCHEM FLSMF1805-94-20 05:20:0018[facility] HermannCHEM AUEZP1482-08-08 05:20:000.55[facility] HermannCHEM AFDKO2811-39-15 05:20:004.4[facility] HermannCHEM RLDBX0986-09-37 05:20:28335Fezdzuta HermannCHEM VLRJW8654-74-47 05:20:007.7[facility] HermannCHEM BKJJO9977-55-25 05:20:93136 [facility] HermannCHEM IDNUL4212-02-39 05:20:0027[facility] HermannCHEM PANEL 2016-01-18 05:20:0012.4[facility] HermannCHEM TNOWU6252-82-21 05:20:002.2[facility] HermannCHEM ZFEXQ5551-29-55 05:20:002.9[facility] TwwehyfNXVFNZLIVR7131-28-55 05:20:00Normal (01/18/16 12:20 AM)[facility] BblkyamXUTDATVEUJ0147-56-17 05:20:00 Normal (01/18/16 12:20 AM)[facility] KxkqcfbMYJELGDZBH5079-99-49 05:20:0015.5 [facility] ApfwwfcEHVNBCQGBY0530-08-89 05:20:0071.9[facility] HermannHEMATOLOGY 2016-01-18 05:20:0011.2[facility] NkhokfgFWMRPRAFUJ7934-83-90 05:20:006.9[facility] OjhkzqlHZQRMMAWYQ4976-19-16 05:20:000.4[facility] DjkusvqBBIYNUCKUU4778-48-99 05:20:001.5[facility] DzzwvcbZXYJMRKYUK2778-10-09 05:20:001.0[facility] [place] OSDIWAIJAA0827-41-38 05:20:000.1[facility] IvfoontZKTEJWUMRV9132-33-89 05:20:001.1 [facility] ZggommvDHGQSPZUQL7630-24-62 05:20:000.04[facility] HermannHEMATOLOGY 2016-01-18 05:20:35442Ufzhaaty RzgdnrgKVHKRZIIAU8953-55-83 05:20:0013.8[facility] ThdjisrQRZTIFCBBH8187-73-52 05:20:009.6[facility] NrtnpxeFZETLZSEIE6084-81-46 05:20:008.5[facility] KkmlklwENFFOGVHDE8853-69-25 05:20:0084.4[facility] [place] NWGZEQSQSZ1626-01-28 05:20:0033.6[facility] CrvdlqqCFNWWMJFRI4417-08-19 05:20:00 Test Item Value Reference Range Interpretation Comments MCH (test code = MCH) 28.3 pg 27.0-31.0 [facility] IlfuqxjTKHRIKLBWX7110-22-93 05:20:0025.9[facility] HermannHEMATOLOGY 2016-01-18 05:20:008.7[facility] ZoulqwcPMTYTTXSFS7258-95-21 05:20:003.07[facility] HermannPARATHYROID IDXJIAM4723-14-28 05:20:001.13[facility] HermannPARATHYROID PPVGCDN3186-32-62 05:20:001.08[facility] EskmxzmYNRBEIFTAJ4663-02-10 08:12:000.1 [facility] HermannBLOOD BANK XVYFPPI9450-93-08 05:05:00Negative (01/16/16 12:05 AM) [facility] ZayxccvAFXTDBMISN0086-84-20 13:15:404100Waidazex HermannTOXICOLOGY 2016-01-15 13:15:004.9[facility] HermannURINE AND AKFIL3833-22-30 12:03:003 [facility]annURINE AND NHYMA9718-16-02 12:03:001[facility]annURINE AND URUVV9207-65-89 12:03:00Negative (01/14/16 7:03 AM)[facility] AND SPTMU2700-94-83 12:03:00Negative *NA*(01/14/16 7:03 AM)[facility]annUR[facility] AND RMVNE6072-85-41 12:03:00 Test Item Value Reference Range Interpretation Comments UA pH (test code = UA pH) 5.5 1 5.0-8.0 [facility]UR[facility] AND TTJHV9932-69-48 12:03:00Negative (01/14/16 7:03 AM) [facility] HAINJ9442-25-63 12:03:00Trace *ABN*(01/14/16 7:03 AM) [facility] AND YCDXR0266-46-77 12:03:00Negative *NA*(01/14/16 7:03 AM) [facility] IOXXO9582-56-58 12:03:00 Test Item Value Reference Range Interpretation Comments UA Spec Grav (test code = UA Spec 1.025 1 Grav) [facility] AND ZDXWX7792-62-60 12:03:00Clear (01/14/16 7:03 AM) [facility] AND NLHDU1987-07-14 12:03:00Yellow *NA*(01/14/16 7:03 AM) [facility] KYRYB6288-35-01 12:03:00Negative (01/14/16 7:03 AM) [facility] EWCUJ3332-80-69 12:03:00None Seen (01/14/16 7:03 AM) [facility] YODRZ9898-43-19 12:03:001.0[facility]annURINE AND XJWDS8966-87-63 12:03:00Negative (01/14/16 7:03 AM)[facility]13 14:28:003.4[facility] GqqoywwXCXOFRKSCF3415-73-53 14:28:00 Test Item Value Reference Range Interpretation Comments Max Amplitude Rapid (test code = Max 76 mm 52-71 Amplitude Rapid) [facility] HospitalDxudtnjUNOQCVELWB5203-11-23 14:28:0015.8[facility] 2016-01-13 14:28:00 Test Item Value Reference Range Interpretation Comments R-time Rapid (test code = R-time 0.9 min 0.4-0.7 Rapid) [facility] CampusApcxwtzQWUJALSEWW9533-08-97 14:28:00 Test Item Value Reference Range Interpretation Comments K-time Rapid (test code = K-time 1.1 min 0.6-2.3 Rapid) [facility] CampusYotkonzMDDKNDXSJO9106-74-57 14:28:00 Test Item Value Reference Range Interpretation Comments Angle Rapid (test code = Angle 78 degrees 64-80 Rapid) [facility] HospitalAszfsrbUFLIHLRJDD9163-69-53 14:28:00 Test Item Value Reference Range Interpretation Comments ACT (TEG) Rapid (test code = ACT (TEG) 136 s 86-118 Rapid) [facility] HospitalOyssuqjEPEFOMPKNY6162-57-55 14:28:00 Test Item Value Reference Range Interpretation Comments Split Point Rapid (test code = Split 0.8 min Point Rapid) [facility] UVSGZMH7958-44-69 05:34:00Negative (01/13/16 12:34 AM) [facility] CampusIargwrkXBLRKMWLOE6031-00-45 05:34:00 Test Item Value Reference Range Interpretation Comments PTT (test code = PTT) 42.2 s 22.9-35.8 [facility] MxjrpxnCIKGWTJVZC0893-51-57 05:34:001.15[facility]annHEMATOLOGY 2016-01-13 05:34:00 Test Item Value Reference Range Interpretation Comments PT (test code = PT) 15.0 s 12.0-14.7 [facility] HmuyctlGKIIPUMEAF3650-53-32 09:47:00Normal (01/11/16 4:47 AM)[facility] UrpiawfWGDAHGZGMV4305-46-57 09:47:00Normal (01/11/16 4:47 AM)[facility] HermannCHEM UMSDQ8849-94-52 10:16:001.2[facility] HermannCHEM ZQQEI5278-75-99 23:00:002.2 [facility] HermannCHEM HIQUA5491-32-32 16:03:002.0[facility] HermannDRUG SCREEN 2016-01-08 12:28:00See Note (01/08/16 [...] 2016-01-08 12:28:000-2 (01/08/16 7:28 AM)[facility] AND NXKGM4223-96-75 12:28:00 Test Item Value Reference Range Interpretation Comments UA pH (test code = UA pH) 6.0 1 5.0-8.0 [facility] IHHLE3665-24-03 12:28:00Small *ABN*(01/08/16 7:28 AM) [facility] MHAZH4164-95-86 12:28:000.2[facility] AND CLJPX1087-04-61 12:28:00Negative (01/08/16 7:28 AM)[facility] STOOL 2016-01-08 12:28:00Negative (01/08/16 7:28 AM)[facility] STOOL 2016-01-08 12:28:00Negative (01/08/16 7:28 AM)[facility] STOOL 2016-01-08 12:28:00Negative *NA*(01/08/16 7:28 AM)[facility] AND STOOL 2016-01-08 12:28:00Negative *NA*(01/08/16 7:28 AM)[facility] AND STOOL 2016-01-08 12:28:00 Test Item Value Reference Range Interpretation Comments UA Spec Grav (test code = UA Spec 1.027 1 Grav) [facility] LQVRO4289-40-00 12:28:00Clear (01/08/16 7:28 AM)[facility] AND KFPEK6758-92-79 12:28:00Yellow *NA*(01/08/16 7:28 AM)[facility] VintreyNDYUBCBEVN6903-71-39 10:16:150.1[facility] YuqghyoCKHMFQTJGU5651-64-60 10:16:15 Test Item Value Reference Range Interpretation Comments Split Point Rapid (test code = Split 0.6 min Point Rapid) [facility] BrnebdhACBBODXNPF7234-22-48 10:16:15 Test Item Value Reference Range Interpretation Comments ACT (TEG) Rapid (test code = ACT (TEG) 113 s 86-118 Rapid) [facility] HospitalHpuhncuADPZRRZELT4319-90-84 10:16:15 Test Item Value Reference Range Interpretation Comments Angle Rapid (test code = Angle 72 degrees 64-80 Rapid) [facility] HospitalRrvcgvoKUAKTWQCQI6567-73-00 10:16:15 Test Item Value Reference Range Interpretation Comments K-time Rapid (test code = K-time 1.5 min 0.6-2.3 Rapid) [facility] HospitalBwtuzxtUZRQVEZLPY5789-59-75 10:16:15 Test Item Value Reference Range Interpretation Comments R-time Rapid (test code = R-time 0.7 min 0.4-0.7 Rapid) [facility] HospitalYzfgwjbJQXXEZNZMC9529-30-05 10:16:15 Test Item Value Reference Range Interpretation Comments Max Amplitude Rapid (test code = Max 61 mm 52-71 Amplitude Rapid) [facility] HospitalXkyqgxnUTDNKSACVH5769-63-64 10:16:157.9[facility] CenterATOLOG[facility] 2016-01-08 10:16:151.4[facility] DXDEERY0404-01-15 10:13:00 Negative (01/08/16 5:13 AM)[facility]
[2020-01-24] MEDS ORDERED: IBUPROFEN 200 MG TAB PO ONE (14:06)
[2020-01-24] MEDS ORDERED: IBUPROFEN 400 MG TAB ONE (14:06)
[2020-01-24] MEDS ORDERED: HYDROCODONE/APAP 10/325 TAB ONE (14:06)
--- NOTE | 2020-01-24 14:18 | RAD REPORT ---
EXAM DESCRIPTION: RAD - Foot Left 3 View - 01/24/2020 2:07 pm CLINICAL HISTORY: Pain;Swelling, trip and fall COMPARISON: July 2007 FINDINGS: Transverse fracture is present near the base of the fifth metatarsal. No distraction or an gulation deformity. No fracture, dislocation or periosteal reaction elsewhere in the foot. No air or foreign body in the soft tissues. IMPRESSION: Nondisplaced, nonangulated fracture of the proximal left fifth metatarsal. No other significant finding.
--- NOTE | 2020-01-24 15:13 | ER ---
Nurse's Notes [facility] Name: Yaw Aldrich Jr Age: 29 yrs Sex: Male : 1990 Arrival Date: 01/24/2020 Time: 13:15 Bed 20 Private MD: Diagnosis: Nondisplaced fracture of fifth metatarsal bone, left foot Presentation: 01/23 13:15 Chief complaint: Patient states: L foot pain and swelling EMS states: Tripped and fell ca1 at 0300 this morning. Rolled L ankle. C/O pain, swelling and limited ROM on L ankle. Coronavirus screen: Client denies travel out of the [place] in the last 14 days. At this time, the client does not indicate any symptoms associated with coronavirus-19. Ebola Screen: Patient negative for fever greater than or equal to 101.5 degrees Fahrenheit, and additional compatible Ebola Virus Disease symptoms Patient denies exposure to infectious person. Patient denies travel to an Ebola-affected area in the 21 days before illness onset. No symptoms or risks identified at this time. Initial Sepsis Screen: Does the patient meet any 2 criteria? No. Patient's initial sepsis screen is negative. Does the patient have a suspected source of infection? No. Patient's initial sepsis screen is negative. Risk Assessment: Do you want to hurt yourself or someone else? Patient reports no desire to harm self or others. Onset of symptoms was January 24, 2020 at 03:00. 13:15 Method Of Arrival: EMS: [facility] ca1 13:15 Acuity: SHEY 4 ca1 Triage Assessment: 13:20 General: Appears in no apparent distress. comfortable, Behavior is calm, cooperative, ca1 appropriate for age. Pain: Complains of pain in left foot Pain currently is 4 out of 10 on a pain scale. Neuro: Level of Consciousness is awake, alert, obeys commands, Oriented to person, place, time, situation. Derm: Skin is intact, is healthy with good turgor, Skin is pink, warm \T\ dry. Musculoskeletal: Circulation, motion, and sensation intact. Capillary refill < 3 seconds, Range of motion: limited in left ankle Swelling present in left foot. Historical: - Allergies: 13:20 Poultry; ca1 13:20 shrimp; ca1 - PMHx: 13:20 anal leakage; Asthma; Diabetes - NIDDM; ED; Hypertension; STD; ca1 - Immunization history:: Adult Immunizations up to date. - Social history:: Smoking status: Patient reports the use of cigarette tobacco products, smokes two packs cigarettes per day. Patient uses street drugs, cocaine, marijuana, Methamphetamine (Meth) methylenedioxymethamphetamine. - Family history:: not pertinent. Screenin:22 Abuse screen: Denies threats or abuse. Denies injuries from another. Nutritional ca1 screening: No deficits noted. Tuberculosis screening: No symptoms or risk factors identified. Fall Risk Fall in past 12 months (25 points). Assessment: 13:22 Reassessment: See triage notes. ca1 14:00 Reassessment: Patient is alert, oriented x 3, equal unlabored respirations, skin aa5 warm/dry/pink. Awaiting x-ray result. Ice pack applied to left foot. . 15:15 Reassessment: Patient appears in no apparent distress at this time. Patient is alert, ca1 oriented x 3, equal unlabored respirations, skin warm/dry/pink. Vital Signs: 13:15 BP 143 / 82; Pulse 104; Resp 16 S; Temp 99.1(O); Pulse Ox 98% on R/A; Weight 99.79 kg ca1 (R); Height 5 ft. 6 in. (167.64 cm) (R); Pain 4/10; 14:34 BP 110 / 66; Pulse 94; Resp 15 S; Pulse Ox 99% on R/A; ca1 15:15 BP 145 / 94; Pulse 89; Resp 16 S; Pulse Ox 99% on R/A; ca1 13:15 Body Mass Index 35.51 (99.79 kg, 167.64 cm) ca1 [place] Coma Score: 13:33 Eye Response: spontaneous(4). Verbal Response: oriented(5). Motor Response: obeys eliezer commands(6). Total: 15. ED Course: 13:15 Patient arrived in ED. ca1 13:19 Triage completed. ca1 13:20 Arm band placed on right wrist. ca1 13:22 Patient has correct armband on for positive identification. Bed in low position. Call ca1 light in reach. Side rails up X 1. Pulse ox on. NIBP on. 13:22 No provider procedures requiring assistance completed. Patient did not have IV access ca1 during this emergency room visit. 13:29 Jhonny Ferrer MD is Attending Physician. eliezer 13:50 Nancy Jay, RN is Primary Nurse. ca1 14:07 Foot Left 3 View In Process Unspecified. EDMS 15:12 Mario Mckeon MD is Referral Physician. eliezer 15:40 Crutch training done. 3D boot applied to left foot. by KANDIS Martinez. ca1 Administered Medications: 14:02 Drug: Motrin 600 mg Route: PO; aa5 15:15 Follow up: Response: No adverse reaction; Pain is decreased; RASS: Alert and Calm (0) ca1 15:15 Follow up: Response: No adverse reaction; Pain is decreased ca1 14:02 Drug: [place] 10 mg-325 mg 1 tabs Route: PO; aa5 15:16 Follow up: Response: No adverse reaction; Pain is decreased; RASS: Alert and Calm (0) ca1 Outcome: 15:13 Discharge ordered by . [facility] 15:46 Discharged to home ambulatory, with crutches. ca1 15:46 Condition: stable 15:46 Discharge instructions given to patient, Instructed on discharge instructions, follow up and referral plans. medication usage, crutch walking, Demonstrated understanding of instructions, follow-up care, medications, crutch walking, Prescriptions given X 1. 15:48 Patient left the ED. ca1 Signatures: Dispatcher [employer] [facility] Jhonny Ferrer MD MD cha Calderon, Audri, RN RN aa5 Nancy Jay, FOX RN ca1 Corrections: (The following items were deleted from the chart) 13:51 13:15 Chief complaint: EMS states: Tripped and fell at 0300 this morning. Rolled L ca1 ankle. C/O pain, swelling and limited ROM on L ankle ca1 13:51 13:20 Pain: Complains of pain in left lateral ankle, left Achilles, left medial ankle ca1 and anterior aspect of left ankle Pain currently is 4 out of 10 on a pain scale. ca1 13:51 13:20 Musculoskeletal: Circulation, motion, and sensation intact. Capillary refill < 3 ca1 seconds, Range of motion: limited in left ankle ca1
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
== END 2020-01-24 15:48 | disposition home or self-care (01) ==
LOC: ER 13:13
DX: S92.355A Nondisplaced fracture of fifth metatarsal bone, left foot, initial encounter for closed fracture (principal); W01.0XXA Fall on same level from slipping, tripping and stumbling without subsequent striking against object, initial encounter; Y93.01 Activity, walking, marching and hiking; Y92.9 Unspecified place or not applicable; Z91.013 Allergy to seafood; Z91.018 Allergy to other foods; I10 Essential (primary) hypertension; F17.210 Nicotine dependence, cigarettes, uncomplicated
CPT/HCPCS: 99284

== ENCOUNTER 2020-03-06 01:37 | Emergency (ER) | payer SELFPAY ==
[2020-03-06 02:32] LABS: Basophils % 0.6 % (0-1.3); Hematocrit 46.7 % (39.6-49.0); Lymphocytes % 17.7 % (15.3-44.8); MPV 7.7 fL (7.6-11.3); RBC Red Blood Cell Count 5.54 M/uL (4.33-5.43)
[2020-03-06 02:37] LABS: Protime INR 1.14
[2020-03-06 03:15] LABS: ALT/SGPT 42 U/L (12-78); AST/SGOT 44 U/L (15-37); Albumin 4.4 g/dL (3.4-5.0); Alkaline Phosphatase 100 U/L (45-117); BUN Blood Urea Nitrogen 21 mg/dL (7-18); Bicarbonate 22 mmol/L (21-32); Bilirubin Direct 0.2 mg/dL (0-0.2); Bilirubin Total 0.7 mg/dL (0.2-1.0); Creatine Phosphokinase 747 U/L (39-308); Glucose Level 91 mg/dL (74-106); Potassium 3.8 mmol/L (3.5-5.1); Protein, Total 8.2 g/dL (6.4-8.2); Sodium Level 137 mmol/L (136-145)
[2020-03-06] MEDS ORDERED: LORazepam 2 MG/ML VIAL ONE ×2 (03:22→04:33)
[2020-03-06] MEDS ORDERED: NA CHLORIDE 0.9% 1,000 ML ONE ×2 (03:40→05:34)
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
--- NOTE | 2020-03-06 11:36 | RAD REPORT ---
EXAM DESCRIPTION: RAD - Chest Single View - 03/06/2020 2:54 am CLINICAL HISTORY: COUGH Chest pain. COMPARISON: Chest Single View dated 12/04/2019; Chest Pa And Lat (2 Views) dated 09/07/2019; Chest Pa An d Lat (2 Views) dated 10/21/2018; Chest Single View dated 11/08/2016 FINDINGS: Portable technique limits examination quality. The lungs are grossly clear. The heart is normal in size. No displaced fractures. IMPRESSION: No acute intrathoracic process suspected.
[2020-03-06 11:47] VITALS: TEMP 98
[2020-03-06 11:49] VITALS: O2SAT 98
[2020-03-06 11:50] VITALS: BP 112/80
--- NOTE | 2020-03-08 13:36 | RAD REPORT ---
EXAM DESCRIPTION: CT of the head without contrast CLINICAL HISTORY: AMS COMPARISON: 12/12/2019 TECHNIQUE: Axial CT of the head obtained from the skull apex to the skull base without contrast. FINDINGS: No acute intracranial hemorrhage identified. No mass, mass effect, shift of the midline, a bnormal extra-axial fluid collection or CT evidence of acute ischemic change identified. The ventricu lar system is unremarkable. No acute abnormalities of the supratentorial white matter, basal gangli a, cerebellum, or brainstem. The visualized paranasal sinuses and the mastoids are relatively well aerated. No skull fracture id entified. Visualized orbits and globes are unremarkable. IMPRESSION: 1. No acute intracranial abnormality identified. This exam was performed according to our departmental dose-optimization program, which includes autom ated exposure control, adjustment of the mA and/or kV according to patient size and/or use of iterati ve reconstruction technique. Electronically signed by: Michael Stokes 03/06/2020 5:05 AM CDT Due to temporary technical issues with the PACS/Fluency reporting system, reports are being signed by the in house radiologist without review as a courtesy to ensure prompt reporting. The interpreting r adiologist is fully responsible for the content of the report.
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
--- OUTSIDE RECORDS SUMMARY | 2020-03-10 00:13 | XMS REPORT | Continuity of Care Document ---
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 code = (desirable) - < 200 Cholesterol Total) mg/dlMode rate-risk level (borderli ne) - 200-239 mg/dlHigh-risk level - ?240 mg/dl Triglycerides (test 156 mg/dL N Normal - <150 code = Triglycerides) mg/dlB orderline high - 150-199 mg/dl High - 200-499 mg/dl Very high - ?500 mg/ dl HDL (test code = HDL) 34.50 mg/dL N Low-ri sk level (desirable) - ? 60 mg/dlHigh-risk level (undesirable) - <40 mg/dl LDL (test code = LDL) 93 mg/dL N The eq uation being used in this calculation is LDL = (Chol - HDL) - (Trig / 5) VLDL (test code = 31 mg/dL 5-40 The equati on being VLDL) used in this calculation is VLDL = Trig / 5 Chol/HDL (test code = 4.6 ratio <=5.0 Chol/HDL) LDL/HDL Ratio (test 5 N The equa tion being code = LDL/HDL Ratio) used i n this calculation is LDL/HDL Ratio=L DL Calc/HDL Chol Thyroid Stimulating [id number] 12:16:02 Test Item Value Reference Range Interpretation Comments TSH (test code = TSH) 3.882 mcIU/mL 0.550-4.780 Hemoglobin [id number] 09:27:58 Test Item Value Reference Range Interpretation Comments Hemoglobin A1c (test code 6.2 % 4.0-5.8 H Di abetic >=6.5 = Hemoglobin A1c) %Prediabet es 5.7-6.4 %Normal <5.7 % Comprehensive Metabolic [id number] 09:24:08 Test Item Value Reference Range Interpretation Comments Sodium Level (test code = Sodium 139.0 mmol/L 136.0-145.0 Level) Potassium Level (test code = 4.30 mmol/L 3.50-5.10 Potassium Level) Chloride Level (test code = 106.0 mmol/L 98.0-107.0 Chloride Level) CO2 (test code = CO2) 28 mmol/L 20-31 Anion Gap (test code = Anion 5.2 mmol/L 5.0-15.0 Gap) BUN (test code = BUN) 15 mg/dL 9-23 Creatinine Level (test code = 0.81 mg/dL 0.70-1.30 Creatinine Level) BUN/Creat Ratio (test code = 18.5 ratio 10.0-20.0 BUN/Creat Ratio) Glucose Level (test code = 85 mg/dL 74-106 Glucose Level) Calcium Level (test code = 9.3 mg/dL 8.3-10.6 Calcium Level) Alk Phos (test code = Alk Phos) 74 U/L 46-116 Bilirubin Total (test code = 0.3 mg/dL 0.2-1.1 Bilirubin Total) Albumin Level (test code = 4.7 g/dL 3.2-4.8 Albumin Level) Protein Total (test code = 6.7 g/dL 5.7-8.2 Protein Total) ALT (test code = ALT) 51 U/L 10-49 H AST (test code = AST) 39 U/L <=34 H Globulin (test code = Globulin) 2.0 g/dL 2.3-3.5 L A/G Ratio (test code = A/G 2.4 g/dL 0.8-2.0 H Ratio) Hemolysis (test code = 0 g/dL 1-2 H Hemolysis) Icterus (test code = Icterus) 0 g/dL 1-2 H Lipemia (test code = Lipemia) 0 g/dL 1-2 H Comprehensive Metabolic [id number] 09:24:08 Test Item Value Reference Range Interpretation Comments Sodium Level (test 139.0 mmol/L 136.0-145.0 code = Sodium Level) Potassium Level 4.30 mmol/L 3.50-5.10 (test code = Potassium Level) Chloride Level (test 106.0 mmol/L 98.0-107.0 code = Chloride Level) CO2 (test code = 28 mmol/L 20-31 CO2) Anion Gap (test code 5.2 mmol/L 5.0-15.0 = Anion Gap) BUN (test code = 15 mg/dL 9-23 BUN) Creatinine Level 0.81 mg/dL 0.70-1.30 (test code = Creatinine Level) BUN/Creat Ratio 18.5 ratio 10.0-20.0 (test code = BUN/Creat Ratio) Glucose Level (test 85 mg/dL 74-106 code = Glucose Level) Calcium Level (test 9.3 mg/dL 8.3-10.6 code = Calcium Level) Alk Phos (test code 74 U/L 46-116 = Alk Phos) Bilirubin Total 0.3 mg/dL 0.2-1.1 (test code = Bilirubin Total) Albumin Level (test 4.7 g/dL 3.2-4.8 code = Albumin Level) Protein Total (test 6.7 g/dL 5.7-8.2 code = Protein Total) ALT (test code = 51 U/L 10-49 H ALT) AST (test code = 39 U/L <=34 H AST) Globulin (test code 2.0 g/dL 2.3-3.5 L = Globulin) A/G Ratio (test code 2.4 g/dL 0.8-2.0 H = A/G Ratio) eGFR AA (test code = >60 >=60 eGFR (e stimated eGFR AA) mL/min/1.73 m2 Glomerular Filtration Rate ) is an estimated va lue, calculated from the patient's serum creatinine usin g the MDRD equation. It is NOT the patient 's actual GFR. The eGFR provides a more clinically usef ul measure of kidn ey disease than se rum creatinine alone.This calculation brayan es sex and race in to account, if the information is provided. If th e race is not provided, and t he patient is -Britney n, multiply by 1.2 12. If sex is not provided, and t he patient is fema le, multiply by 0.7 42. Results for pat ients <18 years of ag e have not been validated by th e MDRD study and should be interpreted wit h caution. eGFR R esult Interpretation: eGFR > or = 60 is in the Normal RangeeGF R < 60 may mean kid brianna diseaseeGFR < 1 5 may mean kidney failure Rang es recommended by the National Kidney Foundation, http://nkdep.ni h.gov Hemolysis (test code 0 g/dL 1-2 H = Hemolysis) Icterus (test code = 0 g/dL 1-2 H Icterus) Lipemia (test code = 0 g/dL 1-2 H Lipemia) Comprehensive Metabolic [id number] 09:24:08 Test Item Value Reference Range Interpretation Comments Sodium Level (test 139.0 mmol/L 136.0-145.0 code = Sodium Level) Potassium Level 4.30 mmol/L 3.50-5.10 (test code = Potassium Level) Chloride Level (test 106.0 mmol/L 98.0-107.0 code = Chloride Level) CO2 (test code = 28 mmol/L 20-31 CO2) Anion Gap (test code 5.2 mmol/L 5.0-15.0 = Anion Gap) BUN (test code = 15 mg/dL 9-23 BUN) Creatinine Level 0.81 mg/dL 0.70-1.30 (test code = Creatinine Level) BUN/Creat Ratio 18.5 ratio 10.0-20.0 (test code = BUN/Creat Ratio) Glucose Level (test 85 mg/dL 74-106 code = Glucose Level) Calcium Level (test 9.3 mg/dL 8.3-10.6 code = Calcium Level) Alk Phos (test code 74 U/L 46-116 = Alk Phos) Bilirubin Total 0.3 mg/dL 0.2-1.1 (test code = Bilirubin Total) Albumin Level (test 4.7 g/dL 3.2-4.8 code = Albumin Level) Protein Total (test 6.7 g/dL 5.7-8.2 code = Protein Total) ALT (test code = 51 U/L 10-49 H ALT) AST (test code = 39 U/L <=34 H AST) Globulin (test code 2.0 g/dL 2.3-3.5 L = Globulin) A/G Ratio (test code 2.4 g/dL 0.8-2.0 H = A/G Ratio) eGFR AA (test code = >60 >=60 eGFR (e stimated eGFR AA) mL/min/1.73 m2 Glomerular Filtration Rate ) is an estimated va lue, calculated from the patient's serum creatinine usin g the MDRD equation. It is NOT the patient 's actual GFR. The eGFR provides a more clinically usef ul measure of kidn ey disease than se rum creatinine alone.This calculation brayan es sex and race in to account, if the information is provided. If th e race is not provided, and t he patient is -Britney n, multiply by 1.2 12. If sex is not provided, and t he patient is fema le, multiply by 0.7 42. Results for pat ients <18 years of ag e have not been validated by th e MDRD study and should be interpreted wit h caution. eGFR R esult Interpretation: eGFR > or = 60 is in the Normal RangeeGF R < 60 may mean kid brianna diseaseeGFR < 1 5 may mean kidney failure Rang es recommended by the National Kidney Foundation, http://nkdep.ni h.gov eGFR Non-AA (test >60.00 >=60.00 eGFR (caty mated code = eGFR Non-AA) mL/min/1.73 m2 Glomer ular Filtration Rate ) is an estimated va lue, calculated from the patient's serum creatinine usin g the MDRD equation. It is NOT the patient 's actual GFR. The eGFR provides a more clinically usef ul measure of kidn ey disease than se rum creatinine alone.This calculation brayan es sex and race in to account, if the information is provided. If th e race is not provided, and t he patient is -Britney n, multiply by 1.2 12. If sex is not provided, and t he patient is fema le, multiply by 0.7 42. Results for pat ients <18 years of ag e have not been validated by th e MDRD study and should be interpreted wit h caution. eGFR R esult Interpretation: eGFR > or = 60 is in the Normal RangeeGF R < 60 may mean kid brianna diseaseeGFR < 1 5 may mean kidney failure Rang es recommended by the National Kidney Foundation, http://nkdep.ni h.gov Hemolysis (test code 0 g/dL 1-2 H = Hemolysis) Icterus (test code = 0 g/dL 1-2 H Icterus) Lipemia (test code = 0 g/dL 1-2 H Lipemia) Comprehensive Metabolic [id number] 09:24:08 Test Item Value Reference Range Interpretation Comments Sodium Level (test 139.0 mmol/L 136.0-145.0 code = Sodium Level) Potassium Level 4.30 mmol/L 3.50-5.10 (test code = Potassium Level) Chloride Level (test 106.0 mmol/L 98.0-107.0 code = Chloride Level) CO2 (test code = 28 mmol/L 20-31 CO2) Anion Gap (test code 5.2 mmol/L 5.0-15.0 = Anion Gap) BUN (test code = 15 mg/dL 9-23 BUN) Creatinine Level 0.81 mg/dL 0.70-1.30 (test code = Creatinine Level) BUN/Creat Ratio 18.5 ratio 10.0-20.0 (test code = BUN/Creat Ratio) Glucose Level (test 85 mg/dL 74-106 code = Glucose Level) Calcium Level (test 9.3 mg/dL 8.3-10.6 code = Calcium Level) Alk Phos (test code 74 U/L 46-116 = Alk Phos) Bilirubin Total 0.3 mg/dL 0.2-1.1 (test code = Bilirubin Total) Albumin Level (test 4.7 g/dL 3.2-4.8 code = Albumin Level) Protein Total (test 6.7 g/dL 5.7-8.2 code = Protein Total) ALT (test code = 51 U/L 10-49 H ALT) AST (test code = 39 U/L <=34 H AST) Globulin (test code 2.0 g/dL 2.3-3.5 L = Globulin) A/G Ratio (test code 2.4 g/dL 0.8-2.0 H = A/G Ratio) eGFR AA (test code = >60 >=60 eGFR (e stimated eGFR AA) mL/min/1.73 m2 Glomerular Filtration Rate ) is an estimated va lue, calculated from the patient's serum creatinine usin g the MDRD equation. It is NOT the patient 's actual GFR. The eGFR provides a more clinically usef ul measure of kidn ey disease than se rum creatinine alone.This calculation brayan es sex and race in to account, if the information is provided. If th e race is not provided, and t he patient is -Britney n, multiply by 1.2 12. If sex is not provided, and t he patient is fema le, multiply by 0.7 42. Results for pat ients <18 years of ag e have not been validated by th e MDRD study and should be interpreted wit h caution. eGFR R esult Interpretation: eGFR > or = 60 is in the Normal RangeeGF R < 60 may mean kid brianna diseaseeGFR < 1 5 may mean kidney failure Rang es recommended by the National Kidney Foundation, http://nkdep.ni h.gov eGFR Non-AA (test >60.00 >=60.00 eGFR (caty mated code = eGFR Non-AA) mL/min/1.73 m2 Glomer ular Filtration Rate ) is an estimated va lue, calculated from the patient's serum creatinine usin g the MDRD equation. It is NOT the patient 's actual GFR. The eGFR provides a more clinically usef ul measure of kidn ey disease than se rum creatinine alone.This calculation brayan es sex and race in to account, if the information is provided. If e race is not provided, and t he patient is -Britney n, multiply by 1.2 12. If sex is not provided, and t he patient is fema le, multiply by 0.7 42. Results for pat ients <18 years of ag e have not been validated by e MDRD study and should be interpreted wit h caution. eGFR R esult Interpretation: eGFR > or = 60 is in the Normal RangeeGF R < 60 may mean kid brianna diseaseeGFR < 1 5 may mean kidney failure Rang es recommended by the National Kidney Foundation, http://nkdep.ni h.gov Hemolysis (test code 0 g/dL N Referen ce range = Hemolysis) changed due to change in patie nt's sex at 0 13:38:40. Norm al Low changed fro m 1 to not defined. Normal High eliezer nged from 2 to not defined. Resul t flag changed fr om H to not applied. Icterus (test code = 0 g/dL N Referen ce range Icterus) changed due to change in patie nt's sex at 0 13:38:40. Norm al Low changed fro m 1 to not defined. Normal High eliezer nged from 2 to not defined. Resul t flag changed fr om H to not applied. Lipemia (test code = 0 g/dL N Referen ce range Lipemia) changed due to change in patie nt's sex at 0 13:38:40. Norm al Low changed fro m 1 to not defined. Normal High eliezer nged from 2 to not defined. Resul t flag changed fr om H to not applied. Complete Blood Count with Xrqyuhhczkxw8258-63-31 07:51:38 Test Item Value Reference Range Interpretation Comments WBC (test code = WBC) 8.2 x10 4.4-10.5 RBC (test code = RBC) 5.91 x10 4.10-5.70 H Hgb (test code = Hgb) 17.2 g/dL 13.4-17.4 Hct (test code = Hct) 53.2 % 38.7-52.0 H MCV (test code = MCV) 90.00 fL 80.00-100.00 MCHC (test code = 32.30 g/dL 32.00-37.50 MCHC) RDW CV (test code = 12.4 % 11.5-14.5 RDW CV) MCH (test code = MCH) 29.1 pg 27.0-32.5 Platelets (test code = 254.0 x10 140.0-440.0 Platelets) MPV (test code = MPV) 9.7 fL N Slide Review (test Auto Auto Result cr eated by code = Slide Review) GL_SJM_ SLIDE_REV_AUTO nRBC (test code = 0 N nRBC) NRBC Abs (test code = 0.00 x10 N NRBC Abs) Automated Mapnuoebwthk6146-02-44 07:51:38 Test Item Value Reference Range Interpretation Comments Neutro Auto (test code = Neutro 46.0 % 36.0-70.0 Auto) Lymph Auto (test code = Lymph Auto) 41.1 % 12.0-44.0 [place] Auto (test code = [place] Auto) 8.1 % 0.0-11.0 Eos, Auto (test code = Eos, Auto) 4.0 % 0.0-7.0 Basophil Auto (test code = Basophil 0.7 % 0.0-2.0 Auto) Neutro Absolute (test code = Neutro 3.8 x10 1.6-7.4 Absolute) Lymph Absolute (test code = Lymph 3.38 x10 .50-4.60 Absolute) [place] Absolute (test code = [place] .67 x10 .00-1.20 Absolute) Eos Absolute (test code = Eos 0.33 x10 0.00-0.74 Absolute) Baso Absolute (test code = Baso 0.06 x10 0.00-0.21 Absolute) IG [id number] 07:51:38 Test Item Value Reference Range Interpretation Comments IG (test code = IG) 0.1 % 0.0-5.0 IG Abs (test code = IG Abs) 0 x10 N QZEXDUXN-[id number] 22:55:00 Test Item Value Reference Range Interpretation Comments TROPONIN-I (test <0.02 NG/ML 0.00-0.06 N REFERENCE R EVERETT code = TROPI) TROPONIN I HEA LTHY INDIVIDUALS: < 0.06 ng/mL R/O ISCHE WILBER: 0.07 - 0.60 ng/ mL CUT-OFF RANGE F OR AMI: 0.60 - 1.5 ng/m L CHEM [id number] 05:31:001.9[facility]annCHEM AUNVI6851-41-23 05:31:002.9 [facility] BvvrsqcEWLRIDBEDSIW0150-72-85 05:31:0014.1[facility]annELECTROLYTES 2016-01-20 05:31:10409Mrrfxzmo LufbbviARCRJUKLUMND6870-54-47 05:31:000.63 [facility] RcfbowdGJLQJAPJIOHE9617-12-78 05:31:0013[facility]annELECTROLYTES 2016-01-20 05:31:004.1[facility] KyzwhmpXBOBKAFQFHHF1047-29-27 05:31:05565Lidfhwkb PsgxzthRZHBXGFHEJIB3234-42-56 05:31:85656Vyxlyfqs DfbpilhRLEGTJHTKUNP1389-82-76 05:31:63165Ynjklzfe PqgwllpIPLYKSCNWCIM4126-59-60 05:31:008.0[facility] EGSMWXYCKZWE5646-62-20 05:31:0023[facility] SfdscyoXWPSJVGOWX5348-94-91 05:31:00 0.3[facility] LihdfolBEQNLIXUUS0552-64-57 05:31:002.3[facility]annHEMATOLOGY 2016-01-20 05:31:006.7[facility] DwwytnzOWDMILIJTD9772-86-95 05:31:0015.2[facility] UzqwswvGLBCSGJFWY8182-81-79 05:31:0075.5[facility] NfrzqkwNWAQDBETXP6786-14-94 05:31:000.8[facility] MaaqqjkJOZUHZOMEW1510-18-96 05:31:000.3[facility] BSOWDJKDUD3563-34-87 05:31:001.9[facility] AblbzryQFYZPLTRUB6066-92-62 05:31:009.4 [facility] OvedjmlHQRWFMOJJR7970-91-71 05:31:008.7[facility]annHEMATOLOGY 2016-01-20 05:31:0013.5[facility] FrkpihfMENUKDWUZH0814-67-03 05:31:00 Test Item Value Reference Range Interpretation Comments MCH (test code = MCH) 28.3 pg 27.0-31.0 [facility] RgogufgQDJALJTGWV2127-84-37 05:31:38146Dhugvfge HermannHEMATOLOGY 2016-01-20 05:31:0033.4[facility] MsxbjgyZRUNXWMOPC8566-21-46 05:31:0084.6[facility] OhybdhwFTBITQMVGU9306-23-56 05:31:009.2[facility] IcamddjOXLXFIBVKK9664-89-37 05:31:0027.7[facility] ZecbevsGJBGMHRCFO8632-34-62 05:31:003.27[facility] XNEXSFBPDH3231-43-57 05:31:0012.5[facility] HermannPARATHYROID ZLWTDCO3269-49-99 05:31:001.08[facility]annPARATHYROID XOUKDDP3394-85-46 05:31:001.10[facility] AnultykGQMWCGLYHS3656-87-10 17:30:000.09[facility]annCHEM WONGQ5223-73-84 05:32:001.9[facility]annCHEM NDCZF1015-32-26 05:32:003.8[facility] LPEXLJDCBUVA4671-06-27 05:32:0012.1[facility] OuxphraRYFYKQGFURSJ3105-43-26 05:32:007.8[facility] AnrudhqDLYYPBETTCWW1995-63-80 05:32:0029[facility] MXGXQSICUWEA8264-88-44 05:32:0094[facility] CfjgydvEESFVKRQMSSL5619-32-61 05:32:00 4.1[facility] TfngijcIMCCEKWZTAHK1670-54-24 05:32:85831Vynkkusn Andrae TKUYEMVVJXLC7384-43-38 05:32:000.53[facility] SahqaukOZVOQIRLZFTK9500-84-70 05:32:0014[facility] XzzexciKIGVYCWMMRCB6038-15-88 05:32:16319Cvhhlyjl [place] BHVNMBTXYWPC9633-44-11 05:32:33750Cmfbltbt CmbwglsXVJRVCTQMY9112-27-02 05:32:00 2.2[facility] PuqnggdHGGVXNTMUL0944-28-22 05:32:008.5[facility]annHEMATOLOGY 2016-01-19 05:32:003.1[facility] QjdtwluDIGFBYZHKN8931-95-10 05:32:001.1[facility] EpwcjchVCRSIANUHH8827-34-87 05:32:000.1[facility] HmseafwCFFJQZXWFC9140-85-94 05:32:000.4[facility] IhyuysoJTSQWMQNLR6592-13-61 05:32:000.8[facility] SACRSATPHX7188-21-20 05:32:006.4[facility] HnueeqdKMNAFDIOUL6581-33-81 05:32:00 70.9[facility] JavmlgoQDMBGEVYEX9946-27-53 05:32:0018.5[facility]annHEMATOLOGY 2016-01-19 05:32:77024Jscbyhqo WmfjqlqJMSPAAVRXQ2352-30-55 05:32:008.9[facility] VfgsvupOZUNBKGNFF2158-72-45 05:32:0032.9[facility] SfvpuunBRMFGFODAD3841-71-51 05:32:0013.6[facility] GstenccXWXAQRIJPM4032-93-84 05:32:0085.1[facility] VTVMAZMHRL2908-45-40 05:32:00 Test Item Value Reference Range Interpretation Comments MCH (test code = MCH) 28.0 pg 27.0-31.0 [facility] FpenypiPHZFQTZVXN9651-40-63 05:32:0026.7[facility]annHEMATOLOGY 2016-01-19 05:32:003.14[facility] EvzmbliBOZXMAIOZS4923-15-41 05:32:008.8[facility] KhhhooxIEBIAAIEAP8206-11-46 05:32:0012.0[facility] HermannPARATHYROID PROFILE 2016-01-19 05:32:001.12[facility] HermannPARATHYROID WFWHISD0253-46-54 05:32:00 1.12[facility]annCHEM JAEXU7151-48-56 05:20:94877Iilwefks HermannCHEM PANEL 2016-01-18 05:20:50547Lyrqpgkc HermannCHEM PBMDI2068-81-68 05:20:0018[facility]annCHEM LWDPG5381-10-92 05:20:000.55[facility]annCHEM DZXYJ3813-89-76 05:20:004.4[facility]annCHEM CGSWE2176-01-03 05:20:05657Warvqklh HermannCHEM BWDTT8033-71-24 05:20:007.7[facility]annCHEM OPHFE0375-90-93 05:20:43555 [facility]annCHEM WOKSB0953-44-86 05:20:0027[facility]annCHEM PANEL 2016-01-18 05:20:0012.4[facility]annCHEM AFWKU1761-90-31 05:20:002.2[facility]annCHEM ZPKNW9303-44-66 05:20:002.9[facility] IwzwwytIMWUSZVFMP6630-14-54 05:20:00Normal (01/18/16 12:20 AM)[facility] GkvamsjRQUQZZVQCO1060-26-51 05:20:00 Normal (01/18/16 12:20 AM)[facility] CckzzhvRLRJYKDOPT8680-59-27 05:20:0015.5 [facility] QglwavlNIIPMYFKVP2435-05-68 05:20:0071.9[facility]annHEMATOLOGY 2016-01-18 05:20:0011.2[facility] NlunxajVZUCKRBBZS3064-18-91 05:20:006.9[facility] QbxjmwxPYBZODDUDO7997-08-30 05:20:000.4[facility] DlfujjjNQDBWRUXUR5893-64-26 05:20:001.5[facility] AklnivvEHFZTZSWBC0080-42-35 05:20:001.0[facility] GMJWOUWFMB3114-20-83 05:20:000.1[facility] EnsnljkJSJGQGTTVI3403-14-35 05:20:001.1 [facility] FjjnygkZFEJIZSCZG6770-03-19 05:20:000.04[facility]annHEMATOLOGY 2016-01-18 05:20:19472Warpkznr QuqgqcnIFMGWCYDSN1064-86-88 05:20:0013.8[facility] PtnnvpsONDIEHJYHE5876-85-66 05:20:009.6[facility] XvkwhrcMGGFYMJKYA6463-43-93 05:20:008.5[facility] QnszgaaBASOSOEGFM6918-12-47 05:20:0084.4[facility] RVGWYGBVGT7753-81-70 05:20:0033.6[facility] SjgfeilYMLHIFFZUV5061-48-82 05:20:00 Test Item Value Reference Range Interpretation Comments MCH (test code = MCH) 28.3 pg 27.0-31.0 [facility] OguiuteWCYNDLOPZG3754-38-31 05:20:0025.9[facility]annHEMATOLOGY 2016-01-18 05:20:008.7[facility] HossadaAHBLUPZDOG3179-11-72 05:20:003.07[facility] HermannPARATHYROID GJTOEOO1356-10-73 05:20:001.13[facility] HermannPARATHYROID UINASWG2552-64-93 05:20:001.08[facility] WyorxyyQYBQCAZJTC0861-09-33 08:12:000.1 [facility]annBLOOD BANK PIKZKQQ1683-78-55 05:05:00Negative (01/16/16 12:05 AM) [facility] UvmcsjaQTBXBTXJZY5852-20-97 13:15:264265Qdgxgako HermannTOXICOLOGY 2016-01-15 13:15:004.9[facility]annURINE AND VYPBY7822-56-80 12:03:003 [facility] AIKHS7876-49-80 12:03:001[facility] TJOSR1202-84-44 12:03:00Negative (01/14/16 7:03 AM)[facility] OJZCM5436-51-69 12:03:00Negative *NA*(01/14/16 7:03 AM)[facility] HNLQS5066-89-30 12:03:00 Test Item Value Reference Range Interpretation Comments UA pH (test code = UA pH) 5.5 1 5.0-8.0 [facility] HSURW0134-02-54 12:03:00Negative (01/14/16 7:03 AM) [facility] LFITE5925-15-73 12:03:00Trace *ABN*(01/14/16 7:03 AM) [facility] PRJCG5903-78-95 12:03:00Negative *NA*(01/14/16 7:03 AM) [facility] IJVXL0481-13-80 12:03:00 Test Item Value Reference Range Interpretation Comments UA Spec Grav (test code = UA Spec 1.025 1 Grav) [facility] OGCFR0690-06-66 12:03:00Clear (01/14/16 7:03 AM) [facility] BCKDP4627-84-10 12:03:00Yellow *NA*(01/14/16 7:03 AM) [facility] EKYTU7139-78-31 12:03:00Negative (01/14/16 7:03 AM) [facility] BGLXY0064-33-10 12:03:00None Seen (01/14/16 7:03 AM) [facility] PZFXH7617-69-82 12:03:001.0[facility] FBKKJ7670-92-67 12:03:00Negative (01/14/16 7:03 AM)[facility] HermannHEMATOLOGY 2016-01-13 14:28:003.4[facility] BxtqauxGPEVJFUPJG6398-68-91 14:28:00 Test Item Value Reference Range Interpretation Comments Max Amplitude Rapid (test code = Max 76 mm 52-71 Amplitude Rapid) [facility] ZcuazxmCVVBTCUAMN2247-26-16 14:28:0015.8[facility] HermannHEMATOLOGY 2016-01-13 14:28:00 Test Item Value Reference Range Interpretation Comments R-time Rapid (test code = R-time 0.9 min 0.4-0.7 Rapid) [facility] CpieofjTTEREDCCDJ2920-76-82 14:28:00 Test Item Value Reference Range Interpretation Comments K-time Rapid (test code = K-time 1.1 min 0.6-2.3 Rapid) [facility] VqcfaglZRQIQWBDFE9681-33-09 14:28:00 Test Item Value Reference Range Interpretation Comments Angle Rapid (test code = Angle 78 degrees 64-80 Rapid) [facility] CampusLarqktbJREBXJXOFY9669-29-35 14:28:00 Test Item Value Reference Range Interpretation Comments ACT (TEG) Rapid (test code = ACT (TEG) 136 s 86-118 Rapid) [facility] 14:28:00 Test Item Value Reference Range Interpretation Comments Split Point Rapid (test code = Split 0.8 min Point Rapid) [facility] [id number] 05:34:00Negative (01/13/16 12:34 AM) [facility]ox[facility]oghBGWBJEFYQK9703-19-64 05:34:00 Test Item Value Reference Range Interpretation Comments PTT (test code = PTT) 42.2 s 22.9-35.8 [facility]KdgvtmgXEUGCXZNWK2053-91-04 05:34:001.15[facility] 2016-01-13 05:34:00 Test Item Value Reference Range Interpretation Comments PT (test code = PT) 15.0 s 12.0-14.7 [facility] HospitalTktumzzGSRCIQVPEA2425-18-81 09:47:00Normal (01/11/16 4:47 AM)[facility] HospitalBjagahqDHITEUUSXI1138-06-31 09:47:00Normal (01/11/16 4:47 AM)[facility] HermannCHEM [id number] 10:16:001.2[facility]annCHEM CHSHM3069-33-46 23:00:002.2 [facility]annCHEM YVIRT6935-66-54 16:03:002.0[facility]annDRUG SCREEN 2016-01-08 12:28:00See Note (01/08/16 [...] 2016-01-08 12:28:000-2 (01/08/16 7:28 AM)[facility] [id number] 12:28:00 Test Item Value Reference Range Interpretation Comments UA pH (test code = UA pH) 6.0 1 5.0-8.0 [facility] [id number] 12:28:00Small *ABN*(01/08/16 7:28 AM) [facility] DMRVL5273-03-83 12:28:000.2[facility] [id number] 12:28:00Negative (01/08/16 7:28 AM)[facility] STOOL 2016-01-08 12:28:00Negative (01/08/16 7:28 AM)[facility] STOOL 2016-01-08 12:28:00Negative (01/08/16 7:28 AM)[facility] STOOL 2016-01-08 12:28:00Negative *NA*(01/08/16 7:28 AM)[facility] STOOL 2016-01-08 12:28:00Negative *NA*(01/08/16 7:28 AM)[facility] STOOL 2016-01-08 12:28:00 Test Item Value Reference Range Interpretation Comments UA Spec Grav (test code = UA Spec 1.027 1 Grav) [facility] [id number] 12:28:00Clear (01/08/16 7:28 AM)[facility] [id number] 12:28:00Yellow *NA*(01/08/16 7:28 AM)[facility] CenterZfqqndzAMZWCHVCZN6228-15-22 10:16:150.1[facility] MsaqcdaNXDZTRCDQJ9453-03-36 10:16:15 Test Item Value Reference Range Interpretation Comments Split Point Rapid (test code = Split 0.6 min Point Rapid) [facility] [id number] 10:16:15 Test Item Value Reference Range Interpretation Comments ACT (TEG) Rapid (test code = ACT (TEG) 113 s 86-118 Rapid) [id number] 10:16:15 Test Item Value Reference Range Interpretation Comments Angle Rapid (test code = Angle 72 degrees 64-80 Rapid) [facility] [id number] 10:16:15 Test Item Value Reference Range Interpretation Comments K-time Rapid (test code = K-time 1.5 min 0.6-2.3 Rapid) [facility] [id number] 10:16:15 Test Item Value Reference Range Interpretation Comments R-time Rapid (test code = R-time 0.7 min 0.4-0.7 Rapid) [facility] [id number] 10:16:15 Test Item Value Reference Range Interpretation Comments Max Amplitude Rapid (test code = Max 61 mm 52-71 Amplitude Rapid) [facility] [id number] 10:16:157.9[facility] 2016-01-08 10:16:151.4[facility] BANK [id number] 10:13:00 Negative (01/08/16 5:13 AM)[facility]
--- OUTSIDE RECORDS SUMMARY | 2020-03-10 00:14 | XMS REPORT | Summary of Care ---
:1990 Author Organization [facility] - Health Address [address] [place] [address] Care Team Providers Name Role Phone Richard Chung Primary Care Provider Encounter Details Date Type Department Care Team Description 02/01/2020 Orders Only [facility] Doctor Unassigned, No [address] [facility] Name [place] [id number] Allergies Active Allergy Reactions Severity Noted Date Comments Antihistimine Swelling 02/07/2015 documented as of this encounter (statuses as of 02/01/2020) Medications Medication Sig Dispensed Refills Start Date [...] as of this encounter (statuses as of 02/01/2020) Active Problems No known active problemsdocumented as of this encounter (statuses as of 02/01/2020) Social History Tobacco Use Types Packs/Day Years Used Date Never Assessed Sex Assigned at Date Recorded Not on file documented as of this encounter Last Filed Vital Signs Not on filedocumented in this encounter Plan of Treatment Health Maintenance Due Date Last Done Comments VARICELLA VACCINES (1 of 2 - 02/13/1993 2-dose childhood series) Depression Screening 2004 DTaP,Tdap,and Td Vaccines (1 - 02/13/2011 Tdap) INFLUENZA VACCINE (#1) 2020 PNEUMOCOCCAL 0-64 YEARS COMBINED Aged Out No longer eligible based on SERIES patient's age to complete this topic documented as of this encounter Procedures Procedure Name Priority Date/Time Associated Diagnosis Comme nts CONSENT/REFUSAL FOR Routine 02/01/2020 3:28 PM CDT DIAGNOSIS AND TREATMENT documented in this encounter Results Not on filedocumented in this encounter
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
--- OUTSIDE RECORDS SUMMARY | 2020-03-10 00:16 | XMS REPORT | Summary of Care ---
:1990 Author Organization [facility] Address [address] [place] [address] Care Team Providers Name Role Phone Richard Chung Primary Care Provider Reason for Referral (Routine) Status Reason Specialty Diagnoses / Referred By Contact Refe rred To Procedures Contact New Request Diagnoses Suicidal ideations Deniz Boyd MD Khan, Wasim M Procedures Discharge Follow-up: PCP BROOKE CHUNG; 2 Weeks 301 [facility] [address] Phone: [place] [address] Fax: Radiology Services (STAT) Status Reason Specialty Diagnoses / Referred By Referred To Procedures Contact Contact New Request Diagnostic Diagnoses Left foot pain Odalis, K Radiology Procedures XR FOOT <3 VW LEFT Alcira, PAC [address] [facility] [address] [place] [address] Reason for Visit Reason Comments Shortness of Breath Syncope Auth/Cert Status Reason Specialty Diagnoses / Referred By Referred To Procedures Contact Contact Emergency Medicine [facility] Em ergency Dept [address] [place] [address] Fax: Encounter Details Date Type Department Care Team Description 02/01/2020 - Hospital Encounter [facility] Medicine Surgery Karlie Jacobo, PAC [address] [facility] [address] [place] [address] Suicidal ideations 02/05/2020 Unit Conchis Claire MD [address] [place], [place] [id number] [address] [place] [address] [place] [address] Allergies Active Allergy Reactions Severity Noted Date Comments Antihistimine Swelling 02/07/2015 Chicken Derived Unknown - See comments 02/03/2020 documented as of this encounter (statuses as of 02/05/2020) Medications Medication Sig Dispensed Refills Start Date End Date Status metFORMIN 500 mg Take 1 60 tablet 0 02/05/2020 Ac tive tabletIndications: tablet by Suicidal ideations mouth 2 (two) times daily with meals. nicotine 21 mg/24 Apply 1 30 Patch 0 02/05/2020 A ctive hr Patch to patchIndications: area(s) Suicidal ideations every 24 (twenty-four ) hours. Tramadol (RYBIX Take 1 Tab 15 Tab 0 02/08/2015 Di scontinued ODT) 50 mg TbDL by mouth 6 0 (six) times daily. salsalate Take 1 Tab 22 Tab 0 02/08/2015 Disconti nued (SALSALATE) 750 mg by mouth 3 0 tablet (three) times daily with meals. silver Apply to 1 Tube 1 02/08/2015 Discontin ued sulfADIAZINE area(s) 2 0 (SILVADENE) 1 % (two) times cream daily. metFORMIN 500 mg Take 1 60 tablet 0 03/03/2018 Di scontinued tablet tablet by 0 (Reorder) mouth 2 (two) times daily with meals. documented as of this encounter (statuses as of 02/05/2020) Active Problems Problem Noted Date Elevated CK 02/03/2020 Suicidal ideations 02/02/2020 Obesity (BMI 30-39.9) 02/02/2020 documented as of this encounter (statuses as of 02/05/2020) Social History Tobacco Use Types Packs/Day Years Used Date Never Assessed Sex Assigned at Date Recorded Not on file COVID-19 Exposure Response Date Recorded In the last month, have you been in contact with No / Unsure 02/01/2020 3:33 PM CDT someone who was confirmed or suspected to have Coronavirus / COVID-19? documented as of this encounter Last Filed Vital Signs Vital Sign Reading Time Taken Comments Blood Pressure 109/59 02/05/2020 11:40 AM CDT Pulse 53 02/05/2020 11:40 AM CDT Temperature 36.8 C (98.3 F) 02/05/2020 11:40 AM CDT Respiratory Rate 20 02/05/2020 11:40 AM CDT Oxygen Saturation 97% 02/05/2020 11:40 AM CDT Inhaled Oxygen Concentration - - Weight 103.4 kg (228 lb 1 oz) 02/04/2020 4:00 AM CDT Height 167.6 cm (5' 6") 02/01/2020 3:38 PM CDT Body Mass Index 36.81 02/01/2020 3:38 PM CDT documented in this encounter Discharge Instructions InstructionsOkEric cano RN - 02/05/2020 Patient Discharge Instructions Discharge date: 02/05/2020 Procedure(s): Discharge Orders Discharge Follow-up: PCP BROOKE CHUNG; 2 Weeks To PCP: BROOKE CHUNG [[id number]] Patient's Preferred Location: [place] Discharge Disposition: Other-See Comments When (Patients with risk for unplanned readmission score over 16 or those noted as Hospital Dependent should follow up within 7 days with PCP or primary DX specialist): 2 Weeks Risk of Unplanned Readmission:( Score greater than 16 indicates high risk) 13 Regular Diet; Texture: Regular. Texture Regular. Diabetic: NIDDM Discharge Condition - Discharge Condition: GOOD Discharge Activity Discharge Activity: As Tolerated VTE Propylaxis- Was ordered during hospitalization Follow instructions as indicated below: 1. The medication that was used will be acting in your system for the next 24 hours, so you might feel a little drowsy, with impaired judgment and or motor function. This feeling should go wear off. Because the medication is still in your system for the next 24 hours you SHOULD NOT: Drive a car, operate machinery or power tool. Drink any alcohol beverages (including beer or wine). Make any important decisions or sign any legal documents. 2. You should rest the remainder of the day and not engage in any physical activity. Move slowly today. After lying down, sit on the edge of the bed for a moment before standing. YOU ARE RESPONSIBLEFOR HAVING SOMEONE AT HOME WITH YOU DURING THE AFTERNOON AND NIGHT IMMEDIATELY FOLLOWING YOUR SURGERY. Patient should cough and deep breathe every 2-4 hours while awake to avoid respiratory complications. 4. Liftin. Weight: In general, sudden weight gains or losses should be reported to your provider. Cardiac patients should weigh daily and notify their provider for a weight gain of 3 pounds per day or 5 pounds per week. 6. Tobacco Avoidance: Follow recommendations below 7. Because the medications used could procedure some residual nausea and vomiting after you go home,you should eat lightly today, starting with clear liquids (broth, soft drinks, apple juice, jello) and toast or crackers, progressing to bland solid foods and then to your normal diet as tolerated, unle ss otherwise stated by your surgeon. If you get sick, wait a couple of hours and then begin to eat. After 24 hours the nausea should be gone. 8. You may experience some pain and your physician will advise you on what to take for discomfort. This should be taken as directed. If the pain is not relieved, contact your physician. You may alsohave a sore throat from the airway that was in place. You may uses lozenges, throat spray (such as C hloraseptic), or warm salt water gargles for symptomatic relief. 9. If you feel warm, take your temperature. If it is 101 degrees or above call your physician. 10. If you are unable to urinate within five hours after your procedure, call your physician. 11. The type of surgery performed will determine how much bleeding (if any) to expect. Normally, some spotting might occur. If your dressing pad becomes saturated, notify your physician. Elevate surgical site, if applicable, to reduced swelling and pain. 12. Wound/dressing care: Tips on preventing a surgical site infection.. Dont smoke. It is best to quit at least 30 days before surgery, but quitting after surgery is also helpful. If you are diabetic, keep your blood sugar well controlled. WASH YOUR HANDS. Keep your wound clean and remember to wash your hands before and after contact with the area. All health care workers should also wash their hands or use an alcohol based hand rub prior to examining you. If antibiotics are prescribed, take them as directed. Finish the entire course of antibiotics. Call your doctor if you have signs of infection: ? Increased tenderness at the surgical site ? Red streaks or increased redness of the area ? Bad-smelling discharge from the incision ? Fever of 101F or higher ? General tired feeling that doesnt improve 13. Other discharge instructions: 14. Special Instructions: Take Home Medications These are medications ordered for you by your healthcare provider. Do not take any other medications or supplements unless advised by your healthcare provider. Current Discharge Medication List START taking these medications Details nicotine 21 mg/24 hr patch Apply 1 Patch to area(s) every 24 (twenty-four) hours. Qty: 30 Patch, Refills: 0 Associated Diagnoses: Suicidal ideations CONTINUE these medications which have CHANGED Details metFORMIN 500 mg tablet Take 1 tablet by mouth 2 (two) times daily with meals. Qty: 60 tablet, Refills: 0 Associated Diagnoses: Suicidal ideations STOP taking these medications salsalate (SALSALATE) 750 mg tablet Comments: Reason for Stopping: silver sulfADIAZINE (SILVADENE) 1 % cream Comments: Reason for Stopping: Tramadol (RYBIX ODT) 50 mg TbDL Comments: Reason for Stopping: Follow-up appointments: Your follow up appointment with your surgeon has been made. Appointment Date: , Appointment Time . For questions regarding follow-up instructions call the [employer] Hotline at or If you experience any of the following symptoms , please follow up with . For worsening symptoms/changing condition/problems or questions: Non-emergency/urgent: Call the Healthcare Hotline at or or Emergency: Go to the closest emergency room or call 495 If you receive the patient satisfaction survey by mail please complete and return and let us know how we are doing. TOBACCO AVOIDANCE Exposure to tobacco either from smoking or from second hand (environmental) smoke or smokeless tobacco (snuff) is damaging to your health. This information is to encourage everyone to avoid tobacco exposure. It is recommended that you: ? If you smoke or use smokeless tobacco, we encourage you to quit. ? If you have already quit smoking, continue your good work! ? If you do not smoke or use smokeless tobacco, do not start. ? Avoid secondhand smoke. Additional Resources You may want to contact these organizations for further information on smoking and how to quit. [employer] [employer], http://www.lungusa.org/stop-smoking/ [employer], http://www.cancer.org/Healthy/StayAwayfromTobacco/index [employer] [employer], http://www.heart.org/HEARTORG/GettingHealthy/QuitSmoking/Quit-Smoking_[facility] _001085_SubHomePage.jsp documented in this encounter Progress Notes Edwina Ratliff LBSW - 02/05/2020 1:54 PM CDT Care Management Discharge Disposition Note (DCDN) 5-2-1 Interventions: Disease specific education;Intensive medication reconciliation/management;Cleardischarge plan -2-1 Providers: Physician;Operator Cavity Pump/Tongsman;Nurse 5-2-1 Patient Capacity Improvements: Discharge Plan for ongoing care and services: Psychiatric Facilities Is this a new referral: Yes Patient Choice completed for referred services: DME location: Other DME location: Durable Medical Equipment: Home Health location: Discharge location(s): Psychiatric facility: [facility] [address] [place] [address] () [phone] (F) [phone] Patient choice completed for referred services: Discussed with patient/patients family involved in decision making: Yes Patient or family caregiver understands, and agrees with discharge plan. Community resources/referrals made or provided to patient: No Resources/Referrals: Transportation: Ambulance Mental Status: Alert & Oriented to Person,Place & Time Living Arrangement: Home Other living arrangement: Address of living arrangement: Funding Resources: Self Pay Nursing informed of discharge plan: Yes Name of RN informed: FOX Reyes Expected discharge date: Time: Additional Information: YOLA/ERICK Name & Contact number: CANDIDO Winchester Ph. [phone] The following information has been provided to the facility noted above: reason for the patient discharge or transfer; patients physical and psychosocial status; summary of care, treatment, servicesprovided to patient; and the patient progress toward goals. Edwina Atkins LBSW - 02/05/2020 8:11 AM CDTSubjective Patient ID: Yaw Aldrich is a 29 year old male. Contacted [facility] and spoke with Toi inquiring about status of psych placement. Referral has been submitted to the following hospitals: [facility], [facility], [facility] and [facility]. Awaiting determination. 1247: MOT given for [facility]. Pt will be discharged today. CANDIDO Davis Tongsman - Care Management [facility] [phone] [email or web address] Review of Systems Objective Physical Exam Assessment/Plan [facility] Inpatient psych placement Shira Gotti FNP - 02/04/2020 2:49 PM CDT [facility] Hospitalist Progress Note SUBJECTIVE: Patient seen getting out of shower. Patient denies suicidal and homicidal thoughts CURRENT MEDICATIONS - reviewed. Current Facility-Administered Medications Medication Dose Route Frequency Last Rate Last Dose lactated ringers IV infusion 1,000 mL 1,000 mL IV Infusion CONTINUOUS 100 mL/hr at 02/04/20 0412 1,000 mL at 02/04/20 0412 nicotine (NICODERM) 21 mg/24 hr patch 1 Patch 1 Patch Topical Q24H 1 Patch at 02/04/20 1335 acetaminophen (TYLENOL) tablet 650 mg 650 mg Oral Q6HPRN albuterol (PROVENTIL) 2.5 mg /3 mL (0.083 %) nebulizer solution 2.5 mg 2.5 mg Inhalation Q6HPRN 2.5 mg at 02/04/20 1333 dextrose 50 % in water (D50W) injection 25 mL 25 mL Slow IV Push PRN glucagon (GLUCAGEN DIAGNOSTIC KIT) injection 1 mg 1 mg Intramuscular PRN ondansetron (ZOFRAN (PF)) injection 4 mg 4 mg Slow IV Push Q6HPRN Sliding Scale Insulin-Regular + Fsbg Testing Subcutaneous AC+HS Stopped at 02/03/20 0730 PHYSICAL EXAM: BP 116/51 | Pulse 62 | Temp 36.1 C (96.9 F) (Temporal Artery) | Resp 20 | Ht 1.676 m (5' 6") | Wt 103.4 kg (228 lb 1 oz) | SpO2 100% | BMI 36.81 kg/m General: NAD HEENT: Anicteric sclerae, NCAT Lungs: CTAB Cardio: RRR, strong symmetric pulses Abdomen: Soft, NTND Genitourinary: No lesions Musculoskeletal: Normal muscle mass, no synovitis Skin: No rash or lesions, normal turgot Neuro: AAOx3, no focal deficits Psych: Normal affect LABS/IMAGING - reviewed, pertinent results as below: CBC BMP PT/INR WBC (10*3/L) Date Value 02/01/2020 10.69 NA (mmol/L) Date Value 02/04/2020 136 No results found for: PT RBC (10*6/L) Date Value 02/01/2020 4.73 K (mmol/L) Date Value 02/04/2020 4.1 INR (no units) Date Value 09/21/2019 1.1 PLT (10*3/L) Date Value 02/01/2020 242 CALCIUM (mg/dL) Date Value 02/04/2020 8.9 HGB (g/dL) Date Value 02/01/2020 14.0 CL (mmol/L) Date Value 02/04/2020 103 aPTT HCT (%) Date Value 02/01/2020 40.4 BUN (mg/dL) Date Value 02/04/2020 8 APTT Patient (Seconds) Date Value 09/21/2019 23 CREATININE (mg/dL) Date Value 02/04/2020 0.63 IMAGING- Hospital Encounter on 02/01/20 XR FOOT <3 VW LEFT Narrative Exam:XR FOOT <3 VW LEFT HISTORY: foot pain COMPARISON: None FINDINGS: Radiographs of the foot demonstrate a nondisplaced fracture of the fifth metatarsal base. The joint spaces and alignment are maintained. Prominent soft tissue swelling is seen. Impression Nondisplaced fifth metatarsal base fracture Preliminary Report Dictated by Resident: Sharla Watkins MD., have reviewed this study and agree with the above report. ASSESSMENT/PLAN Yaw Aldrich is a 29 year old male with PMH as listed above, admitted to the hospital with: Acute suicidal ideation Associated with hx meth abuse [facility] evaluated today for appropriate placement Acute myositis CK elevated. On IVF. Trend CK NIDDM A1c 6.3 SSI Hypokalemia Repleted Tobacco abuse: Offered nicotine patch, encourage cessation Prophylaxis: DVT- SCD Stress Ulcer: no indication for prophylaxis Code Status: addressed: Full code Disposition: Patient medically cleared, seen by [facility] awaiting their evaluation placement [place] LOCKER OPERATOR was viewed during this stay ADITYA Vitale Associated attestation - Deniz Boyd MD - 02/04/2020 3:43 PM CDTI have independently seen and evaluated this patient. I agree with the note below including physicalexam and plan. In summary, patient is admitted for acute suicidal ideation and audiovisual hallucinations. Still with active SI and plan, hallucinations. [facility] recommend inpatient psych eval. Elevated CK from myositis now improving, medically cleared for transfer. Rest of plan per below. Edwina Ratliff LBSW - 02/04/2020 8:41 AM CDTSubjective Patient ID: Yaw Aldrich is a 29 year old male. Per MD, patient is medically cleared for [facility] to evaluate for appropriate psych placement as patient admitted with S/I. Awaiting evaluation. If determined appropriate for inpt psych placement, Rosi notify PPC to resume process. 02-04-20 1130: Pt was evaluated per [facility] and has been determined to be appropriate for inpt psych placement. SW submitted referral to [facility]PC and will await placement arrangements. CANDIDO Davis Tongsman - Care Management [facility] [phone] [email or web address] Review of Systems Objective Physical Exam Assessment/Plan Awaiting [facility] evaluation CANDIDO Davis Tongsman - Care Management [facility] [phone] [email or web address] Deniz Boyd MD - 02/03/2020 3:17 PM CDT [facility] Hospitalist Progress Note SUBJECTIVE: No acute events overnight. CURRENT MEDICATIONS - reviewed. Current Facility-Administered Medications Medication Dose Route Frequency Last Rate Last Dose acetaminophen (TYLENOL) tablet 650 mg 650 mg Oral Q6HPRN albuterol (PROVENTIL) 2.5 mg /3 mL (0.083 %) nebulizer solution 2.5 mg 2.5 mg Inhalation Q6HPRN dextrose 50 % in water (D50W) injection 25 mL 25 mL Slow IV Push PRN glucagon (GLUCAGEN DIAGNOSTIC KIT) injection 1 mg 1 mg Intramuscular PRN NaCl 0.9% (NS) IV infusion 1,000 mL 1,000 mL IV Infusion CONTINUOUS 150 mL/hr at 02/03/20 1356 1,000 mL at 02/03/20 1356 nicotine (NICODERM) 21 mg/24 hr patch 1 Patch 1 Patch Topical T01ORRE 1 Patch at 02/03/20 0719 ondansetron (ZOFRAN (PF)) injection 4 mg 4 mg Slow IV Push Q6HPRN Sliding Scale Insulin-Regular + Fsbg Testing Subcutaneous AC+HS Stopped at 02/03/20 0730 PHYSICAL EXAM: BP 119/63 | Pulse 70 | Temp 36.1 C (97 F) (Oral) | Resp 20 | Ht 5' 6" (1.676 m) | Wt 230 lb(104.3 kg) | SpO2 99% | BMI 37.12 kg/m General: No respiratory distress HEENT: Anicteric sclerae, NCAT Lungs: Symmetric expansion Skin: No rash or lesions Neuro: AAOx3, no focal deficits Psych: Normal affect LABS/IMAGING - reviewed, pertinent results as below: CBC BMP PT/INR WBC (10*3/L) Date Value 02/01/2020 10.69 NA (mmol/L) Date Value 02/03/2020 134 (L) No results found for: PT RBC (10*6/L) Date Value 02/01/2020 4.73 K (mmol/L) Date Value 02/03/2020 3.6 INR (no units) Date Value 09/21/2019 1.1 PLT (10*3/L) Date Value 02/01/2020 242 CALCIUM (mg/dL) Date Value 02/03/2020 7.0 (L) HGB (g/dL) Date Value 02/01/2020 14.0 CL (mmol/L) Date Value 02/03/2020 111 (H) aPTT HCT (%) Date Value 02/01/2020 40.4 BUN (mg/dL) Date Value 02/03/2020 10 APTT Patient (Seconds) Date Value 09/21/2019 23 CREATININE (mg/dL) Date Value 02/03/2020 0.54 (L) IMAGING- Hospital Encounter on 02/01/20 XR FOOT <3 VW LEFT Narrative Exam:XR FOOT <3 VW LEFT HISTORY: foot pain COMPARISON: None FINDINGS: Radiographs of the foot demonstrate a nondisplaced fracture of the fifth metatarsal base. The joint spaces and alignment are maintained. Prominent soft tissue swelling is seen. Impression Nondisplaced fifth metatarsal base fracture Preliminary Report Dictated by Resident: Sharla Watkins MD., have reviewed this study and agree with the above report. ASSESSMENT/PLAN Yaw Aldrich is a 29 year old male with PMH as listed above, admitted to the hospital with: Acute suicidal ideation Associated with hx meth abuse [facility] to evaluate when medically cleared tomorrow Acute myositis CK elevated. On IVF. Trend CK NIDDM Check A1c SSI Hypokalemia Repleted Prophylaxis: DVT- SCD Stress Ulcer: no indication for prophylaxis Code Status: Full Disposition: [facility] Deniz Boyd MD Cristina Jarrett RN - 02/03/2020 1:19 PM CINDY LANGSTON MD, YAMAN*, after reviewing this case with the Operator Cavity Pump, I concur this case is appropriate for inpatient admission. The change to inpatient admission is based on the level of care this patient is receiving, medical necessity, risks associated and the expected duration of stay. The inpatient admission order has been entered. Cristina Wright RN, BSN Utilization Review [facility] Office: [phone] Associated attestation - Deniz Boyd MD - 02/03/2020 6:28 PM CDTattested Edwina Ratliff LBSW - 02/03/2020 11:24 AM CDTSubjective Patient ID: Yaw Aldrich is a 29 year old male. Care Management Social Functional Assessment Patient Name: Yaw Aldrich Age: [age] year old Sex: male Previous admit date: N/A Current diagnosis and co-morbidities: Suicidal Ideation Readmission Questions: Was patient discharged from any acute care hospital within the last 30 days: No Social Functional Assessment: Primary language spoken/preferred: [place] Mental Status: Alert & Oriented to Person,Place & Time Information given by: Self Patient's support system: Parent;Other Name and number of support system: Tari Lazcano, mother [phone] and Yee Chamorro, Primary Consumer Affairs Specialist: Self MPOA: No Living Arrangement: Homeless Persons living in home: Self Barriers to returning home: Other Other barriers to returning home: Will require inpatient psych placement due to S/I Baseline functional status- ambulation: Independent Functional status-baseline personal care: Independent Baseline functional status- driving: Independent Baseline functional status- grocery shopping: Independent Functional status-baseline housekeeping: Independent Functional status-baseline meal prep: Independent Current functional status same as prior: Yes Do you have a PCP?: Yes Name of PCP: [facility]. Chung [facility] Agency: No Provider Services: No DME Company: No Equipment: None Hemodialysis: No Community resources utilized: None Funding Resources: Self Pay Prescription coverage plan: Self Pay Pharmacy where meds are filled: Other Other pharmacy: No preference Anticipated services prior to disharge: Continue Medical Eval Expected mode of discharge transportation: Same as support system Additional Recommendations for DC: medical clearance, pt will be evaluated per [facility] when medically for inpt psych placement due to S/I Additional info required for discharge planning: Pending medical evaluation Recommended discharge plan: Other SFA Complete: Social Functional Assessment complete: Yes Alcohol Use Screening (AUDIT-C) How often do you have a drink containing alcohol?: 2 to 4 times a month SCORE: 2 How many drinks containing alcohol do you have on a typical day when you are drinking?: 5 or 6 drinks How often do you have six or more drinks on one occasion?: Monthly Total Score (AUDIT-C): 6 Did patient elect to have resources provided: No Role of Care Management explained. Any issues or concerns with obtaining/affording your medications at home: no. Are you or your support system able to crop picker medications at discharge: yes. Review of Systems Objective Physical Exam Assessment/Plan Inpatient psych placement due to S/I CANDIDO Davis Tongsman - Care Management [facility] [phone] [email or web address] Karlie Williamson PAC - 02/01/2020 6:49 PM CDT 02/01/20 170 [facility]Safe Secondary Screener- ESS-6 Positive Screen for Suicidality 1 Recent or current suicide plan 1 Recent or current intent to act on ideation 1 Lifetime psychiatric hospitalization 0 Pattern of excessive substance use 1 Is the patient displaying current irritability, agitation, or agression 0 Initial score 4 Critical Item Review Suicide plan present 2 Intent present 2 Current suicide attempt 0 Suggested risk level High Karlie Williamson PAC - 02/01/2020 5:07 PM CDT 02/01/20 1705 [facility] ED[facility]Safe Secondary Screener- ESS-6 Positive Screen for Suicidality 1 Recent or current suicide plan 0 Recent or current intent to act on ideation 0 Lifetime psychiatric hospitalization 0 Pattern of excessive substance use 1 Is the patient displaying current irritability, agitation, or agression 0 Initial score 2 Critical Item Review Suicide plan present 0 Intent present 0 Current suicide attempt 0 Suggested risk level Mild documented in this encounter H&P Notes Conchis Claire MD - 02/02/2020 11:20 PM CDT MEDICINE ADMIT H&P Date of Service: 02/02/2020 CHIEF COMPLAINT: Suicidal thoughts History of Present Illness Yaw Aldrich is a 29 year old /White male who presents with complaints of suicidal thoughts. Patient doing "dope" over the last few days and not eating much. Patient to be transferred to psych facility but found to have elevated CK and so we were asked to admit. States that he is feeling better with fluids and only has thoughts of suicide if the conversation is brought up PAST MEDICAL HISTORY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 CDTPatient remains under suicide precautions. Continuous observation in place, patient currently sleeping quietly in the bed. No signs of distress. Sitter at bedside. D Nurse Note - Mio Simmons RN - 02/01/2020 6:58 PM CDTInitiated transfer with PPC ED Nurse Note - Yuli Gee RN - 02/01/2020 5:45 PM CDTPatient remains under suicide precautions. Continuous observation in place, patient currently sitting on the side of the bed eating dinner. Sitter at bedside. D Nurse Note - Yuli Gee RN - 02/01/2020 3:45 PM CDTPatient remains under suicide precautions. Continuous observation in place, patient currently sitting on the side of the bed, no complaints. Sitter at bedside. documented in this encounter [...] Name Priority Date/Time Associated Diagnosis Comme nts POCT GLUCOSE Routine 02/05/2020 11:41 Results for this (AUTOMATED) AM CDT procedure are i n the results section. BASIC METABOLIC PANEL Routine 02/05/2020 9:41 Re sults for this (NA, K, CL, CO2, AM CDT procedure a re in GLUCOSE, BUN, the results CREATININE, CA) section. CREATINE KINASE Routine 02/05/2020 9:41 Results for this AM CDT procedure are i n the results section. POCT GLUCOSE Routine 02/05/2020 7:45 Results for this (AUTOMATED) AM CDT procedure are i n the results section. POCT GLUCOSE Routine 02/04/2020 9:43 Results for this (AUTOMATED) PM CDT procedure are i n the results section. POCT GLUCOSE Routine 02/04/2020 5:01 Results for this (AUTOMATED) PM CDT procedure are i n the results section. POCT GLUCOSE Routine 02/04/2020 11:49 Results for this (AUTOMATED) AM CDT procedure are i n the results section. POCT GLUCOSE Routine 02/04/2020 7:52 Results for this (AUTOMATED) AM CDT procedure are i n the results section. CLOSTRIDIUM DIFFICILE Routine 02/04/2020 7:42 Re sults for this TOXIN AM CDT procedure are i n the results section. GLYCOSYLATED Routine 02/04/2020 4:11 Results for this HEMOGLOBIN (A1C) AM CDT procedure a re in the results section. BASIC METABOLIC PANEL Routine 02/04/2020 4:11 Re sults for this (NA, K, CL, CO2, AM CDT procedure a re in GLUCOSE, BUN, the results CREATININE, CA) section. CREATINE KINASE Routine 02/04/2020 4:11 Results for this AM CDT procedure are i n the results section. POCT GLUCOSE Routine 02/03/2020 7:03 Results for this (AUTOMATED) PM CDT procedure are i n the results section. POCT GLUCOSE Routine 02/03/2020 4:11 Results for this (AUTOMATED) PM CDT procedure are i n the results section. POCT GLUCOSE Routine 02/03/2020 11:49 Results for this (AUTOMATED) AM CDT procedure are i n the results section. BASIC METABOLIC PANEL Add-on 02/03/2020 7:19 Re sults for this (NA, K, CL, CO2, AM CDT procedure a re in GLUCOSE, BUN, the results CREATININE, CA) section. TROPONIN I Routine 02/03/2020 7:19 Results for this AM CDT procedure are i n the results section. MAGNESIUM Add-on 02/03/2020 7:19 Results for this AM CDT procedure are i n the results section. CREATINE KINASE Routine 02/03/2020 7:19 Results for this AM CDT procedure are i n the results section. PHOSPHORUS Add-on 02/03/2020 7:19 Results for this AM CDT procedure are i n the results section. VITAMIN D, 25-OH Routine 02/03/2020 12:28 Results for this AM CDT procedure are i n the results section. TROPONIN I Routine 02/03/2020 12:28 Results for this AM CDT procedure are i n the results section. MAGNESIUM Add-on 02/03/2020 12:28 Results for this AM CDT procedure are i n the results section. EKG-12 LEAD Routine 02/02/2020 10:19 PM CDT CREATINE KINASE STAT 02/02/2020 7:37 Suicidal ideati on Results for this PM CDT Left foot pain procedure are in Closed nondisplaced the resu lts fracture of fifth section. metatarsal bone of left foot, initial encounter COVID-19 (PCR STAT 02/01/2020 11:38 Suicidal ideation Resul ts for this MOLECULAR TESTING) PM CDT procedure are in the results section. XR FOOT <3 VW LEFT STAT 02/01/2020 6:11 Left foot pain Res ults for this PM CDT procedure are i n the results section. EKG-12 LEAD Routine 02/01/2020 4:46 PM CDT COVID-19 (ID NOW RAPID STAT 02/01/2020 4:33 Suicidal ideat ion Results for this TESTING) PM CDT procedure are i n the results section. ADC / LCC - DRUG STAT 02/01/2020 4:33 Suicidal ideation Re sults for this SCREEN TRIAGE PM CDT procedure are in the results section. URINALYSIS STAT 02/01/2020 4:33 Suicidal ideation Result s for this PM CDT procedure are i n the results section. CBC WITH DIFF STAT 02/01/2020 4:33 Suicidal ideation Resul ts for this PM CDT procedure are i n the results section. ETHANOL STAT 02/01/2020 4:33 Suicidal ideation Result s for this PM CDT procedure are i n the results section. SALICYLATE STAT 02/01/2020 4:33 Suicidal ideation Result s for this PM CDT procedure are i n the results section. ACETAMINOPHEN STAT 02/01/2020 4:33 Suicidal ideation Resul ts for this PM CDT procedure are i n the results section. COMP. METABOLIC PANEL STAT 02/01/2020 4:33 Suicidal ideati on Results for this (81137) PM CDT procedure are i n the results section. MAGNESIUM STAT 02/01/2020 4:33 Suicidal ideation Result s for this PM CDT procedure are i n the results section. EKG-12 LEAD Routine 02/01/2020 3:49 PM CDT NOTICE OF PRIVACY Routine 02/01/2020 3:29 PRACTICES PM CDT documented in this encounter Results POCT GLUCOSE (AUTOMATED) (02/05/2020 11:41 AM CDT) Pathologist Sig nature POCT GLU 114 (H) 70 - 110 mg/dL [facility] Specimen Blood Performing Organization Address [facility] Phone Number [facility] CLIA: [id number] [place] [address] CREATINE KINASE (02/05/2020 9:41 AM CDT) Pathologist Sig nature CK 372 (H) 33 - 194 U/L [facility] Specimen Blood - ARM, RIGHT Performing Organization Address [facility] Phone Number [facility] CLIA: [id number] [place] [address] BASIC METABOLIC PANEL (NA, K, CL, CO2, GLUCOSE, BUN, CREATININE, CA) (02/05/2020 9:41 AM CDT) Pathologist Sig [facility] NA 137 135 - 145 [facility] mmol/L [facility] K 4.0 3.5 - 5.0 [facility] mmol/L [facility] CL 104 98 - 108 mmol/L [facility] CO2 TOTAL 30 23 - 31 mmol/L [facility] AGAP 3 2 - 16 [facility] BUN 13 7 - 23 mg/dL [facility] GLUCOSE 136 (H) 70 - 110 mg/dL [facility] CREATININE 0.70 0.60 - 1.25 [facility] mg/dL [facility] CALCIUM 8.4 (L) 8.6 - 10.6 [facility] mg/dL [facility] eGFR Calculation 135.3 mL/min/1.73m2 [facility] (Non-[facility] LABORATORY Vincentian) eGFR Calculation 164.0 mL/min/1.73m2 [facility] () [facility] Specimen Blood - ARM, RIGHT Narrative Performed At Association of Glomerular Filtration Rate (GFR) [facility] and Staging of Kidney Disease* [...] abnormalities in imaging tests). Performing Organization Address [facility] Phone Number [facility] CLIA: [id number] [place] [address] POCT GLUCOSE (AUTOMATED) (02/05/2020 7:45 AM CDT) Pathologist Sig nature POCT GLU 129 (H) 70 - 110 mg/dL [facility] Specimen Blood Performing Organization Address [facility] Phone Number [facility] CLIA: [id number] [place], [place] [address] [place] [address] POCT GLUCOSE (AUTOMATED) (02/04/2020 9:43 PM CDT) Pathologist Sig nature POCT GLU 161 (H) 70 - 110 mg/dL [facility] Specimen Blood Performing Organization Address [facility] Phone Number [facility] CLIA: [id number] [place], [place] [id number] LABORATORY [address] POCT GLUCOSE (AUTOMATED) (02/04/2020 5:01 PM CDT) Pathologist Sig nature POCT GLU 135 (H) 70 - 110 mg/dL [facility] Specimen Blood Performing Organization Address [facility] Phone Number [facility] CLIA: [id number] [place] [address] [address] POCT GLUCOSE (AUTOMATED) (02/04/2020 11:49 AM CDT) Pathologist Sig nature POCT GLU 119 (H) 70 - 110 mg/dL [facility] Specimen Blood Performing Organization Address [facility] Phone Number [facility] CLIA: [id number] [place] [address] [address] POCT GLUCOSE (AUTOMATED) (02/04/2020 7:52 AM CDT) Pathologist Sig nature POCT GLU 105 70 - 110 mg/dL [facility] Specimen Blood Performing Organization Address [facility] Phone Number [facility] CLIA: [id number] [place] [address] [address] CLOSTRIDIUM DIFFICILE TOXIN (02/04/2020 7:42 AM CDT) Pathologist Sig nature Clostridioides Negative Negative [facility] (Clostridium) difficile [facility] RY Specimen Stool - ANAL Performing Organization Address [facility] Phone Number [facility] CLIA: [id number] [place] [address] LABORATORY [address] [facility] BASIC METABOLIC PANEL (NA, K, CL, CO2, GLUCOSE, BUN, CREATININE, CA) (02/04/2020 4:11 AM CDT) Pathologist Sig nature NA 136 135 - 145 mmol/L [facility] K 4.1 3.5 - 5.0 mmol/L [facility] CL 103 98 - 108 mmol/L [facility] CO2 TOTAL 27 23 - 31 mmol/L [facility] AGAP 6 2 - 16 [facility] BUN 8 7 - 23 mg/dL [facility] GLUCOSE 103 70 - 110 mg/dL [facility] CREATININE 0.63 0.60 - 1.25 [facility] mg/dL [facility] CALCIUM 8.9 8.6 - 10.6 mg/dL [facility] eGFR Calculation 152.8 mL/min/1.73m2 [facility] (Non-) [facility] LABORATOR Y eGFR Calculation 185.2 mL/min/1.73m2 [facility] Specimen Blood - ARM, RIGHT Narrative Performed At Association of Glomerular Filtration Rate (GFR) [facility] and Staging of Kidney Disease* [...] abnormalities in imaging tests). Performing Organization Address [facility] Phone Number [facility] CLIA: [id number] [place] [address] CREATINE KINASE (02/04/2020 4:11 AM CDT) Pathologist [facility] [employer] CK 1,223 (H) 33 - 194 U/L [facility] Specimen Blood - ARM, RIGHT Performing Organization Address [facility] Phone Number [facility] CLIA: [id number] [place] [address] GLYCOSYLATED HEMOGLOBIN (A1C) (02/04/2020 4:11 AM CDT) Pathologist Sig [employer] HGB A1C 6.3 (H) 4.0 - 6.0 % [facility] Specimen Blood - ARM, RIGHT Narrative Performed At %A1C (NGSP) Interpretation (ADA) [facility] 4.8-5.6 Normal or (Non-Diabetic Ra nge) 5.7-6.4 Increased Risk (Pre-Diabet ic) >6.5 Diabetes Indicated Performing Organization Address [facility] Phone Number [facility] CLIA: [id number] [place] [address] POCT GLUCOSE (AUTOMATED) (02/03/2020 7:03 PM CDT) Pathologist Sig nature POCT GLU 109 70 - 110 mg/dL [facility] Specimen Blood Performing Organization Address [facility] Phone Number [facility] CLIA: [id number] [place] [address] POCT GLUCOSE (AUTOMATED) (02/03/2020 4:11 PM CDT) Pathologist Sig nature POCT GLU 108 70 - 110 mg/dL [facility] Specimen Blood Performing Organization Address [facility] Phone Number [facility] CLIA: [id number] [place] [address] POCT GLUCOSE (AUTOMATED) (02/03/2020 11:49 AM CDT) Pathologist Sig nature POCT GLU 144 (H) 70 - 110 mg/dL [facility] Specimen Blood Performing Organization Address [facility] Phone Number [facility] CLIA: [id number] [place] [address] PHOSPHORUS (02/03/2020 7:19 AM CDT) Pathologist Sig nature PHOSPHORUS 3.0 2.5 - 5.0 mg/dL [facility] Specimen Blood - ARM, RIGHT Performing Organization Address [facility] Phone Number [facility] CLIA: [id number] [place] [address] MAGNESIUM (02/03/2020 7:19 AM CDT) Pathologist Sig nature MAGNESIUM 1.6 (L) 1.7 - 2.4 mg/dL [facility] Specimen Blood - ARM, RIGHT Performing Organization Address [facility] Phone Number [facility] CLIA: [id number] [place] [address] BASIC METABOLIC PANEL (NA, K, CL, CO2, GLUCOSE, BUN, CREATININE, CA) (02/03/2020 7:19 AM CDT) NA 134 (L) 135 - 145 [facility] mmol/L [facility] K 3.6 3.5 - 5.0 [facility] mmol/L [facility] CL 111 (H) 98 - 108 mmol/L [facility] CO2 TOTAL 22 (L) 23 - 31 mmol/L [facility] AGAP 1 (L) 2 - 16 [facility] BUN 10 7 - 23 mg/dL [facility] GLUCOSE 102 70 - 110 mg/dL [facility] CREATININE 0.54 (L) 0.60 - 1.25 [facility] mg/dL [facility] CALCIUM 7.0 (L) 8.6 - 10.6 [facility] mg/dL [facility] eGFR Calculation 182.5 mL/min/1.73m2 [facility] (Non-[facility] LABORATORY Vincent[place]) eGFR Calculation 221.2 mL/min/1.73m2 [facility] () [facility] Specimen Blood - ARM, RIGHT Narrative Performed At Association of Glomerular Filtration Rate (GFR) [facility] and Staging of Kidney Disease* [...] tests). Performing Organization Address City/State/Zipcode Phone Number [facility] CLIA: [id number] [place] [address] TROPONIN I (02/03/2020 7:19 AM CDT) Pathologist Sig [facility] TROPONIN I <0.012 <=0.034 ng/mL [facility] Specimen Blood - ARM, RIGHT Narrative Performed At Equal or Less than 0.034 ng/ml---Normal [facility] Note: Cardiac troponin begins to rise [...] patient's use of biotin. Performing Organization Address City/[facility] Phone Number [facility] CLIA: [id number] [place] [address] CREATINE KINASE (02/03/2020 7:19 AM CDT) Pathologist [facility] CK 1,526 (H) 33 - 194 U/L [facility] Specimen Blood - ARM, RIGHT Performing Organization Address [facility] Phone Number [facility] CLIA: [id number] [place] [address] MAGNESIUM (02/03/2020 12:28 AM CDT) Pathologist Sig [facility] MAGNESIUM 1.7 1.7 - 2.4 mg/dL [facility] Specimen Blood - ARM, RIGHT Performing Organization Address [facility] Phone Number [facility] CLIA: [id number] [place] [address] VITAMIN D, 25-OH (02/03/2020 12:28 AM CDT) Pathologist Sig [facility] VIT D 25OH 26 25 - 80 ng/mL [facility] Specimen Blood - ARM, RIGHT Narrative Performed At Deficiency: <20 ng/mL [facility] Insufficiency: 20-24 ng/mL Optimal: 25-80 ng/mL Performing Organization Address [facility] Phone Number [facility] CLIA: [id number] [place] [address] [place] [address] TROPONIN I (02/03/2020 12:28 AM CDT) [facility] TROPONIN I <0.012 <=0.034 ng/mL [facility] Specimen Blood - ARM, RIGHT Narrative Performed At Equal or Less than 0.034 ng/ml---Normal [facility] Note: Cardiac troponin begins to rise [...] patient's use of biotin. Performing Organization Address [facility] Phone Number [facility] CLIA: [id number] [place] [address] CREATINE KINASE (02/02/2020 7:37 PM CDT) [facility] CK 1,577 (H) 33 - 194 U/L [facility] Specimen Blood - VENOUS Performing Organization Address [facility] Phone Number [facility] CLIA: [id number] [place] [address] CORONAVIRUS COVID-19 TESTING (02/01/2020 11:38 PM CDT) [facility] SARS-CoV-2 PCR Not Detected Not Detected [facility] Specimen Swab - NASOPHARYNGEAL SWAB Narrative Performed At [employer] SARS-CoV-2 Assay is a nucleic acid [facility] amplification test intended for the qualitative detect ion of RNA from SARS-CoV-2 from nasopharyngeal (TOOLROOM ATTENDANT) specimens . It is used under Emergency Use Authorizatio n (EUA) by FDA. A positive result is indicative of the presence of SARS-CoV-2 RNA. Clinical correlation with patient hi story and other diagnostic information is necessary to deter mine patient infection status. A negative (Not Detected) result does not preclude SARS-CoV-2 infection. Clinical correlation with tanya ent history and other diagnostic information should be use d in patient management decisions. Invalid: Unable to generate a valid test result on thi s specimen. Please submit a new specimen for repeat te sting if clinically indicated. Performing Organization Address City/[facility]/Zipcode Phone Number [facility] CLIA: [id number] [place] [address] [place] [address] XR FOOT <3 VW LEFT (02/01/2020 6:11 PM CDT) Specimen Impressions Performed At PACS/VR/DOSE Nondisplaced fifth metatarsal base fract ure Preliminary Report Dictated by Resident: Sharla Watkins MD., have reviewed this study an d agree with the above report. Narrative Performed At Exam:XR FOOT <3 VW LEFT PACS/VR/DOSE HISTORY: foot pain COMPARISON: None FINDINGS: Radiographs of the foot demonstrate a no ndisplaced fracture of the fifth metatarsal base. The joint spaces and alignment are ma intained. Prominent soft tissue swelling is seen. Procedure Note [facility], Radiant Results Inft User - 2019 7:06 AM CDT Exam:XR FOOT <3 VW LEFT HISTORY: foot pain COMPARISON: None FINDINGS: Radiographs of the foot demonstrate a no ndisplaced fracture of the fifth metatarsal base. The joint spaces and al ignment are maintained. Prominent soft tissue swelling is seen. IMPRESSION Nondisplaced fifth metatarsal base fract ure Preliminary Report Dictated by Resident: Sharla Watkins MD., have reviewed this study and agree with the above report. Performing Organization Address City/[facility]/Zipcode Phone Number PACS/VR/DOSE COVID-19 (ID NOW RAPID TESTING) (02/01/2020 4:33 PM CDT) SARS-CoV-2 Rapid ID Not Detected Not Detected [facility] Specimen Swab - NASOPHARYNGEAL SWAB Narrative Performed At ID NOW COVID-19 Assay is an isothermal nucleic [facility] acid amplification test intended for the qualitative detection of nucleic acid from SARS-CoV-2 viral RNA in nasopharyngeal (TOOLROOM ATTENDANT) specimens. It is used under Emergency Use Authorization (EUA) by FDA. The limit of detection (LOD) of the assay is 125 Genome Equivalents/mL. A positive result is indicative of the presence of SARS-CoV-2 RNA. Clinical correlation with patient history and other diagnostic information is necessary to determine patient infection status. A negative (Not Detected) result does not preclude SARS-CoV-2 infection. In patients with clinical symptoms and other tests that are consistent with SARS-CoV-2 infection, negative results should be treated as presumptive negative and a new specimen should be tested with alternative PCR molecular test. Invalid: Please collect a new specimen for repeat patient testing if clinically indicated. Performing Organization Address [facility] Phone Number [facility] CLIA: [id number] [place] [address] ACETAMINOPHEN (02/01/2020 4:33 PM CDT) Pathologist Sig nature ACETAMINOP <10.0 (L) 10.0 - 30.0 ug/mL [facility] Specimen Blood - VENOUS Narrative Performed At Toxic: Greater than 200 ug/mL @ 4 hour post [facility] ingestion or greater than 50 ug/mL @ 12 hour post ingestion Performing Organization Address [place] [facility] Phone Number [facility] CLIA: [id number] [place] [address] SALICYLATE (02/01/2020 4:33 PM CDT) Pathologist Sig nature SALICYLATE <10 mg/L [facility] [place] [facility] Specimen Blood - VENOUS Narrative Performed At Therapeutic Range: [facility] LAB[facility]ORY Analgesic and Antipyretic Use 20-100 mg/L Anti-Inflammatory Use 100-250 mg/L Toxic Range: Greater than 300 mg/L Performing Organization Address [facility] Phone Number [facility] CLIA: [id number] [place] [address] ETHANOL (02/01/2020 4:33 PM CDT) Pathologist Sig nature ALCOHOL <10 mg/dL [facility] Specimen Blood - VENOUS Narrative Performed At <10 Negative [facility] LABOR[facility]ORY 50-100 Toxic >100 Depression of FISH PROTECTOR >400 Fatalities Reported Performing Organization Address [facility] Phone Number [facility] CLIA: [id number] [place] [address] MAGNESIUM (02/01/2020 4:33 PM CDT) Pathologist Sig nature MAGNESIUM 1.7 1.7 - 2.4 mg/dL [facility] LABORATORY Specimen Blood - VENOUS Performing Organization Address [facility] Number [facility] CLIA: [id number] [place], [place] [id number] LABORATORY [address] URINALYSIS (02/01/2020 4:33 PM CDT) Pathologist Sig nature APPEARANCE Clear Clear [facility] LABORATORY COLOR Yellow Yellow [facility] LAB[facility] PH 6.0 4.8 - 8.0 [facility] LABOR[facility] SP GRAVITY 1.021 1.003 - 1.030 [facility] LABORATORY GLU U QUAL Normal Normal [facility] BLOOD Negative Negative [facility] KETONES Negative Negative [facility] PROTEIN Negative Negative [facility] UROBILIN Normal Normal [facility] BILIRUBIN Negative Negative [facility] NITRITE Negative Negative [facility] LEUK LEIGHANN Negative Negative [facility] LAB[facility] RBC/HPF 1 0 - 3 HPF [facility] WBC/HPF 1 0 - 5 HPF [facility] LAB[facility]ORY BACTERIA Few (A) Negative [facility] LABOR[facility] MUCOUS Slight (A) Negative LPF [facility] LABORATORY Specimen Urine - URINE, CLEAN CATCH Performing Organization Address [facility] Phone Number [facility] CLIA: [id number] [place] [address] ADC / LCC - DRUG SCREEN TRIAGE (02/01/2020 4:33 PM CDT) BENZO U Negative Negative [facility] TAQUERIA U Negative Negative [facility] AMPHET Presumptive Positive Negative [facility] LABORATORY THC Presumptive Positive [facility] Presumptive Positive THC result requires physician order. METHADONE Negative Negative [facility] LABORATORY Meth U Negative Negative [facility] LAB[facility] OPIATES Negative Negative [facility] Cocaine Metabolite Negative Negative [facility] PROPOXY Negative Negative [facility] Tric U Negative Negative [facility] PCP Negative Negative [facility] OXYCOD Negative Negative [facility] Specimen Urine - URINE, CLEAN CATCH Narrative Performed At Urine Drug Cutoff Ranges [facility] LAB[facility]ORY Benzodiazepines: 150 ng/mL Barbiturates: 200 ng/mL [...] testing). Performing Organization Address City/State/Zipcode Phone Number [facility] CLIA: [id number] [place] [address] [address] COMP. METABOLIC PANEL ([id number]) (02/01/2020 4:33 PM CDT) Pathologist Sig nature NA 137 135 - 145 [facility] mmol/L [facility] LABORATORY K 3.3 (L) 3.5 - 5.0 [facility] mmol/L [facility] LABORATORY CL 108 98 - 108 mmol/L [facility] LABORATORY CO2 TOTAL 24 23 - 31 mmol/L [facility] LABORATORY AGAP 5 2 - 16 [facility] LABORATORY BUN 15 7 - 23 mg/dL [facility] LABORATORY GLUCOSE 113 (H) 70 - 110 mg/dL [facility] LABORATORY CREATININE 0.72 0.60 - 1.25 [facility] mg/dL [facility] LABORATORY TOTAL BILI 0.7 0.1 - 1.1 mg/dL [facility] LABORATORY CALCIUM 8.0 (L) 8.6 - 10.6 [facility] mg/dL [facility] LABORATORY T PROTEIN 5.7 (L) 6.3 - 8.2 g/dL [facility] LABORATORY ALBUMIN 3.4 (L) 3.5 - 5.0 g/dL [facility] LABORATORY ALK PHOS 55 34 - 122 U/L [facility] LABORATORY ALTv 24 5 - 50 U/L [facility] LABORATORY AST(SGOT) 33 13 - 40 U/L [facility] eGFR Calculation 131.0 mL/min/1.73m2 [facility] (Non-[facility] LABORATORY Vincentian) eGFR Calculation 158.7 mL/min/1.73m2 [facility] () [facility] LABORATORY Specimen Blood - VENOUS Narrative Performed At Association of Glomerular Filtration Rate (GFR) [facility] and Staging of Kidney Disease* [...] tests). Performing Organization Address City/State/Zipcode Phone Number [facility] CLIA: [id number] [place] [address] CBC WITH DIFF (02/01/2020 4:33 PM CDT) [facility] WBC 10.69 4.20 - 10.70 [facility] 10*3/L HOSP[facility] LABORATORY RBC 4.73 4.26 - 5.52 [facility] 10*6/L [facility]ITAL LABORATORY HGB 14.0 12.2 - 16.4 g/dL [facility] LABORATORY HCT 40.4 38.4 - 49.3 % [facility] LABORATORY MCV 85.4 81.7 - 95.6 fL [facility] LABORATORY MCH 29.6 26.1 - 32.7 pg [facility] LABORATORY MCHC 34.7 31.2 - 35.0 g/dL [facility] LABORATORY RDW-SD 38.6 38.5 - 51.6 fL [facility] LABORATORY RDW-CV 12.4 12.1 - 15.4 % [facility] LABORATORY PLT 242 150 - 328 [facility] 10*3/L [facility] LABORATORY MPV 9.0 (L) 9.8 - 13.0 fL [facility] LABORATORY NRBC/100 WBC 0.0 0.0 - 10.0 /100 [facility] WBCs [facility] LABORATORY NRBC x10^3 <0.01 10*3/L [facility] LABORATORY GRAN MAT (NEUT) % 60.4 % [facility] LABORATORY IMM GRAN % 0.50 % [facility] LABORATORY LYMPH % 28.0 % [facility] LABORATORY MONO % 8.5 % [facility] LABORATORY EOS % 2.1 % [facility] LABORATORY BASO % 0.5 % [facility] LABORATORY GRAN MAT x10^3(ANC) 6.47 1.99 - 6.95 [facility] 10*3/uL HOSPITAL LABORATORY IMM GRAN x10^3 0.05 0.00 - 0.06 [facility] 10*3/uL HOSPITAL LABORATORY LYMPH x10^3 2.99 1.09 - 3.23 [facility] 10*3/uL [facility]ITAL LABORATORY MONO x10^3 0.91 0.36 - 1.02 [facility] 10*3/uL HOSPITAL LABORATORY EOS x10^3 0.22 0.06 - 0.53 [facility] 10*3/uL [facility]OSPITAL LABORATORY BASO x10^3 0.05 0.01 - 0.09 [facility] 10*3/uL [facility]OS[facility]ITAL LABORATORY Specimen Blood - VENOUS Performing Organization Address City/State/Zipcode Phone Number [facility] CLIA: [id number] [place] [address] documented in this encounter Visit Diagnoses Diagnosis Suicidal ideation - Primary Left foot pain Pain in limb Closed nondisplaced fracture of fifth me tatarsal bone of left foot, initial encounter Non-traumatic rhabdomyolysis Suicidal ideations Suicidal ideation Obesity (BMI 30-39.9) Obesity, unspecified Elevated CK Other nonspecific abnormal serum enzyme levels documented in this encounter Administered Medications Medication Order MAR Action Action Date Dose Rate Site acetaminophen (TYLENOL) tablet 650 mg 650 mg, Oral, Q6HPRN, Starting Sat02/02/20 at 2259, Unt il Discontinued, Routine, Pain (scale 1-3) albuterol (PROVENTIL) 2.5 mg /3 mL (0.083 %) Given 08/2019 1:33 PM CDT 2.5 mg nebulizer solution 2.5 mg 2.5 mg, Inhalation, Q6HPRN, Starting Sat02/02/20 at 2323, Until Discontinued, Routine, Shortness of Breath, Wheezing dextrose 50 % in water (D50W) injection 25 mL 25 mL, Slow IV Push, PRN, Starting Sat at 2300, Until Discontinued, STEFANIE, Blood Glucose < or = 70 mg/dL and patien t is unable to swallow or has mental status changes. glucagon (GLUCAGEN DIAGNOSTIC KIT) injec tion 1 mg 1 mg, Intramuscular, PRN, Starting Sat at 2300, Until Discontinued, STEFANIE, Blood Glucose < or = 70 mg/dL and patient is unable to swallow or has mental changes. nicotine (NICODERM) 21 mg/24 hr patch 1 Given 02/05/2020 2:43 P M CDT 1 Patch Patch 1 Patch, Topical, Administer over 24 Hours, Q24H, First dose (after last modification) on Sat02/03/20 at 1530, Until Discontinued, Routine Given 02/04/2020 1:35 PM CDT 1 Patch Given 02/03/2020 5:34 PM CDT 1 Patch ondansetron (ZOFRAN (PF)) injection 4 mg 4 mg, Slow IV Push, Q6HPRN, Starting Sat02/02/20 at 230 0, Until Discontinued, Routine, Nausea and Vomiting (N/V) Sliding Scale Insulin-Regular + Fsbg Gwen ting Subcutaneous, AC+HS, First dose on Sat at 0730, Until Discontinued, Routine Medication Order MAR Action Action Date Dose Rate Site acetaminophen (TYLENOL) tablet Given 02/01/2020 5:29 PM CDT 650 mg 650 mg 650 mg, Oral, ONCE, 1 dose, Sat02/01/20 at 1700, STEFANIE ibuprofen (IBU) tablet 400 mg Given 02/02/2020 6:44 PM CDT 400 mg 400 mg, Oral, ONCE, 1 dose, Sat02/02/20 at 1845, STEFANIE KCL (KLOR-CON M20) tablet 40 mEq Given 02/03/2020 11:17 AM CDT 40 mEq 40 mEq, Oral, ONCE, 1 dose, Sat02/03/20 at 1000, Routine lactated ringers IV infusion New 02/05/2020 4:36 AM CDT 1,000 mL 100 mL/hr 1,000 mL at 100 mL/hr, 1,000 mL, IV Infusion, CONTINUOUS, Starting Sat02/03/20 at 1630, Until Sat02/05/20 at 1250, Routine New Bag 02/04/2020 7:25 PM CDT 1,000 mL 100 mL/hr New 02/04/2020 4:12 AM CDT 1,000 mL 100 mL/hr NaCl 0.9% (NS) bolus infusion 02/02/2020 8:58 PM CDT 1,000 mL 999 mL/hr 1,000 mL at 999 mL/hr, 1,000 mL, IV Infusion, ONCE, 1 dose, Sat02/02/20 at 2200, STAT NaCl 0.9% (NS) IV infusion 1,000 New 02/03/2020 1:56 PM C DT 1,000 mL 150 mL/hr mL at 150 mL/hr, IV Infusion, CONTINUOUS, Starting Sat02/02/20 at 2315, Until Sat02/03/20 at 1522, Routine New 02/03/2020 7:42 AM CDT 1,000 mL 150 mL/hr New 02/03/2020 12:23 AM CDT 1,000 mL 150 mL/hr nicotine (NICODERM) 21 mg/24 hr patch 1 Given 02/03/2020 7:19 A M CDT 1 Patch Patch 1 Patch, Topical, Administer over 24 Hours, [id number], Starting Tu02/02/20 at 2331, Until Sat02/03/20 at 1528, Routine, Smoking cessation documented in this encounter Additional Health Concerns Infection Onset Date Last Indicated Resolved Time COVID-19 Rule Out 02/01/2020 02/01/2020 02/01/2020 5: 08 PM CDT COVID-19 Rule Out 02/01/2020 02/01/2020 02/02/2020 8: 30 PM CDT documented as of this encounter
--- OUTSIDE RECORDS SUMMARY | 2020-03-10 00:16 | XMS REPORT | Summary of Care ---
:1990 Author Organization [facility] Address [address] [place] [address] Care Team Providers Name Role Phone Pcp, Does Not Have A Primary Care Provider Reason for Visit Auth/Cert Status Reason Specialty Diagnoses / Procedures Referred By Aaron vaz Referred To Contact [facility] Rad [address] [place] [address] Phone: Encounter Details Date Type Department Care Team Description 02/05/[address] [facility] Richard [place] MD CENTER [address] [facility] [id number] [place] [address] [place] [address] Allergies Active Allergy Reactions Severity Noted Date Comments Antihistimine Swelling 02/07/2015 Chicken Derived Unknown - See comments 02/03/2020 documented as of this encounter (statuses as of 02/11/2020) Medications Medication Sig Dispensed Refills Start Date End Date Status metFORMIN 500 mg Take 1 tablet by 60 tablet 0 02/05/2020 Active tabletIndications: mouth 2 (two) Suicidal ideations times daily with meals. nicotine 21 mg/24 hr Apply 1 Patch to 30 Patch 0 02/05/2020 Active patchIndications: area(s) every 24 Suicidal ideations (twenty-four) hours. documented as of this encounter (statuses as of 02/11/2020) Active Problems Problem Noted Date Elevated CK 02/03/2020 Suicidal ideations 02/02/2020 Obesity (BMI 30-39.9) 02/02/2020 documented as of this encounter (statuses as of 02/11/2020) Social History Tobacco Use Types Packs/Day Years [...]
== END 2020-03-06 11:36 | disposition home or self-care (01) ==
LOC: ER 01:37
DX: R05 Cough (principal); F55.8 Abuse of other non-psychoactive substances; T43.625A Adverse effect of amphetamines, initial encounter; I10 Essential (primary) hypertension; Z91.013 Allergy to seafood; Z91.018 Allergy to other foods
CPT/HCPCS: 36415; 70450; 71045; 80048; 80076; 80320; 80329; 82550; 85025; 85610; 85730; 93005; 96361; 96374; 99285; J7030

== ENCOUNTER 2020-05-08 11:42 | Emergency (ER) | payer SELFPAY ==
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
--- OUTSIDE RECORDS SUMMARY | 2020-05-08 11:47 | XMS REPORT | Summary of Care ---
:1990 Author Organization [facility] Address [address] [place] [address] Care Team Providers Name Role Phone Pcp, Does Not Have A Primary Care Provider Reason for Visit Auth/Cert Status Reason Specialty Diagnoses / Procedures Referred By Aaron vaz Referred To Contact [facility] [address] [place] [address] Phone: Encounter Details Date Type Department Care Team Description 02/05/2020 Hospital Encounter [facility] Richard Wakefield MD CENTER [address] [facility] [id number] [address] [place] [address] [place] [address] Allergies Active Allergy Reactions [...]
--- OUTSIDE RECORDS SUMMARY | 2020-05-08 11:47 | XMS REPORT | Summary of Care ---
:1990 Author Organization [facility] Address [address] [place] [id number] Care Team Providers Name Role Phone Pcp, Does Not Have A Primary Care Provider Reason for Visit Reason Comments SUICIDAL Auth/Cert Status Reason Specialty Diagnoses / Referred By Referred To Procedures Contact Contact Emergency Medicine [facility] Em ergency Dept [address] [place] [address] Fax: Encounter Details Date Type Department Care Team Description 02/24/2020 Emergency ADC-Emergency Blayne Robles DO [address] [facility]. [address] [place], [place] [id number] Methamphetamine abuse (Primary Dx); Department Kirt Fatima MD [address] [place] [address] [id number] [place], [place] [id number] Suicidal ideation [address] [place], [place] [id number] Allergies Active Allergy Reactions Severity Noted Date [...] - 02/24/2020STOP ABUSING METHAMPHETAMINE FOLLOW-UP WITH THE [facility] DISCUSSED RETURN TO THE ED FOR NEW PROBLEMS OR CONCERNS documented in this encounter ED Notes Merline Rodriguez RN - 02/24/2020 3:45 PM CDT30 year old male coming to the ER for suicidial ideations, patient has been seen at [place] in the past. Patient reports being suicidal [...] suicidal and agrees to follow-up with THE [facility] Kirt Fatima MD documented in this encounter Miscellaneous Notes ED Nurse Note - Vladislav Reese RN - 02/24/2020 9:23 PM CDTPt given printed and verbal discharge instructions regarding meth abuse, encouraged hydration, Pt verbalized understanding of instructions, pt awake alert oriented, resp reg unlabored, skin w/d, color appropriate for race, moves all ext well,pt encouraged to follow up with community hospital Advised to seek medical attention for new/prolonged/worsening [...] 4:47 Suicidal ideati on Results for this (80437) PM CDT procedure are i n the results section. CREATINE KINASE STAT 02/24/2020 4:47 Suicidal ideation Res ults for this PM CDT procedure are i n the results section. CONSENT/REFUSAL FOR Routine 02/24/2020 3:28 DIAGNOSIS AND PM CDT TREATMENT documented in this encounter Results CBC WITH DIFF (02/24/2020 4:50 PM CDT) Pathologist Sig nature WBC 7.29 4.20 - 10.70 [facility] 10*3/L [facility] RBC 5.34 4.26 - 5.52 [facility] 10*6/L [facility] HGB 15.9 12.2 - 16.4 [facility] g/dL [facility] HCT 45.1 38.4 - 49.3 % [facility] MCV 84.5 81.7 - 95.6 fL [facility] MCH 29.8 26.1 - 32.7 pg [facility] MCHC 35.3 (H) 31.2 - 35.0 [facility] g/dL [facility] RDW-SD 37.3 (L) 38.5 - 51.6 fL [facility] RDW-CV 12.1 12.1 - 15.4 % [facility] PLT 236 150 - 328 [facility] 10*3/L [facility] MPV 9.4 (L) 9.8 - 13.0 fL [facility] NRBC/100 WBC 0.0 0.0 - 10.0 /100 [facility] WBCs [facility] NRBC x10^3 <0.01 10*3/L [facility] GRAN MAT (NEUT) % 54.1 % [facility] IMM GRAN % 0.30 % [facility] LYMPH % 33.3 % [facility] MONO % 8.9 % [facility] EOS % 3.0 % [facility] BASO % 0.4 % [facility] GRAN MAT x10^3(ANC) 3.94 1.99 - 6.95 [facility] 10*3/uL [facility]ITAL [facility] IMM GRAN x10^3 <0.03 0.00 - 0.06 [facility] 10*3/uL [facility] LYMPH x10^3 2.43 1.09 - 3.23 [facility] 10*3/uL [facility] MONO x10^3 0.65 0.36 - 1.02 [facility] 10*3/uL [facility] EOS x10^3 0.22 0.06 - 0.53 [facility] 10*3/uL [facility] BASO x10^3 0.03 0.01 - 0.09 [facility] 10*3/uL [facility]ITAL [facility] Specimen Blood - VENOUS Performing Organization Address [facility] Phone Number [facility] CLIA: [id number] [place] [address] CREATINE KINASE (02/24/2020 4:47 PM CDT) Pathologist Sig nature CK 180 33 - 194 U/L [facility] Specimen Blood - VENOUS Performing Organization Address [facility] Phone Number [facility] CLIA: [id number] [place] [address] URINALYSIS (02/24/2020 4:47 PM CDT) Pathologist Sig nature APPEARANCE Clear Clear [facility] COLOR Yellow Yellow [facility] PH 6.0 4.8 - 8.0 [facility] SP GRAVITY 1.027 1.003 - 1.030 [facility] GLU U QUAL Normal Normal [facility] BLOOD Negative Negative [facility] KETONES 80 mg/dL (A) Negative [facility] PROTEIN 30 mg/dL (A) Negative [facility] UROBILIN Normal Normal [facility] BILIRUBIN Negative Negative [facility] NITRITE Negative Negative [facility] LEUK LEIGHANN Negative Negative [facility] RBC/HPF <1 0 - 3 HPF [facility] WBC/HPF 1 0 - 5 HPF [facility] BACTERIA Negative Negative [facility] MUCOUS Slight (A) Negative LPF [facility] SQ EPITH <1 HPF [facility] Specimen Urine - URINE, CLEAN CATCH Performing Organization Address [facility] Phone Number [facility] CLIA: [id number] [place] [address] SALICYLATE (02/24/2020 4:47 PM CDT) Pathologist Sig nature SALICYLATE <10 mg/L [facility] Specimen Blood - VENOUS Narrative Performed At Therapeutic Range: [facility] Analgesic and Antipyretic Use 20-100 mg/L Anti-Inflammatory Use 100-250 mg/L Toxic Range: Greater than 300 mg/L Performing Organization Address [facility] Phone Number [facility] CLIA: [id number] [place] [address] ETHANOL (02/24/2020 4:47 PM CDT) Pathologist Sig nature ALCOHOL <10 mg/dL [facility] Specimen Blood - VENOUS Narrative Performed At <10 Negative [facility] 50-100 Toxic >100 Depression of SYSTEMS ANALYST ENGINEER >400 Fatalities Reported Performing Organization Address [facility] Phone Number [facility] CLIA: [id number] [place] [address] COMP. METABOLIC PANEL ([id number]) (02/24/2020 4:47 PM CDT) Pathologist Sig nature NA 134 (L) 135 - 145 [facility] mmol/L [facility] K 3.7 3.5 - 5.0 [facility] mmol/L [facility] CL 96 (L) 98 - 108 mmol/L [facility] CO2 TOTAL 26 23 - 31 mmol/L [facility] AGAP 12 2 - 16 [facility] BUN 20 7 - 23 mg/dL [facility] GLUCOSE 84 70 - 110 mg/dL [facility] CREATININE 0.66 0.60 - 1.25 [facility] mg/dL [facility] TOTAL BILI 1.1 0.1 - 1.1 mg/dL [facility] CALCIUM 9.2 8.6 - 10.6 [facility] mg/dL HOSPITAL [facility] T PROTEIN 7.1 6.3 - 8.2 g/dL [facility] ALBUMIN 4.2 3.5 - 5.0 g/dL [facility] ALK PHOS 89 34 - 122 U/L [facility] ALTv 41 5 - 50 U/L [facility] AST(SGOT) 42 (H) 13 - 40 U/L [facility] eGFR Calculation 143.7 mL/min/1.73m2 [facility] [place] eGFR Calculation 174.2 mL/min/1.73m2 [facility] () [facility] Specimen Blood - VENOUS Narrative Performed At Association of Glomerular Filtration Rate (GFR) [facility] LAB[facility] and Staging of Kidney Disease* [...] Number [facility] CLIA: [id number] [place] [address] [address] ADC / [facility] - DRUG SCREEN TRIAGE (02/24/2020 4:47 PM CDT) BENZO U Negative Negative [facility] TAQUERIA U Negative Negative [facility] AMPHET Presumptive Positive Negative [facility] THC Presumptive Positive Negative [facility])Comment: HOSPITAL Confirmation of LABORATORY Presumptive Positive THC result requires physician order. METHADONE Negative Negative [facility]ORY Meth U Presumptive Positive Negative [facility] ([facility] OPIATES Negative Negative [facility] [...] Number [facility] CLIA: [id number] [place] [address] ACETAMINOPHEN (02/24/2020 4:47 PM CDT) Pathologist Sig nature ACETAMINOP <10.0 (L) 10.0 - 30.0 ug/mL [facility]ORY Specimen Blood - VENOUS Narrative Performed At Toxic: Greater than 200 ug/mL @ 4 hour post [facility] ingestion or greater than 50 ug/mL @ 12 hour post ingestion Performing Organization Address [facility] Phone Number [facility] CLIA: [id number] [place] [address] documented in this [...]
--- OUTSIDE RECORDS SUMMARY | 2020-05-08 11:47 | XMS REPORT | Continuity of Care Document ---
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 degrees 64-80 Rapid) [facility] [id number] 14:28:00 Test Item Value Reference Range Interpretation Comments ACT (TEG) Rapid (test code = ACT (TEG) 136 s 86-118 Rapid) [id number] 14:28:00 Test Item Value Reference Range Interpretation Comments Split Point Rapid (test code = Split 0.8 min Point Rapid) [facility] [id number] 05:34:00Negative (01/13/16 12:34 AM) [facility]tl[facility]DKIPDWRDDN9188-73-55 05:34:00 Test Item Value Reference Range Interpretation Comments PTT (test code = PTT) 42.2 s 22.9-35.8 [facility] CenterTtnibgfBEATVXTHAV8159-97-35 05:34:001.15[facility] 2016-01-13 05:34:00 Test Item Value Reference Range Interpretation Comments PT (test code = PT) 15.0 s 12.0-14.7 [facility] JshaqrxWUJLWJVMIG3119-28-83 09:47:00Normal (01/11/16 4:47 AM)[facility] EligmqiRSJVZNFWVO1866-20-06 09:47:00Normal (01/11/16 4:47 AM)[facility]annCHEM [id number] 10:16:001.2[facility]annCHEM [id number] 23:00:002.2 [facility]annCHEM [id number] 16:03:002.0[facility]annDRUG SCREEN 2016-01-08 12:28:00See Note (01/08/16 [...] 2016-01-08 12:28:000-2 (01/08/16 7:28 AM)[facility] [id number] 12:28:00 Test Item Value Reference Range Interpretation Comments UA pH (test code = UA pH) 6.0 1 5.0-8.0 [facility] [id number] 12:28:00Small *ABN*(01/08/16 7:28 AM) [facility] [id number] 12:28:000.2[facility] [id number] 12:28:00Negative (01/08/16 7:28 AM)[facility] STOOL 2016-01-08 12:28:00Negative (01/08/16 7:28 AM)[facility] STOOL 2016-01-08 12:28:00Negative (01/08/16 7:28 AM)[facility] STOOL 2016-01-08 12:28:00Negative *NA*(01/08/16 7:28 AM)[facility] STOOL 2016-01-08 12:28:00Negative *NA*(01/08/16 7:28 AM)[facility] STOOL 2016-01-08 12:28:00 Test Item Value Reference Range Interpretation Comments UA Spec Grav (test code = UA Spec 1.027 1 Grav) [facility] [id number] 12:28:00Clear (01/08/16 7:28 AM)[facility] [id number] 12:28:00Yellow *NA*(01/08/16 7:28 AM)[facility] [id number] 10:16:150.1[facility] HshczgyFXNGTMWVBF2417-72-65 10:16:15 Test Item Value Reference Range Interpretation Comments Split [place] Rapid (test code = Split 0.6 min Point Rapid) [facility]HxdyeqvEKQUSKIUZE8046-39-00 10:16:15 Test Item Value Reference Range Interpretation Comments ACT (TEG) Rapid (test code = ACT (TEG) 113 s 86-118 Rapid) [facility] RockZyvgwvvNMYPEBUJEV2183-11-93 10:16:15 Test Item Value Reference Range Interpretation Comments Angle Rapid (test code = Angle 72 degrees 64-80 Rapid) [facility] RockRdavnxmMVKCYYLVZJ5659-89-66 10:16:15 Test Item Value Reference Range Interpretation Comments K-time Rapid (test code = K-time 1.5 min 0.6-2.3 Rapid) [facility] RockIxpqlwgNQUVKUATVI6426-65-26 10:16:15 Test Item Value Reference Range Interpretation Comments R-time Rapid (test code = R-time 0.7 min 0.4-0.7 Rapid) [facility] RockBoigvttGRNNXWMGLK0278-37-33 10:16:15 Test Item Value Reference Range Interpretation Comments Max Amplitude Rapid (test code = Max 61 mm 52-71 Amplitude Rapid) [facility] RockReueudsPXCQFYBRDA4511-16-52 10:16:157.9[facility] 2016-01-08 10:16:151.4[facility] [id number] 10:13:00 Negative (01/08/16 5:13 AM)[facility]
[2020-05-08] MEDS ORDERED: NA CHLORIDE 0.9% 1,000 ML ONE (14:49)
[2020-05-08] MEDS ORDERED: LORazepam 2 MG/ML VIAL ONE (14:49)
[2020-05-08 15:31] LABS: Absolute Lymphocytes (CBC) 2.9 K/uL (0.7-4.9); Basophils % 0.4 % (0-1.3); Hematocrit 45.1 % (39.6-49.0); Lymphocytes % 24.4 % (15.3-44.8); MPV 7.7 fL (7.6-11.3); RBC Red Blood Cell Count 5.27 M/uL (4.33-5.43)
[2020-05-08 15:35] LABS: BUN Blood Urea Nitrogen 21 mg/dL (7-18); Bicarbonate 24 mmol/L (21-32); Glucose Level 188 mg/dL (74-106); Potassium 3.6 mmol/L (3.5-5.1); Sodium Level 143 mmol/L (136-145)
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
[2020-05-12 12:50] VITALS: TEMP 97.9
[2020-05-12 12:51] VITALS: BP 117/75; O2SAT 96
== END 2020-05-08 19:02 | disposition home or self-care (01) ==
LOC: ER 11:42
DX: R53.83 Other fatigue (principal); T43.625A Adverse effect of amphetamines, initial encounter; I10 Essential (primary) hypertension; F17.210 Nicotine dependence, cigarettes, uncomplicated; Z91.013 Allergy to seafood; Z91.018 Allergy to other foods
CPT/HCPCS: 36415; 80048; 85025; 93005; 96374; 99284; J7030

== ENCOUNTER 2020-05-08 19:46 | Emergency (ER) | payer SELFPAY ==
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
--- OUTSIDE RECORDS SUMMARY | 2020-05-08 19:52 | XMS REPORT | Continuity of Care Document ---
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 STOOL 2016-01-08 12:28:00Negative (01/08/16 7:28 AM)[facility] STOOL 2016-01-08 12:28:00Negative *NA*(01/08/16 7:28 AM)[facility] STOOL 2016-01-08 12:28:00Negative *NA*(01/08/16 7:28 AM)[facility] STOOL 2016-01-08 12:28:00 Test Item Value Reference Range Interpretation Comments UA Spec Grav (test code = UA Spec 1.027 1 Grav) [facility] [id number] 12:28:00Clear (01/08/16 7:28 AM)[facility] [id number] 12:28:00Yellow *NA*(01/08/16 7:28 AM)[facility] Hospital[facility]bxfjqdWNZJRHDAUV8330-62-82 10:16:150.1[facility] WcpqknvKHKFQNWCUF3303-29-25 10:16:15 Test Item Value Reference Range Interpretation Comments Split Point Rapid (test code = Split 0.6 min Point Rapid) [facility] HospitalZupsartXEIABKXEKY0902-27-01 10:16:15 Test Item Value Reference Range Interpretation Comments ACT (TEG) Rapid (test code = ACT (TEG) 113 s 86-118 Rapid) [facility] HospitalKuaprjaIHUDMVVVBW1360-37-53 10:16:15 Test Item Value Reference Range Interpretation Comments Angle Rapid (test code = Angle 72 degrees 64-80 Rapid) [facility] H[id number] 10:16:15 Test Item Value Reference Range Interpretation Comments K-time Rapid (test code = K-time 1.5 min 0.6-2.3 Rapid) [facility] H[id number] 10:16:15 Test Item Value Reference Range Interpretation Comments R-time Rapid (test code = R-time 0.7 min 0.4-0.7 Rapid) [facility] HospitalFvizkrmJVTXVLOBIN2036-85-15 10:16:15 Test Item Value Reference Range Interpretation Comments Max Amplitude Rapid (test code = Max 61 mm 52-71 Amplitude Rapid) [facility] H[id number] 10:16:157.9[facility] CenterAT[facility] 2016-01-08 10:16:151.4[facility] [id number] 10:13:00 Negative (01/08/16 5:13 AM)[facility]
[2020-05-08 20:45] LABS: Barbiturates NEGATIVE (NEGATIVE); Benzodiazepines NEGATIVE (NEGATIVE); Cocaine NEGATIVE (NEGATIVE); METHAMPHETAM POSITIVE (NEGATIVE); Methadone NEGATIVE (NEGATIVE); Opiates NEGATIVE (NEGATIVE); Phencyclidine NEGATIVE (NEGATIVE); THC Cannibis POSITIVE (NEGATIVE)
--- NOTE | 2020-05-08 23:16 | ER ---
Nurse's Notes [facility] Name: Yaw Aldrich Jr Age: 30 yrs Sex: Male : 1990 Arrival Date: 05/08/2020 Time: 19:55 Bed 7 Private MD: Diagnosis: Other psychoactive substance abuse Presentation: 05/08 20:40 Chief complaint: Patient states: Was just released today from the ER and returned by [address] of [facility] because it was cold outside and he had nowhere to go and he wanted to shoot himself. Pt states he wants to go to [facility] and get back on his psych meds and get off meth. Coronavirus screen: Client denies travel out of the [place] in the last 14 days. At this time, the client does not indicate any symptoms associated with coronavirus-19. Ebola Screen: Patient negative for fever greater than or equal to 101.5 degrees Fahrenheit, and additional compatible Ebola Virus Disease symptoms Patient denies exposure to infectious person. Patient denies travel to an Ebola-affected area in the 21 days before illness onset. Initial Sepsis Screen: Does the patient meet any 2 criteria? No. Patient's initial sepsis screen is negative. Does the patient have a suspected source of infection? No. Patient's initial sepsis screen is negative. Risk Assessment: Do you want to hurt yourself or someone else? Patient reports desire/thoughts of hurting themselves or someone else. Provider notified. Onset of symptoms was May 08, 2020. 20:40 Method Of Arrival: EMS: [facility] tl1 20:40 Acuity: SHEY 2 tl1 Historical: - Allergies: 20:43 Poultry; tl1 20:43 shrimp; tl1 20:43 ANTIHISTAMINES; tl1 - PMHx: 20:43 anal leakage; Asthma; Diabetes - NIDDM; ED; Hypertension; STD; tl1 - Immunization history:: Adult Immunizations unknown. - Social history:: Smoking status: Patient reports the use of cigarette tobacco products, smokes one pack cigarettes per day. Patient uses alcohol, street drugs, Methamphetamine (Meth). Screenin:35 Abuse screen: Denies threats or abuse. Denies injuries from another. Nutritional lp1 screening: No deficits noted. Tuberculosis screening: No symptoms or risk factors identified. Fall Risk None identified. Assessment: 20:15 General: Appears in no apparent distress. Behavior is cooperative. Pain: Denies pain. lp1 Neuro: Level of Consciousness is awake, alert, obeys commands, Oriented to person, place, time, situation. Cardiovascular: Patient's skin is warm and dry. Respiratory: Respiratory effort is even, unlabored. GI: No signs and/or symptoms were reported involving the gastrointestinal system. : No signs and/or symptoms were reported regarding the genitourinary system. EENT: No signs and/or symptoms were reported regarding the EENT system. Derm: Skin is pink, warm \\T\\ dry. Musculoskeletal: No deficits noted. 20:35 Reassessment: Patient given sandwich and water per request. lp1 21:16 Reassessment: Patient denies SI or HI at this time, reports "I just want to go to . [address] [place] [address] and get back on my meds". 22:00 Reassessment: [facility] at bedside to evaluate patient. lp1 23:15 Reassessment: Patient is alert, oriented x 3, equal unlabored respirations, skin lp1 warm/dry/pink. [facility] discussing plan for discharge with Provider. Psych: 20:00 Subjective: Patient's mood is appropriate Delusions are denied, Hallucinations are lp1 denied Having thoughts of suicide. Denies suicidal plan. Patient reports no home, he was cold outside which made him begin to have thoughts of harming himself; Reports thought of shooting himself with a gun, does not own one but states "I can find a way to get one". Objective: Patient is cooperative, Speech is normal, Affect is appropriate. Interventions: Removed personal items and placed in bag. Searched person for dangerous items. Belonging list filled out. Suicide Risk Assessment: Sad Person Scale: Sex of patient: Male: Score 1 point. Age of patient: Score 1 point if patient 15-34. Depression: Score 1 point if signs of depression are present. Previous Attempt: Score 1 point if patient has previously attempted suicide. Substance Abuse: Score 1 point if patient abuses alcohol or drugs. Rational Thinking: Score 1 point if patient is lacking rational thinking. Social Support: Score 1 point if social support is lacking and/or unavailable. Organized Plan: Score 0 if patient did not have an organized plan in place. Relationship: Score 1 point if patient is , , , or for a single male Chronic Sickness: Score 0 point if patient does not have a chronic illness, debilitating, or severe disorder. TOTAL POINTS: If total points are 7-10, the proposed clinical action is to hospitalize or commit. Implement suicide precautions. Safety Checks: Personal items have been removed. Door is open. No visitors are present at this time. Patient uses methamphetamines daily. Vital Signs: 20:40 BP 113 / 64; Pulse 84; Resp 17; Temp 98; Pulse Ox 100% ; Weight 99.79 kg; Height 5 ft. tl1 8 in. (172.72 cm); Pain 0/10; 20:40 Body Mass Index 33.45 (99.79 kg, 172.72 cm) tl1 ED Course: 19:55 Patient arrived in ED. mw2 19:56 Robert Zeepda, FOX is Primary Nurse. rr5 20:00 Patient has correct armband on for positive identification. lp1 20:09 Jose David Coronel MD is Attending Physician. tw4 20:15 Arm band placed on. lp1 20:25 Urine collected: clean catch specimen, cloudy. mw2 20:36 Aniya Caputo RN is Primary Nurse. lp1 20:42 Triage completed. tl1 23:47 No provider procedures requiring assistance completed. Patient did not have IV access lp1 during this emergency room visit. Administered Medications: No medications were administered Outcome: 23:15 Discharge ordered by . tw4 23:59 Discharged to home ambulatory. lp1 23:59 Condition: good 23:59 Discharge instructions given to patient, Instructed on discharge instructions, follow up and referral plans. Demonstrated understanding of instructions, follow-up care. 23:59 Patient left the ED. lp1 Signatures: Aniya Caputo, RN RN lp1 Hannah Arizmendi RN RN tl1 Jose David Coronel MD MD tw4 Enoc Reed mw2 Robert Zepeda RN RN rr5
--- NOTE | 2020-05-08 23:16 | EDPHYS ---
Physician Documentation [facility] Name: Yaw Aldrich Jr Age: 30 yrs Sex: Male : 1990 Arrival Date: 05/08/2020 Time: 19:55 Bed 7 Private MD: ED Physician Jose David Coronel HPI: 05/08 23:49 This 30 yrs old Male presents to ER via EMS with complaints of Psych Problem. tw4 05/09 04:26 The patient presents to the emergency department with a history of substance abuse, tw4 Type: methamphetamines. Onset: The symptoms/episode began/occurred today. Past psychiatric history: Prior diagnosis: addiction history. Associated signs and symptoms: The patient has no apparent associated signs or symptoms. The patient has not experienced similar symptoms in the past. pt was recently discharged from the ED 30 min ago refused to leave and was stating he was suicidal in order to remain in the ED. pt was discharged and called the police stating he was suicidal. Historical: - Allergies: 05/08 20:43 Poultry; tl1 20:43 shrimp; tl1 20:43 ANTIHISTAMINES; tl1 - PMHx: 20:43 anal leakage; Asthma; Diabetes - NIDDM; ED; Hypertension; STD; tl1 - Immunization history:: Adult Immunizations unknown. - Social history:: Smoking status: Patient reports the use of cigarette tobacco products, smokes one pack cigarettes per day. Patient uses alcohol, street drugs, Methamphetamine (Meth). ROS: 05/09 04:26 Constitutional: Negative for fever, chills, and weight loss, Eyes: Negative for injury, tw4 pain, redness, and discharge, Cardiovascular: Negative for chest pain, palpitations, and edema, Respiratory: Negative for shortness of breath, cough, wheezing, and pleuritic chest pain, Abdomen/GI: Negative for abdominal pain, nausea, vomiting, diarrhea, and constipation, MS/Extremity: Negative for injury and deformity, Skin: Negative for injury, rash, and discoloration, Neuro: Negative for headache, weakness, numbness, tingling, and seizure. Exam: 04:26 Constitutional: This is a well developed, well nourished patient who is awake, alert, tw4 and in no acute distress. Head/Face: Normocephalic, atraumatic. Chest/axilla: Normal chest wall appearance and motion. Nontender with no deformity. No lesions are appreciated. Cardiovascular: Regular rate and rhythm with a normal S1 and S2. No gallops, murmurs, or rubs. Normal PMI, no JVD. No pulse deficits. Respiratory: Lungs have equal breath sounds bilaterally, clear to auscultation and percussion. No rales, rhonchi or wheezes noted. No increased work of breathing, no retractions or nasal flaring. Abdomen/GI: Soft, non-tender, with normal bowel sounds. No distension or tympany. No guarding or rebound. No evidence of tenderness throughout. Back: No spinal tenderness. No costovertebral tenderness. Full range of motion. MS/ Extremity: Pulses equal, no cyanosis. Neurovascular intact. Full, normal range of motion. Neuro: Awake and alert, GCS 15, oriented to person, place, time, and situation. Cranial nerves II-XII grossly intact. Motor strength 5/5 in all extremities. Sensory grossly intact. Cerebellar exam normal. Normal gait. 04:26 Psych: Behavior/mood is anxious, aggressive, Affect is animated, Oriented to person, place, time, Patient having thoughts of suicide. Denies suicidal plan. Vital Signs: 05/08 20:40 BP 113 / 64; Pulse 84; Resp 17; Temp 98; Pulse Ox 100% ; Weight 99.79 kg; Height 5 ft. tl1 8 in. (172.72 cm); Pain 0/10; 20:40 Body Mass Index 33.45 (99.79 kg, 172.72 cm) tl1 MDM: 20:09 Patient medically screened. tw4 05/09 04:26 Differential diagnosis: drug withdrawal. acute psychotic break, depression. Data tw4 reviewed: vital signs, nurses notes, lab test result(s), urine drug screen. Data interpreted: Pulse oximetry: Interpretation: normal. Counseling: I had a detailed discussion with the patient and/or guardian regarding: the historical points, exam findings, and any diagnostic results supporting the discharge/admit diagnosis, the need for outpatient follow up. ED course: Pt seen by [facility] and evaluated and found not to be a risk for SI, pt only wants fpc due to the weather, Will discharge to /U. 05/08 20:12 Order name: Acetaminophen; Complete Time: 21:36 tw4 05/08 21:36 Interpretation: Within normal limits: ACETA < 2.0. tw4 05/08 20:12 Order name: ETOH Level; Complete Time: 21:35 tw4 05/08 21:35 Interpretation: Within normal limits: ETOH < 10. tw4 05/08 20:12 Order name: Urine Drug Screen; Complete Time: 21:35 tw4 05/08 21:35 Interpretation: Normal except: METHAMPHETAMINE POSITIVE; THC POSITIVE. tw4 05/08 20:12 Order name: Labs collected and sent; Complete Time: 20:37 tw4 05/08 20:12 Order name: Urine Dipstick-Ancillary (obtain specimen); Complete Time: 20:23 tw4 Administered Medications: No medications were administered Disposition: 05/08/20 23:15 Discharged to Home. Impression: Other psychoactive substance abuse. - Condition is Stable. - Discharge Instructions: Substance Use Disorder. - Medication Reconciliation Form, Thank You Letter, Antibiotic Education, Prescription Opioid Use form. - Follow up: Private Physician; When: Upon discharge from the Emergency Department; Reason: Recheck today's complaints, Continuance of care, Re-evaluation by your physician. - Problem is new. - Symptoms have improved. Signatures: Dispatcher [employer] EDMS Aniya Caputo RN RN lp1 Hannah Arizmendi RN RN tl1 Jose David Coronel MD MD tw4 Corrections: (The following items were deleted from the chart) 05/08 23:59 23:15 05/08/2020 23:15 Discharged to Home. Impression: Other psychoactive substance lp1 abuse. Condition is Stable. Forms are Medication Reconciliation Form, Thank You Letter, Antibiotic Education, Prescription Opioid Use. Follow up: Private Physician; When: Upon discharge from the Emergency Department; Reason: Recheck today's complaints, Continuance of care, Re-evaluation by your physician. Problem is new. Symptoms have improved. tw4
[2020-05-12 16:39] VITALS: BP 113/64; TEMP 98; O2SAT 100
== END 2020-05-08 23:59 | disposition home or self-care (01) ==
LOC: ER 19:46
DX: F19.10 Other psychoactive substance abuse, uncomplicated (principal); Z88.8 Allergy status to other drugs, medicaments and biological substances; Z91.013 Allergy to seafood; Z91.018 Allergy to other foods
CPT/HCPCS: 36415; 80307; 80320; 80329; 99284

== ENCOUNTER 2020-06-27 09:23 | Emergency (ER) | payer SELFPAY ==
--- NOTE | 2020-06-27 09:38 | ER ---
Nurse's Notes [facility] Name: Yaw Aldrich Jr Age: 30 yrs Sex: Male : 1990 Arrival Date: 06/27/2020 Time: 09:27 Bed 16 Private MD: Diagnosis: Blister (nonthermal) of foot Presentation: 06/27 09:33 Chief complaint: Patient states: i have been walking back and forth to work and i have tw2 these blisters on both my feet, i had to call into work yesterday cause of the pain, so i need a work note. Coronavirus screen: At this time, the client does not indicate any symptoms associated with coronavirus-19. Ebola Screen: Patient denies travel to an Ebola-affected area in the 21 days before illness onset. Initial Sepsis Screen: Does the patient meet any 2 criteria? No. Patient's initial sepsis screen is negative. Does the patient have a suspected source of infection? No. Patient's initial sepsis screen is negative. Risk Assessment: Do you want to hurt yourself or someone else? Patient reports no desire to harm self or others. Onset of symptoms was June 27, 2020. 09:33 Method Of Arrival: Ambulatory tw2 09:33 Acuity: SHEY 4 tw2 Triage Assessment: 09:33 General: Appears in no apparent distress. Behavior is calm, cooperative, appropriate tw2 for age. Pain: Complains of pain in right foot and left foot. EENT: No signs and/or symptoms were reported regarding the EENT system. Neuro: Level of Consciousness is awake, alert, obeys commands, Oriented to person, place, time, situation. Cardiovascular: Patient's skin is warm and dry. Respiratory: Airway is patent Respiratory effort is even, unlabored, Respiratory pattern is regular, symmetrical. GI: No signs and/or symptoms were reported involving the gastrointestinal system. : No signs and/or symptoms were reported regarding the genitourinary system. Derm: small blood blister on b/l feet, no drainage noted. Musculoskeletal: Range of motion: intact in all extremities. Historical: - Allergies: 09:37 ANTIHISTAMINES; tw2 09:37 shrimp; tw2 09:37 Poultry; tw2 - Home Meds: 09:37 None [Active]; tw2 - PMHx: 09:37 anal leakage; Asthma; Diabetes - NIDDM; ED; Hypertension; STD; tw2 - Immunization history:: Adult Immunizations. - Social history:: Smoking status: . Screenin:36 Abuse screen: Denies threats or abuse. Nutritional screening: No deficits noted. tw2 Tuberculosis screening: No symptoms or risk factors identified. Fall Risk None identified. Assessment: 09:37 Reassessment: see triage assessment. tw2 09:42 Reassessment: Patient appears in no apparent distress at this time. No changes from tw2 previously documented assessment. Patient and/or family updated on plan of care and expected duration. Pain level reassessed. Patient is alert, oriented x 3, equal unlabored respirations, skin warm/dry/pink. Vital Signs: 09:33 BP 139 / 82; Pulse 61; Resp 17; Temp 97.9(TE); Pulse Ox 96% on R/A; Weight 86.18 kg (R);tw2 ED Course: 09:27 Patient arrived in ED. mr 09:30 Yasmine Alexandre FNP-C is [facility]. kb 09:30 Pedro Pino MD is Attending Physician. kb 09:33 Patricia Bui, FOX is Primary Nurse. tw2 09:33 Arm band placed on. tw2 09:35 Triage completed. tw2 09:36 Bed in low position. Call light in reach. tw2 09:42 No provider procedures requiring assistance completed. Patient did not have IV access tw2 during this emergency room visit. Administered Medications: No medications were administered Outcome: 09:36 Discharge ordered by . kb 09:42 Discharged to home ambulatory. tw2 09:42 Condition: stable 09:42 Discharge instructions given to patient, Instructed on discharge instructions, follow up and referral plans. Demonstrated understanding of instructions, follow-up care. 09:42 Patient left the ED. tw2 Signatures: Yasmine Alexandre FNP-C FNP-Rojelio ParedesaShani mr Patricia Bui, RN RN tw2
--- NOTE | 2020-06-27 09:38 | EDPHYS ---
Physician Documentation [facility] Name: Yaw Aldrich Jr Age: 30 yrs Sex: Male : 1990 Arrival Date: 06/27/2020 Time: 09:27 Bed 16 Private MD: ED Physician Pedro Pino HPI: 06/27 10:02 This 30 yrs old Male presents to ER via Ambulatory with complaints of kb Blisters on feet. 10:02 The patient presents with blisters. The complaints affect the ball of right foot and kb ball of left foot. Context: The problem was sustained at work, resulted from walking in wet shoes, the patient can fully bear weight, the patient is able to ambulate. Onset: The symptoms/episode began/occurred 4 day(s) ago. Modifying factors: The symptoms are alleviated by nothing, the symptoms are aggravated by weight bearing. Associated signs and symptoms: The patient has no apparent associated signs or symptoms. Severity of symptoms: At their worst the symptoms were mild, in the emergency department the symptoms are unchanged. The patient has not experienced similar symptoms in the past. The patient has not recently seen a physician. Pt reports he walks a lot at work. States his shoes were wet the other day and it caused him to get a blister on each foot. Pt called into work yesterday because the his feet were sore and he had the blisters. His place of employment told him he had to have a dr's note to return so that is why he came in today.. Historical: - Allergies: 09:37 ANTIHISTAMINES; tw2 09:37 shrimp; tw2 09:37 Poultry; tw2 - Home Meds: 09:37 None [Active]; tw2 - PMHx: 09:37 anal leakage; Asthma; Diabetes - NIDDM; ED; Hypertension; STD; tw2 - Immunization history:: Adult Immunizations. - Social history:: Smoking status: . ROS: 10:02 Constitutional: Negative for fever, chills, and weight loss, Cardiovascular: Negative kb for chest pain, palpitations, and edema, Respiratory: Negative for shortness of breath, cough, wheezing, and pleuritic chest pain, Abdomen/GI: Negative for abdominal pain, nausea, vomiting, diarrhea, and constipation, MS/Extremity: Negative for injury and deformity, Neuro: Negative for headache, weakness, numbness, tingling, and seizure. 10:02 Skin: Positive for of the ball of right foot and ball of left foot, blister. Exam: 10:00 Constitutional: This is a well developed, well nourished patient who is awake, alert, kb and in no acute distress. Head/Face: Normocephalic, atraumatic. Cardiovascular: Regular rate and rhythm with a normal S1 and S2. No gallops, murmurs, or rubs. Normal PMI, no JVD. No pulse deficits. Respiratory: Lungs have equal breath sounds bilaterally, clear to auscultation and percussion. No rales, rhonchi or wheezes noted. No increased work of breathing, no retractions or nasal flaring. Abdomen/GI: Soft, non-tender, with normal bowel sounds. No distension or tympany. No guarding or rebound. No evidence of tenderness throughout. MS/ Extremity: Pulses equal, no cyanosis. Neurovascular intact. Full, normal range of motion. Neuro: Awake and alert, GCS 15, oriented to person, place, time, and situation. Cranial nerves II-XII grossly intact. Motor strength 5/5 in all extremities. Sensory grossly intact. Cerebellar exam normal. Normal gait. 10:00 Skin: lesion(s), Blister, located on the ball of right foot and ball of left foot. Vital Signs: 09:33 BP 139 / 82; Pulse 61; Resp 17; Temp 97.9(TE); Pulse Ox 96% on R/A; Weight 86.18 kg (R);tw2 MDM: 09:30 Patient medically screened. kb 09:36 Data reviewed: vital signs, nurses notes. Data interpreted: Pulse oximetry: on room air kb is 96 %. Interpretation: normal. Counseling: I had a detailed discussion with the patient and/or guardian regarding: the historical points, exam findings, and any diagnostic results supporting the discharge/admit diagnosis, the need for outpatient follow up, a family practitioner, to return to the emergency department if symptoms worsen or persist or if there are any questions or concerns that arise at home. Administered Medications: No medications were administered Disposition: 14:33 Co-signature as Attending Physician, Pedro Pino MD. rn Disposition: 06/27/20 09:36 Discharged to Home. Impression: Blister (nonthermal) of foot. - Condition is Stable. - Discharge Instructions: Blisters, Adult. - Work release form, Medication Reconciliation Form, Thank You Letter, Antibiotic Education, Prescription Opioid Use form. - Follow up: Emergency Department; When: As needed; Reason: Worsening of condition. Follow up: Private Physician; When: 2 - 3 days; Reason: Recheck today's complaints, Continuance of care, Re-evaluation by your physician. Signatures: Yasmine Alexandre, ADITYA-C GLAUCOMA SPECIALIST-Pedro Cuenca MD MD rn BuiPatricia RN RN tw2 Corrections: (The following items were deleted from the chart) 09:42 09:36 06/27/2020 09:36 Discharged to Home. Impression: Blister (nonthermal) of foot. tw2 Condition is Stable. Forms are Medication Reconciliation Form, Thank You Letter, Antibiotic Education, Prescription Opioid Use. Follow up: Emergency Department; When: As needed; Reason: Worsening of condition. Follow up: Private Physician; When: 2 - 3 days; Reason: Recheck today's complaints, Continuance of care, Re-evaluation by your physician. kb
[2020-06-27 09:51] VITALS: BP 139/82; TEMP 97.9; O2SAT 96
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
--- OUTSIDE RECORDS SUMMARY | 2020-06-27 10:41 | XMS REPORT | Continuity of Care Document ---
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 (test code = K-time 1.5 min 0.6-2.3 Rapid) [facility] CenterAteuckhUAZKGCDMMQ3494-19-83 10:16:15 Test Item Value Reference Range Interpretation Comments R-time Rapid (test code = R-time 0.7 min 0.4-0.7 Rapid) [facility] HospitalPemlzcwOFJHZUQLAD2897-01-32 10:16:15 Test Item Value Reference Range Interpretation Comments Max Amplitude Rapid (test code = Max 61 mm 52-71 Amplitude Rapid) [facility] CenterCnaaipvMDRGQNTIOG3495-52-24 10:16:157.9[facility] 2016-01[facility]08 10:16:151.4[facility] BANK [id number] 10:13:00 Negative (01/08/16 5:13 AM)[facility]
== END 2020-06-27 09:42 | disposition home or self-care (01) ==
LOC: ER 09:23
DX: S90.821A Blister (nonthermal), right foot, initial encounter (principal); S90.822A Blister (nonthermal), left foot, initial encounter; J45.909 Unspecified asthma, uncomplicated; E11.9 Type 2 diabetes mellitus without complications; I10 Essential (primary) hypertension; X58.XXXA Exposure to other specified factors, initial encounter; Y99.0 Civilian activity done for income or pay
CPT/HCPCS: 99281

== ENCOUNTER 2020-07-01 14:22 | Emergency (ER) | payer SELFPAY ==
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
--- OUTSIDE RECORDS SUMMARY | 2020-07-01 14:34 | XMS REPORT | Continuity of Care Document ---
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 K-time Rapid (test code = K-time 1.5 min 0.6-2.3 Rapid) [id number] 10:16:15 Test Item Value Reference Range Interpretation Comments R-time Rapid (test code = R-time 0.7 min 0.4-0.7 Rapid) [id number] 10:16:15 Test Item Value Reference Range Interpretation Comments Max Amplitude Rapid (test code = Max 61 mm 52-71 Amplitude Rapid) [facility] He[id number] 10:16:157.9[facility]:16[facility] [id number] 10:13:00 Negative (01/08/16 5:13 AM)[facility]
[2020-07-01 16:20] LABS: SARS-COV-2 RT PCR NEGATIVE (NEGATIVE)
--- NOTE | 2020-07-01 16:25 | ER ---
Nurse's Notes [facility] Name: Yaw Aldrich Jr Age: 30 yrs Sex: Male : 1990 Arrival Date: 07/01/2020 Time: 14:23 Bed Waiting Private MD: Diagnosis: Acute upper respiratory infection, unspecified Presentation: 07/01 14:33 Chief complaint: Patient states: Cough, runny nose, loss of taste for 4 days. + low ll1 grade fever. Missed work yesterday, needs release to return. Coronavirus screen: Client denies travel out of the [place] in the last 14 days. chills, congestion, cough unrelated to allergies, diarrhea, difficulty breathing, fatigue, fever, headache, muscle pain, nausea, runny nose, shaking with chills, shortness of breath, sore throat, loss of taste or smell, vomiting. Client presents with at least one sign or symptom that may indicate coronavirus-19. Standard/surgical mask placed on the client. Ebola Screen: Patient denies travel to an Ebola-affected area in the 21 days before illness onset. Initial Sepsis Screen: Does the patient meet any 2 criteria? No. Patient's initial sepsis screen is negative. Does the patient have a suspected source of infection? Yes: Productive cough/pneumonia. Risk Assessment: Do you want to hurt yourself or someone else? Patient reports no desire to harm self or others. Onset of symptoms was June 27, 2020. 14:33 Method Of Arrival: Ambulatory ll1 14:33 Acuity: SHEY 4 ll1 Historical: - Allergies: 14:37 ANTIHISTAMINES; ll1 14:37 Poultry; ll1 14:37 shrimp; ll1 - PMHx: 14:37 anal leakage; Asthma; Diabetes - NIDDM; ED; Hypertension; STD; ll1 - Immunization history:: Flu vaccine is not up to date. - Social history:: Smoking status: Patient denies any tobacco usage or history of. Screenin:30 Abuse screen: Denies threats or abuse. Denies injuries from another. Nutritional ss screening: No deficits noted. Tuberculosis screening: No symptoms or risk factors identified. Fall Risk None identified. Assessment: 16:30 General: Appears in no apparent distress. comfortable, Behavior is calm, cooperative. ss Pain: Denies pain. Neuro: Level of Consciousness is awake, alert, obeys commands, Oriented to person, place, time, situation. Respiratory: Airway is patent is compromised Respiratory effort is even, unlabored, Respiratory pattern is regular, symmetrical. GI: No signs and/or symptoms were reported involving the gastrointestinal system. Derm: Skin is intact, is healthy with good turgor, Skin is dry, Skin is pink, warm \T\ dry. normal. Musculoskeletal: Circulation, motion, and sensation intact. Range of motion: intact in all extremities, Swelling absent. Vital Signs: 14:33 BP 134 / 80; Pulse 76; Resp 18; Temp 98.1; Pulse Ox 97% on R/A; Height 5 ft. 8 in. ll1 (172.72 cm); Pain 8/10; ED Course: 14:23 Patient arrived in ED. am4 14:36 Triage completed. ll1 14:38 Arm band placed on. ll1 14:39 Yasmine Alexandre FNP-C is [facility]. kb 14:39 Devonte Ramirez MD is Attending Physician. kb 16:30 Marilu Brown, RN is Primary Nurse. ss 16:30 Patient has correct armband on for positive identification. Bed in low position. Call ss light in reach. 16:31 No provider procedures requiring assistance completed. Patient did not have IV access ss during this emergency room visit. Administered Medications: No medications were administered Outcome: 16:25 Discharge ordered by . kb 16:31 Discharged to home ambulatory. ss 16:31 Condition: good 16:31 Discharge instructions given to patient, Instructed on discharge instructions, follow up and referral plans. Demonstrated understanding of instructions, follow-up care. 16:32 Patient left the ED. ss Signatures: Yasmine Alexandre FNP-C FNP-Ckb Smirch, Shelby, RN RN Avani Bradshaw RN RN [facility] Ivelisse Gaytan am4
--- NOTE | 2020-07-01 16:25 | EDPHYS ---
Physician Documentation [facility] Name: Yaw Aldrich Jr Age: 30 yrs Sex: Male : 1990 Arrival Date: 07/01/2020 Time: 14:23 Bed Waiting Private MD: ED Physician Devonte Ramirez HPI: 07/01 20:05 This 30 yrs old Male presents to ER via Ambulatory with complaints of R/O kb COVID. 20:05 The patient or guardian reports cough, that is intermittent, described as mild, with no kb sputum, flu symptoms, low-grade fever, myalgias. Onset: The symptoms/episode began/occurred 4 day(s) ago. Severity of symptoms: At their worst the symptoms were mild, in the emergency department the symptoms are unchanged. Modifying factors: The symptoms are alleviated by nothing, the symptoms are aggravated by nothing. Associated signs and symptoms: Pertinent positives: fever, rhinorrhea, Pertinent negatives: chest pain, diarrhea, ear ache, nausea, sore throat, vomiting. The patient has not experienced similar symptoms in the past. The patient has not recently seen a physician. cough, runny nose, nausea for 4 days. States he came to get a covid test for work . Historical: - Allergies: 14:37 ANTIHISTAMINES; ll1 14:37 Poultry; ll1 14:37 shrimp; ll1 - PMHx: 14:37 anal leakage; Asthma; Diabetes - NIDDM; ED; Hypertension; STD; ll1 - Immunization history:: Flu vaccine is not up to date. - Social history:: Smoking status: Patient denies any tobacco usage or history of. ROS: 20:04 Cardiovascular: Negative for chest pain, palpitations, and edema, Back: Negative for kb injury and pain, : Negative for injury, bleeding, discharge, and swelling, MS/Extremity: Negative for injury and deformity, Skin: Negative for injury, rash, and discoloration, Neuro: Negative for headache, weakness, numbness, tingling, and seizure. 20:04 Constitutional: Positive for body aches, chills, fatigue, fever, malaise. 20:04 Respiratory: Positive for cough. 20:04 Abdomen/GI: Positive for nausea and vomiting. Exam: 20:04 Constitutional: This is a well developed, well nourished patient who is awake, alert, kb and in no acute distress. Head/Face: Normocephalic, atraumatic. Chest/axilla: Normal chest wall appearance and motion. Nontender with no deformity. No lesions are appreciated. Cardiovascular: Regular rate and rhythm with a normal S1 and S2. No gallops, murmurs, or rubs. Normal PMI, no JVD. No pulse deficits. Respiratory: Lungs have equal breath sounds bilaterally, clear to auscultation and percussion. No rales, rhonchi or wheezes noted. No increased work of breathing, no retractions or nasal flaring. Abdomen/GI: Soft, non-tender, with normal bowel sounds. No distension or tympany. No guarding or rebound. No evidence of tenderness throughout. Skin: Warm, dry with normal turgor. Normal color with no rashes, no lesions, and no evidence of cellulitis. MS/ Extremity: Pulses equal, no cyanosis. Neurovascular intact. Full, normal range of motion. Neuro: Awake and alert, GCS 15, oriented to person, place, time, and situation. Cranial nerves II-XII grossly intact. Motor strength 5/5 in all extremities. Sensory grossly intact. Cerebellar exam normal. Normal gait. Vital Signs: 14:33 BP 134 / 80; Pulse 76; Resp 18; Temp 98.1; Pulse Ox 97% on R/A; Height 5 ft. 8 in. ll1 (172.72 cm); Pain 8/10; MDM: 14:39 Patient medically screened. kb 20:04 Data reviewed: vital signs, nurses notes. Data interpreted: Pulse oximetry: on room air kb is 97 %. Interpretation: normal. Counseling: I had a detailed discussion with the patient and/or guardian regarding: the historical points, exam findings, and any diagnostic results supporting the discharge/admit diagnosis, lab results, the need for outpatient follow up, a family practitioner, to return to the emergency department if symptoms worsen or persist or if there are any questions or concerns that arise at home. 07/01 14:40 Order name: PO challenge; Complete Time: 14:48 kb 07/01 16:21 Order name: COVID-19/FLU A+B; Complete Time: 16:24 EDMS Administered Medications: No medications were administered Disposition: 07/01/20 16:25 Discharged to Home. Impression: Acute upper respiratory infection, unspecified. - Condition is Stable. - Discharge Instructions: Viral Respiratory Infection, [id number]-Gy-[id number]. - Medication Reconciliation Form, Thank You Letter, Antibiotic Education, Prescription Opioid Use, Work release form form. - Follow up: Emergency Department; When: As needed; Reason: Worsening of condition. Follow up: Private Physician; When: 2 - 3 days; Reason: Recheck today's complaints, Continuance of care, Re-evaluation by your physician. Addendum: 07/03/2020 19:59 Co-signature as Attending Physician, Devonte Ramirez MD I agree with the assessment and k dr plan of care. Signatures: Dispatcher [employer] EDMD Yasmine Alexandre, VETERINARY MANAGER-C VETERINARY MANAGER-Ckb Devonte Ramirez MD MD [facility] Marilu Brown RN RN ss Avani Caceres RN RN ll1 Corrections: (The following items were deleted from the chart) 07/01 16:20 14:41 Influenza Screen (A \T\ B)+BA.LAB.BRZ ordered. [facility] EDMD 16:20 15:55 Influenza Screen (A \T\ B)+BA.LAB.BRZ reviewed. [facility] 16:32 16:25 07/01/2020 16:25 Discharged to Home. Impression: Acute upper respiratory ss infection, unspecified. Condition is Stable. Forms are Medication Reconciliation Form, Thank You Letter, Antibiotic Education, Prescription Opioid Use. Follow up: Emergency Department; When: As needed; Reason: Worsening of condition. Follow up: Private Physician; When: 2 - 3 days; Reason: Recheck today's complaints, Continuance of care, Re-evaluation by your physician. kb
[2020-07-01 16:35] VITALS: BP 134/80; TEMP 98.1; O2SAT 97
== END 2020-07-01 16:32 | disposition home or self-care (01) ==
LOC: ER 14:22
DX: J06.9 Acute upper respiratory infection, unspecified (principal); Z88.8 Allergy status to other drugs, medicaments and biological substances; Z91.013 Allergy to seafood; Z20.822 Contact with and (suspected) exposure to COVID-19
CPT/HCPCS: 0240U; 99281

== ENCOUNTER 2020-07-07 07:32 | Emergency (ER) | payer SELFPAY ==
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
--- OUTSIDE RECORDS SUMMARY | 2020-07-07 07:38 | XMS REPORT | Continuity of Care Document ---
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 [id number] 10:16:15 Test Item Value Reference Range Interpretation Comments R-time Rapid (test code = R-time 0.7 min 0.4-0.7 Rapid) [facility] H[id number] 10:16:15 Test Item Value Reference Range Interpretation Comments Max Amplitude Rapid (test code = Max 61 mm 52-71 Amplitude Rapid) [facility] [id number] 10:16:157.9[facility] 2016-01-08 10:16:151.4[facility] BANK [id number] 10:13:00 Negative (01/08/16 5:13 AM)[facility]
[2020-07-07] MEDS ORDERED: IPRATROPIUM BROM 0.5MG/2.5ML ONE (09:26)
[2020-07-07] MEDS ORDERED: ALBUTEROL 2.5 MG/3 ML NEB SOL ONE (09:26)
--- NOTE | 2020-07-07 10:13 | RAD REPORT ---
EXAM DESCRIPTION: Baldo Single View07/07/2020 9:53 am CLINICAL HISTORY: Cough COMPARISON: 2019 FINDINGS: The lungs appear clear of acute infiltrate. The heart is normal size IMPRESSION: No acute abnormalities displayed
[2020-07-07 10:41] LABS: SARS-COV-2 RT PCR NEGATIVE (NEGATIVE)
--- NOTE | 2020-07-07 11:40 | EDPHYS ---
Physician Documentation [facility] Name: Yaw Aldrich Jr Age: 30 yrs Sex: Male : 1990 Arrival Date: 07/07/2020 Time: 07:42 Bed 16 Private MD: ED Physician Devonte Ramirez HPI: 07/07 16:23 This 30 yrs old Male presents to ER via Ambulatory with complaints of Cough, kdr Congestion. 16:23 The patient or guardian reports airway noise, cough, that is intermittent, described as kdr mild, with productive sputum, that is white, difficulty breathing. Onset: The symptoms/episode began/occurred 1 day(s) ago. Severity of symptoms: At their worst the symptoms were mild, in the emergency department the symptoms are unchanged. Modifying factors: The symptoms are alleviated by nothing, the symptoms are aggravated by exertion. Associated signs and symptoms: The patient has no apparent associated signs or symptoms. The patient has not experienced similar symptoms in the past. The patient has not recently seen a physician. Historical: - Allergies: 07:52 ANTIHISTAMINES; sv 07:52 Poultry; sv 07:52 shrimp; sv - PMHx: 07:52 anal leakage; Asthma; Diabetes - NIDDM; ED; Hypertension; STD; sv ROS: 16:23 Constitutional: Negative for fever, chills, and weight loss, Eyes: Negative for injury, kdr pain, redness, and discharge, Neck: Negative for injury, pain, and swelling, Cardiovascular: Negative for chest pain, palpitations, and edema, Abdomen/GI: Negative for abdominal pain, nausea, vomiting, diarrhea, and constipation, Back: Negative for injury and pain, : Negative for injury, bleeding, discharge, and swelling, MS/Extremity: Negative for injury and deformity, Skin: Negative for injury, rash, and discoloration, Neuro: Negative for headache, weakness, numbness, tingling, and seizure activity. Psych: Negative for depression, anxiety, suicide ideation, homicidal ideation, and hallucinations, Allergy/Immunology: Negative for hives, rash, and allergies, Endocrine: Negative for neck swelling, polydipsia, polyuria, polyphagia, and marked weight changes, Hematologic/Lymphatic: Negative for swollen nodes, abnormal bleeding, and unusual bruising. 16:23 Respiratory: Positive for cough, with clear sputum, shortness of breath, Negative for dyspnea on exertion, hemoptysis, orthopnea, pleurisy. Exam: 16:23 Constitutional: This is a well developed, well nourished patient who is awake, alert, kdr and in no acute distress. Head/Face: Normocephalic, atraumatic. Eyes: Pupils equal round and reactive to light, extra-ocular motions intact. Lids and lashes normal. Conjunctiva and sclera are non-icteric and not injected. Cornea within normal limits. Periorbital areas with no swelling, redness, or edema. Neck: Trachea midline, no thyromegaly or masses palpated, and no cervical lymphadenopathy. Supple, full range of motion without nuchal rigidity, or vertebral point tenderness. No Meningismus. Chest/axilla: Normal chest wall appearance and motion. Nontender with no deformity. No lesions are appreciated. Cardiovascular: Regular rate and rhythm with a normal S1 and S2. No gallops, murmurs, or rubs. Normal PMI, no JVD. No pulse deficits. Respiratory: Lungs have equal breath sounds bilaterally, clear to auscultation and percussion. No rales, rhonchi or wheezes noted. No increased work of breathing, no retractions or nasal flaring. Abdomen/GI: Soft, non-tender, with normal bowel sounds. No distension or tympany. No guarding or rebound. No evidence of tenderness throughout. Back: No spinal tenderness. No costovertebral tenderness. Full range of motion. Skin: Warm, dry with normal turgor. Normal color with no rashes, no lesions, and no evidence of cellulitis. MS/ Extremity: Pulses equal, no cyanosis. Neurovascular intact. Full, normal range of motion. Neuro: Awake and alert, GCS 15, oriented to person, place, time, and situation. Cranial nerves II-XII grossly intact. Motor strength 5/5 in all extremities. Sensory grossly intact. Cerebellar exam normal. Normal gait. Psych: Awake, alert, with orientation to person, place and time. Behavior, mood, and affect are within normal limits. Vital Signs: 07:52 BP 115 / 77; Pulse 86; Resp 16; Temp 98; Pulse Ox 98% ; Weight 104.33 kg; Height 5 ft. sv 7 in. (170.18 cm); 09:48 BP 101 / 74; Pulse 69; Resp 17; Pulse Ox 96% on R/A; tw2 10:44 BP 110 / 50; Pulse 84; Resp 17; Pulse Ox 96% on R/A; tw2 12:01 BP 117 / 52; Pulse 73; Resp 17; Pulse Ox 99% on R/A; tw2 07:52 Body Mass Index 36.02 (104.33 kg, 170.18 cm) sv MDM: 11:39 Patient medically screened. kdr 16:23 Data reviewed: vital signs, nurses notes, lab test result(s), radiologic studies. kdr Counseling: I had a detailed discussion with the patient and/or guardian regarding: the historical points, exam findings, and any diagnostic results supporting the discharge/admit diagnosis, lab results, radiology results, the need for outpatient follow up. 07/07 09:06 Order name: Flu [facility] 07/07 09:06 Order name: COVID-19 : Document "Date of Symptom Onset" if Symptomatic. [facility] 07/07 09:06 Order name: CXR XRAY; Complete Time: 10:15 [facility] 07/07 09:22 Order name: CORONAVIRUS EDIN 07/07 09:22 Order name: Influenza Screen (A EDMS 07/07 10:41 Order name: COVID-19/FLU A+B; Complete Time: 11:23 EDMS Administered Medications: 09:48 Drug: Albuterol - atroVENT (3:1) (2.5 mg - 0.5 mg) 3 ml Route: Nebulizer; tw2 Disposition: 07/07/20 11:39 Discharged to Home. Impression: Bronchitis, not specified as acute or chronic, Cough. - Condition is Stable. - Discharge Instructions: Acute Bronchitis, Mkbz-aq-Ouha, Upper Respiratory Infection, Adult, [id number]-eu-[id number]. - Prescriptions for Tessalon Perles 100 mg Oral Capsule - take 1 capsule by ORAL route every 8 hours As needed; 15 capsule. Medrol (Isac) 4 mg Oral Tablets, Dose Pack - take 1 tablet by ORAL route as directed - follow package instructions; 1 packet. Albuterol Sulfate 90 mcg/actuation - inhale 1-2 puff by INHALATION route every 4-6 hours; 1 Inhaler. - Medication Reconciliation Form, Thank You Letter, Work release form form. - Follow up: Private Physician; When: 2 - 3 days; Reason: If symptoms return, Further diagnostic work-up, Recheck today's complaints, Continuance of care, Re-evaluation by your physician. - Problem is new. - Symptoms have improved. Signatures: Dispatcher [employer] Brigid Blakely, RN RN Devonte Ramirez MD MD kdr Patricia Bui RN RN tw2 Corrections: (The following items were deleted from the chart) 12:03 11:39 07/07/2020 11:39 Discharged to Home. Impression: Bronchitis, not specified as tw2 acute or chronic; Cough. Condition is Stable. Forms are Work release form, Medication Reconciliation Form, Thank You Letter, Antibiotic Education, Prescription Opioid Use. Follow up: Private Physician; When: 2 - 3 days; Reason: If symptoms return, Further diagnostic work-up, Recheck today's complaints, Continuance of care, Re-evaluation by your physician. Problem is new. Symptoms have improved. kdr
--- NOTE | 2020-07-07 11:40 | ER ---
Nurse's Notes [facility] Name: Yaw Aldrich Jr Age: 30 yrs Sex: Male : 1990 Arrival Date: 07/07/2020 Time: 07:42 Bed 16 Private MD: Diagnosis: Bronchitis, not specified as acute or chronic;Cough Presentation: 07/07 07:51 Chief complaint: Patient states: cough, congestion, nose bleed x 1 day. Coronavirus sv screen: Client denies travel out of the [place] in the last 14 days. Client presents with at least one sign or symptom that may indicate coronavirus-19. Standard/surgical mask placed on the client. Provider contacted for isolation considerations. At this time, the client does not indicate any symptoms associated with coronavirus-19. Ebola Screen: No symptoms or risks identified at this time. Risk Assessment: Do you want to hurt yourself or someone else? Patient reports no desire to harm self or others. Onset of symptoms was July 06, 2020. 07:51 Method Of Arrival: Ambulatory sv 07:51 Acuity: SHEY 4 sv 07:52 Initial Sepsis Screen: Does the patient meet any 2 criteria? No. Patient's initial sv sepsis screen is negative. Does the patient have a suspected source of infection? No. Patient's initial sepsis screen is negative. Triage Assessment: 07:51 General: Appears in no apparent distress. comfortable, well developed, Behavior is sv calm, cooperative, appropriate for age. Neuro: Level of Consciousness is awake, alert, obeys commands, Oriented to person, place, time, situation, Moves all extremities. Full function Gait is steady. Respiratory: Respiratory effort is even, unlabored. Historical: - Allergies: 07:52 ANTIHISTAMINES; sv 07:52 Poultry; sv 07:52 shrimp; sv - PMHx: 07:52 anal leakage; Asthma; Diabetes - NIDDM; ED; Hypertension; STD; sv Screenin:16 Abuse screen: Denies threats or abuse. Nutritional screening: No deficits noted. tw2 Tuberculosis screening: No symptoms or risk factors identified. Fall Risk None identified. Assessment: 08:59 Reassessment: provider at bedside at this time. tw2 09:10 General: Appears in no apparent distress. Behavior is calm, cooperative, appropriate tw2 for age. Pain: Denies pain. Neuro: Level of Consciousness is awake, alert, obeys commands, Oriented to person, place, time, situation. Cardiovascular: Capillary refill < 3 seconds Patient's skin is warm and dry. Respiratory: Airway is patent Respiratory effort is even, unlabored, Respiratory pattern is regular, symmetrical. Respiratory: Reports shortness of breath at rest cough that is. GI: No signs and/or symptoms were reported involving the gastrointestinal system. : No signs and/or symptoms were reported regarding the genitourinary system. EENT: No signs and/or symptoms were reported regarding the EENT system. Derm: No signs and/or symptoms reported regarding the dermatologic system. Musculoskeletal: Range of motion: intact in all extremities. 10:45 Reassessment: Patient appears in no apparent distress at this time. No changes from tw2 previously documented assessment. Patient and/or family updated on plan of care and expected duration. Pain level reassessed. Patient is alert, oriented x 3, equal unlabored respirations, skin warm/dry/pink. 12:01 Reassessment: Patient appears in no apparent distress at this time. No changes from tw2 previously documented assessment. Patient and/or family updated on plan of care and expected duration. Pain level reassessed. Patient is alert, oriented x 3, equal unlabored respirations, skin warm/dry/pink. Vital Signs: 07:52 BP 115 / 77; Pulse 86; Resp 16; Temp 98; Pulse Ox 98% ; Weight 104.33 kg; Height 5 ft. sv 7 in. (170.18 cm); 09:48 BP 101 / 74; Pulse 69; Resp 17; Pulse Ox 96% on R/A; tw2 10:44 BP 110 / 50; Pulse 84; Resp 17; Pulse Ox 96% on R/A; tw2 12:01 BP 117 / 52; Pulse 73; Resp 17; Pulse Ox 99% on R/A; tw2 07:52 Body Mass Index 36.02 (104.33 kg, 170.18 cm) sv ED Course: 07:42 Patient arrived in ED. mr 07:52 Triage completed. sv 07:52 Arm band placed on. sv 08:52 Bed in low position. Call light in reach. tw2 08:55 Devonte Ramirez MD is Attending Physician. kdr 08:59 Bui, Patricia, RN is Primary Nurse. tw2 09:16 Awaiting for x-ray. tw2 10:05 CXR XRAY In Process Unspecified. EDMS 11:28 Influenza Screen (A Sent. sv 11:29 CORONAVIRUS Sent. sv 11:29 COVID-19 : Document "Date of Symptom Onset" if Symptomatic. Sent. sv 11:29 Flu Sent. sv 12:02 No provider procedures requiring assistance completed. Patient did not have IV access tw2 during this emergency room visit. Administered Medications: 09:48 Drug: Albuterol - atroVENT (3:1) (2.5 mg - 0.5 mg) 3 ml Route: Nebulizer; tw2 Outcome: 11:39 Discharge ordered by . kdr 12:02 Discharged to home ambulatory. tw2 12:02 Condition: stable 12:02 Discharge instructions given to patient, Instructed on discharge instructions, follow up and referral plans. medication usage, Demonstrated understanding of instructions, follow-up care, medications, Prescriptions given X 3. 12:03 Patient left the ED. tw2 Signatures: Dispatcher [employer] Brigid Blakely, Devonte Torres RN, MD MD kdr Rivera, Mary mr Wise, Tara, RN RN tw2
[2020-07-07 12:07] VITALS: TEMP 98
[2020-07-07 12:11] VITALS: BP 117/52; O2SAT 99
== END 2020-07-07 12:03 | disposition home or self-care (01) ==
LOC: ER 07:32
DX: J40 Bronchitis, not specified as acute or chronic (principal); Z20.822 Contact with and (suspected) exposure to COVID-19; I10 Essential (primary) hypertension; Z88.8 Allergy status to other drugs, medicaments and biological substances; Z91.013 Allergy to seafood; Z91.018 Allergy to other foods
CPT/HCPCS: 0240U; 71045; 99284

== ENCOUNTER 2020-08-14 19:12 | Emergency (ER) | payer SELFPAY ==
--- OUTSIDE RECORDS SUMMARY | 2020-08-14 19:16 | XMS REPORT | Continuity of Care Document ---
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 Interpretation Comments K-time Rapid (test code = K-time 1.5 min 0.6-2.3 Rapid) [facility]hqjpbcFJQKUWCYSX1909-21-05 10:16:15 Test Item Value Reference Range Interpretation Comments R-time Rapid (test code = R-time 0.7 min 0.4-0.7 Rapid) [facility]jtSITEBNMNOS1046-47-39 10:16:15 Test Item Value Reference Range Interpretation Comments Max Amplitude Rapid (test code = Max 61 mm 52-71 Amplitude Rapid) [facility]IvkyzqqBJUGZWZYRS6514-48-15 10:16:157.9[facility] 2016-01-08 10:16:151.4[facility] BANK [id number] 10:13:00 Negative (01/08/16 5:13 AM)[facility]
[2020-08-14] MEDS ORDERED: NA CHLORIDE 0.9% 1,000 ML ONE (20:29)
[2020-08-14 21:03] LABS: Absolute Lymphocytes (CBC) 3.8 K/uL (0.7-4.9); Basophils % 0.2 % (0-1.3); Hematocrit 42.4 % (39.6-49.0); Lymphocytes % 24.4 % (15.3-44.8); MPV 7.6 fL (7.6-11.3); RBC Red Blood Cell Count 4.95 M/uL (4.33-5.43)
[2020-08-14 21:21] LABS: Bilirubin Total 1.4 mg/dL (0.2-1.0); Potassium 3.6 mmol/L (3.5-5.1); Protein, Total 7.2 g/dL (6.4-8.2)
[2020-08-14 21:25] LABS: Barbiturates NEGATIVE (NEGATIVE); Benzodiazepines NEGATIVE (NEGATIVE); Cocaine NEGATIVE (NEGATIVE); METHAMPHETAM POSITIVE (NEGATIVE); Methadone NEGATIVE (NEGATIVE); Opiates NEGATIVE (NEGATIVE); Phencyclidine NEGATIVE (NEGATIVE); THC Cannibis POSITIVE (NEGATIVE)
[2020-08-14 21:28] LABS: Urine Blood 2+ (NEG); Urine Glucose NEGATIVE (NEG); Urine Protein 2+ (NEG); Urine Specific Gravity >1.030 (1.005-1.030); Urine pH 5.5 (5.0-7.0)
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
[2020-08-15 16:54] VITALS: TEMP 98.8
[2020-08-15 16:57] VITALS: BP 115/66; O2SAT 96
== END 2020-08-14 21:49 | disposition home or self-care (01) ==
LOC: ER 19:12
DX: F12.10 Cannabis abuse, uncomplicated (principal); T43.625A Adverse effect of amphetamines, initial encounter; M79.641 Pain in right hand; I10 Essential (primary) hypertension; Z88.8 Allergy status to other drugs, medicaments and biological substances; Z91.013 Allergy to seafood; Z91.018 Allergy to other foods
CPT/HCPCS: 36415; 80053; 80307; 81003; 85025; 96360; 99283; J7030

== ENCOUNTER 2020-12-23 12:11 | Emergency (ER) | payer SELFPAY ==
--- OUTSIDE RECORDS SUMMARY | 2020-12-23 12:16 | XMS REPORT | Continuity of Care Document ---
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 code = UA pH) 6.0 1 5.0-8.0 [facility] [id number] 12:28:00Small *ABN*(01/08/16 7:28 AM) [facility] [id number] 12:28:000.2[facility] [id number] 12:28:00Negative (01/08/16 7:28 AM)[facility] STOOL 2016-01-08 12:28:00Negative (01/08/16 7:28 AM)[facility] STOOL 2016-01-08 12:28:00Negative (01/08/16 7:28 AM)[facility] STOOL 2016-01-08 12:28:00Negative *NA*(01/08/16 7:28 AM)[facility] STOOL 2016-01-08 12:28:00Negative *NA*(01/08/16 7:28 AM)[facility] STOOL 2016-01-08 12:28:00 Test Item Value Reference Range Interpretation Comments UA Spec Grav (test code = UA Spec 1.027 1 Grav) [facility] [id number] 12:28:00Clear (01/08/16 7:28 AM)[facility] [id number] 12:28:00Yellow *NA*(01/08/16 7:28 AM)[facility]PaspaimKZKXQCTKJL4412-59-76 10:16:150.1[facility] PjkshkhUWTKBCKMWT3045-17-42 10:16:15 Test Item Value Reference Range Interpretation Comments Split Point Rapid (test code = Split 0.6 min Point Rapid) [facility]FsayjhiXVFUVQZXQI3507-02-08 10:16:15 Test Item Value Reference Range Interpretation Comments ACT (TEG) Rapid (test code = ACT (TEG) 113 s 86-118 Rapid) [facility] Hos[id number] 10:16:15 Test Item Value Reference Range Interpretation Comments Angle Rapid (test code = Angle 72 degrees 64-80 Rapid) [facility] H[id number] 10:16:15 Test Item Value Reference Range Interpretation Comments K-time Rapid (test code = K-time 1.5 min 0.6-2.3 Rapid) [facility] HospitalSimvqroYXBJQTYSLE8916-31-13 10:16:15 Test Item Value Reference Range Interpretation Comments R-time Rapid (test code = R-time 0.7 min 0.4-0.7 Rapid) [facility] HospitalAsneccsQSHKEPHRFW9340-41-20 10:16:15 Test Item Value Reference Range Interpretation Comments Max Amplitude Rapid (test code = Max 61 mm 52-71 Amplitude Rapid) [facility] HospitalAohtbjnLGUSUMKIJR2721-90-59 10:16:157.9[facility] 2016-01-08 10:16:151.4[facility] BANK [id number] 10:13:00 Negative (01/08/16 5:13 AM)[facility]
--- NOTE | 2020-12-23 13:31 | RAD REPORT ---
EXAM DESCRIPTION: RAD - Chest Pa And Lat (2 Views) - 12/23/2020 1:25 pm CLINICAL HISTORY: COUGH COMPARISON: Chest Single View dated 07/07/2020; Chest Single View dated 03/06/2020; Chest Single View d ated 12/04/2019; Chest Pa And Lat (2 Views) dated 09/07/2019 FINDINGS: No evidence of edema or pneumonia. The heart size is within normal limits.No acute osseous abnormality. No significant pleural effusions or pneumothorax. IMPRESSION: No acute cardiopulmonary disease.
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
[2020-12-23 15:28] VITALS: BP 122/64; TEMP 98.4; O2SAT 99
== END 2020-12-23 15:20 | disposition home or self-care (01) ==
LOC: ER 12:11
DX: J20.9 Acute bronchitis, unspecified (principal); Z86.16 Personal history of COVID-19; F17.210 Nicotine dependence, cigarettes, uncomplicated; Z88.8 Allergy status to other drugs, medicaments and biological substances; Z91.013 Allergy to seafood; Z91.018 Allergy to other foods
CPT/HCPCS: 71046; 87070; 87081; 87804; 99283; U0003

== ENCOUNTER 2021-01-02 15:03 | Emergency (ER) | payer SELFPAY ==
--- OUTSIDE RECORDS SUMMARY | 2021-01-02 15:07 | XMS REPORT | Continuity of Care Document ---
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 Point Rapid (test code = Split 0.6 min Point Rapid) [facility] [id number] 10:16:15 Test Item Value Reference Range Interpretation Comments ACT (TEG) Rapid (test code = ACT (TEG) 113 s 86-118 Rapid) [facility] [id number] 10:16:15 Test Item Value Reference Range Interpretation Comments Angle Rapid (test code = Angle 72 degrees 64-80 Rapid) [facility] Cent[id number] 10:16:15 Test Item Value Reference Range Interpretation Comments K-time Rapid (test code = K-time 1.5 min 0.6-2.3 Rapid) [facility] [id number] 10:16:15 Test Item Value Reference Range Interpretation Comments R-time Rapid (test code = R-time 0.7 min 0.4-0.7 Rapid) [facility] C[id number] 10:16:15 Test Item Value Reference Range Interpretation Comments Max Amplitude Rapid (test code = Max 61 mm 52-71 Amplitude Rapid) [facility] [id number] 10:16:157.9[facility] 2016-01-08 10:16:151.4[facility] BANK [id number] 10:13:00 Negative (01/08/16 5:13 AM)[facility]
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
[2021-01-02 18:29] VITALS: TEMP 97.2
[2021-01-02 18:31] VITALS: BP 140/84; O2SAT 100
== END 2021-01-02 18:24 | disposition home or self-care (01) ==
LOC: ER 15:03
DX: Z02.79 Encounter for issue of other medical certificate (principal)